=== PATIENT | female | born 1960 | race Caucasian/White ===

== ENCOUNTER 2019-06-13 15:23 | Emergency (ER) | payer MEDICARE, MEDICAID, SELFPAY ==
[2019-06-13 15:30] VITALS: BP 123/62; PULSE 81; RESP 20; TEMP 36.9; O2SAT 96
--- NOTE | 2019-06-13 15:33 | ED_ITS ---
HPI - General Adult General: Chief complaint: General Medical Stated complaint: GENERAL ILLNESS / ANXIETY / COUGH Time Seen by Provider: 06/13/19 15:26 History of Present Illness: HPI narrative: Patient arrived via ambulance for complaints of cough not feeling well flulike symptoms and anxiety. Patient's O2 and end-tidal CO2 was near perfect on right hand patient appears very anxious. Patient said she had a cough. Her main problem is been headache at times and not able to take her medication as prescribed due to lack of funds or possible ride to providers MD complaint: Cough Onset (ago): day(s) Associated symptoms: Reports cough, dyspnea and fevers/chills; Deny chest pain, headache(s), nausea, rash or vomiting Review of Systems Const: Reports: chills; Denies: fever or body aches Eyes: Denies: change in vision or blurry vision ENMT: Denies: throat pain or nasal congestion Card: Denies: chest pain or shortness of breath on exertion Resp: Reports: shortness of breath, productive cough and wheezing GI: Denies: abdominal pain, nausea or vomiting Musc: Denies: extremity pain Skin/Breast: Denies: rash Neuro: Denies: headache Psych: Reports: anxiety; Denies: depression Gamaliel/Lymph: Denies: easy bruising PFSH ED PFSH: Social History Smoking and tobacco status: current every day smoker Physical Exam Const: COMMON NORMALS: no apparent distress, average body habitus and oriented x3 HENMT: COMMON NORMALS: normocephalic HEAD & SCALP: normal to inspection and normocephalic FACE & SINUS: normal facial exam Eye: COMMON NORMALS: conjunctivae normal GENERAL EYE: normal appearance of both eyes CONJUNCTIVA: Yes conjunctivae normal Neck/C-Spine: COMMON NORMALS: no JVD Chest: COMMONS NORMALS: inspection of chest normal Resp: COMMON NORMALS: normal respiratory effort AUSCULTATION: rhonchi lower bilaterally and diminished lung sounds Cardio: COMMON NORMALS: no JVD, regular rate and regular rhythm RATE: regular rate RHYTHM: regular rhythm GI: COMMON NORMALS: normal to inspection, nondistended, normoactive bowel sounds Extremity: COMMON NORMALS: normal to inspection and full ROM Neuro: COMMON NORMALS: oriented x3 Course Vital Signs: Vital signs: Vital Signs Temperature 98.5 F 06/13/19 15:30 Pulse Rate 86 06/13/19 16:11 Respiratory Rate 22 H 06/13/19 16:11 Blood Pressure 123/62 06/13/19 15:30 Pulse Oximetry 94 06/13/19 16:11 [facility] - General Adult Lab Data: Labs: Lab Results 06/13/19 06/13/19 06/13/19 Range/Units 15:45 16:09 16:09 WBC 10.6 H (4.0-10.0) 10^3/ uL RBC 4.12 (4.1-5.3) 10^6/u L Hgb 12.0 (11.5-15.3) g/dL Hct 36.2 L (37.0-47.0) % MCV 87.9 (81-99) fL MCH 29.1 (28.0-34.0) pg MCHC 33.1 (30.0-36.0) g/dL RDW 12.6 (12.1-15.1) % Plt Count 302 (130-400) 10^3/c mm MPV 10.1 (7.4-10.4) fL Neut % (Auto) 67.2 % Lymph % (Auto) 22.7 % Edgar % (Auto) 8.5 % Eos % (Auto) 1.0 % Baso % (Auto) 0.3 % Neut # (Auto) 7.2 (1.8-7.7) 10^3/u L Lymph # (Auto) 2.4 (0.8-4.8) 10^3/u L Edgar # (Auto) 0.9 (0.2-0.9) 10^3/u L Eos # (Auto) 0.1 (0.0-0.8) 10^3/u L Baso # (Auto) 0.0 (0.0-0.1) 10^3/u L Nucleated RBC % (a uto) 0 % Nucleated RBCs # 0.0 /100WBC Lactic Acid 1.0 (0.5-2.2) mmol/L Influenza Type A A g Negative (Negative) POC Influenza B Ag Negative (Negative) EKG Data^: EKG 1: EKG interpretation date: 06/13/19 EKG interpretation time: 16:50 Interpretation: artifact, p wave present Computer generated interpretation: Chest X-Ray 06/13/19 15:35 Impression: Hyperinflation. Discharge Plan Discharge Patient Disposition: Home, Self-Care Clinical Impression: Anxiety Condition: Stable Prescriptions: No Action venlafaxine 75 mg capsule,extended release 24hr 75 mg PO DAILY RF: 0 ropinirole 1 mg Tablet 1 mg PO BID RF: 0 sulfasalazine 500 mg tablet 500 mg PO BID RF: 0 trazodone 50 mg Tablet 50 mg PO DAILY RF: 0 clonazepam 0.5 mg tablet 0.5 mg PO BID RF: 0 cyproheptadine 4 mg tablet 4 mg PO DAILY RF: 0 trazodone 100 mg tablet 100 mg PO BEDTIME RF: 0 pantoprazole 40 mg tablet,delayed release (DR/EC) 40 mg PO BID RF: 0 mupirocin 2 % ointment 1 applic TOPICAL DAILY RF: 0 aripiprazole 15 mg tablet 15 mg PO DAILY RF: 0 Referrals: Lorelei Weinberg DO [Primary Care Provider] - Discharge Diet: Usual diet Discharge Activity: Increase activity as tolerated Patient Instructions: How to Stop Smoking (ED), Anxiety (ED) Activity Restrictions/Additional Instructions: Follow-up with medical provider as directed. Take your medications as prescribed. Return to the ER or your medical provider if condition worsens. Please read and understand discharge instructions. If any questions ask please. Follow-up with behavioral health care as soon as possible to go over your anxiety condition. Can contact the [facility] transportation society to help with the transportation needs keep appointment as scheduled. Coding Level of Care Code ED Research Physician for Jeaneth Fwdivya Exam Comprehensive
--- NOTE | 2019-06-13 15:35 | ECG_ITS ---
Measurements Intervals [place] Rate: 100 P: [place]: 0 QRS: -39 QRSD: 87 T: 64 QT: 335 QTc: 433 Sinus tachycardia with multiform PVCs 1 couplet LEFT AXIS DEVIATION [QRS AXIS < -30] NONSPECIFIC T-WAVE ABNORMALITY Compared to ECG 08/09/2018 09:22:01 Ventricular premature complex(es) now present Left-axis deviation now present T-wave abnormality now present Myocardial infarct finding no longer present Electronically Signed On 06-14-2019 9:03:00 CDT by Gonsalo Singletary M.D. [email or web address]
--- NOTE | 2019-06-13 15:35 | XR_ITS ---
WS: [id number] Portable AP upright chest, 06/13/2019 Clinical Data: cough Comparison: Portable chest, 06/10/2018. Findings: No nodules, masses or effusions are seen. The heart is normal. The pulmonary vascularity is not increased. No pneumonia or pneumothorax is seen. There is minimal scarring along the left cardia c border unchanged. The diaphragms are flattened. There is plate and screw fixation of the midportion of the right clavicle. There is absence of the distal portion of the right clavicle. XR/XR chest 1V portable [id number] Impression: Hyperinflation.
[2019-06-13] MEDS: LORazepam 2 mg/mL INJ 1 mL IVP (15:44)
[2019-06-13] MEDS: ipratropium-albuterol 3 mL Neb INHALATION (16:04)
[2019-06-13 16:06] VITALS: PULSE 87; RESP 22; O2SAT 94
[2019-06-13 16:11] VITALS: PULSE 86; RESP 22; O2SAT 94
[2019-06-13 16:22] LABS: Influenza A by IFA Negative (Negative); Influenza B by IFA Negative (Negative)
[2019-06-13 16:25] LABS: Basophils % 0.3 %; Eosinophils # 0.1 10^3/uL (0.0-0.8); Hematocrit 36.2 % (37.0-47.0); Lymphocytes # 2.4 10^3/uL (0.8-4.8); Lymphocytes % 22.7 %; Mean Corpuscular HGB Conc 33.1 g/dL (30.0-36.0); Mean Corpuscular Hemoglobin 29.1 pg (28.0-34.0); Mean Corpuscular Volume 87.9 fL (81-99); Mean Platelet Volume 10.1 fL (7.4-10.4); Monocytes # 0.9 10^3/uL (0.2-0.9); Monocytes % 8.5 %; Neutrophils # 7.2 10^3/uL (1.8-7.7); Neutrophils % 67.2 %; Nucleated Red Blood Cells % 0 %; Platelet Count 302 10^3/cmm (130-400); Red Blood Count 4.12 10^6/uL (4.1-5.3); Red Cell Distribution Width 12.6 % (12.1-15.1); White Blood Count 10.6 10^3/uL (4.0-10.0)
[2019-06-13 17:03] VITALS: BP 118/78; PULSE 86; RESP 16; O2SAT 95
== END 2019-06-13 17:04 | disposition home or self-care (01) ==
PROVIDERS: Emergency Provider Nurse Practitioner Family; Family Provider Family Medicine; PCP Family Medicine
DX: F41.9 Anxiety disorder, unspecified (principal); F17.200 Nicotine dependence, unspecified, uncomplicated
CPT/HCPCS: 12345; 36415; 71045; 83605; 85025; 87804; 93005; 94640; 96374; 96375; 99282; 99283; J2060

== ENCOUNTER 2019-09-15 16:20 | Emergency (ER) | payer MEDICARE, MEDICAID, SELFPAY ==
[2019-09-15 16:34] VITALS: BP 163/116; PULSE 95; RESP 12; TEMP 36.7; O2SAT 98; BMI 20.7
--- NOTE | 2019-09-15 17:06 | ED_ITS ---
Documented by User: Arvind Baca DO 09/19/19 10:02 HPI - SOB/Dyspnea General: Chief Complaint: Shortness of Breath/Dyspnea Stated Complaint: sob Time Seen by Provider: 09/15/19 16:34 History of Present Illness: HPI Narrative: 58-year-old female comes in the emergency room complaining of neck pain she has her neck held on a torticollis- like position turned to the left. She states she took her regular medicines and then staggered herself this morning taking multiple energy drinks she cannot tell me what exactly she took. She is hyperventilating. She is complaining of shortness of breath cramping in her hands and feet. She denies any or GI GI symptoms she denies any chest pain. She is extremely anxious and tearful. She denies any recent trauma. There is no family members available to assist with history at this time. MD elicited complaint: shortness of breath Onset (ago): hour(s) Context: anxiety Timing: constant Severity: severe Exacerbating factors: movement Relieving factors: nothing Associated symptoms: Reports extremity pain, lightheadedness, myalgias, nausea and sense of impending doom; Deny chest congestion, chest pain, fever(s), orthopnea, polydipsia, polyuria, syncope or vomiting Treatment prior to arrival: none Review of Systems Const: Denies: fever(s), chills, body aches, change in appetite, fatigue or malaise ENMT: Denies: throat pain, ear or mastoid pain, nasal discharge or nasal congestion Card: Reports: lightheadedness; Denies: chest pain, syncope or orthopnea Resp: Denies: chest congestion GI: Reports: nausea; Denies: vomiting : Denies: flank pain, difficulty voiding, dysuria, urinary frequency or urinary urgency Musc: Reports: extremity pain Skin/Breast: Denies: rash or pruritus Endo: Denies: polyuria or polydipsia PFSH ED PFSH: Medical History (Updated 09/15/19 @ 19:55 by Obinna Dyer DO) Anxiety Crohn's colitis Surgical History (Updated 09/15/19 @ 17:18 by Arvind Baca DO) H/O tubal ligation H/O: hysterectomy S/P cholecystectomy S/P small bowel resection S/P splenectomy Status post tonsillectomy and adenoidectomy Social History Smoking and tobacco status: current every day smoker Physical Exam Const: ORIENTATION/CONSCIOUSNESS: Yes awake, Yes oriented to person, Yes oriented to place and Yes oriented to time HENMT: COMMON NORMALS: normocephalic, atraumatic, hearing grossly normal bilaterally, external ears normal, EAC's normal, TM's normal bilaterally, Normal nasal mucous membranes and turbinates present, moist oral mucous membranes and oropharynx normal HEAD & SCALP: normocephalic and atraumatic NOSE: Normal nasal mucous membranes and turbinates present EXTERNAL EAR: Yes external ears normal EXTERNAL AUDITORY CANAL: EAC's normal TYMPANIC MEMBRANE: TM's normal bilaterally Eye: COMMON NORMALS: Equal, round and reactive pupils present, EOMs intact bilaterally, conjunctivae normal and no scleral icterus CONJUNCTIVA: Yes conjunctivae normal PUPIL: Yes Equal, round and reactive pupils present Neck/C-Spine: COMMON NORMALS: full ROM, no lymphadenopathy, supple and no JVD Lymph: LYMPHATIC: no lymphadenopathy noted and no lymphedema noted Resp: COMMON NORMALS: normal respiratory effort, No retractions, No use of accessory muscles and clear to auscultation bilaterally AUSCULTATION: clear to auscultation bilaterally Cardio: COMMON NORMALS: no JVD, regular rate, regular rhythm and No murmurs present (Cardio) RATE: regular rate RHYTHM: regular rhythm GI: COMMON NORMALS: Soft to palpation and No hepatosplenomegaly present AUSCULTATION: Yes normoactive bowel sounds PALPATION: Yes Soft to palpation, No Tenderness to palpation present (GI), No Guarding due to palpation present (GI) and Yes No hepatosplenomegaly present Extremity: COMMON NORMALS: normal to inspection, capillary refill normal, no clubbing, cyanosis or edema, no calf tenderness and no pedal edema Neuro: SENSORIUM/ORIENTATION: Yes oriented to person, Yes oriented to place and Yes oriented to time Skin: COMMON NORMALS: no rashes or lesions noted GENERAL SKIN EXAM: no rashes or lesions noted Course Vital Signs: Vital signs: Vital Signs Temperature 98.0 F 09/15/19 16:34 Pulse Rate 78 09/15/19 20:27 Respiratory Rate 18 09/15/19 20:27 Blood Pressure 141/82 09/15/19 20:27 Pulse Oximetry 96 09/15/19 20:27 MDM - SOB/Dyspnea MDM Narrative: Medical decision making narrative: Care transferred to Dr. Gomez Anguiano at change of shift see his notes for final disposition. Lab Data: Labs: Lab Results 09/15/19 09/15/19 09/15/19 Range/Units 17:17 17:44 18:19 WBC 7.5 (4.0-10.0) 10^3/ uL RBC 4.21 (4.1-5.3) 10^6/u L Hgb 12.5 (11.5-15.3) g/dL Hct 38.8 (37.0-47.0) % MCV 92.2 (81-99) fL MCH 29.7 (28.0-34.0) pg MCHC 32.2 (30.0-36.0) g/dL RDW 14.0 (12.1-15.1) % Plt Count 263 (130-400) 10^3/c mm MPV 10.9 H (7.4-10.4) fL Neut % (Auto) 52.1 % Lymph % (Auto) 37.4 % [place] % (Auto) 8.6 % Eos % (Auto) 1.5 % Baso % (Auto) 0.1 % Neut # (Auto) 3.9 (1.8-7.7) 10^3/u L Lymph # (Auto) 2.8 (0.8-4.8) 10^3/u L [place] # (Auto) 0.6 (0.2-0.9) 10^3/u L Eos # (Auto) 0.1 (0.0-0.8) 10^3/u L Baso # (Auto) 0.0 (0.0-0.1) 10^3/u L Nucleated RBC % (a uto) 0 % Nucleated RBCs # 0.0 /100WBC Specimen Type Arterial Sample Site Radial, left ABG pH 7.47 H (7.35-7.45) ABG pCO2 31.3 L (35-45) mmHg ABG pO2 75.3 L (80.0-100.0) mmH g ABG HCO3 22.5 (22-26) mmol/L ABG O2 Saturation 94.7 ABG Base Excess -0.4 (-2.0-2.0) mmol/ L Nicolás Test Pos A-a O2 Gradient 83.6 H (5-10) mmHg Hematocrit 41.3 (37-47) % Hgb O2 Saturation 94.7 L (95-100) % Carboxyhemoglobin 1.4 (0.4-20.1) %THgb Total Hemoglobin 13.5 (12-16) g/dL Sodium 143.0 140 (131-143) mmol/L Potassium 4.5 3.6 (3.5-5.0) mmol/L Glucose 98.0 93 (70-115) mg/dL Ionized Calcium 1.2 (1.1-1.4) mmol/L O2 Delivery Device Nc O2 Liters/Min 2.0 % FiO2 28.0 % Clinical Dietitian ID cak Chloride 104 (98-107) mmol/L Carbon Dioxide 23 (22-29) mmol/L Anion Gap 16.6 (5-19) BUN 11 (8-23) mg/dL Creatinine 0.5 (0.5-0.9) mg/dL GFR Calculation 125.9 (90-130) mL/min Calculated Osmolal ity 286 (285-295) mOsm/k g Lactic Acid (Sepsi s) (0.5-2.2) mmol/L Calcium 10.2 (8.5-10.5) mg/dL Total Bilirubin 0.4 (0.15-1.2) mg/dL AST 22 (0-32) U/L ALT 12 (0-33) U/L Alkaline Phosphata se 97 (35-105) IU/L C-Reactive Protein 8.6 H (0.0-4.9) mg/L Total Protein 7.1 (6.6-8.7) g/dL Albumin 4.8 (3.5-5.2) g/dL Globulin 2.3 (1.3-4.6) g/dL Ethyl Alcohol < 10 (0-10) mg/dL 09/15/19 Range/Units 19:22 WBC (4.0-10.0) 10^3/ uL RBC (4.1-5.3) 10^6/u L Hgb (11.5-15.3) g/dL Hct (37.0-47.0) % MCV (81-99) fL MCH (28.0-34.0) pg MCHC (30.0-36.0) g/dL RDW (12.1-15.1) % Plt Count (130-400) 10^3/c mm MPV (7.4-10.4) fL Neut % (Auto) % Lymph % (Auto) % [place] % (Auto) % Eos % (Auto) % Baso % (Auto) % Neut # (Auto) (1.8-7.7) 10^3/u L Lymph # (Auto) (0.8-4.8) 10^3/u L [place] # (Auto) (0.2-0.9) 10^3/u L Eos # (Auto) (0.0-0.8) 10^3/u L Baso # (Auto) (0.0-0.1) 10^3/u L Nucleated RBC % (a uto) % Nucleated RBCs # /100WBC Specimen Type Sample Site ABG pH (7.35-7.45) ABG pCO2 (35-45) mmHg ABG pO2 (80.0-100.0) mmH g ABG HCO3 (22-26) mmol/L ABG O2 Saturation ABG Base Excess (-2.0-2.0) mmol/ L Nicolás Test A-a O2 Gradient (5-10) mmHg Hematocrit (37-47) % Hgb O2 Saturation (95-100) % Carboxyhemoglobin (0.4-20.1) %THgb Total Hemoglobin (12-16) g/dL Sodium (131-143) mmol/L Potassium (3.5-5.0) mmol/L Glucose (70-115) mg/dL Ionized Calcium (1.1-1.4) mmol/L O2 Delivery Device O2 Liters/Min % FiO2 % Clinical Dietitian ID Chloride (98-107) mmol/L Carbon Dioxide (22-29) mmol/L Anion Gap (5-19) BUN (8-23) mg/dL Creatinine (0.5-0.9) mg/dL GFR Calculation (90-130) mL/min Calculated Osmolal ity (285-295) mOsm/k g Lactic Acid (Sepsi s) 0.8 (0.5-2.2) mmol/L Calcium (8.5-10.5) mg/dL Total Bilirubin (0.15-1.2) mg/dL AST (0-32) U/L ALT (0-33) U/L Alkaline Phosphata se (35-105) IU/L C-Reactive Protein (0.0-4.9) mg/L Total Protein (6.6-8.7) g/dL Albumin (3.5-5.2) g/dL Globulin (1.3-4.6) g/dL Ethyl Alcohol (0-10) mg/dL Discharge Plan Discharge Patient Disposition: Home, Self-Care Clinical Impression: Acute torticollis, Acute hyperventilation syndrome Condition: Stable Prescriptions: New tizanidine 4 mg tablet 4 mg PO Q8H PRN (Reason: muscle spasticity) Qty: 10 RF: 0 No Action venlafaxine 75 mg capsule,extended release 24hr 75 mg PO DAILY RF: 0 ropinirole 1 mg Tablet 1 mg PO BID RF: 0 sulfasalazine 500 mg tablet 500 mg PO BID RF: 0 trazodone 50 mg Tablet 50 mg PO DAILY RF: 0 clonazepam 0.5 mg tablet 0.5 mg PO BID RF: 0 cyproheptadine 4 mg tablet 4 mg PO DAILY RF: 0 trazodone 100 mg tablet 100 mg PO BEDTIME RF: 0 pantoprazole 40 mg tablet,delayed release (DR/EC) 40 mg PO BID RF: 0 mupirocin 2 % ointment 1 applic TOPICAL DAILY RF: 0 aripiprazole 15 mg tablet 15 mg PO DAILY RF: 0 Discharge Orders: Discharge Order (Routine); Ordered 09/15/19 Ordered By: Obinna Dyer Referrals: Lorelei Weinberg DO [Primary Care Provider] - 4-7 days Discharge Diet: Usual diet Discharge Activity: Increase activity as tolerated Patient Instructions: Hyperventilation (ED), Spasmodic Torticollis (ED) Activity Restrictions/Additional Instructions: Return to the emergency room for fever greater than 100, worsening muscle spasm or pain, worsening shortness of breath despite treatment. Discharge Date/Time: 09/15/19 20:29 Coding Level of Care Code ED Coal Cutter for Chg Fwd Exam Comprehensive Documented by User: Obinna Dyer DO 09/16/19 03:13 HPI - SOB/Dyspnea General: Chief Complaint: Shortness of Breath/Dyspnea Stated Complaint: sob Time Seen by Provider: 09/15/19 16:34 [facility] ED PFSH: Medical History (Updated 09/15/19 @ 19:55 by Obinna Dyer DO) Anxiety Crohn's colitis Surgical History (Updated 09/15/19 @ 17:18 by Arvind Baca DO) H/O tubal ligation H/O: hysterectomy S/P cholecystectomy S/P small bowel resection S/P splenectomy Status post tonsillectomy and adenoidectomy Social History Smoking and tobacco status: current every day smoker Course ED course: 58-year-old lady checked out to me by Dr. Newby she presents with shortness of breath, hyperventilating. This is resolved now. She complained of neck pain with torticollis-like positioning. Her C-spine CT is negative, only showing some mild degenerative changes. She will be allowed discharge. Vital Signs: Vital signs: Vital Signs Temperature 98.0 F 09/15/19 16:34 Pulse Rate 78 09/15/19 20:27 Respiratory Rate 18 09/15/19 20:27 Blood Pressure 141/82 09/15/19 20:27 Pulse Oximetry 96 09/15/19 20:27 MDM - SOB/Dyspnea Lab Data: Labs: Lab Results 09/15/19 09/15/19 09/15/19 Range/Units 17:17 17:44 18:19 WBC 7.5 (4.0-10.0) 10^3/ uL RBC 4.21 (4.1-5.3) 10^6/u L Hgb 12.5 (11.5-15.3) g/dL Hct 38.8 (37.0-47.0) % MCV 92.2 (81-99) fL MCH 29.7 (28.0-34.0) pg MCHC 32.2 (30.0-36.0) g/dL RDW 14.0 (12.1-15.1) % Plt Count 263 (130-400) 10^3/c mm MPV 10.9 H (7.4-10.4) fL Neut % (Auto) 52.1 % Lymph % (Auto) 37.4 % [place] % (Auto) 8.6 % Eos % (Auto) 1.5 % Baso % (Auto) 0.1 % Neut # (Auto) 3.9 (1.8-7.7) 10^3/u L Lymph # (Auto) 2.8 (0.8-4.8) 10^3/u L [place] # (Auto) 0.6 (0.2-0.9) 10^3/u L Eos # (Auto) 0.1 (0.0-0.8) 10^3/u L Baso # (Auto) 0.0 (0.0-0.1) 10^3/u L Nucleated RBC % (a uto) 0 % Nucleated RBCs # 0.0 /100WBC Specimen Type Arterial Sample Site Radial, left ABG pH 7.47 H (7.35-7.45) ABG pCO2 31.3 L (35-45) mmHg ABG pO2 75.3 L (80.0-100.0) mmH g ABG HCO3 22.5 (22-26) mmol/L ABG O2 Saturation 94.7 ABG Base Excess -0.4 (-2.0-2.0) mmol/ L Nicolás Test Pos A-a O2 Gradient 83.6 H (5-10) mmHg Hematocrit 41.3 (37-47) % Hgb O2 Saturation 94.7 L (95-100) % Carboxyhemoglobin 1.4 (0.4-20.1) %THgb Total Hemoglobin 13.5 (12-16) g/dL Sodium 143.0 140 (131-143) mmol/L Potassium 4.5 3.6 (3.5-5.0) mmol/L Glucose 98.0 93 (70-115) mg/dL Ionized Calcium 1.2 (1.1-1.4) mmol/L O2 Delivery Device Nc O2 Liters/Min 2.0 % FiO2 28.0 % Clinical Dietitian ID cak Chloride 104 (98-107) mmol/L Carbon Dioxide 23 (22-29) mmol/L Anion Gap 16.6 (5-19) BUN 11 (8-23) mg/dL Creatinine 0.5 (0.5-0.9) mg/dL GFR Calculation 125.9 (90-130) mL/min Calculated Osmolal ity 286 (285-295) mOsm/k g Lactic Acid (Sepsi s) (0.5-2.2) mmol/L Calcium 10.2 (8.5-10.5) mg/dL Total Bilirubin 0.4 (0.15-1.2) mg/dL AST 22 (0-32) U/L ALT 12 (0-33) U/L Alkaline Phosphata se 97 (35-105) IU/L C-Reactive Protein 8.6 H (0.0-4.9) mg/L Total Protein 7.1 (6.6-8.7) g/dL Albumin 4.8 (3.5-5.2) g/dL Globulin 2.3 (1.3-4.6) g/dL Ethyl Alcohol < 10 (0-10) mg/dL 09/15/19 Range/Units 19:22 WBC (4.0-10.0) 10^3/ uL RBC (4.1-5.3) 10^6/u L Hgb (11.5-15.3) g/dL Hct (37.0-47.0) % MCV (81-99) fL MCH (28.0-34.0) pg MCHC (30.0-36.0) g/dL RDW (12.1-15.1) % Plt Count (130-400) 10^3/c mm MPV (7.4-10.4) fL Neut % (Auto) % Lymph % (Auto) % [place] % (Auto) % Eos % (Auto) % Baso % (Auto) % Neut # (Auto) (1.8-7.7) 10^3/u L Lymph # (Auto) (0.8-4.8) 10^3/u L [place] # (Auto) (0.2-0.9) 10^3/u L Eos # (Auto) (0.0-0.8) 10^3/u L Baso # (Auto) (0.0-0.1) 10^3/u L Nucleated RBC % (a uto) % Nucleated RBCs # /100WBC Specimen Type Sample Site ABG pH (7.35-7.45) ABG pCO2 (35-45) mmHg ABG pO2 (80.0-100.0) mmH g ABG HCO3 (22-26) mmol/L ABG O2 Saturation ABG Base Excess (-2.0-2.0) mmol/ L Nicolás Test A-a O2 Gradient (5-10) mmHg Hematocrit (37-47) % Hgb O2 Saturation (95-100) % Carboxyhemoglobin (0.4-20.1) %THgb Total Hemoglobin (12-16) g/dL Sodium (131-143) mmol/L Potassium (3.5-5.0) mmol/L Glucose (70-115) mg/dL Ionized Calcium (1.1-1.4) mmol/L O2 Delivery Device O2 Liters/Min % FiO2 % Clinical Dietitian ID Chloride (98-107) mmol/L Carbon Dioxide (22-29) mmol/L Anion Gap (5-19) BUN (8-23) mg/dL Creatinine (0.5-0.9) mg/dL GFR Calculation (90-130) mL/min Calculated Osmolal ity (285-295) mOsm/k g Lactic Acid (Sepsi s) 0.8 (0.5-2.2) mmol/L Calcium (8.5-10.5) mg/dL Total Bilirubin (0.15-1.2) mg/dL AST (0-32) U/L ALT (0-33) U/L Alkaline Phosphata se (35-105) IU/L C-Reactive Protein (0.0-4.9) mg/L Total Protein (6.6-8.7) g/dL Albumin (3.5-5.2) g/dL Globulin (1.3-4.6) g/dL Ethyl Alcohol (0-10) mg/dL Discharge Plan Discharge Patient Disposition: Home, Self-Care Clinical Impression: Acute torticollis, Acute hyperventilation syndrome Condition: Stable Prescriptions: New tizanidine 4 mg tablet 4 mg PO Q8H PRN (Reason: muscle spasticity) Qty: 10 RF: 0 No Action venlafaxine 75 mg capsule,extended release 24hr 75 mg PO DAILY RF: 0 ropinirole 1 mg Tablet 1 mg PO BID RF: 0 sulfasalazine 500 mg tablet 500 mg PO BID RF: 0 trazodone 50 mg Tablet 50 mg PO DAILY RF: 0 clonazepam 0.5 mg tablet 0.5 mg PO BID RF: 0 cyproheptadine 4 mg tablet 4 mg PO DAILY RF: 0 trazodone 100 mg tablet 100 mg PO BEDTIME RF: 0 pantoprazole 40 mg tablet,delayed release (DR/EC) 40 mg PO BID RF: 0 mupirocin 2 % ointment 1 applic TOPICAL DAILY RF: 0 aripiprazole 15 mg tablet 15 mg PO DAILY RF: 0 Discharge Orders: Discharge Order (Routine); Ordered 09/15/19 Ordered By: Obinna Dyer Referrals: Lorelei Weinberg DO [Primary Care Provider] - 4-7 days Discharge Diet: Usual diet Discharge Activity: Increase activity as tolerated Patient Instructions: Hyperventilation (ED), Spasmodic Torticollis (ED) Activity Restrictions/Additional Instructions: Return to the emergency room for fever greater than 100, worsening muscle spasm or pain, worsening shortness of breath despite treatment. Discharge Date/Time: 09/15/19 20:29 Coding Level of Care Code ED Coal Cutter for Suelleng Fwd Exam Comprehensive
--- NOTE | 2019-09-15 17:07 | CTR_ITS ---
PROCEDURE INFORMATION: Exam: CT Cervical Spine Without Contrast Exam date and time: 09/15/2019 5:55 PM Age: 58 years old Clinical indication: Patient HX: Woke up w neck pain and LAMBERT TECHNIQUE: Imaging protocol: Computed tomography images of the cervical spine without contrast. Radiation optimization: All CT scans at this facility use at least one of these dose optimization techniques: automated exposure control; mA and/or kV adjustment per patient size (includes targeted exams where dose is matched to clinical indication); or iterative reconstruction. COMPARISON: No relevant prior studies available. RADIATION DOSE METRICS: Total DLP: 303.82 mGy-cm FINDINGS: Vertebrae: There is decreased height of the C6-C7 disc space with small anterior osteophytes. No fracture is identified. Discs/Spinal canal/Neural foramina: No significant disc protrusion. No severe spinal canal stenosis. No significant neural foraminal narrowing. Soft tissues: Unremarkable. Lungs: There is scarring in the apical regions. CT/CT cervical spin wo con* [id number] IMPRESSION: Mild degenerative changes. No fracture is identified. Radiation Dose CTDIVOL = (mGy): DLP = 303.82 (mGy-cm)
--- NOTE | 2019-09-15 17:07 | XRR_ITS ---
PROCEDURE INFORMATION: Exam: XR Chest, 1 View Exam date and time: 09/15/2019 5:22 PM Age: 58 years old Clinical indication: Chest pain; Additional info: Dyspnea/cough TECHNIQUE: Imaging protocol: XR of the chest Views: 1 view. COMPARISON: No relevant prior studies available. FINDINGS: Lungs: There are COPD changes in both lungs. There are few small calcified granuloma in keeping with old granulomatous disease. No focal infiltrate is identified. Pleural space: Unremarkable. No pleural effusion. No pneumothorax. Heart/Mediastinum: Heart is within normal limits of size. Bones/joints: There is old healed fracture of the right clavicle post internal fixation with metallic hardware. XR/XR chest 1V portable [id number] IMPRESSION: No acute infiltrate.
[2019-09-15 17:08] VITALS: PULSE 96; RESP 18; O2SAT 97
[2019-09-15 17:29] LABS: ABG PCO2 31.3 mmHg (35-45); ABG PH Result 7.47 (7.35-7.45); Alveolar-Arterial Oxygen Gradi 83.6 mmHg (5-10); Arterial Blood Gas Hematocrit 41.3 % (37-47); Base Excess ABG -0.4 mmol/L (-2.0-2.0); Blood Gas Allen Test Pos; Blood Gas Sample Site Radial, left; Blood Gas Sample Type Arterial; Carboxyhemoglobin 1.4 %THgb (0.4-20.1); HCO3 ABG 22.5 mmol/L (22-26); HGB O2 Sat 94.7 % (95-100); Ionized Calcium Level - ABG 1.2 mmol/L (1.1-1.4); Oxygen Device NC; Oxygen Saturation ABG 94.7; PO2 ABG 75.3 mmHg (80.0-100.0); Potassium Level - ABG 4.5 mmol/L (3.5-5.0); Total Hemoglobin 13.5 g/dL (12-16)
[2019-09-15 17:49] LABS: Basophils % 0.1 %; Eosinophils # 0.1 10^3/uL (0.0-0.8); Eosinophils % 1.5 %; Hematocrit 38.8 % (37.0-47.0); Hemoglobin 12.5 g/dL (11.5-15.3); Lymphocytes # 2.8 10^3/uL (0.8-4.8); Lymphocytes % 37.4 %; Mean Corpuscular HGB Conc 32.2 g/dL (30.0-36.0); Mean Corpuscular Hemoglobin 29.7 pg (28.0-34.0); Mean Corpuscular Volume 92.2 fL (81-99); Mean Platelet Volume 10.9 fL (7.4-10.4); Monocytes # 0.6 10^3/uL (0.2-0.9); Monocytes % 8.6 %; Neutrophils # 3.9 10^3/uL (1.8-7.7); Neutrophils % 52.1 %; Nucleated Red Blood Cells % 0 %; Platelet Count 263 10^3/cmm (130-400); Red Blood Count 4.21 10^6/uL (4.1-5.3); White Blood Count 7.5 10^3/uL (4.0-10.0)
[2019-09-15] MEDS: diphenhydrAMINE 50 mg/mL SDV 1mL IVP (17:54)
[2019-09-15 18:08] VITALS: BP 176/89; PULSE 94; RESP 18; O2SAT 99
[2019-09-15 19:27] LABS: Alanine Aminotransferase 12 U/L (0-33); Albumin Level 4.8 g/dL (3.5-5.2); Alkaline Phosphatase 97 IU/L (35-105); Anion Gap 16.6 (5-19); Aspartate Amino Transferase 22 U/L (0-32); Blood Urea Nitrogen 11 mg/dL (8-23); Calcium 10.2 mg/dL (8.5-10.5); Carbon Dioxide 23 mmol/L (22-29); Chloride 104 mmol/L (98-107); Globulin 2.3 g/dL (1.3-4.6); Glomerular Filtration Rate 125.9 mL/min (90-130); Glucose 93 mg/dL (65-115); Osmolality Calculated 286 mOsm/kg (285-295); Potassium 3.6 mmol/L (3.5-5.1); Sodium 140 mmol/L (136-145); Total Bilirubin 0.4 mg/dL (0.15-1.2); Total Protein 7.1 g/dL (6.6-8.7)
[2019-09-15 19:33] LABS: Alcohol Level < 10 mg/dL (0-10)
[2019-09-15 19:38] LABS: Lactic Acid level (Lactate) 0.8 mmol/L (0.5-2.2)
[2019-09-15 19:48] LABS: C Reactive Protein 8.6 mg/L (0.0-4.9)
[2019-09-15 20:27] VITALS: BP 141/82; PULSE 78; RESP 18; O2SAT 96
== END 2019-09-15 20:29 | disposition home or self-care (01) ==
PROVIDERS: Family Medicine; Emergency Provider Emergency Medicine; PCP Family Medicine
DX: M43.6 Torticollis (principal); F45.8 Other somatoform disorders; F17.210 Nicotine dependence, cigarettes, uncomplicated; Z79.899 Other long term (current) drug therapy
CPT/HCPCS: 12345; 36600; 71045; 72125; 80051; 80053; 80307; 82810; 83605; 83986; 85025; 86140; 96374; 96375; 99283; 99284; J1200; J2930

== ENCOUNTER 2020-07-26 15:04 | Inpatient (IN) | payer MEDICARE, MEDICAID, SELFPAY ==
[2020-07-26] VITALS (48 sets, daily range): BP systolic 124–168; BP diastolic 71–125; PULSE 60–124; RESP 14–28; TEMP 36.8–37.3; O2SAT 90–100; BMI 22.3
--- NOTE | 2020-07-26 15:13 | CT_ITS ---
WS: [id number] CT HEAD TECHNIQUE: Noncontrast CT of the head obtained from the skullbase to the vertex. CLINICAL INFORMATION: Symptoms of Acute Stroke COMPARISON: CT 11 018 DLP: [address] scans at [facility] use at least one of these dose optimization techniques: automat ed exposure control; mA and/or kV adjustment per patient size (includes targeted exams where dose is matched to clinical indication); or iterative reconstruction. FINDINGS: No evidence of intracranial hemorrhage or mass effect. Ventricular system and basal cisterns are huynh nt. Mild small vessel changes with mild parenchymal volume loss. No extra-axial fluid collections. No evidence of mass or mass effect. Normal parish-white differentiation. Paranasal sinuses and mastoid air cells are well aerated. .Normal visualized soft tissues. CT/CT head wo con* [id number] IMPRESSION: 1. No evidence of intracranial hemorrhage or mass effect. 2. Mild small vessel changes. Mild parenchymal volume loss. 3. No acute intracranial findings. Notified Arvind Baca DO at 07/26/2020 3:44 PM.
--- NOTE | 2020-07-26 15:13 | ECG_ITS ---
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 Measurements Intervals [place] Rate: 72 P: 69 GA: 154 QRS: 57 QRSD: 97 T: 63 QT: 401 QTc: 440 Interpretive Statements SINUS RHYTHM SEPTAL MYOCARDIAL INFARCTION , PROBABLY OLD [40+ ms Q WAVE IN V1/V2] Compared to ECG 06/13/2019 16:50:01 Myocardial infarct finding now present Sinus tachycardia no longer present Ventricular premature complex(es) no longer present Left-axis deviation no longer present T-wave abnormality no longer present Electronically Signed On 07-27-2020 5:17:24 CDT by Toya Kidd M.D. [id number]
--- NOTE | 2020-07-26 15:14 | ED_ITS ---
HPI - Neuro Symptoms/Deficit General: Chief Complaint: Neuro Symptoms/Deficit Stated Complaint: STROKE LIKE SYMPTOMS Time Seen by Provider: 07/26/20 15:08 History of Present Illness: HPI Narrative: 59-year-old female who is being transported by [facility]'s deputy when she began to have difficulty speaking deputy recognized something was acutely wrong and called 911 for medical assistance. The discharge step he was talking to her while in route and she gives the last normal time at approximately 2:20 PM. On arrival here CT was done. Dr. Keen seen the patient via telemedicine and then came to the department. Difficult to stroke score because patient not able to answer some questions particularly visual difficulties. She does make effort to follow commands. Rough estimate of NIH score on initial exam was 17 . Time: 15:04 Last Observed Normal: 14:20 Timing confirmed by: other ([place] that was transporting the patient) Location: speech, dysarthria, right arm, right leg, ataxia and altered Severity: severe Quality: weak Relieving factors: none Exacerbating factors: none On Anticoagulants: Yes (Has not taken for the last 3 days she did not have access to the medication) Review of Systems General: Reports: ROS unobtainable due to medical condition PFS ED PFSH: Medical History Anxiety Crohn's colitis Surgical History H/O tubal ligation H/O: hysterectomy S/P cholecystectomy S/P small bowel resection S/P splenectomy Status post tonsillectomy and adenoidectomy Social History Smoking and tobacco status: current every day smoker NIH stroke score NIHSS: Level Of Consciousness - 1a: 0 Level Of Consciousness Questions - 1b: Both Correct Level Of Consciousness Commands - 1c: Both Correct Best Gaze - 2: Normal Visual Rodriguez - 3: No Visual Loss Facial Palsy - 4: Normal Motor Arm Right - 5: Effort Against [place] Motor Arm Left - 5: No Effort Against [place] Motor Leg Right - 6: Drift Motor Leg Left - 6: Effort Against [place] Limb Ataxia - 7: Present In Two Limbs Sensory - 8: Severe To Total Loss Best Language - 9: Mild/Moderate Aphasia Dysarthia - 10: Severe Dysarthia Extinction And Inattention - 11: 2 Score: Total Score: 17 Physical Exam HENMT: COMMON NORMALS: normocephalic, atraumatic and hearing grossly normal bilaterally HEAD & SCALP: normocephalic and atraumatic Neck/C-Spine: COMMON NORMALS: full ROM, no lymphadenopathy, supple and no JVD Resp: COMMON NORMALS: normal respiratory effort, No retractions, No use of accessory muscles and clear to auscultation bilaterally AUSCULTATION: clear to auscultation bilaterally Cardio: COMMON NORMALS: no JVD, regular rate, regular rhythm and No murmurs present (Cardio) RATE: regular rate RHYTHM: regular rhythm GI: COMMON NORMALS: Soft to palpation and No hepatosplenomegaly present AUSCULTATION: Yes normoactive bowel sounds PALPATION: Yes Soft to palpation, No Tenderness to palpation present (GI), No Guarding due to palpation present (GI) and Yes No hepatosplenomegaly present Course Vital Signs: Vital signs: Vital Signs Temperature 98.2 F 07/28/20 14:44 Pulse Rate 66 07/28/20 14:44 Respiratory Rate 17 07/28/20 14:44 Blood Pressure 101/58 07/28/20 14:44 Pulse Oximetry 99 07/28/20 14:44 MDM - Neuro Symptoms/Deficit MDM Narrative: Medical decision making narrative: Stroke alert called Dr. Keen consulted stroke score and timeframe are within parameters Dr. Keen recommended TPA TPA was initiated patient admitted to ICU under post TPA stroke protocols Dr. Keen consulted did have improvement while in the emergency room. Lab Data: Labs: Lab Results 07/26/20 07/26/20 07/26/20 Range/Units 15:20 15:20 15:20 WBC 5.2 (4.0-10.0) 10^3/ uL RBC 4.40 (4.1-5.3) 10^6/u L Hgb 12.7 (11.5-15.3) g/dL Hct 40.2 (37.0-47.0) % MCV 91.4 (81-99) fL MCH 28.9 (28.0-34.0) pg MCHC 31.6 (30.0-36.0) g/dL RDW 13.9 (12.1-15.1) % Plt Count 267 (130-400) 10^3/c mm MPV 11.0 H (7.4-10.4) fL Neut % (Auto) 51.1 % Lymph % (Auto) 37.2 % [place] % (Auto) 9.2 % Eos % (Auto) 1.9 % Baso % (Auto) 0.4 % Neut # (Auto) 2.66 (1.8-7.7) 10^3/u L Lymph # (Auto) 1.9 (0.8-4.8) 10^3/u L [place] # (Auto) 0.5 (0.2-0.9) 10^3/u L Eos # (Auto) 0.1 (0.0-0.8) 10^3/u L Baso # (Auto) 0.0 (0.0-0.1) 10^3/u L Nucleated RBC % (a uto) 0 % Nucleated RBCs # 0.0 /100WBC PT Cancelled INR Cancelled APTT Cancelled Sodium 140 (136-145) mmol/L Potassium 4.2 (3.5-5.1) mmol/L Chloride 103 (98-107) mmol/L Carbon Dioxide 25 (22-29) mmol/L Anion Gap 16.2 (5-19) BUN 8 (8-23) mg/dL Creatinine 0.4 L (0.5-0.9) mg/dL GFR Calculation 162.3 H (90-130) mL/min Glucose 100 (65-115) mg/dL Calculated Osmolal ity 288 (285-295) mOsm/k g Calcium 9.0 (8.5-10.5) mg/dL Total Bilirubin 0.3 (0.15-1.2) mg/dL AST 25 (0-32) U/L ALT 18 (0-33) U/L Alkaline Phosphata se 106 H (35-105) IU/L Total Protein 7.1 (6.6-8.7) g/dL Albumin 4.5 (3.5-5.2) g/dL Globulin 2.6 (1.3-4.6) g/dL Urine Color (Yellow) Urine Appearance (CLEAR) Urine pH (5-7) Ur Specific Gravit y (1.005-1.030) Urine Protein (Negative) Urine Glucose (UA) (Normal) Urine Ketones (Negative) Urine Blood (Negative) Urine Nitrate (Negative) Urine Bilirubin (Negative) Urine Urobilinogen (Negative) mg/dL Ur Leukocyte Annalise ase (Negative) Urine Opiates Scre en (Negative) ng/mL Ur Barbiturates Sc reen (Negative) ng/mL Ur Phencyclidine S crn (Negative) ng/mL Ur Amphetamines Sc reen (Negative) ng/mL U Benzodiazepines Scrn (Negative) ng/mL Urine Cocaine Scre en (Negative) ng/mL U Marijuana (THC) Screen (Negative) ng/mL 07/26/20 07/26/20 07/26/20 Range/Units 15:54 15:54 17:06 WBC (4.0-10.0) 10^3/ uL RBC (4.1-5.3) 10^6/u L Hgb (11.5-15.3) g/dL Hct (37.0-47.0) % MCV (81-99) fL MCH (28.0-34.0) pg MCHC (30.0-36.0) g/dL RDW (12.1-15.1) % Plt Count (130-400) 10^3/c mm MPV (7.4-10.4) fL Neut % (Auto) % Lymph % (Auto) % [place] % (Auto) % Eos % (Auto) % Baso % (Auto) % Neut # (Auto) (1.8-7.7) 10^3/u L Lymph # (Auto) (0.8-4.8) 10^3/u L [place] # (Auto) (0.2-0.9) 10^3/u L Eos # (Auto) (0.0-0.8) 10^3/u L Baso # (Auto) (0.0-0.1) 10^3/u L Nucleated RBC % (a uto) % Nucleated RBCs # /100WBC PT 14.90 INR 1.13 APTT 30.3 Sodium (136-145) mmol/L Potassium (3.5-5.1) mmol/L Chloride (98-107) mmol/L Carbon Dioxide (22-29) mmol/L Anion Gap (5-19) BUN (8-23) mg/dL Creatinine (0.5-0.9) mg/dL GFR Calculation (90-130) mL/min Glucose (65-115) mg/dL Calculated Osmolal ity (285-295) mOsm/k g Calcium (8.5-10.5) mg/dL Total Bilirubin (0.15-1.2) mg/dL AST (0-32) U/L ALT (0-33) U/L Alkaline Phosphata se (35-105) IU/L Total Protein (6.6-8.7) g/dL Albumin (3.5-5.2) g/dL Globulin (1.3-4.6) g/dL Urine Color Yellow (Yellow) Urine Appearance Clear (CLEAR) Urine pH 7 (5-7) Ur Specific Gravit y 1.005 (1.005-1.030) Urine Protein Neg (Negative) Urine Glucose (UA) Norm (Normal) Urine Ketones Negative (Negative) Urine Blood Neg (Negative) Urine Nitrate Negative (Negative) Urine Bilirubin Neg (Negative) Urine Urobilinogen Norm (Negative) mg/dL Ur Leukocyte Annalise ase Negative (Negative) Urine Opiates Scre en Negative (Negative) ng/mL Ur Barbiturates Sc reen Negative (Negative) ng/mL Ur Phencyclidine S crn Negative (Negative) ng/mL Ur Amphetamines Sc reen Positive H (Negative) ng/mL U Benzodiazepines Scrn Negative (Negative) ng/mL Urine Cocaine Scre en Negative (Negative) ng/mL U Marijuana (THC) Screen Positive H (Negative) ng/mL Critical Care Time Critical Care Time: Critical Care Time: Yes Total Critical Care Time: 30 Attestation: This case had a high probability of a clinically significant, sudden, or life threatening deterioration of this patient's condition which required my full and direct attention, intervention and personal management. 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
--- NOTE | 2020-07-26 15:36 | CTR_ITS ---
PROCEDURE INFORMATION: Exam: CT Angiography Head With Contrast, Arteriography Exam date and time: 07/26/2020 4:25 PM Age: 59 years old Clinical indication: Speech disturbance; Slurred speech; Prior surgery; Surgery type: Clavicle; Additional info: Acute CVA TECHNIQUE: Imaging protocol: Computed tomography angiography of the head with contrast. Exam focused on the arteries. 3D rendering (Not supervised by radiologist): MIP and/or 3D reconstructed images were created by the technologist. Radiation optimization: All CT scans at this facility use at least one of these dose optimization techniques: automated exposure control; mA and/or kV adjustment per patient size (includes targeted exams where dose is matched to clinical indication); or iterative reconstruction. Contrast material: OMNI 350; Contrast volume: 95 ml; Contrast route: INTRAVENOUS (IV); COMPARISON: CT head wo con* [id number] 07/26/2020 3:16 PM RADIATION DOSE METRICS: Total DLP (mGy-cm): 1943.66 FINDINGS: ANTERIOR CIRCULATION: Right internal carotid artery: There is moderate atherosclerotic disease in the cavernous portion of the right internal carotid artery without significant stenosis. Right middle cerebral artery: Unremarkable. No occlusion or significant stenosis. No aneurysm. Right anterior cerebral artery: Unremarkable. No occlusion or significant stenosis. No aneurysm. Left internal carotid artery: There is moderate atherosclerotic disease in the cavernous portion of the left internal carotid artery without significant stenosis. Left middle cerebral artery: Unremarkable. No occlusion or significant stenosis. No aneurysm. Left anterior cerebral artery: Unremarkable. No occlusion or significant stenosis. No aneurysm. POSTERIOR CIRCULATION: Right vertebral artery: Unremarkable. No occlusion or significant stenosis. No aneurysm. Left vertebral artery: Unremarkable. No occlusion or significant stenosis. No aneurysm. Basilar artery: Unremarkable. No occlusion or significant stenosis. No aneurysm. Right posterior cerebral artery: Unremarkable. No occlusion or significant stenosis. No aneurysm. Left posterior cerebral artery: Unremarkable. No occlusion or significant stenosis. No aneurysm. Veins: Dural venous sinuses are patent. Brain: No definite mass, mass effect, or midline shift. Cerebral ventricles: No ventriculomegaly. Bones/joints: Unremarkable. No acute fracture. Soft tissues: Unremarkable. IMPRESSION: 1. No arterial occlusion or aneurysm. 2. Less than 50% stenosis in the cavernous portion of the internal carotid artery bilaterally. PROCEDURE INFORMATION: Exam: CT Angiography Neck With Contrast Exam date and time: 07/26/2020 4:25 PM Age: 59 years old Clinical indication: Speech disturbance; Slurred speech; Prior surgery; Surgery type: Clavicle; Additional info: Acute CVA TECHNIQUE: Imaging protocol: Computed tomography angiography of the neck with contrast. 3D rendering (Not supervised by radiologist): MIP and/or 3D reconstructed images were created by the technologist. Radiation optimization: All CT scans at this facility use at least one of these dose optimization techniques: automated exposure control; mA and/or kV adjustment per patient size (includes targeted exams where dose is matched to clinical indication); or iterative reconstruction. Contrast material: OMNI 350; Contrast volume: 95 ml; Contrast route: INTRAVENOUS (IV); COMPARISON: CT head wo con* [id number] 07/26/2020 3:16 PM RADIATION DOSE METRICS: Total DLP (mGy-cm): 3.66 FINDINGS: Right common carotid artery: No stenosis. No dissection or occlusion. Right internal carotid artery: There is mild atherosclerotic disease at the origin of the right internal carotid artery with less than 50% stenosis. Right external carotid artery: No occlusion or stenosis of the origin. Right vertebral artery: No stenosis. No dissection or occlusion. Left common carotid artery: No stenosis. No dissection or occlusion. Left internal carotid artery: There is mild atherosclerotic disease at the origin of the left internal carotid artery with less than 50% stenosis. Left external carotid artery: No occlusion or stenosis of the origin. Left vertebral artery: No stenosis. No dissection or occlusion. Bones/joints: There is plate and screw fixation of the right clavicle.There is mild degenerative disc disease in the cervical spine. Soft tissues: Soft tissues in the neck and thoracic inlet are unremarkable. Lungs: There is mild bilateral apical subpleural scarring. CT/CT angio headneck* [id number] IMPRESSION: No arterial stenosis, occlusion or dissection. REFERENCES: NASCET CRITERIA. The degree of internal carotid artery stenosis is based on NASCET criteria. Normal is no stenosis. Mild is less than 50% stenosis. Moderate is 50-69% stenosis. Severe is 70% to 99% stenosis. Total occlusion is no detectable patent lumen. Radiation Dose CTDIVOL = (mGy): DLP = 1943.66~1943.66 (mGy-cm)
[2020-07-26 15:44] LABS: Basophils % 0.4 %; Eosinophils # 0.1 10^3/uL (0.0-0.8); Eosinophils % 1.9 %; Hematocrit 40.2 % (37.0-47.0); Hemoglobin 12.7 g/dL (11.5-15.3); Lymphocytes # 1.9 10^3/uL (0.8-4.8); Lymphocytes % 37.2 %; Mean Corpuscular HGB Conc 31.6 g/dL (30.0-36.0); Mean Corpuscular Hemoglobin 28.9 pg (28.0-34.0); Mean Corpuscular Volume 91.4 fL (81-99); Monocytes # 0.5 10^3/uL (0.2-0.9); Monocytes % 9.2 %; Neutrophils # 2.66 10^3/uL (1.8-7.7); Neutrophils % 51.1 %; Nucleated Red Blood Cells % 0 %; Platelet Count 267 10^3/cmm (130-400); Red Cell Distribution Width 13.9 % (12.1-15.1); White Blood Count 5.2 10^3/uL (4.0-10.0)
[2020-07-26 15:53] LABS: Alanine Aminotransferase 18 U/L (0-33); Albumin Level 4.5 g/dL (3.5-5.2); Alkaline Phosphatase 106 IU/L (35-105); Blood Urea Nitrogen 8 mg/dL (8-23); Carbon Dioxide 25 mmol/L (22-29); Chloride 103 mmol/L (98-107); Globulin 2.6 g/dL (1.3-4.6); Glomerular Filtration Rate 162.3 mL/min (90-130); Glucose 100 mg/dL (65-115); Osmolality Calculated 288 mOsm/kg (285-295); Sodium 140 mmol/L (136-145); Total Bilirubin 0.3 mg/dL (0.15-1.2); Total Protein 7.1 g/dL (6.6-8.7)
[2020-07-26 15:57] LABS: Anion Gap 16.2 (5-19); Aspartate Amino Transferase 25 U/L (0-32); Potassium 4.2 mmol/L (3.5-5.1)
[2020-07-26 16:25] LABS: Add Urine Microscopic? NO; Charge for UA Resulting for Rev
[2020-07-26 16:28] LABS: Bilirubin Urine Neg (Negative); Blood Urine Neg (Negative); Glucose Urine UA Norm (Normal); Ketones Urine Negative (Negative); Leukocyte Esterase Urine Negative (Negative); Nitrate Urine Negative (Negative); Protein Urine Neg (Negative); Specific Gravity, Urine 1.005 (1.005-1.030); Urine Appearance Clear (CLEAR); Urine Color Yellow (Yellow); Urobilinogen Urine Norm (Negative); pH Urine 7 (5-7)
[2020-07-26 16:37] LABS: Amphetamines Screen Urine Positive (Negative); Barbiturates Screen Urine Negative (Negative); Benzodiazepines Screen Urine Negative (Negative); Cocaine Screen Urine Negative (Negative); Opiate Screen Urine Negative (Negative); PCP Screen Urine Negative (Negative); THC Screen Urine Positive (Negative)
[2020-07-26] MEDS: iohexol 350 mg/mL 100 mL Btl IV (17:03)
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
[2020-07-26 17:24] LABS: INR 1.13 (0.8-1.2); Partial Thromboplastin Time 30.3 SECONDS (23.9-36.7)
--- NOTE | 2020-07-26 18:48 | PM.HP ---
Providers/Chief Complaint Admitting Physician: Betty Roger MD Primary Care Provider: Lorelei Weinberg DO Chief Complaint: STROKE LIKE SYMPTOMS History of Present Illness Gwen Briones is a 59 year old female who was being transferred between [facility] by the [facility], when she suddenly was noted to become very drowsy, unable to move her left side, difficult to awaken. She was brought to ER, stroke code activated, seen by neurology. Her CT scan of the head did not show any acute changes. patient had flaccid left hemiplegia and profound dysarthria. tPa was given at 1516. NISS on admission 11. Review of Systems General: Reports: 10 or more systems reviewed and unremarkable except in HPI and below Const: Denies: fever(s), chills or body aches Eyes: Denies: change in vision, blurry vision or photophobia ENMT: Reports: hoarseness; Denies: throat pain, enlarged tonsils, odynophagia or nasal congestion Card: Denies: chest pain, palpitations, irregular heart rhythm, edema, swelling of feet/ankles, lightheadedness, pre-syncope, dyspnea on exertion or orthopnea Resp: Denies: dyspnea, productive cough, non-productive cough, wheezing, stridor, pain on inspiration, change in phlegm color, hemoptysis or chest congestion GI: Denies: abdominal pain, nausea, vomiting, hematemesis, coffee ground emesis, dysphagia, heartburn, diarrhea, constipation, GI cramping, change in stool character, hematochezia or melena : Denies: flank pain, difficulty voiding, dysuria, urinary frequency, urinary urgency, urinary hesitancy or hematuria Musc: Denies: neck pain, back pain, extremity pain, joint swelling, joint warmth or deformity Neuro: Denies: headache(s), numbness in extremities, weakness in extremities, sensory changes, difficulty walking, frequent falls, dizziness, vertigo, behavioral changes, Slurred speech present or seizure-like activity Psych: Denies: anxiety, depression, suicidal ideation or homicidal ideation Endo: Denies: polyuria, polydipsia, tired all the time, cold intolerance or hot flashes Gamaliel/Lymph: Denies: easy bruising or easy bleeding Medications/Allergies Home Medications Medication Instructions Recorded Confirmed Last Taken Type aripiprazole 15 mg PO DAILY 06/13/19 07/26/20 07/23/20 History clonazepam 0.5 - 1 mg PO BEDTIME 06/13/19 07/26/20 Unknown History cyproheptadine 4 mg PO DAILY 06/13/19 07/26/20 Unknown History mupirocin 1 applic TOPICAL DAILY 06/13/19 07/26/20 Unknown History pantoprazole 40 mg PO BID 06/13/19 07/26/20 Unknown History ropinirole 1 mg PO BID 06/13/19 07/26/20 Unknown History sulfasalazine 500 mg PO BID 06/13/19 07/26/20 Unknown History trazodone 50 mg PO DAILY 06/13/19 07/26/20 Unknown History venlafaxine 75 mg PO DAILY 06/13/19 07/26/20 Unknown History albuterol sulfate 2 puff INHALATION QID PRN 07/26/20 07/26/20 Unknown History albuterol sulfate 2.5 mg INHALATION Q6H PRN 07/26/20 07/26/20 Unknown History atorvastatin 20 mg PO DAILY 07/26/20 07/26/20 07/23/20 History clonazepam 1 mg PO BID 07/26/20 07/26/20 07/23/20 History clopidogrel 75 mg PO DAILY 07/26/20 07/26/20 07/23/20 History gmxhnylkmnp-fnnjmstin-fhyzzavg 1 ea INHALATION DAILY 07/26/20 07/26/20 Unknown History [Trelegy Ellipta] Allergies Allergy/AdvReac Type Severity Reaction Status Date / Time aspirin Allergy Unknown Verified 07/26/20 15:34 codeine Allergy ALGY-Rash Verified 07/26/20 15:34 tramadol Allergy Unknown Verified 07/26/20 15:34 PFSH Acute PFSH: Medical History Anxiety Crohn's colitis Surgical History H/O tubal ligation H/O: hysterectomy S/P cholecystectomy S/P small bowel resection S/P splenectomy Status post tonsillectomy and adenoidectomy Social History Smoking and tobacco status: current every day smoker Vitals/I&O/Wt Last Vital Signs Temp 98.3 F 07/26/20 15:17 Pulse 75 07/26/20 18:15 Resp 18 07/26/20 18:15 BP 140/90 07/26/20 18:15 Pulse Ox 95 07/26/20 18:15 07/26/20 07/26/20 07/26/20 06:59 14:59 22:59 Intake Total Balance Weight last 48 hrs Weight 60.781 kg Physical Exam Narrative: EXAM NARRATIVE: General: No acute distress, AO x3 HEENT: PERRLA, pupils bilaterally equal and reactive, pallors not present Chest: Normal vesicular breath sounds, no added sounds, equal good air entry bilaterally CVS: S1-S2 regular, no murmurs, no tachycardia, no gallops, no rubs Abdomen: Soft, nontender, no organomegaly, bowel sounds present Neuro: left ffacial weakness, left hemiparesis Extremities: no edema, clubbing, LAD Data : 07/26/20 15:20 07/26/20 15:20 Attestation for Other Data: I personally reviewed and interpreted the following: Other data: Laboratory Results WBC 5.2 10^3/uL (4.0-10.0) 07/26/20 15:20 RBC 4.40 10^6/uL (4.1-5.3) 07/26/20 15:20 Hgb 12.7 g/dL (11.5-15.3) 07/26/20 15:20 Hct 40.2 % (37.0-47.0) 07/26/20 15:20 MCV 91.4 fL (81-99) 07/26/20 15:20 MCH 28.9 pg (28.0-34.0) 07/26/20 15:20 MCHC 31.6 g/dL (30.0-36.0) 07/26/20 15:20 RDW 13.9 % (12.1-15.1) 07/26/20 15:20 Plt Count 267 10^3/cmm (130-400) 07/26/20 15:20 MPV 11.0 fL (7.4-10.4) H 07/26/20 15:20 Neut % (Auto) 51.1 % 07/26/20 15:20 Lymph % (Auto) 37.2 % 07/26/20 15:20 [place]in[place] % (Auto) 9.2 % 07/26/20 15:20 Eos % (Auto) 1.9 % 07/26/20 15:20 Baso % (Auto) 0.4 % 07/26/20 15:20 Neut # (Auto) 2.66 10^3/uL (1.8-7.7) 07/26/20 15:20 Lymph # (Auto) 1.9 10^3/uL (0.8-4.8) 07/26/20 15:20 [place]in[place] # (Auto) 0.5 10^3/uL (0.2-0.9) 07/26/20 15:20 Eos # (Auto) 0.1 10^3/uL (0.0-0.8) 07/26/20 15:20 Baso # (Auto) 0.0 10^3/uL (0.0-0.1) 07/26/20 15:20 Nucleated RBC % (auto) 0 % 07/26/20 15:20 Nucleated RBCs # 0.0 /100WBC 07/26/20 15:20 PT 14.90 SECONDS (12.1-14.9) 07/26/20 17:06 INR 1.13 (0.8-1.2) 07/26/20 17:06 APTT 30.3 SECONDS (23.9-36.7) 07/26/20 17:06 Sodium 140 mmol/L (136-145) 07/26/20 15:20 Potassium 4.2 mmol/L (3.5-5.1) 07/26/20 15:20 Chloride 103 mmol/L (98-107) 07/26/20 15:20 Carbon Dioxide 25 mmol/L (22-29) 07/26/20 15:20 Anion Gap 16.2 (5-19) 07/26/20 15:20 BUN 8 mg/dL (8-23) 07/26/20 15:20 Creatinine 0.4 mg/dL (0.5-0.9) L 07/26/20 15:20 GFR Calculation 162.3 mL/min (90-130) H 07/26/20 15:20 Glucose 100 mg/dL (65-115) 07/26/20 15:20 Calculated Osmolality 288 mOsm/kg (285-295) 07/26/20 15:20 Calcium 9.0 mg/dL (8.5-10.5) 07/26/20 15:20 Total Bilirubin 0.3 mg/dL (0.15-1.2) 07/26/20 15:20 AST 25 U/L (0-32) 07/26/20 15:20 ALT 18 U/L (0-33) 07/26/20 15:20 Alkaline Phosphatase 106 IU/L (35-105) H 07/26/20 15:20 Total Protein 7.1 g/dL (6.6-8.7) 07/26/20 15:20 Albumin 4.5 g/dL (3.5-5.2) 07/26/20 15:20 Globulin 2.6 g/dL (1.3-4.6) 07/26/20 15:20 Urine Color Yellow (Yellow) 07/26/20 15:54 Urine Appearance Clear (CLEAR) 07/26/20 15:54 Urine pH 7 (5-7) 07/26/20 15:54 Ur Specific [place] 1.005 (1.005-1.030) 07/26/20 15:54 Urine Protein Neg (Negative) 07/26/20 15:54 Urine Glucose (UA) Norm (Normal) 07/26/20 15:54 Urine Ketones Negative (Negative) 07/26/20 15:54 Urine Blood Neg (Negative) 07/26/20 15:54 Urine Nitrate Negative (Negative) 07/26/20 15:54 Urine Bilirubin Neg (Negative) 07/26/20 15:54 Urine Urobilinogen Norm mg/dL (Negative) 07/26/20 15:54 Ur Leukocyte Esterase Negative (Negative) 07/26/20 15:54 Urine Opiates Screen Negative ng/mL (Negative) 07/26/20 15:54 Ur Barbiturates Screen Negative ng/mL (Negative) 07/26/20 15:54 Ur Phencyclidine Scrn Negative ng/mL (Negative) 07/26/20 15:54 Ur Amphetamines Screen Positive ng/mL (Negative) H 07/26/20 15:54 U Benzodiazepines Scrn Negative ng/mL (Negative) 07/26/20 15:54 Urine Cocaine Screen Negative ng/mL (Negative) 07/26/20 15:54 U Marijuana (THC) Screen Positive ng/mL (Negative) H 07/26/20 15:[address] 07/26/20 15:13 IMPRESSION: 1. No evidence of intracranial hemorrhage or mass effect. 2. Mild small vessel changes. Mild parenchymal volume loss. 3. No acute intracranial findings. Notified Arvind Baca DO at 07/26/2020 3:44 PM. Head/Neck CTA 07/26/20 15:36 IMPRESSION: No arterial stenosis, occlusion or dissection. REFERENCES: NASCET CRITERIA. The degree of internal carotid artery stenosis is based on NASCET criteria. Normal is no stenosis. Mild is less than 50% stenosis. Moderate is 50-69% stenosis. Severe is 70% to 99% stenosis. Total occlusion is no detectable patent lumen. Radiation Dose CTDIVOL = (mGy): DLP = 1943.66~1943.66 (mGy-cm) ADDENDUM: 07/26/20 1733 THIS REPORT CONTAINS FINDINGS THAT MAY BE CRITICAL TO PATIENT CARE. The findings were verbally communicated via telephone conference with ARVIND BACA at 5:31 PM CDT on 07/26/2020. The findings were acknowledged and understood. Radiation Dose CTDIVOL = (mGy): DLP = 1943.66~1943.66 (mGy-cm) A&P Assessment and plan (1) Brainstem stroke: Acute CVA s/p tPA on 07/[address] angiogram because of the patient's high NIH stroke scale score was negative for more than 50% stenosis in the anterior circulation. Her main problem is less than 50% stenosis of the carotids in the siphon. No significant vertebral or basilar occlusion. 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
[2020-07-26] MEDS: atorvastatin 40 mg Tablet 20 MG PO (21:53)
[2020-07-26] MEDS: CLONazepam 0.5 mg Tablet PO (21:53)
[2020-07-26] MEDS: trazodone 50 mg Tablet PO (21:54)
--- NOTE | 2020-07-26 23:54 | PC.NURSE ---
ASSUMING CARE Patient is resting in bed and tearful. Patient is on room air. Alert and oriented and no visual facial deficits noted. Patient is alert and oriented, answers all questions appropriately and follows commands. 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 3 bruises to legs, see assessment. Complaints of pain in lower legs, repositioned. Patient states when she lived here she had a nurse that came to her home to help her, but since she moved to [place] that hasnt been set up yet. Case management is consulted. tPA vitals and neuro checks being done per protocol.
[2020-07-27] VITALS (46 sets, daily range): BP systolic 102–139; BP diastolic 54–89; PULSE 54–89; RESP 12–32; TEMP 36.4–36.7; O2SAT 89–100
--- NOTE | 2020-07-27 00:18 | PC.NURSE ---
NURSING DYSPHAGIA Patient tolerated ice chips and sips of water with no coughing, clearing of throat or change in voice multiple times. Patient instructed to tuck chin when swallowing and educated on importance of this. Nurse then gave night time medications after patient did well on assessment. Awaiting hospitalist approval on diet order for patient.
[2020-07-27] MEDS: acetaminophen 325 mg Tablet 650 MG PO (02:33)
--- NOTE | 2020-07-27 06:00 | USCV_ITS ---
Anali Gwen Age: 59 Gender: F : 1960 Exam Date: 07/27/2020 09:49 Ordering Phys: Arvind Baca DO Technologist: Exam Location: [facility] [place] Indication: CVA BP: 120 / 72 HR: 57 Rhythm: Sinus Technical Quality: Fair MEASUREMENTS (Male / Female) Normal Values 2D ECHO LV Diastolic Diameter PLAX 3.4 cm 4.2 - 5.9 / 3.9 - 5.3 cm LV Systolic Diameter PLAX 2.5 cm IVS Diastolic Thickness 1.1 cm 0.6 - 1.0 / 0.6 - 0.9 cm IVS Systolic Thickness 1.8 cm LVPW Diastolic Thickness 1.0 cm 0.6 - 1.0 / 0.6 - 0.9 cm LVPW Systolic Thickness 1.5 cm LVOT Diameter 2.0 cm LV Ejection Fraction 2D Teich 54.3 % LV Ejection Fraction MOD 2C 70.3 % LV Ejection Fraction 2C AL 70.6 % LA Diameter 3.2 cm LA Width 3.5 cm LA Height 3.9 cm RA Width 3.4 cm RA Height 3.8 cm M-MODE LV Diastolic Diameter MM 4.5 cm 4.2 - 5.9 / 3.9 - 5.3 cm LV Systolic Diameter MM 2.6 cm LV Ejection Fraction MM Teich 73.5 % IVS Diastolic Thickness MM 1.1 cm 0.6 - 1.0 / 0.6 - 0.9 cm IVS Systolic Thickness MM 1.7 cm LVPW Diastolic Thickness MM 1.3 cm 0.6 - 1.0 / 0.6 - 0.9 cm LVPW Systolic Thickness MM 1.4 cm RV Diastolic Diameter MM 1.9 cm Aortic Annulus Diameter 3.2 cm LA Ao Ratio MM 1.2 MV E Point Septal Separation 0.8 cm DOPPLER AV Peak Velocity 132.0 cm/s LVOT Peak Velocity 97.0 cm/s AV Area Cont Eq vti 2.4 cm squared AV Area Cont Eq pk 2.3 cm squared MV Area PHT 5.0 cm squared Mitral E to A Ratio 1.1 MV E' Velocity 41.0 cm/s Mitral E to MV E' Ratio 7.8 Mitral E to LV E' Lateral Ratio 7.3 Mitral E to LV E' Septal Ratio 8.5 TR Peak Velocity 180.0 cm/s TR Peak Gradient 13.0 mmHg TV Peak E Velocity 71.0 cm/s Right Atrial Pressure 3.0 mmHg Pulmonary Artery Systolic Pressu 16.0 mmHg FINDINGS Left Ventricle Normal left ventricular cavity size. Normal left ventricular systolic function. No regional wall motion abnormalities. Left ventricular ejection fraction is estimated at 65 %. Grade I/IV diastolic dysfunction (abnormal relaxation filling pattern), normal to mildly elevated filling pressures. Right Ventricle The right ventricle is normal in size and function. Right Atrium The right atrium is normal in size. Left Atrium The left atrium is normal in size. Mitral Valve Structurally normal mitral valve without significant stenosis or prolapse. There is no mitral regurgitation. Aortic Valve Moderate aortic valve calcification. No aortic valve stenosis. No aortic valve regurgitation. Tricuspid Valve Structurally normal tricuspid valve without significant stenosis or regurgitation. Pulmonary artery systolic pressure is normal. Pulmonic Valve Structurally normal pulmonic valve without significant stenosis. There is no pulmonic regurgitation. Pericardium Normal pericardium without effusion. Aorta Normal ascending aorta dimension. CONCLUSIONS 1-Normal left ventricular cavity size. Normal left ventricular systolic function. No regional wall motion abnormalities. Left ventricular ejection fraction is estimated at 65 %. Grade I/IV diastolic dysfunction (abnormal relaxation filling pattern), normal to mildly elevated filling pressures. 2-Moderate aortic valve calcification. No aortic valve stenosis. No aortic valve regurgitation. 3-There is no pericardial effusion. 4-No significant valve abnormalities. 5-Pulmonary artery systolic pressure is within normal limits. 6-There are no prior echocardiogram studies to compare. Yash Dudley MD (Electronically Signed) Final Date: 27 July 2020 14:44 S
[2020-07-27 06:07] LABS: Cholesterol 143 mg/dL (0-200); HDL Cholesterol 65 mg/dL (60-100); LDL Cholesterol Calculated 62 mg/dL (50-129); LDL HDL Ratio 0.95 RATIO (0.00-3.22); Triglycerides 78 mg/dL (0-150)
[2020-07-27 06:30] LABS: Estmated Average Glucose 94; Hemoglobin A1C 4.9 % (4.0-6.0)
[2020-07-27] MEDS: ARIPiprazole 30 mg Tablet 15 MG PO (09:06)
[2020-07-27] MEDS: CLONazepam 1 mg Tablet PO ×2 (09:06→17:21)
[2020-07-27] MEDS: pantoprazole DR 40 mg Tablet PO ×2 (09:07→17:22)
[2020-07-27] MEDS: ropinirole 1 mg Tablet PO ×2 (09:07→17:22)
[2020-07-27] MEDS: venlafaxine ER (24HR) 75 mg Capsule PO (09:08)
--- NOTE | 2020-07-27 09:13 | PC.NURSE ---
patient is crying and states that she wants to talk to meme, her boyfriend, and that she wants to leave. Nurse explained the dangers of leaving AMA while still being observed for TPA administration. Nurse attempted to call meme for the patient at [phone]. No answer. Nurse assured patient that he will continue to try and get a hold of meme and try and have him bring in her cell phone so she can call him whenever she wants. Patient was agreeable to staying after this and had calmed down.
--- NOTE | 2020-07-27 10:30 | PC.CHAP ---
Pastoral Care Encounter/Spiritual Assessment Type of Contact [] Declined electrical technician visit [] Patient/Family/Request visit [] Outpatient visit [] Follow-up visit [] Physician referral [] Code/Alert [] Routine visit [] Staff referral [] Actively dying [XX] Patient sleeping [] Family support [] [] Out of room [] Palliative care [] [] Receiving care in room [] Pre-surgical visit [] Trauma [] Long length of stay [XX] ICU visit [] Other: Relational/Emotional Strength [] Patient feels connected with others/family/visitors/staff [] Distress [] Loneliness/isolation [] Abandonment Spirituality of Patient [] Person of Diamond [] Attends Amish of their Diamond [] Believes in Prayer [] Reads Bible or Buddhism materials [] There are Spiritual issues to be addressed Drier Tender Interventions [] Prayer [] Active listening [] Non-anxious presence [] Spiritual/emotional support [] Crisis/trauma care [] Spiritual counseling [] Bereavement support [] Provided bereavement packet [] Provided Bible/devotional materials [] Provided toy/stuffed animal, coloring book to patient or family member [] Provided Communion [] Anointing/Milan [] Salvation [] Completed spiritual assessment [] Other: Impact on Illness or Injury [] Angry [] Fearful [] Anxious [] Often cries [] Exhaustion [] Unable to work [] Unable to attend zoroastrian [] Unable to walk/stand [] Unable to read [] Unable to drive [] Unable to eat/drink [] Unable to sleep [] Unable to be with family [] Patient intubated [] Other: Summary Time spent with patient
--- NOTE | 2020-07-27 12:58 | PC.NURSE ---
Late note: at 1200 patient was anxious, crying, trying to leave her room stating that she can't stay here anymore and she needs to talk to her family. After many attempts at redirecting patient, she finally settled down and was agreeable to stay after explaining risks of leaving against medical advice. Nurse was able to get family on the phone and the patient calmed down after speaking with her boyfriend meme.
--- NOTE | 2020-07-27 13:00 | PC.NURSE ---
WHile on the phone with charles, nurse was informed that the patient was seen about a month ago for a stroke at [facility] in [place] and [facility]. Muralijazmine said they gave her a medecine to dissolve the clot. NUrse called [place] and was able to confirm that on 06/23/2020 that the patient had received Alteplase at [place] and was then transferred to [facility]. Nurse alerted Dr alfaro to recent stroke and Alteplase administration history.
--- NOTE | 2020-07-27 15:00 | CTR_ITS ---
PROCEDURE INFORMATION: Exam: CT Head Without Contrast Exam date and time: 07/27/2020 2:57 PM Age: 59 years old Clinical indication: Other: Follow up tpa; Additional info: [address] head TECHNIQUE: Imaging protocol: Computed tomography of the head without contrast. Radiation optimization: All CT scans at this facility use at least one of these dose optimization techniques: automated exposure control; mA and/or kV adjustment per patient size (includes targeted exams where dose is matched to clinical indication); or iterative reconstruction. COMPARISON: CT head wo con* [id number] 07/26/2020 3:16 PM RADIATION DOSE METRICS: Total DLP (mGy-cm): 789.81 FINDINGS: Brain: There is mild cerebral atrophy. There is mild diffuse heterogeneity of the white matter attenuation, consistent with chronic white matter ischemic changes. No intracranial hemorrhage. [place] matter and white matter interfaces are preserved. No midline shift of brain. No cerebral sulcal effacement. Cerebral ventricles: No ventriculomegaly. Bones/joints: Unremarkable. No acute fracture. Paranasal sinuses: Visualized sinuses are unremarkable. No fluid levels. Mastoid air cells: Visualized mastoid air cells are well aerated. Soft tissues: Unremarkable. CT/CT head wo con* [id number] IMPRESSION: 1. Negative for intracranial hemorrhage. 2. No significant changes from comparison. Radiation Dose CTDIVOL = (mGy): DLP = 789.81 (mGy-cm)
--- NOTE | 2020-07-27 15:38 | PM.PN ---
Subjective Subjective: Interval history: Per updated history available, patient was also diagnosed with CVA at [facility] approximately 1 month ago at which time she had also received TPA over there. Today reports no new complaints, states feeling little better. Ambulated in the hallway today, passed dysphagia screening, started on diet Medications: Reviewed: Yes Vitals/I&O/Wt Last Vital Signs Temp 98.1 F 07/27/20 11:00 Pulse 69 07/27/20 15:00 Resp 19 H 07/27/20 15:00 BP 103/71 07/27/20 15:00 Pulse Ox 97 07/27/20 15:00 07/27/20 07/27/20 07/27/20 06:59 14:59 22:59 Intake Total 240 / 240 Output Total 900 / 900 150 / 150 Balance -900 / -894 90 / 90 Weight last 48 hrs Weight 65.499 kg Weight 60.781 kg Physical Exam Narrative: EXAM NARRATIVE: General: No acute distress, AO x3 HEENT: PERRLA, pupils bilaterally equal and reactive, pallors not present Chest: Normal vesicular breath sounds, no added sounds, equal good air entry bilaterally CVS: S1-S2 regular, no murmurs, no tachycardia, no gallops, no rubs Abdomen: Soft, nontender, no organomegaly, bowel sounds present Neuro: left ffacial weakness, left hemiparesis Extremities: no edema, clubbing, LAD Data : 07/26/20 15:20 07/26/20 15:20 A&P Assessment and plan (1) Brainstem stroke: Acute CVA s/p tPA on 07/[address] angiogram negative for more than 50% stenosis in the anterior circulation. Pending post tPa [address] to r/o any bleeding If CT head without bleed, will resume antiplatelets in the morning. Continue statin PT/OT eval Echo Normal left ventricular cavity size. Normal left ventricular systolic function. No regional wall motion abnormalities. Left ventricular ejection fraction is estimated at 65 %. Grade I/IV diastolic dysfunction. 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
--- NOTE | 2020-07-27 19:00 | PC.NURSE ---
Shift summary: Pt NIH stroke assessment has improved. Previously a 7, now a 2 at the end of shift. Still experiencing sight left sided facial droop and slight left arm drift. Pt is now able to ambulate with standby assistance. Currently pending transfer to [facility].
[2020-07-27] MEDS: atorvastatin 40 mg Tablet 20 MG PO (20:42)
[2020-07-27] MEDS: trazodone 50 mg Tablet PO (20:42)
--- NOTE | 2020-07-27 20:57 | PC.NURSE ---
ASSUMING CARE Patient is resting in bed on room air. Alert and oriented x 4. Bilateral grading supervisor are now equal, patient does very welling when getting up to BSC. Nothing running intravenously. Patient to be transferred to Med/Surg [facility].
--- NOTE | 2020-07-27 21:06 | PC.NURSE ---
TRANSFER Report called to [facility] on Med/Surg. Patient taken via wheelchair to [facility]-, call light in reach.
[2020-07-28] VITALS (7 sets, daily range): BP systolic 94–124; BP diastolic 58–76; PULSE 60–81; RESP 16–18; TEMP 36.3–36.8; O2SAT 92–99
[2020-07-28] MEDS: ARIPiprazole 30 mg Tablet 15 MG PO (09:37)
[2020-07-28] MEDS: CLONazepam 1 mg Tablet PO (09:38)
[2020-07-28] MEDS: ropinirole 1 mg Tablet PO (09:38)
[2020-07-28] MEDS: venlafaxine ER (24HR) 75 mg Capsule PO (09:39)
[2020-07-28] MEDS: pantoprazole DR 40 mg Tablet PO (09:39)
--- NOTE | 2020-07-28 12:38 | PC.SLP ---
Visit attempted, but patient was asleep. Nurse reports no concerns with diet, and she is tolerating it well at this time.
--- NOTE | 2020-07-28 17:59 | PM.DCS ---
Discharge Providers Date of Admission: 07/26/20 17:33 Date of Discharge: July 28, 2020 Attending Provider at Admission: Betty Roger MD Attending Provider at Discharge: Betty Roger MD Primary Care Provider: Lorelei Weinbegr DO Diagnoses at Discharge Discharge Diagnosis (1) Brainstem stroke: Status: Acute (2) Crohn's colitis: Status: Acute (3) Anxiety: Status: Acute Reason for Visit Reason for Visit: STROKE LIKE SYMPTOMS Hospital Course Hospital Course Gwen Briones is a 59 year old female who was being transferred between [facility] by the [facility] dept, when she suddenly was noted to become very drowsy, unable to move her left side, difficult to awaken. She was brought to ER, stroke code activated, seen by neurology. Her CT scan of the head did not show any acute changes. patient had flaccid left hemiplegia and profound dysarthria. tPa was given at 1516. NISS on admission 11. She tolerated the administration well. At the time of discharge patient has some mild left residual hemiparesis and left facial weakness. She is much improved. Able to walk ambulate, no difficulty with speech or swallow. 24-hour post TPA CT head was normal. Plavix was resumed at discharge. Atorvastatin was increased to 40 mg p.o. daily. Her blood pressure remained well controlled during course of admission. Physical Exam Narrative: EXAM NARRATIVE: GEN: Awake, alert and oriented, no acute distress CVS: S1S2 N RS: CTA B/L Abd: Soft, nt/nd , bs+ FULFILLMENT REPRESENTATIVE: Residual left hemiparesis along with left facial Kelsay, improved over serial exams. Discharge Data Data Completed and Pending: Completed Studies During Hospitalization Category Date Time Status CT angio headneck * 18695/10200 Stat Cat Scan 07/26/20 15:[address] head wo con* 7 0450 Routine Cat Scan 07/27/20 15:[address] head wo con* 7 0450 Stat Cat Scan 07/26/20 15:13 Completed CV echo complete* [id number] Routine Ultrasound 07/27/20 06:00 Completed Addt'l Data from Hospital Stay: Laboratory Results WBC 5.2 10^3/uL (4.0- 10.0) 07/26/20 15:20 RBC 4.40 10^6/uL (4.1 -5.3) 07/26/20 15:20 Hgb 12.7 g/dL (11.5-1 5.3) 07/26/20 15:20 Hct 40.2 % (37.0-47.0 ) 07/26/20 15:20 MCV 91.4 fL (81-99) 07/26/20 15:20 MCH 28.9 pg (28.0-34. 0) 07/26/20 15:20 MCHC 31.6 g/dL (30.0-3 6.0) 07/26/20 15:20 RDW 13.9 % (12.1-15.1 ) 07/26/20 15:20 Plt Count 267 10^3/cmm (130 -400) 07/26/20 15:20 MPV 11.0 fL (7.4-10.4 ) H 07/26/20 15:20 Neut % (Auto) 51.1 % 07/26/20 15:20 Lymph % (Auto) 37.2 % 07/26/20 15:20 [place] % (Auto) 9.2 % 07/26/20 15:20 Eos % (Auto) 1.9 % 07/26/20 15:20 Baso % (Auto) 0.4 % 07/26/20 15:20 Neut # (Auto) 2.66 10^3/uL (1.8 -7.7) 07/26/20 15:20 Lymph # (Auto) 1.9 10^3/uL (0.8- 4.8) 07/26/20 15:20 [place] # (Auto) 0.5 10^3/uL (0.2- 0.9) 07/26/20 15:20 Eos # (Auto) 0.1 10^3/uL (0.0- 0.8) 07/26/20 15:20 Baso # (Auto) 0.0 10^3/uL (0.0- 0.1) 07/26/20 15:20 Nucleated RBC % (a uto) 0 % 07/26/20 15:20 Nucleated RBCs # 0.0 /100WBC 07/26/20 15:20 PT 14.90 SECONDS (12 .1-14.9) 07/26/20 17:06 INR 1.13 (0.8-1.2) 07/26/20 17:06 APTT 30.3 SECONDS (23. 9-36.7) 07/26/20 17:06 Sodium 140 mmol/L (136-1 45) 07/26/20 15:20 Potassium 4.2 mmol/L (3.5-5 .1) 07/26/20 15:20 Chloride 103 mmol/L (98-10 7) 07/26/20 15:20 Carbon Dioxide 25 mmol/L (22-29) 07/26/20 15:20 Anion Gap 16.2 (5-19) 07/26/20 15:20 BUN 8 mg/dL (8-23) 07/26/20 15:20 Creatinine 0.4 mg/dL (0.5-0. 9) L 07/26/20 15:20 GFR Calculation 162.3 mL/min (90- 130) H 07/26/20 15:20 Glucose 100 mg/dL (65-115 ) 07/26/20 15:20 Estimat Average Gl ucose 94 07/27/20 04:37 Hemoglobin A1c 4.9 % (4.0-6.0) 07/27/20 04:37 Calculated Osmolal ity 288 mOsm/kg (285- 295) 07/26/20 15:20 Calcium 9.0 mg/dL (8.5-10 .5) 07/26/20 15:20 Total Bilirubin 0.3 mg/dL (0.15-1 .2) 07/26/20 15:20 AST 25 U/L (0-32) 07/26/20 15:20 ALT 18 U/L (0-33) 07/26/20 15:20 Alkaline Phosphata se 106 IU/L (35-105) H 07/26/20 15:20 Total Protein 7.1 g/dL (6.6-8.7 ) 07/26/20 15:20 Albumin 4.5 g/dL (3.5-5.2 ) 07/26/20 15:20 Globulin 2.6 g/dL (1.3-4.6 ) 07/26/20 15:20 Triglycerides 78 mg/dL (0-150) 07/27/20 04:37 Cholesterol 143 mg/dL (0-200) 07/27/20 04:37 LDL Cholesterol, C alc 62 mg/dL (50-129) 07/27/20 04:37 HDL Cholesterol 65 mg/dL (60-100) 07/27/20 04:37 LDL/HDL Ratio 0.95 RATIO (0.00- 3.22) 07/27/20 04:37 Cholesterol/HDL Ra [place] 2.20 mg/dL (0.0-4 .40) 07/27/20 04:37 Urine Color Yellow (Yellow) 07/26/20 15:54 Urine Appearance Clear (CLEAR) 07/26/20 15:54 Urine pH 7 (5-7) 07/26/20 15:54 Ur Specific Gravit y 1.005 (1.005-1.0 30) 07/26/20 15:54 Urine Protein Neg (Negative) 07/26/20 15:54 Urine Glucose (UA) Norm (Normal) 07/26/20 15:54 Urine Ketones Negative (Negati ve) 07/26/20 15:54 Urine Blood Neg (Negative) 07/26/20 15:54 Urine Nitrate Negative (Negati ve) 07/26/20 15:54 Urine Bilirubin Neg (Negative) 07/26/20 15:54 Urine Urobilinogen Norm mg/dL (Negat amee) 07/26/20 15:54 Ur Leukocyte Annalise ase Negative (Negati ve) 07/26/20 15:54 Urine Opiates Scre en Negative ng/mL (N egative) 07/26/20 15:54 Ur Barbiturates Sc reen Negative ng/mL (N egative) 07/26/20 15:54 Ur Phencyclidine S crn Negative ng/mL (N egative) 07/26/20 15:54 Ur Amphetamines Sc reen Positive ng/mL (N egative) H 07/26/20 15:54 U Benzodiazepines Scrn Negative ng/mL (N egative) 07/26/20 15:54 Urine Cocaine Scre en Negative ng/mL (N egative) 07/26/20 15:54 U Marijuana (THC) Screen Positive ng/mL (N egative) H 07/26/20 15:54 Impressions Head/Neck CTA 07/26/20 15:36 IMPRESSION: No arterial stenosis, occlusion or dissection. REFERENCES: NASCET CRITERIA. The degree of internal carotid artery stenosis is based on NASCET criteria. Normal is no stenosis. Mild is less than 50% stenosis. Moderate is 50-69% stenosis. Severe is 70% to 99% stenosis. Total occlusion is no detectable patent lumen. Radiation Dose CTDIVOL = (mGy): DLP = 1943.66~1943.66 (mGy-cm) ADDENDUM: 07/26/20 1733 THIS REPORT CONTAINS FINDINGS THAT MAY BE CRITICAL TO PATIENT CARE. The findings were verbally communicated via telephone conference with TUAN BLANC at 5:31 PM CDT on 07/26/2020. The findings were acknowledged and understood. Radiation Dose CTDIVOL = (mGy): DLP = 1943.66~1943.66 (mGy-cm) Head CT 07/27/20 15:00 IMPRESSION: 1. Negative for intracranial hemorrhage. 2. No significant changes from comparison. Radiation Dose CTDIVOL = (mGy): DLP = 789.81 (mGy-cm) Vitals: Last Vital Signs Temp 98.2 F 07/28/20 14:44 Pulse 66 07/28/20 14:44 Resp 17 07/28/20 14:44 BP 101/58 07/28/20 14:44 Pulse Ox 99 07/28/20 14:44 Discharge Plan Discharge Patient Disposition: Home Prescriptions: Continued venlafaxine 75 mg capsule,extended release 24hr 75 mg PO DAILY RF: 0 ropinirole 1 mg Tablet 1 mg PO BID RF: 0 sulfasalazine 500 mg tablet 500 mg PO BID RF: 0 trazodone 50 mg Tablet 50 mg PO DAILY RF: 0 clonazepam 0.5 mg tablet 0.5 - 1 mg PO BEDTIME RF: 0 cyproheptadine 4 mg tablet 4 mg PO DAILY RF: 0 pantoprazole 40 mg tablet,delayed release (DR/EC) 40 mg PO BID RF: 0 mupirocin 2 % ointment 1 applic TOPICAL DAILY RF: 0 aripiprazole 15 mg tablet 15 mg PO DAILY RF: 0 clonazepam 1 mg tablet 1 mg PO BID RF: 0 clopidogrel 75 mg tablet 75 mg PO DAILY RF: 0 Trelegy Ellipta 100-62.5-25 mcg blister with device 1 ea INHALATION DAILY RF: 0 albuterol sulfate 2.5 mg /3 mL (0.083 %) Solution For Nebulization 2.5 mg INHALATION Q6H PRN (Reason: Shortness Of Breath) RF: 0 albuterol sulfate 90 mcg/actuation Hfa Aerosol Inhaler 2 puff INHALATION QID PRN (Reason: Shortness Of Breath) RF: 0 Changed atorvastatin 20 mg tablet 40 mg PO DAILY Qty: 0 RF: 0 Discharge Orders: Discharge Order (Routine); Ordered 07/28/20 Ordered By: Betty Roger Referrals: Lorelei Weinberg DO [Primary Care Provider] - (Please call Wednesday to schedule a follow up appointment. ) Discharge Diet: Cardiac and Low Salt Discharge Activity: Resume usual activity Patient Instructions: Self Care Measures After a Stroke (ED), Brain Stem Infarction (DC), Opioid Safety, Stroke Stoplight Discharge Attestations Time Spent in Discharge Care*: greater than 30 min Quality Metrics Clinical Quality Measures During this hospital stay, did patient experience: None Coding Level of Care Code Acute Chg FW DC note Diagnoses Brainstem stroke I63.9 Crohn's colitis K50.10 Anxiety F41.9
--- NOTE | 2020-07-29 16:25 | PC.RESP ---
Smoking Cessation information sent to patient.
== END 2020-07-28 14:30 | disposition home or self-care (01) | DRG 62 ==
LOC: ER 16:38 → ICU 18:03 → MEDSURG 07-27 21:11
PROVIDERS: Admitting Provider Student in an Organized Health Care Education/Training Program; Emergency Provider Family Medicine; PCP Internal Medicine Infectious Disease; Visit Provider Student in an Organized Health Care Education/Training Program
DX: I63.9 Cerebral infarction, unspecified (principal); G81.94 Hemiplegia, unspecified affecting left nondominant side; K50.90 Crohn's disease, unspecified, without complications; R53.1 Weakness; R47.1 Dysarthria and anarthria; F41.9 Anxiety disorder, unspecified; F17.200 Nicotine dependence, unspecified, uncomplicated; R29.711 NIHSS score 11; Z86.73 Personal history of transient ischemic attack (TIA), and cerebral infarction without residual deficits; Z79.02 Long term (current) use of antithrombotics/antiplatelets; Z90.81 Acquired absence of spleen; Z90.49 Acquired absence of other specified parts of digestive tract
CPT/HCPCS: 36415; 70450; 70496; 70498; 80053; 80061; 80306; 81003; 83036; 85025; 85610; 85730; 92610; 93005; 93306; 96374; 97110; 97116; 97161; 97166; 97535; 99285; J2997; Q9967

== ENCOUNTER 2021-07-22 15:18 | Inpatient (IN) | payer MEDICARE, MEDICAID, SELFPAY ==
[2021-07-22 15:20] VITALS: BP 146/89; PULSE 73; RESP 20; TEMP 37.1; O2SAT 99; BMI 21.6
--- NOTE | 2021-07-22 15:30 | ED_ITS ---
Documented by User: Arvind Baca DO 07/23/21 07:11 HPI - Extremity Problem General: Chief complaint: Extremity Problem,Nontraumatic Stated complaint: R KNEE PAIN, SWELLING Time Seen by Provider: 07/22/21 15:20 Source: patient Mode of arrival: EMS Limitations: no limitations History of Present Illness: 58-year-old female presents emergency room complaining of right knee pain for the last 2 days. She states she has a history of gout. No recollection of trauma to the knee. She is not previous had any procedures to that knee she denies any fever sweats or chills no swelling in the leg no calf pain or tenderness no shortness of breath or chest pain. MD Complaint: joint pain Onset (ago): day(s) (2) Pain Consistency: intermittent Location: right and knee Quality: sharp Radiation: none Relieving factors: immobilization Exacerbating factors: range of motion, weight bearing and palpation Associated symptoms: Deny arthralgias, chest pain, fever(s), myalgias, rash or short of breath Review of Systems Const: Denies: fever(s) ENMT: Denies: throat pain, ear or mastoid pain, nasal discharge or nasal congestion Card: Denies: chest pain Resp: Denies: dyspnea, productive cough or non-productive cough GI: Denies: abdominal pain, nausea, vomiting, hematemesis, coffee ground emesis, diarrhea, constipation, bloating, hematochezia or melena : Denies: flank pain, difficulty voiding, dysuria, urinary frequency or urinary urgency Skin/Breast: Denies: rash PFSH ED PFSH: Medical History Anxiety Crohn's colitis Surgical History H/O tubal ligation H/O: hysterectomy S/P cholecystectomy S/P small bowel resection S/P splenectomy Status post tonsillectomy and adenoidectomy Social History Smoking and tobacco status: current every day smoker Physical Exam Const: GENERAL APPEARANCE: cooperative ORIENTATION/CONSCIOUSNESS: Yes awake, Yes oriented to person, Yes oriented to place and Yes oriented to time HENMT: COMMON NORMALS: normocephalic, atraumatic and hearing grossly normal bilaterally HEAD & SCALP: normocephalic and atraumatic Neck/C-Spine: COMMON NORMALS: no JVD Resp: COMMON NORMALS: normal respiratory effort, No retractions, No use of accessory muscles and clear to auscultation bilaterally AUSCULTATION: clear to auscultation bilaterally Cardio: COMMON NORMALS: no JVD, regular rate, regular rhythm and No murmurs present (Cardio) RATE: regular rate RHYTHM: regular rhythm Extremity: OTHER: Moderate joint effusion in the right knee is not warm to the touch there is no erythematous. Induration. Patient holding in the semiflexed position did not attempt to move. Patient neurovascularly is intact. Neuro: SENSORIUM/ORIENTATION: Yes oriented to person, Yes oriented to place and Yes oriented to time Skin: COMMON NORMALS: no rashes or lesions noted GENERAL SKIN EXAM: no rashes or lesions noted Course Vital Signs: Vital signs: Vital Signs Temperature 97.9 F 07/23/21 05:20 Pulse Rate 74 07/23/21 05:20 Respiratory Rate 17 07/23/21 05:20 Blood Pressure 95/57 07/23/21 05:20 Pulse Oximetry 98 07/23/21 05:20 MDM - Extremity (Nontraumatic) Medical Decision Making Patient initially presented complaining only of right knee pain. After she was evaluated and discharge arrangements were made in the process of being discharged she now begin to claim she was suicidal. Really interviewed the patient she was sobbing stated she just wanted to and she was getting kill herself by overdosing on medications. Medical clearance labs ordered. Care signed out to Dr. Mueller at change of shift. See final notes for diagnosis and disposition. Patient presents here with suicidal ideations patient is under 96-hour hold I spoke to psychiatrist and will admit at this time. She is medically cleared. Lab Data : 07/22/21 17:43 07/22/21 17:43 Radiology Impressions Knee X-Ray 07/22/21 15:30 IMPRESSION: Normal RIGHT knee. Laboratory Results WBC 10.8 10^3/uL (4.0-10.0) H 07/22/21 17:43 RBC 4.28 10^6/uL (4.1-5.3) 07/22/21 17:43 Hgb 12.7 g/dL (11.5-15.3) 07/22/21 17:43 Hct 38.6 % (37.0-47.0) 07/22/21 17:43 MCV 90.2 fl (81-99) 07/22/21 17:43 MCH 29.7 pg (28.0-34.0) 07/22/21 17:43 MCHC 32.9 g/dL (30.0-36.0) 07/22/21 17:43 RDW 13.3 % (12.1-15.1) 07/22/21 17:43 Plt Count 195 10^3/cmm (130-400) 07/22/21 17:43 MPV 11.0 fL (7.4-10.4) H 07/22/21 17:43 Neut % (Auto) 76.7 % 07/22/21 17:43 Lymph % (Auto) 16.7 % 07/22/21 17:43 Wake % (Auto) 5.6 % 07/22/21 17:43 Eos % (Auto) 0.5 % 07/22/21 17:43 Baso % (Auto) 0.2 % 07/22/21 17:43 Neut # (Auto) 8.30 10^3/uL (1.8-7.7) H 07/22/21 17:43 Lymph # (Auto) 1.8 10^3/uL (0.8-4.8) 07/22/21 17:43 [place] # (Auto) 0.6 10^3/uL (0.2-0.9) 07/22/21 17:43 Eos # (Auto) 0.1 10^3/uL (0.0-0.8) 07/22/21 17:43 Baso # (Auto) 0.0 10^3/uL (0.0-0.1) 07/22/21 17:43 Nucleated RBC % (auto) 0 % 07/22/21 17:43 Nucleated RBCs # 0.0 /100WBC 07/22/21 17:43 Sodium 139 mmol/L (136-145) 07/22/21 17:43 Potassium 3.5 mmol/L (3.5-5.1) 07/22/21 17:43 Chloride 104 mmol/L (98-107) 07/22/21 17:43 Carbon Dioxide 22 mmol/L (22-29) 07/22/21 17:43 Anion Gap 16.5 (5-19) 07/22/21 17:43 BUN 9 mg/dL (8-23) 07/22/21 17:43 Creatinine 0.4 mg/dL (0.5-0.9) L 07/22/21 17:43 GFR Calculation 161.7 mL/min (90-130) H 07/22/21 17:43 Glucose 109 mg/dL (65-115) 07/22/21 17:43 Calculated Osmolality 287 mOsm/kg (285-295) 07/22/21 17:43 Calcium 9.3 mg/dL (8.5-10.5) 07/22/21 17:43 Total Bilirubin 0.4 mg/dL (0.15-1.2) 07/22/21 17:43 AST 12 U/L (0-32) 07/22/21 17:43 ALT 8 U/L (0-33) 07/22/21 17:43 Alkaline Phosphatase 88 IU/L (35-105) 07/22/21 17:43 Total Protein 7.3 g/dL (6.6-8.7) 07/22/21 17:43 Albumin 4.1 g/dL (3.5-5.2) 07/22/21 17:43 Globulin 3.2 g/dL (1.3-4.6) 07/22/21 17:43 Urine Color Yellow (Yellow) 07/22/21 19:00 Urine Appearance Clear (CLEAR) 07/22/21 19:00 Urine pH 6 (5-7) 07/22/21 19:00 Ur Specific [place] 1.010 (1.005-1.030) 07/22/21 19:00 Urine Protein Neg (Negative) 07/22/21 19:00 Urine Glucose (UA) Norm (Normal) 07/22/21 19:00 Urine Ketones Negative (Negative) 07/22/21 19:00 Urine Blood 2+ (Negative) H 07/22/21 19:00 Urine Nitrate Negative (Negative) 07/22/21 19:00 Urine Bilirubin Neg (Negative) 07/22/21 19:00 Urine Urobilinogen Norm mg/dL (Negative) 07/22/21 19:00 Ur Leukocyte Esterase Negative (Negative) 07/22/21 19:00 Salicylates < 0.3 mg/dL (3-10) L 07/22/21 17:43 Urine Opiates Screen Positive ng/mL (Negative) H 07/22/21 19:00 Acetaminophen < 5.0 ug/mL (10-30) L 07/22/21 17:43 Ur Barbiturates Screen Negative ng/mL (Negative) 07/22/21 19:00 Ur Phencyclidine Scrn Negative ng/mL (Negative) 07/22/21 19:00 Ur Amphetamines Screen Positive ng/mL (Negative) H 07/22/21 19:00 U Benzodiazepines Scrn Negative ng/mL (Negative) 07/22/21 19:00 Urine Cocaine Screen Negative ng/mL (Negative) 07/22/21 19:00 U Marijuana (THC) Screen Positive ng/mL (Negative) H 07/22/21 19:00 Ethyl Alcohol < 10 mg/dL (0-10) 07/22/21 17:43 Discharge Plan Discharge Patient Disposition: Admitted As Inpatient Admit Provider: Daniel Clancy Clinical Impression: Suicidal ideation, Knee pain, right, Methamphetamine use Condition: Stable Discharge Diet: Usual diet Discharge Activity: Increase activity as tolerated Coding Level of Care Code ED Quality Assurance Supervisor Body for Chg Fwd Exam Detailed Documented by User: Antwan Mueller MD 07/22/21 20:43 HPI - Extremity Problem General: Chief complaint: Extremity Problem,Nontraumatic Stated complaint: R KNEE PAIN, SWELLING Time Seen by Provider: 07/22/21 15:20 PFSH ED PFSH: Medical History Anxiety Crohn's colitis Surgical History H/O tubal ligation H/O: hysterectomy S/P cholecystectomy S/P small bowel resection S/P splenectomy Status post tonsillectomy and adenoidectomy Social History Smoking and tobacco status: current every day smoker Course Vital Signs: Vital signs: Vital Signs Temperature 97.9 F 07/23/21 05:20 Pulse Rate 74 07/23/21 05:20 Respiratory Rate 17 07/23/21 05:20 Blood Pressure 95/57 07/23/21 05:20 Pulse Oximetry 98 07/23/21 05:20 MDM - Extremity (Nontraumatic) Medical Decision Making Patient presents here with suicidal ideations patient is under 96-hour hold I spoke to psychiatrist and will admit at this time. She is medically cleared. Lab Data : 07/22/21 17:43 07/22/21 17:43 Radiology Impressions Knee X-Ray 07/22/21 15:30 IMPRESSION: Normal RIGHT knee. Laboratory Results WBC 10.8 10^3/uL (4.0-10.0) H 07/22/21 17:43 RBC 4.28 10^6/uL (4.1-5.3) 07/22/21 17:43 Hgb 12.7 g/dL (11.5-15.3) 07/22/21 17:43 Hct 38.6 % (37.0-47.0) 07/22/21 17:43 MCV 90.2 fl (81-99) 07/22/21 17:43 MCH 29.7 pg (28.0-34.0) 07/22/21 17:43 MCHC 32.9 g/dL (30.0-36.0) 07/22/21 17:43 RDW 13.3 % (12.1-15.1) 07/22/21 17:43 Plt Count 195 10^3/cmm (130-400) 07/22/21 17:43 MPV 11.0 fL (7.4-10.4) H 07/22/21 17:43 Neut % (Auto) 76.7 % 07/22/21 17:43 Lymph % (Auto) 16.7 % 07/22/21 17:43 [place] % (Auto) 5.6 % 07/22/21 17:43 Eos % (Auto) 0.5 % 07/22/21 17:43 Baso % (Auto) 0.2 % 07/22/21 17:43 Neut # (Auto) 8.30 10^3/uL (1.8-7.7) H 07/22/21 17:43 Lymph # (Auto) 1.8 10^3/uL (0.8-4.8) 07/22/21 17:43 [place] # (Auto) 0.6 10^3/uL (0.2-0.9) 07/22/21 17:43 Eos # (Auto) 0.1 10^3/uL (0.0-0.8) 07/22/21 17:43 Baso # (Auto) 0.0 10^3/uL (0.0-0.1) 07/22/21 17:43 Nucleated RBC % (auto) 0 % 07/22/21 17:43 Nucleated RBCs # 0.0 /100WBC 07/22/21 17:43 Sodium 139 mmol/L (136-145) 07/22/21 17:43 Potassium 3.5 mmol/L (3.5-5.1) 07/22/21 17:43 Chloride 104 mmol/L (98-107) 07/22/21 17:43 Carbon Dioxide 22 mmol/L (22-29) 07/22/21 17:43 Anion Gap 16.5 (5-19) 07/22/21 17:43 BUN 9 mg/dL (8-23) 07/22/21 17:43 Creatinine 0.4 mg/dL (0.5-0.9) L 07/22/21 17:43 GFR Calculation 161.7 mL/min (90-130) H 07/22/21 17:43 Glucose 109 mg/dL (65-115) 07/22/21 17:43 Calculated Osmolality 287 mOsm/kg (285-295) 07/22/21 17:43 Calcium 9.3 mg/dL (8.5-10.5) 07/22/21 17:43 Total Bilirubin 0.4 mg/dL (0.15-1.2) 07/22/21 17:43 AST 12 U/L (0-32) 07/22/21 17:43 ALT 8 U/L (0-33) 07/22/21 17:43 Alkaline Phosphatase 88 IU/L (35-105) 07/22/21 17:43 Total Protein 7.3 g/dL (6.6-8.7) 07/22/21 17:43 Albumin 4.1 g/dL (3.5-5.2) 07/22/21 17:43 Globulin 3.2 g/dL (1.3-4.6) 07/22/21 17:43 Urine Color Yellow (Yellow) 07/22/21 19:00 Urine Appearance Clear (CLEAR) 07/22/21 19:00 Urine pH 6 (5-7) 07/22/21 19:00 Ur Specific [place] 1.010 (1.005-1.030) 07/22/21 19:00 Urine Protein Neg (Negative) 07/22/21 19:00 Urine Glucose (UA) Norm (Normal) 07/22/21 19:00 Urine Ketones Negative (Negative) 07/22/21 19:00 Urine Blood 2+ (Negative) H 07/22/21 19:00 Urine Nitrate Negative (Negative) 07/22/21 19:00 Urine Bilirubin Neg (Negative) 07/22/21 19:00 Urine Urobilinogen Norm mg/dL (Negative) 07/22/21 19:00 Ur Leukocyte Esterase Negative (Negative) 07/22/21 19:00 Salicylates < 0.3 mg/dL (3-10) L 07/22/21 17:43 Urine Opiates Screen Positive ng/mL (Negative) H 07/22/21 19:00 Acetaminophen < 5.0 ug/mL (10-30) L 07/22/21 17:43 Ur Barbiturates Screen Negative ng/mL (Negative) 07/22/21 19:00 Ur Phencyclidine Scrn Negative ng/mL (Negative) 07/22/21 19:00 Ur Amphetamines Screen Positive ng/mL (Negative) H 07/22/21 19:00 U Benzodiazepines Scrn Negative ng/mL (Negative) 07/22/21 19:00 Urine Cocaine Screen Negative ng/mL (Negative) 07/22/21 19:00 U Marijuana (THC) Screen Positive ng/mL (Negative) H 07/22/21 19:00 Ethyl Alcohol < 10 mg/dL (0-10) 07/22/21 17:43 Discharge Plan Discharge Patient Disposition: Admitted As Inpatient Admit Provider: Daniel Clancy Clinical Impression: Suicidal ideation, Knee pain, right, Methamphetamine use Condition: Stable Discharge Diet: Usual diet Discharge Activity: Increase activity as tolerated Coding Level of Care Code ED Quality Assurance Supervisor Body for Jeaneth Fwdivya Exam Detailed
--- NOTE | 2021-07-22 15:30 | XR_ITS ---
WS: [id number] RIGHT KNEE: 3 VIEW(S) TECHNIQUE: AP, oblique(s) and lateral. HISTORY: pain COMPARISON: 09/24/2009 No fracture or dislocation. No joint space narrowing or osteophytes. No joint effusion. No soft tissue abnormality. XR/XR knee RT 3V* [id number] IMPRESSION: Normal RIGHT knee.
[2021-07-22] MEDS: HYDROcodone-acetaminophen 5-325 mg Tablet 1 TAB PO (16:15)
[2021-07-22] MEDS: ketorolac 30 mg/mL INJ IM (16:22)
[2021-07-22 16:39] VITALS: BP 156/90; PULSE 78; RESP 16; TEMP 36.9; O2SAT 99
[2021-07-22 17:48] LABS: Basophils % 0.2 %; Eosinophils # 0.1 10^3/uL (0.0-0.8); Eosinophils % 0.5 %; Hematocrit 38.6 % (37.0-47.0); Hemoglobin 12.7 g/dL (11.5-15.3); Lymphocytes # 1.8 10^3/uL (0.8-4.8); Lymphocytes % 16.7 %; Mean Corpuscular HGB Conc 32.9 g/dL (30.0-36.0); Mean Corpuscular Hemoglobin 29.7 pg (28.0-34.0); Mean Corpuscular Volume 90.2 fl (81-99); Monocytes # 0.6 10^3/uL (0.2-0.9); Monocytes % 5.6 %; Neutrophils % 76.7 %; Nucleated Red Blood Cells % 0 %; Platelet Count 195 10^3/cmm (130-400); Red Blood Count 4.28 10^6/uL (4.1-5.3); Red Cell Distribution Width 13.3 % (12.1-15.1); White Blood Count 10.8 10^3/uL (4.0-10.0)
[2021-07-22 18:02] LABS: Alanine Aminotransferase 8 U/L (0-33); Albumin Level 4.1 g/dL (3.5-5.2); Alkaline Phosphatase 88 IU/L (35-105); Anion Gap 16.5 (5-19); Aspartate Amino Transferase 12 U/L (0-32); Blood Urea Nitrogen 9 mg/dL (8-23); Calcium 9.3 mg/dL (8.5-10.5); Carbon Dioxide 22 mmol/L (22-29); Chloride 104 mmol/L (98-107); Globulin 3.2 g/dL (1.3-4.6); Glomerular Filtration Rate 161.7 mL/min (90-130); Glucose 109 mg/dL (65-115); Osmolality Calculated 287 mOsm/kg (285-295); Potassium 3.5 mmol/L (3.5-5.1); Sodium 139 mmol/L (136-145); Total Bilirubin 0.4 mg/dL (0.15-1.2); Total Protein 7.3 g/dL (6.6-8.7)
[2021-07-22 18:03] LABS: Acetaminophen < 5.0 ug/mL (10-30); Alcohol Level < 10 mg/dL (0-10); Salicylate < 0.3 mg/dL (3-10)
[2021-07-22 19:13] LABS: Add Urine Microscopic? NO; Charge for UA Resulting for Rev
[2021-07-22 19:18] LABS: Urine Appearance Clear (CLEAR); Urine Color Yellow (Yellow); pH Urine 6 (5-7)
[2021-07-22 19:19] LABS: Bilirubin Urine Neg (Negative); Blood Urine 2+ (Negative); Glucose Urine UA Norm (Normal); Ketones Urine Negative (Negative); Leukocyte Esterase Urine Negative (Negative); Nitrate Urine Negative (Negative); Protein Urine Neg (Negative); Urobilinogen Urine Norm (Negative)
[2021-07-22 20:57] VITALS: BP 137/76; PULSE 71; RESP 17; O2SAT 99
[2021-07-22 21:17] VITALS: BP 142/84; PULSE 86; RESP 22; TEMP 36.6; O2SAT 97; BMI 20.2
[2021-07-22 21:19] VITALS: BP 137/76; PULSE 71; RESP 17; TEMP 36.6; O2SAT 99
[2021-07-22 21:45] LABS: Amphetamines Screen Urine Positive (Negative); Barbiturates Screen Urine Negative (Negative); Benzodiazepines Screen Urine Negative (Negative); Cocaine Screen Urine Negative (Negative); Opiate Screen Urine Positive (Negative); PCP Screen Urine Negative (Negative); THC Screen Urine Positive (Negative)
[2021-07-23] MEDS: clopidogrel 75 mg Tablet PO ×2 (00:17→20:47)
[2021-07-23] MEDS: venlafaxine 75 mg Tablet PO ×2 (00:17→20:47)
[2021-07-23] MEDS: pantoprazole DR 40 mg Tablet PO ×2 (00:17→20:47)
[2021-07-23] MEDS: trazodone 100 mg Tablet PO ×2 (00:17→20:47)
[2021-07-23 03:00] VITALS: RESP 16; O2SAT 98
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
[2021-07-23 05:20] VITALS: BP 95/57; PULSE 74; RESP 17; TEMP 36.6; O2SAT 98
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
[2021-07-23] MEDS: acetaminophen 325 mg Tablet 650 MG PO ×2 (08:52→18:51)
[2021-07-23] MEDS: hyDROXYzine 25 mg Capsule 50 MG PO (08:52)
--- NOTE | 2021-07-23 09:37 | PC.NURSE ---
AM Assessment In bed resting. Upon assessment began to cry and was tearful throughout assessment. Endorses suicidal thoughts, states, I just want to be . When asked what was going on would not elaborate. Contracted for safety. Asked if she had a plan, states, NO and kept crying, Denies HI and AVH at this time. Patient request something for anxiety and pain. Reports pain 5/10 in right knee. Med nurse notified to administer anxiety medication and something for pain. RECYCLING SPECIALIST reports patient got up for breakfast and ate in no distress.
--- NOTE | 2021-07-23 10:33 | PC.NURSE ---
PRN MED PT GIVEN 50MG VISTARIL, FOR STATED ANXIETY, WILL CONTINUE TO MONITOR.
--- NOTE | 2021-07-23 10:35 | PC.NURSE ---
Addendum entered by Amadou Ho RN 07/23/21 11:20: PT BETTER BUT STILL SAD/DEPRESSED, WILL CONTINUE TO MONITOR. Original Note: PRN MEDS PT GIVEN 50MG VISTARIL FOR STATED ANXIETY, WILL CONTINUE TO MONITOR.
[2021-07-23] MEDS: OLANZapine 5 mg ODT PO (11:48)
--- NOTE | 2021-07-23 12:00 | PC.NURSE ---
Behavior In day area eating lunch at 1145, began to gasp for breath, holding throat. Patient was moving air, but gasping. When asked if she has done this before or is having a panic attack, shakes her head yes. This RN assisted to room with wheelchair. Pot Operator present. Slow deep breathing techniques completed with patient and she is responsive to completing breathing techniques. Once patient calmed she was able to take Zydis 5 mg as ordered. Patient was still tearful but able to talk through fears of being alone. States she wants to talk to son. This RN retrieved number from phone and will assist her with the phone as soon as it is available.
[2021-07-23 14:00] VITALS: BP 86/47; PULSE 86; RESP 17; TEMP 36.7; O2SAT 98
--- NOTE | 2021-07-23 14:38 | PC.SOCIAL ---
Patient attended group.
[2021-07-23 19:55] VITALS: BP 113/68; PULSE 70; RESP 17; TEMP 36.8; O2SAT 100
[2021-07-23] MEDS: atorvastatin 40 mg Tablet 20 MG PO (20:47)
[2021-07-23 22:01] LABS: Glucose Point of Care 167 mg/dL (70-110)
[2021-07-24] MEDS: ibuprofen 600 mg Tablet PO ×2 (03:56→14:11)
[2021-07-24 06:00] VITALS: BP 90/42; PULSE 62; RESP 16; TEMP 36.6; O2SAT 97
[2021-07-24] MEDS: acetaminophen 325 mg Tablet 650 MG PO ×2 (08:46→21:04)
[2021-07-24] MEDS: hyDROXYzine 25 mg Capsule 50 MG PO ×2 (08:46→23:47)
--- NOTE | 2021-07-24 09:05 | PC.NURSE ---
pt up in wheelchair to nurses station wanting brush for hair, pt then wanted to return to room to rest in bed, pt states that she doesnt need to live anymore becuase there was nobody left to live for pt reports pain in rt knee and requests prn APAP. pt tearful and wants something for anxiety, prn APAP and vistril given. pt is resting in bed
[2021-07-24 14:00] VITALS: BP 170/65; BP 90/42; PULSE 62; PULSE 79; RESP 16; RESP 17; TEMP 36.6; TEMP 36.8; O2SAT 96; O2SAT 97
[2021-07-24] MEDS: OLANZapine 5 mg ODT PO (14:12)
--- NOTE | 2021-07-24 18:35 | P.NPUPN_ITS ---
Subjective NPU Subjective: Patient presents today fairly focused on her medication. Reporting some bowel treatment things got the wrong prior to me coming on service. She reports that she has Klonopin as a regular medication. She reports that the reason why she is here is that she got overwhelmed and she does need to be on the right medications. She reports that she is eating okay but not sleeping well due to her anxiety. Mental Status Exam MSE Comments: This is an underweight white female in hospital scrubs with a dequate grooming and eye contact. Poor dentition with facial atrophy looking older than her stated age. No abnormal movements except for mild psychomotor retardation. Cooperative with exam in mild distress. Speech was normal rate and volume. Mood described as anxious, affect congruent. Thought process organized. Thought contact: patient denies suicidal or homicidal ideation, there were no delusions reported or noted, patient denied auditory or visual hallucinations. Attention and concentration appeared intact and memory appeared reliable but none were formally tested. Patient is alert and oriented times three. Insight and judgment appear limited and impulse control appears limited. Vitals/I&O/Wt Last Vital Signs Temp 98.0 F 07/24/21 21:11 Pulse 64 07/24/21 21:11 Resp 17 07/24/21 21:11 BP 112/65 07/24/21 21:11 Pulse Ox 99 07/24/21 21:11 Data NPU : 07/22/21 17:43 07/22/21 17:43 A&P Assessment and plan (1) Major depressive disorder: Status: Acute (2) Anxiety: Status: Acute (3) Knee pain, right: Status: Acute (4) Methamphetamine use: Status: Acute (5) Suicidal ideation: Status: Acute Plan This is a 60-year-old female with chronic anxiety and depression exacerbated now by severe knee pain which limits her movement.? Probably needs placement in a facility who can care for her. Plan: 1.? Continue current medication.? Increased Effexor to 150 mg daily. 2.? Continue every 15 minute checks for safety. 3.? Encourage individual, group and milieu therapies. 4.? Encourage sober living treatment after discharge at the highest level of care to which she is willing to commit. 5.? We will work to pharmacy to figure out if there are any medications that she is actively on but not receiving. Involuntary Hold Information 96 Hour Hold: 96 Hour Involuntary Admission: Yes 96 Hour Hold Ending Date: 07/28/21 96 Hour Hold Ending Time: 17:15 Attestations NPU Medical Necessity Statement*: Inpatient hospitalization is medically necessary and the clinically appropriate intervention at this time.? We will initiate medications and make changes as indicated.? Likely length of stay 3-5 days Coding Level of Care Code Acute Mold Closer Helper for [facility] Fwd Diagnoses Major depressive disorder F32.9 Anxiety F41.9 Knee pain, right M25.561 Methamphetamine use F15.10 Suicidal ideation R45.851
[2021-07-24] MEDS: clopidogrel 75 mg Tablet PO (21:03)
[2021-07-24] MEDS: atorvastatin 40 mg Tablet 20 MG PO (21:03)
[2021-07-24] MEDS: venlafaxine 75 mg Tablet PO (21:04)
[2021-07-24] MEDS: pantoprazole DR 40 mg Tablet PO (21:04)
[2021-07-24] MEDS: trazodone 100 mg Tablet PO (21:04)
[2021-07-24 21:11] VITALS: BP 112/65; PULSE 64; RESP 17; TEMP 36.7; O2SAT 99
--- NOTE | 2021-07-24 21:49 | PC.NURSE ---
Patient stated she needed something for pain and anxiety. Patient was given Tylenol and Visteril. Patient became upset and started crying stating she just wanted her Klonopin. WATER RESOURCE CONSULTANT let patient know that she did not have a order for Klonopin and we would have to speak with the provider. She was very tearful and stated she only wanted Tylenol and all of her scheduled medication. Visteril was wasted.
[2021-07-25 06:00] VITALS: BP 116/68; PULSE 74; RESP 17; TEMP 36.7; O2SAT 97
--- NOTE | 2021-07-25 10:23 | PC.NURSE ---
recieved call from 's office in [facility]. Primary care does not wish to continue clonazepam, it was prescribed for a short term use.
--- NOTE | 2021-07-25 12:42 | W.PM.NPUPNS ---
Subjective NPU Subjective: Patient presents today reporting that she is feeling a little bit better. She is taking her medications and endorsing that she is not feeling as irritable and agitated. We discussed that we have not restarted the Klonopin because we do not believe it is in her best interest and we did get a call back from her outpatient provider saying that it was not her intention for her to be in all the time medication. We discussed the fact that at her age having Klonopin regularly is problematic. Plus with her addiction issues and does not seem to be a good solution. Mental Status Exam MSE Comments: This is an underweight white female in hospital scrubs with adequate grooming and eye contact.? Poor dentition with facial atrophy looking older than her stated age.? No abnormal movements except for improving mild psychomotor retardation. Cooperative with exam in no acute distress. Speech was normal rate and volume. Mood described as better, affect congruent. Thought process organized. Thought contact: patient denies suicidal or homicidal ideation, there were no delusions reported or noted, patient denied auditory or visual hallucinations. Attention and concentration appeared intact and memory appeared reliable but none were formally tested. Patient is alert and oriented times three. Insight and judgment appear improving and impulse control appears limited. Vitals/I&O/Wt Last Vital Signs Temp 98.0 F 07/25/21 06:00 Pulse 74 07/25/21 06:00 Resp 17 07/25/21 06:00 BP 116/68 07/25/21 06:00 Pulse Ox 97 07/25/21 06:00 Data NPU : 07/22/21 17:43 07/22/21 17:43 A&P Assessment and plan (1) Major depressive disorder: Status: Acute (2) Anxiety: Status: Acute (3) Knee pain, right: Status: Acute (4) Methamphetamine use: Status: Acute (5) Suicidal ideation: Status: Acute Plan This is a 60-year-old female with chronic anxiety and depression exacerbated now by severe knee pain which limits her movement.? Probably needs placement in a facility who can care for her. Plan: 1.? Continue current medication.? Increased Effexor to 150 mg daily. 2.? Continue every 15 minute checks for safety. 3.? Encourage individual, group and milieu therapies. 4.? Encourage sober living treatment after discharge at the highest level of care to which she is willing to commit. Involuntary Hold Information 96 Hour Hold: 96 Hour Involuntary Admission: Yes 96 Hour Hold Ending Date: 07/28/21 96 Hour Hold Ending Time: 17:15 Attestations NPU Medical Necessity Statement*: Inpatient hospitalization is medically necessary and the clinically appropriate intervention at this time.? We will initiate medications and make changes as indicated.?? Likely length of stay 2-4 days Coding Level of Care Code Acute Ski Base Trimmer for [facility] Fwd Diagnoses Major depressive disorder F32.9 Anxiety F41.9 Knee pain, right M25.561 Methamphetamine use F15.10 Suicidal ideation R45.851
[2021-07-25 14:00] VITALS: BP 129/81; PULSE 83; RESP 17; TEMP 36.7; O2SAT 100
[2021-07-25] MEDS: acetaminophen 325 mg Tablet 650 MG PO ×2 (14:00→20:10)
[2021-07-25] MEDS: OLANZapine 5 mg ODT PO (14:00)
[2021-07-25] MEDS: nicotine 4 mg lozenge MUCOUS MEM ×2 (14:00→20:48)
[2021-07-25] MEDS: venlafaxine 75 mg Tablet PO (20:10)
[2021-07-25] MEDS: atorvastatin 40 mg Tablet 20 MG PO (20:10)
[2021-07-25] MEDS: clopidogrel 75 mg Tablet PO (20:10)
[2021-07-25] MEDS: trazodone 100 mg Tablet PO (20:11)
[2021-07-25] MEDS: pantoprazole DR 40 mg Tablet PO (20:11)
[2021-07-25] MEDS: hyDROXYzine 25 mg Capsule 50 MG PO (20:11)
[2021-07-25 20:42] VITALS: BP 116/73; PULSE 68; RESP 16; O2SAT 97
[2021-07-26] MEDS: ibuprofen 600 mg Tablet PO ×4 (03:05→20:22)
[2021-07-26] MEDS: OLANZapine 5 mg ODT PO ×3 (03:05→16:19)
[2021-07-26 05:41] VITALS: BP 142/86; PULSE 75; RESP 17; O2SAT 98
[2021-07-26 07:31] VITALS: PULSE 79; RESP 16; O2SAT 98
[2021-07-26] MEDS: acetaminophen 325 mg Tablet 650 MG PO ×2 (10:15→16:19)
[2021-07-26 14:00] VITALS: BP 122/80; PULSE 61; RESP 15; TEMP 36.6; O2SAT 97
[2021-07-26] MEDS: nicotine 4 mg lozenge MUCOUS MEM ×2 (16:20→20:22)
--- NOTE | 2021-07-26 16:55 | P.NPUPN_ITS ---
Subjective NPU Subjective: Patient presents today reporting significant depression and wondering why we do not just let her . We discussed her addiction which she was fairly resistant to discussing even though it was brought up on several occasions, showing her ambivalence. We discussed the risk benefits and alte rnatives of initiating Wellbutrin XL and she understood and agreed to proceed as is documented in his note. Mental Status Exam MSE Comments: This is an underweight white female in hospital scrubs with adeq uate grooming and eye contact.? Poor dentition with facial atrophy looking older than her stated age.? No abnormal movements except for psychomotor agitation. Cooperative with exam in moderate distress. Speech was normal rate and volume. Mood described as depressed, affect tearful. Thought process organized. Thought contact: patient endorsed suicidal but denied homicidal ideation, there were no delusions reported or noted, patient denied auditory or visual hallucinations. Attention and concentration appeared intact and memory appeared reliable but none were formally tested. Patient is alert and oriented times three. Insight and judgment appear limited and impulse control appears limited. Vitals/I&O/Wt Last Vital Signs Temp 97.9 F 07/26/21 14:00 Pulse 61 07/26/21 14:00 Resp 15 07/26/21 14:00 BP 122/80 07/26/21 14:00 Pulse Ox 97 07/26/21 14:00 Weight last 48 hrs Weight 55.338 kg Data NPU : 07/22/21 17:43 07/22/21 17:43 A&P Assessment and plan (1) Major depressive disorder: Status: Acute (2) Anxiety: Status: Acute (3) Knee pain, right: Status: Acute (4) Methamphetamine use: Status: Acute (5) Suicidal ideation: Status: Acute Plan This is a 60-year-old female with chronic anxiety and depression exacerbated now by severe knee pain which limits her movement.? Probably needs placement in a facility who can care for her. Plan: 1.? Continue current medication.? Increased Effexor to 150 mg daily. Add Wellbutrin XL 150 mg p.o. every morning and consider doxepin 10 mg p.o. nightly. 2.? Continue every 15 minute checks for safety. 3.? Encourage individual, group and milieu therapies. 4.? Encourage sober living treatment after discharge at the highest level of care to which she is willing to commit. Involuntary Hold Information 96 Hour Hold: 96 Hour Involuntary Admission: Yes 96 Hour Hold Ending Date: 07/28/21 96 Hour Hold Ending Time: 17:15 Attestations NPU Medical Necessity Statement*: Inpatient hospitalization is medically necessary and the clinically appropriate intervention at this time.? We will initiate medications and make changes as indicated.?? Likely length of stay 2-4 days Coding Level of Care Code Acute Office Automation Technician for [facility] Fwd Diagnoses Major depressive disorder F32.9 Anxiety F41.9 Knee pain, right M25.561 Methamphetamine use F15.10 Suicidal ideation R45.851
[2021-07-26] MEDS: venlafaxine 75 mg Tablet PO (20:22)
[2021-07-26] MEDS: atorvastatin 40 mg Tablet 20 MG PO (20:22)
[2021-07-26] MEDS: trazodone 100 mg Tablet PO (20:22)
[2021-07-26] MEDS: hyDROXYzine 25 mg Capsule 50 MG PO (20:22)
[2021-07-26] MEDS: clopidogrel 75 mg Tablet PO (20:22)
[2021-07-26] MEDS: pantoprazole DR 40 mg Tablet PO (20:22)
[2021-07-26 20:55] VITALS: BP 114/73; PULSE 65; RESP 16; TEMP 36.9; O2SAT 97
[2021-07-27] MEDS: acetaminophen 325 mg Tablet 650 MG PO ×2 (03:24→09:10)
[2021-07-27 05:30] VITALS: BMI 20.2
[2021-07-27 06:00] VITALS: BP 129/72; PULSE 76; RESP 20; TEMP 36.6; O2SAT 97
[2021-07-27] MEDS: ibuprofen 600 mg Tablet PO ×2 (06:21→11:52)
--- NOTE | 2021-07-27 07:51 | W.PM.NPUPNS ---
Subjective NPU Subjective: Patient presented today having significant frustration reporting that we were doing anything to help and that she was ready to go home. She was unable to identify that she was actually feeling better and safe to go home only reporting that we were not helping her and we should let her go. When pressed about what the main issue was she was reporting that she was not on her right medications and we are giving her things that we want to get her not which she knows works. When pressed as to what the right medications are she could not get to an answer or say which ones I once again reiterated to her that her doctor was no longer planning on giving her Klonopin. Mental Status Exam MSE Comments: This is an underweight white female in hospital scrubs with adequate grooming and eye contact.? Poor dentition with facial atrophy looking older than her stated age.? No abnormal movements except for psychomotor agitation. Mostly uncooperative with exam in moderate distress. Speech was normal rate and volume. Mood not described, affect irritable. Thought process organized. Thought contact: patient did not respond to questions about suicidal or homicidal ideation, but expressed anger towards others, there were no delusions reported or noted, patient did not appear to be responding to internal stimuli. Attention and concentration appeared intact and memory appeared reliable but none were formally tested. Patient is alert and oriented times three. Insight and judgment appear limited and impulse control appears limited. Vitals/I&O/Wt Last Vital Signs Temp 98 F 07/27/21 06:00 Pulse 76 07/27/21 06:00 Resp 20 H 07/27/21 06:00 BP 129/72 07/27/21 06:00 Pulse Ox 97 07/27/21 06:00 Weight last 48 hrs Weight 55.338 kg Data NPU : 07/22/21 17:43 07/22/21 17:43 A&P Assessment and plan (1) Major depressive disorder: Status: Acute (2) Anxiety: Status: Acute (3) Knee pain, right: Status: Acute (4) Methamphetamine use: Status: Acute (5) Suicidal ideation: Status: Acute Plan This is a 60-year-old female with chronic anxiety and depression exacerbated now by severe knee pain which limits her movement.? Probably needs placement in a facility who can care for her. Plan: 1.? Continue current medication.? Increased Effexor to 150 mg daily.? Added Wellbutrin XL 150 mg p.o. every morning and consider doxepin 10 mg p.o. nightly. 2.? Continue every 15 minute checks for safety. 3.? Encourage individual, group and milieu therapies. 4.? Encourage sober living treatment after discharge at the highest level of care to which she is willing to commit. 5. We will have to decide whether to apply for 21-day hold given concerns about safety. Involuntary Hold Information 96 Hour Hold: 96 Hour Involuntary Admission: Yes 96 Hour Hold Ending Date: 07/28/21 96 Hour Hold Ending Time: 17:15 Attestations NPU Medical Necessity Statement*: Inpatient hospitalization is medically necessary and the clinically appropriate intervention at this time.? We will initiate medications and make changes as indicated.?? Likely length of stay 2-4 days Coding Level of Care Code Acute Bilingual Teacher for [facility] Fwd Diagnoses Major depressive disorder F32.9 Anxiety F41.9 Knee pain, right M25.561 Methamphetamine use F15.10 Suicidal ideation R45.851
[2021-07-27 09:06] VITALS: PULSE 74; RESP 16; O2SAT 99
[2021-07-27] MEDS: buPROPion XL (24 HR) 150 mg Tablet PO (09:10)
[2021-07-27] MEDS: nicotine 4 mg lozenge MUCOUS MEM ×2 (09:42→18:23)
[2021-07-27 13:29] VITALS: BP 104/57; PULSE 83; RESP 19; TEMP 36.9; O2SAT 99
[2021-07-27] MEDS: OLANZapine 5 mg ODT PO (18:23)
[2021-07-27 20:01] VITALS: BP 116/73; PULSE 68; RESP 16; TEMP 36.6; O2SAT 97
[2021-07-27] MEDS: atorvastatin 40 mg Tablet 20 MG PO (20:49)
[2021-07-27] MEDS: pantoprazole DR 40 mg Tablet PO (20:49)
[2021-07-27] MEDS: venlafaxine 75 mg Tablet PO (20:49)
[2021-07-27] MEDS: trazodone 100 mg Tablet PO (20:49)
[2021-07-27] MEDS: clopidogrel 75 mg Tablet PO (20:49)
[2021-07-27] MEDS: trazodone 50 mg Tablet PO (22:21)
[2021-07-28] MEDS: acetaminophen 325 mg Tablet 650 MG PO ×2 (04:02→23:09)
[2021-07-28 06:00] VITALS: BP 143/78; PULSE 100; RESP 21; TEMP 36.7; O2SAT 98
[2021-07-28] MEDS: ibuprofen 600 mg Tablet PO ×2 (08:57→20:02)
[2021-07-28] MEDS: buPROPion XL (24 HR) 150 mg Tablet PO (08:57)
[2021-07-28] MEDS: nicotine 4 mg lozenge MUCOUS MEM ×2 (12:43→18:46)
[2021-07-28] MEDS: hyDROXYzine 25 mg Capsule 50 MG PO (12:43)
[2021-07-28 14:00] VITALS: BP 144/88; PULSE 80; RESP 17; TEMP 36.8; O2SAT 98
[2021-07-28 14:02] VITALS: PULSE 76; RESP 16; O2SAT 99
--- NOTE | 2021-07-28 14:30 | P.NPUPN_ITS ---
Subjective NPU Subjective: Patient was apologetic about her behavior the other day when she was frustrated. Reports that she has been working with the social work team to find a assisted living facility. She reports they were waiting to hear from 1 and that there is one that is in [place] that her son reports is close to her that she told the social service agency director about. He endorsed being hopeful to find something in the next 48 hours and she did sign into the hospital as her 96-hour hold was complete. Mental Status Exam MSE Comments: This is an underweight white female in hospital scrubs with adequate grooming and eye contact.? Poor dentition with facial atrophy looking older than her stated age.? No abnormal movements except.? Cooperative with exam in no acute distress. Speech was normal rate and volume. Mood a little better, affect congruent. Thought process organized. Thought contact: patient denied suicidal or homicidal ideation, there were no delusions reported or noted, patient denied auditory or visual hallucinations. Attention and concentration appeared intact and memory appeared reliable but none were formally tested. Patient is alert and oriented times three. Insight and judgment appear fair and impulse control appears improving. Vitals/I&O/Wt Last Vital Signs Temp 98.2 F 07/28/21 14:00 Pulse 76 07/28/21 14:02 Resp 16 07/28/21 14:02 BP 144/88 07/28/21 14:00 Pulse Ox 99 07/28/21 14:02 Weight last 48 hrs Weight 55.338 kg Data NPU : 07/22/21 17:43 07/22/21 17:43 A&P Assessment and plan (1) Major depressive disorder: Status: Acute (2) Anxiety: Status: Acute (3) Knee pain, right: Status: Acute (4) Methamphetamine use: Status: Acute (5) Suicidal ideation: Status: Acute Plan This is a 60-year-old female with chronic anxiety and depression exacerbated now by severe knee pain which limits her movement.? Probably needs placement in a facility who can care for her. Plan: 1.? Continue current medication.? Increased Effexor to 150 mg daily.? Added Wellbutrin XL 150 mg p.o. every morning and consider doxepin 10 mg p.o. nightly. 2.? Continue every 15 minute checks for safety. 3.? Encourage individual, group and milieu therapies. 4.? Encourage sober living treatment after discharge at the highest level of care to which she is willing to commit. 5.? We will have to decide whether to apply for 21-day hold given concerns about safety. Involuntary Hold Information 96 Hour Hold: 96 Hour Involuntary Admission: Yes 96 Hour Hold Ending Date: 07/28/21 96 Hour Hold Ending Time: 17:15 Attestations NPU Medical Necessity Statement*: Inpatient hospitalization is medically necessary and the clinically appropriate intervention at this time.? We will initiate medications and make changes as indicated.?? Likely length of stay 1-3 days Coding Level of Care Code Acute Nursing Care Attendant for Suelleng Fwd Diagnoses Major depressive disorder F32.9 Anxiety F41.9 Knee pain, right M25.561 Methamphetamine use F15.10 Suicidal ideation R45.851
--- NOTE | 2021-07-28 17:35 | PC.NURSE ---
Discussed with patient case management plan on working for placement. Patient signed self in to hospital.
[2021-07-28] MEDS: OLANZapine 5 mg ODT PO (18:46)
[2021-07-28 19:41] VITALS: BP 135/82; PULSE 71; RESP 20; TEMP 36.6; O2SAT 97
[2021-07-28] MEDS: atorvastatin 40 mg Tablet 20 MG PO (20:02)
[2021-07-28] MEDS: pantoprazole DR 40 mg Tablet PO (20:02)
[2021-07-28] MEDS: venlafaxine 75 mg Tablet PO (20:03)
[2021-07-28] MEDS: clopidogrel 75 mg Tablet PO (20:03)
[2021-07-28] MEDS: trazodone 100 mg Tablet 200 MG PO (20:03)
[2021-07-28] MEDS: docusate sodium 100 mg Capsule PO (20:03)
--- NOTE | 2021-07-28 22:13 | PC.NURSE ---
HALLUCINATIONS DURING SHIFT ASSESSMENT PATIENT TOLD CONCRETE WORKER THAT SHE HAS BEEN HAVING AH. PT DENIES REPORTING THIS TO ANY STAFF MEMBER UNTIL NOW BECAUSE SHE WAS AFRAID IT WOULD CAUSE HER MORE HARM THAN GOOD. STATES IN PREVIOUS YEARS SHE HAS HAD VOICES TELLING HER TO KILL HER CAT WHICH SHE HATED HEARING. REPORTS THE VOICES COME AND GO. YESTERDAY THEY WERE SEVERE AND THE VOICES WERE TELLING HER TO KILL HERSELF. PT STATES YESTERDAY SHE WAS VERY ANXIOUS AND THE VOICES WERE SO LOUD SHE COULD NOT THINK. SHE DENIED SI/HI. PT IS VERY CONCERNED WHAT WILL HAPPEN TO HER. PROVIDER NOTIFIED.
[2021-07-28] MEDS: trazodone 50 mg Tablet PO (23:09)
[2021-07-29 06:00] VITALS: BP 110/69; PULSE 77; RESP 18; TEMP 36.8; O2SAT 97
[2021-07-29] MEDS: buPROPion XL (24 HR) 150 mg Tablet PO (08:48)
[2021-07-29] MEDS: nicotine 4 mg lozenge MUCOUS MEM (08:48)
--- NOTE | 2021-07-29 08:57 | PC.NURSE ---
shift assessment, pt c/o constipation for 6+ days, although nursing shift assessment prior documented last bowel movement 07/28/21....prn colace previously given by night auditor nurse. pt encouraged to drink fluids, abdoment soft, active bowel sounds x4 quadrants
[2021-07-29] MEDS: hyDROXYzine 25 mg Capsule 50 MG PO (12:19)
--- NOTE | 2021-07-29 12:20 | PC.NURSE ---
PRN VISTARIL 50 MG GIVEN PO PER PT C/O STATED ANXIETY. WILL CONT TO MONITOR
[2021-07-29 14:00] VITALS: BP 101/61; PULSE 73; RESP 18; TEMP 36.7; O2SAT 96
--- NOTE | 2021-07-29 18:09 | W.PM.NPUPNS ---
Subjective NPU Subjective: Patient presents today fairly frustrated that things do not fall in place for her to leave today. Reports that she has a granddaughter and she was able to give the address and the phone number that she reports is wanting her to come stay with her. We agreed that if there was not a clear location she could agree upon for placement tomorrow that we will discharge her to her grand daughter's house. Otherwise reported that she was fine and feels ready to embark on the next chapter of her recovery. Medications: Medication Review Details: This is an underweight white female in hospital scrubs with adequate grooming and eye contact.? Poor dentition with facial atrophy looking older than her stated age.? No abnormal movements except.? Cooperative with exam in no acute distress. Speech was normal rate and volume. Mood described as happy, affect less subdued. Thought process organized. Thought contact: patient denied suicidal or homicidal ideation,? there were no delusions reported or noted, patient denied auditory or visual hallucinations. Attention and concentration appeared intact and memory appeared reliable but none were formally tested. Patient is alert and oriented times three. Insight and judgment appear fair and impulse control appears improving. Vitals/I&O/Wt Last Vital Signs Temp 98.1 F 07/29/21 14:00 Pulse 73 07/29/21 14:00 Resp 18 07/29/21 14:00 BP 101/61 07/29/21 14:00 Pulse Ox 96 07/29/21 14:00 Data NPU : 07/22/21 17:43 07/22/21 17:43 A&P Assessment and plan (1) Major depressive disorder: Status: Acute (2) Anxiety: Status: Acute (3) Knee pain, right: Status: Acute (4) Methamphetamine use: Status: Acute (5) Suicidal ideation: Status: Acute Plan This is a 60-year-old female with chronic anxiety and depression exacerbated now by severe knee pain which limits her movement.? Probably needs placement in a facility who can care for her. Plan: 1.? Continue current medication.? Increased Effexor to 150 mg daily.? Added Wellbutrin XL 150 mg p.o. every morning and consider doxepin 10 mg p.o. nightly. 2.? Continue every 15 minute checks for safety. 3.? Encourage individual, group and milieu therapies. 4.? Encourage sober living treatment after discharge at the highest level of care to which she is willing to commit. 5.? We will have to decide whether to apply for 21-day hold given concerns about safety. Involuntary Hold Information 96 Hour Hold: 96 Hour Involuntary Admission: Yes 96 Hour Hold Ending Date: 07/28/21 96 Hour Hold Ending Time: 17:15 Attestations NPU Medical Necessity Statement*: Inpatient hospitalization is medically necessary and the clinically appropriate intervention at this time.? We will initiate medications and make changes as indicated.?? Likely length of stay 1-2 days. Tentative plan for discharge tomorrow. Coding Level of Care Code Acute Food Products Tester for Jeaneth Fwd Diagnoses Major depressive disorder F32.9 Anxiety F41.9 Knee pain, right M25.561 Methamphetamine use F15.10 Suicidal ideation R45.851
[2021-07-29 20:14] VITALS: BP 120/80; PULSE 73; RESP 18; TEMP 37; O2SAT 97
[2021-07-29] MEDS: pantoprazole DR 40 mg Tablet PO (20:19)
[2021-07-29] MEDS: atorvastatin 40 mg Tablet 20 MG PO (20:19)
[2021-07-29] MEDS: clopidogrel 75 mg Tablet PO (20:19)
[2021-07-29] MEDS: trazodone 100 mg Tablet 200 MG PO (20:19)
[2021-07-29] MEDS: venlafaxine 75 mg Tablet PO (20:20)
[2021-07-30] MEDS: ibuprofen 600 mg Tablet PO (04:10)
[2021-07-30 06:00] VITALS: BP 161/78; PULSE 82; RESP 18; TEMP 36.9; O2SAT 99
[2021-07-30] MEDS: buPROPion XL (24 HR) 150 mg Tablet PO (08:38)
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
[2021-07-30 14:00] VITALS: BP 123/77; PULSE 81; RESP 18; TEMP 36.5; O2SAT 95
[2021-07-30 15:09] VITALS: BP 161/78; PULSE 82; RESP 18; TEMP 36.9; O2SAT 99
--- NOTE | 2021-07-30 15:39 | PC.NURSE ---
PT DISCHARGING TO [facility]. RIDE ARRANGED BY HOSPITAL TO TRANSPORT TO [facility]. MEDICATIONS SENT TO [facility] FOR PT TO SOLUTION STRATEGIST. WHANAU SUPPORT WORKER AWARE OF NEED TO STOP AT PHARMACY. PT'S PERSONAL CRUTCHES OBTAINED FROM ER FOR PT AMBULATION. ALL PERSONAL BELONGINGS RETURNED TO PT. DENIES ALL SI/HI.
--- NOTE | 2021-07-30 15:47 | DCPLANNER ---
IMM WAS PRINTED AND COPY GIVEN TO PT AND EXPLAINED.
== END 2021-07-30 15:43 | disposition home or self-care (01) | DRG 881 ==
LOC: ER 20:43 → NP 21:25
PROVIDERS: Family Medicine; Admitting Provider Psychiatry & Neurology Psychiatry; Emergency Provider Emergency Medicine; PCP Internal Medicine Infectious Disease; Visit Provider Psychiatry & Neurology Psychiatry
DX: F32.9 Major depressive disorder, single episode, unspecified (principal); R45.851 Suicidal ideations; F41.9 Anxiety disorder, unspecified; F15.10 Other stimulant abuse, uncomplicated; F17.200 Nicotine dependence, unspecified, uncomplicated
CPT/HCPCS: 36416; 73562; 80053; 80306; 80307; 81003; 82962; 85025; 96372; 97150; 99285; J1885; J2930

== ENCOUNTER 2021-10-13 06:13 | Day surgery (SDC) | payer MEDICARE, MEDICAID, SELFPAY ==
[2021-10-13 06:55] VITALS: BP 138/84; PULSE 72; RESP 18; TEMP 36.8; O2SAT 99
[2021-10-13] MEDS: sodium chloride 0.9% 1,000 ML 30 ML IV (07:10)
--- NOTE | 2021-10-13 07:24 | P.HP_ITS ---
Same Day Surgery H&P Indication for Procedure/HPI DATE OF PROCEDURE: October 13, 2021 CHIEF COMPLAINT/INDICATIONFOR SURGICAL PROCEDURE: Dysphagia PREOP DIAGNOSIS: Dysphagia PLANNED PROCEDURE: Operation Date: 10/13/21 07:45 Proposed Procedures p EGD Dilation W/ Bougie [id number],R13.10(Not Applicable) - Oscar Antonio MD Medications/Allergies* Home Medications Medication Instructions Recorded Confirmed Type pantoprazole 40 mg tablet,delayed 40 mg PO BEDTIME 06/13/19 10/13/21 History release clopidogrel 75 mg tablet 75 mg PO BEDTIME 07/26/20 10/10/21 History fluticasone fur. 100 mcg-umeclid 1 ea INHALATION DAILY 07/26/20 10/13/21 History 62.5 mcg-vilant 25 mcg inhalat.powder (Trelegy Ellipta) nitroglycerin 0.4 mg sublingual 0.4 mg SUBLINGUAL Q5M PRN 07/22/21 10/13/21 History tablet (Nitrostat) clonazepam 1 mg tablet (Klonopin) 1 mg PO DAILY PRN 09/30/21 10/13/21 History sulfasalazine 500 mg tablet 0.5 g PO BID tab 09/30/21 10/13/21 History (Azulfidine) tizanidine 2 mg capsule (Zanaflex) 2 mg PO Q8H PRN 09/30/21 10/13/21 History trazodone 100 mg tablet 100 mg PO .At bedtime tab 09/30/21 10/13/21 History Allergies/Adverse Reactions Allergy/AdvReac Type Severity Reaction Status Date / Time aspirin Allergy Unknown Verified 10/09/21 09:26 codeine Allergy ALGY-Rash Verified 10/09/21 09:26 tramadol Allergy Unknown Verified 10/09/21 09:26 Current Medications: Generic Name Dose Route Start Last Admin Trade Name Freq PRN Reason Stop Dose Admin Sodium Chloride 1,000 mls @ 30 mls/hr 10/13/21 06:45 10/13/21 07:10 Sodium Chloride 0.9% IV 30 mls/hr .Q24H JOAQUIN Administration Pertinent History/Comorbid Conditions* Medical History (Updated 10/09/21 @ 09:50 by Oscar Antonio MD) Anxiety Brainstem stroke Crohn's colitis Surgical History (Updated 09/15/19 @ 17:18 by AMY Toussaint H/O tubal ligation H/O: hysterectomy S/P cholecystectomy S/P small bowel resection S/P splenectomy Status post tonsillectomy and adenoidectomy Social History Smoking and tobacco status: current every day smoker Pertinent Exam Findings alert, oriented x 3, clear to auscultation bilaterally, regular rate & rhythm, operative site marked and procedure specific exam findings Recommendations Surgery/Procedure today Coding Level of Care Code Acute Maintenance Journeyman for Jeaneth Headley
--- NOTE | 2021-10-13 07:28 | P.ANESASSM_ITS ---
Pre-Anesthetic Assessment Height/Weight: Height 1.65 m Weight 54.885 kg Temp Pulse Resp BP Pulse Ox 97.2 F L 64 19 H 122/65 93 10/13/21 07:23 10/13/21 07:23 10/13/21 07:23 10/13/21 07:23 10/13/21 07:23 Preop Diagnosis: Dysphagia Operation Date: 10/13/21 07:45 Proposed Procedures p EGD Dilation W/ Bougie [id number],R13.10(Not Applicable) - Oscar Antonio MD Familial anesthetic complications: Patient denies family or personal history of anesthestic complications Was Beta Sara taken within 24 hours: N/A Was Clonidine taken within 24 hours: N/A Last intake: Intake Last Liquid Date 10/12/21 Last Liquid Time 00:00 Last Solid Date 10/12/21 Last Solid Time 00:00 Social Tobacco and No alcohol Exam alert, oriented x 3 and regular rate & rhythm b/l wheezing Airway Submandibular: within normal limits Cervical ROM: Other (limited flexion/extension ) Mallampati: Class III Dentition: false Pulmonary Asthma and Chronic Obstructive Pulmonary Disease CV/HEM METS < 4 Denies cardiac stents or hx of TX 07/2020 EKG ?Interpretive Statements SINUS RHYTHM SEPTAL MYOCARDIAL INFARCTION , PROBABLY OLD [40+ ms Q WAVE IN V1/V2] Compared to ECG 06/13/2019 16:50:01 Myocardial infarct finding now present Sinus tachycardia no longer present Ventricular premature complex(es) no longer present Left-axis deviation no longer present T-wave abnormality no longer present Electronically Signed On 07-27-2020 5:17:24 CDT by Toya Kidd M.D. [id number] TTE 07/2020 ?CONCLUSIONS ?1-Normal left ventricular cavity size. Normal left ventricular ?systolic function. No regional wall motion abnormalities. Left ?ventricular ejection fraction is estimated at 65 %. Grade I/IV ?diastolic dysfunction (abnormal relaxation filling pattern), ?normal to mildly elevated filling pressures. ?2-Moderate aortic valve calcification. No aortic valve stenosis. ?No aortic valve regurgitation. ?3-There is no pericardial effusion. ?4-No significant valve abnormalities. ?5-Pulmonary artery systolic pressure is within normal limits. ?6-There are no prior echocardiogram studies to compare. None reported Hepatic None reported GI Dysphagia Metabolic None reported Musc/skel Osteoarthritis/DJD Neuropsych Cerebrovascular Accident (Persistent right sided deficit ) and Depression Anesthetic Plan ASA status: 3 (60 year old smoker w/ hx of CVA w/ residual deficit, dysphagia, depression, and current tobacco use ) Anesthesia: General Other: I discussed with the patient risks, goals, and benefits of MAC and general an esthesia. We discussed spectrum of MAC anesthesia including conversion to general as well as possibility of recall of intraoperative stimuli including discomfort/pain. Patient agrees to proceed with MAC. Risk of > 500 ml blood loss (7ml/kg in children): No Medications/Allergies Home Medications Medication Instructions Recorded Confirmed Last Taken Type pantoprazole 40 mg tablet,delayed 40 mg PO BEDTIME 06/13/19 10/13/21 10/12/21 History release clopidogrel 75 mg tablet 75 mg PO BEDTIME 07/26/20 10/10/21 10/09/21 History fluticasone fur. 100 mcg-umeclid 1 ea INHALATION DAILY 07/26/20 10/13/21 Unknown History 62.5 mcg-vilant 25 mcg inhalat.powder (Trelegy Ellipta) nitroglycerin 0.4 mg sublingual 0.4 mg SUBLINGUAL Q5M PRN 07/22/21 10/13/21 Unknown History tablet (Nitrostat) atorvastatin 20 mg tablet 20 mg PO BEDTIME 30 Days #30 tab 07/30/21 10/13/21 10/09/21 Rx bupropion HCl 150 mg 24 hr tablet, 150 mg PO DAILY 30 Days #30 tab 07/30/21 10/13/21 10/12/21 Rx extended release venlafaxine 75 mg tablet 75 mg PO BEDTIME 30 Days #30 tab 07/30/21 10/13/21 10/12/21 Rx clonazepam 1 mg tablet (Klonopin) 1 mg PO DAILY PRN 09/30/21 10/13/21 10/12/21 History sulfasalazine 500 mg tablet 0.5 g PO BID tab 09/30/21 10/13/21 10/12/21 History (Azulfidine) tizanidine 2 mg capsule (Zanaflex) 2 mg PO Q8H PRN 06/10/13/21 10/12/21 History trazodone 100 mg tablet 100 mg PO .At bedtime tab 09/30/21 10/13/21 10/12/21 History Allergies Allergy/AdvReac Type Severity Reaction Status Date / Time aspirin Allergy Unknown Verified 10/09/21 09:26 codeine Allergy ALGY-Rash Verified 10/09/21 09:26 tramadol Allergy Unknown Verified 10/09/21 09:26 Current Medications Generic Name Dose Route Start Last Admin Trade Name Freq PRN Reason Stop Dose Admin Sodium Chloride 1,000 mls @ 30 mls/hr 10/13/21 06:45 10/13/21 07:10 Sodium Chloride 0.9% IV 30 mls/hr .Q24H JOAQUIN Administration PFSH Anesthesia Medical History Anxiety Brainstem stroke Crohn's colitis Surgical History H/O tubal ligation H/O: hysterectomy S/P cholecystectomy S/P small bowel resection S/P splenectomy Status post tonsillectomy and adenoidectomy Social History Smoking and tobacco status: current every day smoker Data Anesthesia Cardiac Studies: Echocardiogram Ultrasound 07/27/20
[2021-10-13 08:29] VITALS: BP 123/74; PULSE 64; RESP 18; TEMP 36.2; O2SAT 98
--- NOTE | 2021-10-13 08:32 | ANE.PACU2 ---
Documented by User: Carina To CRNA 10/13/21 08:32 Inpatient post-anesthesia follow up: Airway intact: Yes Vital signs: Temperature 97.2 F Pulse Rate 64 Respiratory Rate 19 Blood Pressure 122/65 Pulse Oximetry 93 Oxygen Delivery Me thod Room Air Oxygen Flow Rate Fraction of Inspir ed Oxygen Hydration adequate: Yes Nausea and vomiting: No Pain level: 1 Mental status: Baseline
[2021-10-13 08:50] VITALS: BP 142/83; PULSE 67; RESP 16; O2SAT 99
--- NOTE | 2021-10-13 14:06 | ANE.PACU2 ---
Inpatient post-anesthesia follow up: Airway intact: Yes Vital signs: Temperature 97.1 F Pulse Rate 67 Respiratory Rate 16 Blood Pressure 142/83 Pulse Oximetry 99 Oxygen Delivery Me thod Room Air Oxygen Flow Rate Fraction of Inspir ed Oxygen Hydration adequate: Yes Nausea and vomiting: No Pain level: 1 Mental status: Baseline
== END 2021-10-13 09:10 | disposition home or self-care (01) ==
PROVIDERS: PCP Family Medicine; Visit Provider Internal Medicine
DX: R13.10 Dysphagia, unspecified (principal); F41.9 Anxiety disorder, unspecified; J44.9 Chronic obstructive pulmonary disease, unspecified; I69.998 Other sequelae following unspecified cerebrovascular disease; F32.9 Major depressive disorder, single episode, unspecified; F17.200 Nicotine dependence, unspecified, uncomplicated
CPT/HCPCS: 43235; J2704; J7030

== ENCOUNTER 2021-10-25 08:01 | Emergency (ER) | payer MEDICARE, MEDICAID, SELFPAY ==
--- NOTE | 2021-10-25 08:09 | XRR_ITS ---
PROCEDURE INFORMATION: Exam: XR Chest Exam date and time: 10/25/2021 8:30 AM Age: 60 years old Clinical indication: Pain; Chest pressure; Additional info: Cp TECHNIQUE: Imaging protocol: Radiologic exam of the chest. Views: 1 view. COMPARISON: CR XR chest 1V portable [id number] 09/15/2019 5:12 PM FINDINGS: Lungs: The lungs are somewhat hyperinflated with increased interstitial markings, likely representing COPD. No evidence of focal consolidation to suggest pneumonia. Pleural spaces: Unremarkable. No pleural effusion. No pneumothorax. Heart/Mediastinum: Stable cardiomediastinal silhouette. Bones/joints: Right clavicle ORIF hardware noted. XR/XR chest 1V portable [id number] IMPRESSION: No evidence of focal consolidation. COPD changes.
--- NOTE | 2021-10-25 08:09 | ECG_ITS ---
[facility] Test Date: 2021-10-25 Pat Name: Gwen Briones Department: Room: Gender: Female Radiology Technician: : 1960 Requested By: Chris Gunter Order Number: [id number] Katharine MD: Jewel Bruno M.D. Measurements Intervals [place] Rate: 92 P: 73 HI: 144 QRS: 49 QRSD: 98 T: 49 QT: 341 QTc: 423 Interpretive Statements SINUS RHYTHM WITH OCCASIONAL SUPRAVENTRICULAR PREMATURE COMPLEXES SEPTAL MYOCARDIAL INFARCTION , PROBABLY OLD [40+ ms Q WAVE IN V1/V2] Compared to ECG 07/26/2020 15:19:45 No significant changes Electronically Signed On 10-25-2021 20:15:21 CDT by Jewel Bruno M.D. [id number]
[2021-10-25 08:10] VITALS: BP 164/93; PULSE 91; RESP 20; O2SAT 97; BMI 20.1
--- NOTE | 2021-10-25 08:12 | W.ED.CHESTPA ---
HPI - Chest Pain General: Chief Complaint: Chest Pain Stated Complaint: chest pain Time Seen by Provider: 10/25/21 08:02 History of Present Illness: 60-year-old female presents with left-sided chest pain/pressure. She reports its been a constant pressure that is very sharp and feels like difficult to breathe. Reports this started around an hour ago. She took 3 nitros with no relief. Patient reports a history of difficulty breathing when she goes outside in the heat. Patient smokes. The pain does not radiate. Patient denies any increased cough, fever, chills. The pain gets a lot worse with breathing. No other systemic complaints. Associated symptoms: Reports dyspnea; Deny abdominal pain, diaphoresis, fever(s), nausea, palpitations or vomiting Review of Systems Const: Denies: fever(s), chills or diaphoresis Eyes: Denies: change in vision or blurry vision ENMT: Denies: throat pain or ear or mastoid pain Card: Reports: chest pain; Denies: palpitations, irregular heart rhythm, edema or lightheadedness Resp: Reports: dyspnea and pain on inspiration; Denies: productive cough or wheezing GI: Denies: abdominal pain, nausea or vomiting : Denies: flank pain or difficulty voiding Musc: Denies: neck pain or back pain Skin/Breast: Denies: rash Neuro: Reports: weakness in extremities; Denies: headache(s) Psych: Reports: anxiety PFSH ED PFSH: Medical History Anxiety Brainstem stroke Crohn's colitis Surgical History H/O tubal ligation H/O: hysterectomy S/P cholecystectomy S/P small bowel resection S/P splenectomy Status post tonsillectomy and adenoidectomy Social History Smoking and tobacco status: current every day smoker Physical Exam Const: COMMON NORMALS: negative for patient oriented x3 GENERAL APPEARANCE: cooperative and anxious HENMT: COMMON NORMALS: not normocephalic HEAD & SCALP: not normal to inspection and not normocephalic Neck/C-Spine: COMMON NORMALS: no JVD GENERAL: Yes normal visual inspection and No tender Chest: CHEST: Yes tenderness Cardio: COMMON NORMALS: no JVD, regular rate and regular rhythm RATE: regular rate RHYTHM: regular rhythm GI: COMMON NORMALS: Normal to inspection, nondistended, normoactive bowel sounds present, Soft to palpation and non-tender PALPATION: Yes Soft to palpation : COMMON NORMALS: Yes no CVA tenderness BLADDER/KIDNEY EXAM: Yes no CVA tenderness Back/Pelvis: COMMON NORMALS: no CVA tenderness Extremity: COMMON NORMALS: normal to inspection, full ROM and capillary refill normal Neuro: COMMON NORMALS: negative for patient oriented x3 Psych: COMMON NORMALS: Normal thought process present APPEARANCE: Yes grossly normal MOOD & AFFECT: Yes anxious THOUGHT PROCESS: Normal thought process present Course Vital Signs: Vital signs: Vital Signs Pulse Rate 72 10/25/21 10:24 Respiratory Rate 16 10/25/21 10:24 Blood Pressure 124/76 10/25/21 10:24 Pulse Oximetry 98 10/25/21 10:24 MDM - Chest Pain Medical Decision Making Patient with negative EKG and, negative troponin x2. Patient's symptoms completely resolved with Pepcid. Patient likely having some minor pleuritic chest pain along with some underlying reflux/GERD. Recommend she use some ibuprofen as needed for pleurisy along with Pepcid twice daily for her GERD. Patient stable and discharged home Lab Data : 10/25/21 08:23 10/25/21 08:23 Radiology Impressions Chest X-Ray 10/25/21 08:09 IMPRESSION: No evidence of focal consolidation. COPD changes. Laboratory Results WBC 5.5 10^3/uL (4.0-10.0) 10/25/21 08:23 RBC 4.25 10^6/uL (4.1-5.3) 10/25/21 08:23 Hgb 12.6 g/dL (11.5-15.3) 10/25/21 08:23 Hct 39.6 % (37.0-47.0) 10/25/21 08:23 MCV 93.2 fl (81-99) 10/25/21 08:23 MCH 29.6 pg (28.0-34.0) 10/25/21 08:23 MCHC 31.8 g/dL (30.0-36.0) 10/25/21 08:23 RDW 13.6 % (12.1-15.1) 10/25/21 08: Plt Count 221 10^3/cmm (130-400) 10/25/21 08: MPV 10.3 fL (7.4-10.4) 10/25/21 08:23 Neut % (Auto) 50.1 % 10/25/21 08:23 Lymph % (Auto) 36.7 % 10/25/21 08: [place] % (Auto) 10.5 % 10/25/21 08: Eos % (Auto) 2.0 % 10/25/21 08:23 Baso % (Auto) 0.5 % 10/25/21 08: Neut # (Auto) 2.77 10^3/uL (1.8-7.7) 10/25/21 08: Lymph # (Auto) 2.0 10^3/uL (0.8-4.8) 10/25/21 08: [place] # (Auto) 0.6 10^3/uL (0.2-0.9) 10/25/21 08:23 Eos # (Auto) 0.1 10^3/uL (0.0-0.8) 10/25/21 08: Baso # (Auto) 0.0 10^3/uL (0.0-0.1) 10/25/21 08: Nucleated RBC % (auto) 0 % 10/25/21 08: Nucleated RBCs # 0.0 /100WBC 10/25/21 08: D-Dimer 0.54 ug/mIFEU (0-0.59) 10/25/21 08:23 Sodium 142 mmol/L (136-145) 10/25/21 08:23 Potassium 4.4 mmol/L (3.5-5.1) 10/25/21 08: Chloride 106 mmol/L (98-107) 10/25/21 08: Carbon Dioxide 27 mmol/L (22-29) 10/25/21 08:23 Anion Gap 13.4 (5-19) 10/25/21 08:23 BUN 11 mg/dL (8-23) 10/25/21 08: Creatinine 0.5 mg/dL (0.5-0.9) 10/25/21 08:23 GFR Calculation 125.0 mL/min (90-130) 10/25/21 08:23 Glucose 90 mg/dL (65-115) 10/25/21 08:23 Calculated Osmolality 293 mOsm/kg (285-295) 10/25/21 08:23 Calcium 9.3 mg/dL (8.5-10.5) 10/25/21 08:23 Total Bilirubin 0.2 mg/dL (0.15-1.2) 10/25/21 08:23 AST 10 U/L (0-32) 10/25/21 08:23 ALT 6 U/L (0-33) 10/25/21 08:23 Alkaline Phosphatase 80 IU/L (35-105) 10/25/21 08:23 Troponin T Baseline 6 ng/L (0-10) 10/25/21 08:23 Troponin T 120 Minute 6.43 ng/L (0-10) 10/25/21 10:22 Delta Troponin T 0.43 ABS# (0-10) 10/25/21 10:22 Total Protein 6.2 g/dL (6.6-8.7) L 10/25/21 08:23 Albumin 4.3 g/dL (3.5-5.2) 10/25/21 08:23 Globulin 1.9 g/dL (1.3-4.6) 10/25/21 08:23 Urine Color Yellow (Yellow) 10/25/21 08:56 Urine Appearance Sl hazy (CLEAR) 10/25/21 08:56 Urine pH 5 (5-7) 10/25/21 08:56 Ur Specific [place] 1.010 (1.005-1.030) 10/25/21 08:56 Urine Protein Neg (Negative) 10/25/21 08:56 Urine Glucose (UA) Norm (Normal) 10/25/21 08:56 Urine Ketones Negative (Negative) 10/25/21 08:56 Urine Blood Trace (Negative) H 10/25/21 08:56 Urine Nitrate Negative (Negative) 10/25/21 08:56 Urine Bilirubin Neg (Negative) 10/25/21 08:56 Urine Urobilinogen Norm mg/dL (Negative) 10/25/21 08:56 Ur Leukocyte Esterase 2+ (Negative) H 10/25/21 08:56 Urine RBC Rare /hpf (0-2) 10/25/21 08:56 Urine WBC 15-25 /hpf (0-5) H 10/25/21 08:56 Ur Squamous Epith Cells 15-25 /hpf (0-5) H 10/25/21 08:56 Amorphous Sediment Not Reportable 10/25/21 08:56 Urine Bacteria 1+ /hpf (NONE) H 10/25/21 08:56 EKG Data EKG 1: I personally reviewed and interpreted this EKG as follows: EKG interpretation date: 10/25/21 EKG interpretation time: 08:09 Interpretation: nsr, pvc, hr 92, similar to ekg 07/26/20 EKG 2: I personally reviewed and interpreted this EKG as follows: EKG interpretation date: 10/25/21 EKG interpretation time: 10:27 Interpretation: Nsr, hr 61, Pr 161 qtc 410 unchanged from previous Discharge Plan Discharge Condition: Stable Prescriptions: No Action clonazepam [Klonopin] 1 mg tablet 1 mg PO DAILY PRN (Reason: Pain) 0RF sulfasalazine [Azulfidine] 500 mg tablet 0.5 g PO BID 0RF Rx Instructions: give with food (meal/snack) tizanidine [Zanaflex] 2 mg capsule 2 mg PO Q8H PRN (Reason: Pain) 0RF trazodone 100 mg tablet 100 mg PO .At bedtime 0RF pantoprazole 40 mg tablet,delayed release (DR/EC) 40 mg PO BEDTIME 0RF clopidogrel 75 mg tablet 75 mg PO BEDTIME 0RF Trelegy Ellipta 100-62.5-25 mcg blister with device 1 ea INHALATION DAILY 0RF nitroglycerin [Nitrostat] 0.4 mg Tablet, Sublingual 0.4 mg SUBLINGUAL Q5M PRN (Reason: Chest Pain) 0RF Rx Instructions: do not exceed 3 doses per episode bupropion HCl 150 mg Tablet Extended Release 24 Hr 150 mg PO DAILY 30 Days Qty: 30 1RF venlafaxine 75 mg tablet 75 mg PO BEDTIME 30 Days Qty: 30 1RF atorvastatin 20 mg tablet 20 mg PO BEDTIME 30 Days Qty: 30 1RF Referrals: Lorelei Weinberg DO [Primary Care Provider] - Coding Level of Care Code ED [employer] Worker for Chg Fwd Exam Comprehensive
[2021-10-25] MEDS: ketorolac 30 mg/mL INJ 15 MG IVP (08:21)
[2021-10-25 08:30] LABS: Basophils % 0.5 %; Eosinophils # 0.1 10^3/uL (0.0-0.8); Hematocrit 39.6 % (37.0-47.0); Hemoglobin 12.6 g/dL (11.5-15.3); Lymphocytes % 36.7 %; Mean Corpuscular HGB Conc 31.8 g/dL (30.0-36.0); Mean Corpuscular Hemoglobin 29.6 pg (28.0-34.0); Mean Corpuscular Volume 93.2 fl (81-99); Mean Platelet Volume 10.3 fL (7.4-10.4); Monocytes # 0.6 10^3/uL (0.2-0.9); Monocytes % 10.5 %; Neutrophils # 2.77 10^3/uL (1.8-7.7); Neutrophils % 50.1 %; Nucleated Red Blood Cells % 0 %; Platelet Count 221 10^3/cmm (130-400); Red Blood Count 4.25 10^6/uL (4.1-5.3); Red Cell Distribution Width 13.6 % (12.1-15.1); White Blood Count 5.5 10^3/uL (4.0-10.0)
[2021-10-25 08:38] VITALS: PULSE 76; RESP 16; O2SAT 94
[2021-10-25] MEDS: ipratropium-albuterol 3 mL Neb INHALATION (08:38)
[2021-10-25 08:41] VITALS: PULSE 79
[2021-10-25 08:41] LABS: D Dimer 0.54 ug/mIFEU (0-0.59)
[2021-10-25 08:55] LABS: Alanine Aminotransferase 6 U/L (0-33); Albumin Level 4.3 g/dL (3.5-5.2); Alkaline Phosphatase 80 IU/L (35-105); Anion Gap 13.4 (5-19); Aspartate Amino Transferase 10 U/L (0-32); Blood Urea Nitrogen 11 mg/dL (8-23); Calcium 9.3 mg/dL (8.5-10.5); Carbon Dioxide 27 mmol/L (22-29); Chloride 106 mmol/L (98-107); Globulin 1.9 g/dL (1.3-4.6); Glucose 90 mg/dL (65-115); Osmolality Calculated 293 mOsm/kg (285-295); Potassium 4.4 mmol/L (3.5-5.1); Sodium 142 mmol/L (136-145); Total Bilirubin 0.2 mg/dL (0.15-1.2); Total Protein 6.2 g/dL (6.6-8.7)
[2021-10-25 08:56] LABS: Troponin(5th) Baseline 6 ng/L (0-10)
[2021-10-25 09:04] VITALS: RESP 19; O2SAT 97
[2021-10-25] MEDS: fentaNYL 50 mcg/mL INJ 2mL IVP (09:04)
[2021-10-25] MEDS: famotidine 20 mg/2 mL INJ 40 MG IVP (09:14)
[2021-10-25 09:27] LABS: Add Urine Microscopic? YES; Bilirubin Urine Neg (Negative); Blood Urine Trace (Negative); Glucose Urine UA Norm (Normal); Ketones Urine Negative (Negative); Leukocyte Esterase Urine 2+ (Negative); Nitrate Urine Negative (Negative); Protein Urine Neg (Negative); Urine Appearance SL Hazy (CLEAR); Urine Color Yellow (Yellow); Urobilinogen Urine Norm (Negative); pH Urine 5 (5-7)
[2021-10-25 09:28] LABS: RBC Urine RARE /hpf (0-2); Squamous Epithelial Cell Urine 15-25 /hpf (0-5); WBC Urine 15-25 /hpf (0-5)
[2021-10-25 09:29] LABS: Add Urine Culture? No; Bacteria Urine 1+ /hpf
--- NOTE | 2021-10-25 10:09 | ECG_ITS ---
[facility] Test Date: 2021-10-25 Pat Name: Gwen Briones Department: Room: Gender: Female Chief Meteorologist: ROSELYN: 1960 Requested By: Chris Gunter Order Number: [id number] Katharine MD: Jewel Bruno M.D. Measurements Intervals [place] Rate: 61 P: 59 IN: 161 QRS: 31 QRSD: 91 T: 49 QT: 407 QTc: 411 Interpretive Statements SINUS RHYTHM LOW QRS VOLTAGE IN EXTREMITY LEADS [QRS DEFLECTION < 0.5 mV IN LIMB LEADS] ANTEROSEPTAL MYOCARDIAL INFARCTION , OF INDETERMINATE AGE [40+ ms Q WAVE IN V1-V4] Compared to ECG 10/25/2021 08:08:53 Low QRS voltage now present Myocardial infarct finding still present Electronically Signed On 10-25-2021 20:21:24 CDT by Jewel Bruno M.D. [id number]
[2021-10-25 10:24] VITALS: BP 124/76; PULSE 72; RESP 16; O2SAT 98
[2021-10-25 10:57] LABS: Troponin 5 2HR 6.43 ng/L (0-10)
[2021-10-25 11:05] LABS: Troponin 5 2HR Delta 0.43 ABS# (0-10)
== END 2021-10-25 11:16 | disposition home or self-care (01) ==
PROVIDERS: Emergency Provider Student in an Organized Health Care Education/Training Program; PCP Family Medicine
DX: R07.9 Chest pain, unspecified (principal); Z79.02 Long term (current) use of antithrombotics/antiplatelets; Z86.73 Personal history of transient ischemic attack (TIA), and cerebral infarction without residual deficits; F17.210 Nicotine dependence, cigarettes, uncomplicated
CPT/HCPCS: 36415; 71045; 80053; 81001; 84484; 85025; 85378; 93005; 94640; 96374; 96375; 99285; J1885; J3010; J3490

== ENCOUNTER 2022-10-08 18:53 | Emergency (ER) | payer MEDICARE, MEDICAID, SELFPAY ==
--- NOTE | 2022-10-08 19:06 | CTR_ITS ---
PROCEDURE INFORMATION: Exam: CT Head Without Contrast Exam date and time: 10/08/2022 8:53 PM Age: 61 years old Clinical indication: Injury or trauma; Fall; Other: Seizure; Additional info: Fall, seizure TECHNIQUE: Imaging protocol: Computed tomography of the head without contrast. Radiation optimization: All CT scans at this facility use at least one of these dose optimization techniques: automated exposure control; mA and/or kV adjustment per patient size (includes targeted exams where dose is matched to clinical indication); or iterative reconstruction. REPORTING DATA: Count of CT and Cardiac NM exams in prior 12 months: This patient has received 0 known CTs and 0 known cardiac nuclear medicine studies in the 12 months prior to the current study. COMPARISON: CT head wo con* [id number] 07/27/2020 3:27 PM RADIATION DOSE METRICS: Total DLP (mGy-cm): 1169.75 FINDINGS: Brain: Stable mild periventricular white matter hypodensities are again seen. There is no evidence of acute parenchymal hemorrhage, extra-axial collection, or acute infarction. There is no mass effect, midline shift, or downward herniation. Cerebral ventricles: No ventriculomegaly. Paranasal sinuses: Visualized sinuses are unremarkable. No fluid levels. Mastoid air cells: Visualized mastoid air cells are well aerated. Bones/joints: Unremarkable. No acute fracture. Soft tissues: Unremarkable. CT/CT head wo con* [id number] IMPRESSION: 1. No evidence of acute intracranial process. 2. Mild stable white matter disease. Differential considerations include chronic microvascular ischemic change, demyelinating disease, or gliosis from infectious/inflammatory source.
--- NOTE | 2022-10-08 19:06 | CTR_ITS ---
PROCEDURE INFORMATION: Exam: CT Cervical Spine Without Contrast Exam date and time: 10/08/2022 8:53 PM Age: 61 years old Clinical indication: Injury or trauma; Fall; Blunt trauma; Additional info: Fall, seizure TECHNIQUE: Imaging protocol: Computed tomography of the cervical spine without contrast. Radiation optimization: All CT scans at this facility use at least one of these dose optimization techniques: automated exposure control; mA and/or kV adjustment per patient size (includes targeted exams where dose is matched to clinical indication); or iterative reconstruction. REPORTING DATA: Count of CT and Cardiac NM exams in prior 12 months: This patient has received 0 known CTs and 0 known cardiac nuclear medicine studies in the 12 months prior to the current study. COMPARISON: CT cervical spin wo con* [id number] 09/15/2019 6:54 PM RADIATION DOSE METRICS: Total DLP (mGy-cm): 177.3 FINDINGS: Bones/joints: No acute fracture. Normal alignment. No significant disc bulge or herniation. No severe spinal canal stenosis. Lungs: Biapical scarring. Soft tissues: Unremarkable. CT/CT cervical spin wo con* [id number] IMPRESSION: No acute findings.
--- NOTE | 2022-10-08 19:06 | CTR_ITS ---
PROCEDURE INFORMATION: Exam: CT Chest With Contrast; Diagnostic Exam date and time: 10/08/2022 8:58 PM Age: 61 years old Clinical indication: Injury or trauma; Fall; Abdominal wall; Blunt trauma (contusions or hematomas); Additional info: Fall, seizure, left sided chest and abdominal pain TECHNIQUE: Imaging protocol: Diagnostic computed tomography of the chest with contrast. Radiation optimization: All CT scans at this facility use at least one of these dose optimization techniques: automated exposure control; mA and/or kV adjustment per patient size (includes targeted exams where dose is matched to clinical indication); or iterative reconstruction. Contrast material: OMNI 350; Contrast volume: 100 ml; Contrast route: INTRAVENOUS (IV); REPORTING DATA: Count of CT and Cardiac NM exams in prior 12 months: This patient has received 0 known CTs and 0 known cardiac nuclear medicine studies in the 12 months prior to the current study. COMPARISON: 1. CR (CHEST, ) 10/08/2022 7:[address] Chest Abdomen Pelvis w 03/04/2018 2:28 PM RADIATION DOSE METRICS: Total DLP (mGy-cm): 693.56 FINDINGS: Lungs: Bilateral apical pleuroparenchymal scarring remains stable from the comparison CT scan. There is a right lower lobe perifissural nodule measuring 5 mm in diameter that likely represents a lymph node (series 4, image 51). In the left lower lobe, there is a noncalcified 6 mm perifissural nodule, stable from comparison and likely a lymph node (series 4, image 43). There is pulmonary hyperinflation consistent with COPD. There are subcentimeter calcified granulomata in the left lung. Pleural spaces: No pleural effusion or pneumothorax. Heart: The heart is normal in size.There are no pericardial fluid collections. Esophagus: No esophageal thickening. Mediastinal space: There are no enlarged mediastinal lymph nodes or masses. Lymph nodes: There are nonenlarged mediastinal and right hilar lymph nodes as large as 7 mm in short dimension. Vasculature: There is no thoracic aortic aneurysm or dissection. There is a ductus diverticulum, anatomic variant. Liver: No enhancing masses are seen. Bones/joints: There has been ORIF of an old healed right clavicular fracture. No acute fracture.Multilevel degenerative disc disease without significant spinal canal stenosis. Soft tissues: Unremarkable. PROCEDURE INFORMATION: Exam: CT Abdomen And Pelvis With Contrast Exam date and time: 10/08/2022 8:58 PM Age: 61 years old Clinical indication: Injury or trauma; Fall; Abdominal wall; Blunt trauma (contusions or hematomas); Additional info: Fall, seizure, left sided chest and abdominal pain TECHNIQUE: Imaging protocol: Computed tomography of the abdomen and pelvis with contrast. Radiation optimization: All CT scans at this facility use at least one of these dose optimization techniques: automated exposure control; mA and/or kV adjustment per patient size (includes targeted exams where dose is matched to clinical indication); or iterative reconstruction. Contrast material: OMNI 350; Contrast volume: 100 ml; Contrast route: INTRAVENOUS (IV); REPORTING DATA: Count of CT and Cardiac NM exams in prior 12 months: This patient has received 0 known CTs and 0 known cardiac nuclear medicine studies in the 12 months prior to the current study. COMPARISON: CT abdomen pelvis w con* [id number] 06/10/2018 11:16 AM RADIATION DOSE METRICS: Total DLP (mGy-cm): 693.56 FINDINGS: Lungs: No consolidation in the visualized lung bases. Liver: The liver is normal in size. There are no enhancing liver masses. There is no liver laceration or hematoma. In the left lobe of the liver, adjacent to the falciform ligament, there is a small area of focal fatty infiltration. Gallbladder and bile ducts: There has been a cholecystectomy. There is no evidence of biliary ductal dilation. Pancreas: There is no splenicThe pancreas is normal. Spleen: The spleen is normal in size and density. Adrenal glands: The adrenal glands are normal. Kidneys and ureters: There is no hydronephrosis. No renal or obstructive ureteral calculi are identified. There is no renal laceration or hematoma. No perirenal fluid collection is identified. There are multiple bilateral subcentimeter renal hypodensities, too small to characterize. In the left renal hilum, there is a tortuous, somewhat prominent vein that has increased in size from the comparison examination. It drains into the paravertebral venous plexus and may away at a in the renal arteriovenous malformation or arteriovenous fistula. The main left renal vein is widely patent, draining into the IVC. Stomach and bowel: No evidence of small bowel or colonic obstruction. Appendix: There has been an appendectomy. Intraperitoneal space: No free air. No significant fluid collection. Vasculature: There is mild atherosclerotic calcification of the abdominal aorta and its branches without aneurysm. Lymph nodes: No enlarged retroperitoneal or mesenteric lymph nodes. Urinary bladder: The bladder shows a normal contour and is free of calcific opacities. Reproductive: There has been a hysterectomy. Bones/joints: No acute fracture.Multilevel degenerative disc disease without significant spinal canal stenosis. Soft tissues: CT/CT chest abdpel w/*[id number] IMPRESSION: 1. No evidence of acute injury to thoracic organs. 2. Pulmonary hyperinflation consistent with COPD. 3. Old granulomatous disease and pleuroparenchymal scarring at the lung apices, stable from the comparison study. IMPRESSION: No evidence of acute injury to abdominopelvic organs. A tortuous additional left draining vein raising the question of a left renal arteriovenous fistula, arteriovenous malformation or other vascular renal lesion. It has increased in size from the comparison study. Non emergent abdominal MRI, renal mass protocol may be helpful for further characterization if clinically indicated. COMMENTS: Consistent with the [employer]'s Incidental Findings Committee white paper (J Am Ashley Radiol 2018): Any incidental renal lesion less than 1 cm or classified as too small to characterize, or any incidental cystic renal lesion characterized as simple-appearing, is likely benign. No follow-up imaging is recommended for these lesions per consensus recommendations based on imaging criteria.
--- NOTE | 2022-10-08 19:07 | ECG_ITS ---
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 Measurements Intervals Evans Rate: 111 P: 79 NV: 138 QRS: 28 QRSD: 96 T: 26 QT: 330 QTc: 450 Interpretive Statements SINUS TACHYCARDIA SEPTAL MYOCARDIAL INFARCTION , OF INDETERMINATE AGE [40+ ms Q WAVE IN V1/V2] Compared to ECG 10/25/2021 10:26:26 Sinus rhythm no longer present Myocardial infarct finding still present Electronically Signed On 10-09-2022 7:58:51 CDT by Obed Alba M.D. [id number]
--- NOTE | 2022-10-08 19:08 | XRR_ITS ---
PROCEDURE INFORMATION: Exam: XR Chest Exam date and time: 10/08/2022 7:42 PM Age: 61 years old Clinical indication: Pain; Chest pressure; Additional info: Rib pain TECHNIQUE: Imaging protocol: Radiologic exam of the chest. Views: 1 view. COMPARISON: CR XR chest 1V portable [id number] 10/25/2021 8:30 AM FINDINGS: Lungs: Unremarkable. No consolidation. Pleural spaces: Unremarkable. No pleural effusion. No pneumothorax. Heart/Mediastinum: Stable cardiomediastinal silhouette. Bones/joints: Right clavicle ORIF hardware noted. Organs: Cholecystectomy clips project over the right upper quadrant. Other findings: Calcific densities project over the left chest. XR/XR chest 1V portable [id number] IMPRESSION: No evidence of active cardiopulmonary disease.
[2022-10-08 19:16] VITALS: BP 134/86; PULSE 101; RESP 15; O2SAT 94; BMI 18.3
[2022-10-08 19:41] LABS: Basophils % 0.4 %; Eosinophils # 0.1 10^3/uL (0.0-0.8); Hematocrit 36.6 % (37.0-47.0); Hemoglobin 12.1 g/dL (11.5-15.3); Lymphocytes # 2.8 10^3/uL (0.8-4.8); Lymphocytes % 33.7 %; Mean Corpuscular HGB Conc 33.1 g/dL (30.0-36.0); Mean Corpuscular Hemoglobin 30.6 pg (28.0-34.0); Mean Corpuscular Volume 92.4 fl (81-99); Mean Platelet Volume 10.6 fL (7.4-10.4); Monocytes # 0.8 10^3/uL (0.2-0.9); Monocytes % 9.3 %; Neutrophils # 4.59 10^3/uL (1.8-7.7); Neutrophils % 55.4 %; Nucleated Red Blood Cells % 0 %; Platelet Count 249 10^3/cmm (130-400); Red Blood Count 3.96 10^6/uL (4.1-5.3); Red Cell Distribution Width 13.1 % (12.1-15.1); White Blood Count 8.3 10^3/uL (4.0-10.0)
[2022-10-08 19:53] LABS: INR 1.02 (0.8-1.2)
[2022-10-08 19:59] LABS: Alanine Aminotransferase 13 U/L (0-33); Albumin Level 4.2 g/dL (3.5-5.2); Alkaline Phosphatase 74 U/L (35-105); Aspartate Amino Transferase 23 U/L (0-32); Blood Urea Nitrogen 13 mg/dL (8-23); Calcium 9.4 mg/dL (8.5-10.5); Carbon Dioxide 25 mmol/L (22-29); Chloride 102 mmol/L (98-107); Globulin 2.7 g/dL (1.3-4.6); Glomerular Filtration Rate 84.5 mL/min (90-130); Glucose 92 mg/dL (65-115); Lipase 48 U/L (13-60); Osmolality Calculated 292 mOsm/kg (285-295); Sodium 141 mmol/L (136-145); Total Bilirubin 0.4 mg/dL (0.15-1.2); Total Protein 6.9 g/dL (6.6-8.7)
[2022-10-08 20:03] LABS: Alcohol Level < 10 mg/dL (0-10)
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
[2022-10-08] MEDS: LORazepam 2 mg/mL INJ 1 mL 0.5 MG IVP (20:43)
--- NOTE | 2022-10-08 20:51 | PC.NURSE ---
pt left for ct with central office technician [id number]
[2022-10-08] MEDS: iohexol 350 mg/mL 500 mL Btl (per mL) IV (20:55)
[2022-10-08 21:26] LABS: Reflex Lactate Order REFLEX LACTIC ORDERD
[2022-10-08 21:53] VITALS: BP 119/77; PULSE 78; RESP 24; TEMP 37.2; O2SAT 95
[2022-10-08 21:55] LABS: Add Urine Microscopic? YES; Bilirubin Urine Neg (Negative); Blood Urine 2+ (Negative); Glucose Urine UA Norm (Normal); Ketones Urine Negative (Negative); Leukocyte Esterase Urine Negative (Negative); Nitrate Urine Negative (Negative); Protein Urine 1+ (Negative); Urine Appearance Clear (CLEAR); Urine Color Yellow (Yellow); Urobilinogen Urine Neg (Negative); pH Urine 6.5 (5-7)
[2022-10-08 21:56] LABS: Add Urine Culture? No; Bacteria Urine TRACE /hpf; RBC Urine 0-4 /hpf (0-2)
[2022-10-08 21:57] LABS: Amphetamines Screen Urine Positive (Negative); Barbiturates Screen Urine Negative (Negative); Benzodiazepines Screen Urine Negative (Negative); Cocaine Screen Urine Negative (Negative); Opiate Screen Urine Negative (Negative); PCP Screen Urine Negative (Negative); THC Screen Urine Positive (Negative)
--- NOTE | 2022-10-08 22:21 | PC.NURSE ---
back in ER from CT at 2120
[2022-10-09] VITALS: BP 136/91; PULSE 89; RESP 18; O2SAT 96
--- NOTE | 2022-10-09 00:07 | PC.NURSE ---
report given [id number]
[2022-10-09 00:37] LABS: Lactic Acid level (Lactate) 1.4 mmol/L (0.5-2.2)
== END 2022-10-09 01:20 | disposition home or self-care (01) ==
PROVIDERS: Emergency Medicine; Emergency Provider Emergency Medicine; PCP Family Medicine
DX: G40.89 Other seizures (principal); F15.10 Other stimulant abuse, uncomplicated; Z79.02 Long term (current) use of antithrombotics/antiplatelets; F17.210 Nicotine dependence, cigarettes, uncomplicated; Z86.73 Personal history of transient ischemic attack (TIA), and cerebral infarction without residual deficits; W18.39XA Other fall on same level, initial encounter
CPT/HCPCS: 36415; 51701; 70450; 71045; 71260; 72125; 74177; 80053; 80306; 80307; 81001; 83605; 83690; 85025; 85610; 93005; 96374; 99285; J2060; Q9967

== ENCOUNTER 2022-10-09 02:01 | Inpatient (IN) | payer MEDICARE, MEDICAID, SELFPAY ==
--- NOTE | 2022-10-09 02:07 | ED.C_ITS ---
Documented by User: Eric Hester MD 10/21/22 10:46 HPI - Psych General: Chief Complaint: Psychiatric Symptoms Stated Complaint: si Time Seen by Provider: 10/09/22 02:07 Limitations: altered mental status History of Present Illness: 61-year-old lady just discharged from the emergency department apparently went outside and laid on the grass. When contacted by security she reported suicidal ideation. She apparently has not been taking her medications. Is very very difficult to understand which limits history. I am unsure if this is baseline or related to drug use. Review of Systems General: Reports: ROS unobtainable due to mental status [facility] PFSH: Medical History Anxiety Brainstem stroke Crohn's colitis Surgical History H/O tubal ligation H/O: hysterectomy S/P cholecystectomy S/P small bowel resection S/P splenectomy Status post tonsillectomy and adenoidectomy Family History Denies family history of CAD (coronary artery disease) Social History Smoking and tobacco status: current every day smoker Physical Exam Const: COMMON NORMALS: alert GENERAL APPEARANCE: well developed and disheveled HENMT: COMMON NORMALS: normocephalic and atraumatic HEAD & SCALP: normocephalic and atraumatic Eye: COMMON NORMALS: conjunctivae normal CONJUNCTIVA: Yes conjunctivae normal SCLERA: sclerae normal Neck/C-Spine: COMMON NORMALS: supple GENERAL: Yes trachea midline Resp: COMMON NORMALS: clear to auscultation bilaterally EFFORT & INSPECTION: Yes able to speak in complete sentences AUSCULTATION: clear to auscultation bilaterally Cardio: COMMON NORMALS: regular rate and regular rhythm RATE: regular rate RHYTHM: regular rhythm GI: COMMON NORMALS: Soft to palpation PALPATION: Yes Soft to palpation and No Tenderness to palpation present (GI) Extremity: GENERAL: Yes normal exam except as noted and No edema Neuro: COMMON NORMALS: moves all extremities SENSORIUM/ORIENTATION: Yes alert, Yes Orientation impaired and Yes somnolent Psych: MEMORY/COGNITION: Yes cognition grossly impaired Course Vital Signs: Vital signs: Vital Signs Temperature 98.2 F 10/16/22 17:44 Pulse Rate 93 10/16/22 17:44 Respiratory Rate 15 10/16/22 17:44 Blood Pressure 94/66 10/16/22 17:44 Pulse Oximetry 99 10/16/22 17:44 Oxygen Delivery Me thod Room Air 10/16/22 14:00 MDM - Psych Medical Decision Making 61-year-old lady presenting with mental status change. She is quite Brianda Halytskyy and difficult to understand. Apparently she made suicidal statements though mental state limits further detailed assessment at this time. Recent laboratory tests reviewed. Recent imaging reviewed. Handed off to Dr. Baca pending reassessment when mental state improved for disposition. Care assumed at change of shift patient now awake because she is expressing suicidal ideation asking how to kill herself. She states that all of her family members she has no social support structure. He has been homeless. She is on Klonopin she denies using methamphetamines or urine toxicology screen was positive for amphetamines and THC. Discussed with Dr. Byrd will admit to M[facility] for suicidal ideation Lab Data 10/15/22 04:20 10/15/22 04:20 Radiology Impressions Head/Neck CTA 10/14/22 13:01 IMPRESSION: No arterial stenosis, occlusion or aneurysm. IMPRESSION: 1. No hemodynamically significant arterial stenosis or occlusion. 2. Incidental findings above. REFERENCES: NASCET CRITERIA. The degree of stenosis in the cervical segment of the internal carotid artery is based on NASCET criteria. Normal is no stenosis. Mild is less than 50% stenosis. Moderate is 50-69% stenosis. Severe is 70% to 99% stenosis. Total occlusion is no detectable patent lumen. Laboratory Results POC Glucose 119 mg/dL (70-110) H 10/09/22 02:41 Discharge Plan Discharge Patient Disposition: Admitted As Inpatient Admit Provider: Savage Beverly Clinical Impression: Suicidal ideation Condition: Stable Discharge Diet: Regular Discharge Activity: Resume usual activity Sign Out Sign Out Data: Patient Sign Out occurred on 10/09/22 at 06:20. Patient's care was discussed, and care was transferred from to Arvind Baca DO. Coding Level of Care Code ED Instructor Of Sociology for Chg Fwd Documented by User: Arvind Baca DO 10/09/22 09:06 HPI - Psych General: Chief Complaint: Psychiatric Symptoms Stated Complaint: si Time Seen by Provider: 10/09/22 02:07 PFSH ED PFSH: Medical History Anxiety Brainstem stroke Crohn's colitis Surgical History H/O tubal ligation H/O: hysterectomy S/P cholecystectomy S/P small bowel resection S/P splenectomy Status post tonsillectomy and adenoidectomy Family History Denies family history of CAD (coronary artery disease) Social History Smoking and tobacco status: current every day smoker Course Vital Signs: Vital signs: Vital Signs Temperature 98.2 F 10/16/22 17:44 Pulse Rate 93 10/16/22 17:44 Respiratory Rate 15 10/16/22 17:44 Blood Pressure 94/66 10/16/22 17:44 Pulse Oximetry 99 10/16/22 17:44 Oxygen Delivery Me thod Room Air 10/16/22 14:00 MDM - Psych Medical Decision Making Care assumed at change of shift patient now awake because she is expressing suicidal ideation asking how to kill herself. She states that all of her family members she has no social support structure. He has been homeless. She is on Klonopin she denies using methamphetamines or urine toxicology screen was p ositive for amphetamines and THC. Discussed with Dr. Byrd will admit to [facility] for suicidal ideation Medical Records I reviewed the patient's medical records. Lab Data I reviewed the patient's lab results. 10/15/22 04:20 10/15/22 04:20 Radiology Impressions Head/Neck CTA 10/14/22 13:01 IMPRESSION: No arterial stenosis, occlusion or aneurysm. IMPRESSION: 1. No hemodynamically significant arterial stenosis or occlusion. 2. Incidental findings above. REFERENCES: NASCET CRITERIA. The degree of stenosis in the cervical segment of the internal carotid artery is based on NASCET criteria. Normal is no stenosis. Mild is less than 50% stenosis. Moderate is 50-69% stenosis. Severe is 70% to 99% stenosis. Total occlusion is no detectable patent lumen. Laboratory Results POC Glucose 119 mg/dL (70-110) H 10/09/22 02:41 Discharge Plan Discharge Patient Disposition: Admitted As Inpatient Admit Provider: Savage Beverly Clinical Impression: Suicidal ideation Condition: Stable Discharge Diet: Regular Discharge Activity: Resume usual activity Sign Out Sign Out Data: Patient Sign Out occurred on 10/09/22 at 06:20. Patient's care was discussed, and care was transferred from to Arvind Baca DO. Coding Level of Care Code ED Instructor Of Sociology for Jeaneth Headley
[2022-10-09 02:22] VITALS: BP 127/86; PULSE 77; RESP 22; TEMP 36.7; O2SAT 97
[2022-10-09] MEDS: OLANZapine 5 mg ODT PO (02:33)
[2022-10-09 02:44] LABS: Glucose Point of Care 119 mg/dL (70-110)
[2022-10-09 09:25] VITALS: BP 139/83; PULSE 78; RESP 22; O2SAT 98
--- NOTE | 2022-10-09 10:24 | PC.PHAR ---
PT STATES SHE HASNT TAKEN HER MEDICATIONS IN 2 WEEKS-PT BROUGHT IN MED BOTTLES AND STATES THATS ALL SHE IS TAKING BUT STATES SHE HASNT TAKEN IN 2 WEEKS-PT DIDNT BRING IN VENLAFAXINE 75MG DAILY FILLED 08/06/22 90D/S-
[2022-10-09 12:55] VITALS: PULSE 81; RESP 20; O2SAT 99
[2022-10-09 14:00] VITALS: BP 136/94; PULSE 110; RESP 17; TEMP 36.4; O2SAT 96
[2022-10-09] MEDS: haloperidol inj 5 mg/mL INJ 1 mL 2.5 MG IM (14:10)
[2022-10-09] MEDS: CLONazepam 1 mg Tablet PO (20:15)
[2022-10-09] MEDS: trazodone 100 mg Tablet 200 MG PO (20:15)
[2022-10-09] MEDS: venlafaxine 75 mg Tablet PO (20:15)
[2022-10-09] MEDS: pantoprazole DR 40 mg Tablet PO (20:15)
[2022-10-09] MEDS: ropinirole 1 mg Tablet PO (20:15)
[2022-10-09] MEDS: clopidogrel 75 mg Tablet PO (20:15)
[2022-10-09 22:00] VITALS: RESP 16
--- NOTE | 2022-10-09 22:00 | PC.NURSE ---
Respiratory came down to give Pt scheduled breathing treatment. Pt at the time was resting, Pt was breathing normally, with respirations of 16 and last O2 96. If Pt needs a breathing treatment upon waking up , she has PRN breathing treatments available.
[2022-10-10] VITALS (7 sets, daily range): BP systolic 111–112; BP diastolic 65–74; PULSE 77–91; RESP 16; TEMP 36.8–37; O2SAT 94–99
[2022-10-10] MEDS: diphenhydrAMINE 50 mg/mL SDV 1mL IM (08:49)
[2022-10-10] MEDS: buPROPion XL (24 HR) 150 mg Tablet PO (08:50)
[2022-10-10] MEDS: LORazepam 2 mg/mL INJ 1 mL IM (08:50)
[2022-10-10] MEDS: haloperidol inj 5 mg/mL INJ 1 mL IM (08:50)
--- NOTE | 2022-10-10 08:51 | PC.NURSE ---
Pt became agitated and Dr. Beverly ordered a B52, 2mg IM Ativan, 50mg IM Benadryl, 5mg IM Haldol. Administered in the dorsogluteal right and left side. Security present, pt tolerated well. Pt yelling and screaming up and down the halls, banging on exit doors and banging walker against the exit doors. Pt verbally threatening to break out the glass at the nurses station with walker. Pt is now laying down, no distress noted.
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
[2022-10-10] MEDS: ipratropium-albuterol 3 mL Neb INHALATION ×2 (09:11→15:35)
[2022-10-10] MEDS: budesonide 0.5 mg/2 mL Neb INHALATION (09:11)
--- NOTE | 2022-10-10 09:26 | PC.PT ---
Received order for walker for patient; discussed this with patient nurse, who states patient has been provided with walker at this time, and using it for safe ambulation in hallways, and does not feel patient needs any further PT intervention at this time, in addition to patient recently given medication, and unable to participate with any activities at this time, and that they will contact us should further needs occur. Recommended nurse cancel PT order at this time
[2022-10-10] MEDS: sulfaSALAzine 500 mg Tablet PO ×2 (09:32→16:59)
[2022-10-10] MEDS: venlafaxine ER (24HR) 150 mg Capsule PO (13:02)
[2022-10-10] MEDS: CLONazepam 1 mg Tablet 0.5 MG PO (16:58)
[2022-10-10] MEDS: trazodone 100 mg Tablet 200 MG PO (21:13)
[2022-10-10] MEDS: clopidogrel 75 mg Tablet PO (21:13)
[2022-10-10] MEDS: venlafaxine 75 mg Tablet PO (21:13)
[2022-10-10] MEDS: ropinirole 1 mg Tablet PO (21:13)
[2022-10-10] MEDS: pantoprazole DR 40 mg Tablet PO (21:13)
--- NOTE | 2022-10-11 04:21 | PC.NURSE ---
Patient was mostly isolative this shift with minimal interaction with staff and patients. Patient denies SI/HI/AVH, anxiety, depression and pain. Patient is meal and medication compliant. Patient education given on all po medications with questions answered.
[2022-10-11 06:00] VITALS: BP 106/70; PULSE 78; RESP 16; TEMP 36.5; O2SAT 94
[2022-10-11] MEDS: budesonide 0.5 mg/2 mL Neb INHALATION (07:47)
[2022-10-11] MEDS: ipratropium-albuterol 3 mL Neb INHALATION ×3 (07:47→15:27)
[2022-10-11 07:50] VITALS: PULSE 86; RESP 16; O2SAT 96
[2022-10-11] MEDS: ondansetron 4 MG Tablet PO (08:45)
--- NOTE | 2022-10-11 08:45 | PC.NURSE ---
patient reporting nausea. Patient reports that she vomited her breakfast. Patient states that she has been feeling this way for weeks. Denies diarrhea. Administered 4mg Zofran PO to patient.
[2022-10-11] MEDS: CLONazepam 1 mg Tablet 0.5 MG PO ×2 (09:17→17:07)
[2022-10-11] MEDS: venlafaxine ER (24HR) 150 mg Capsule PO (09:17)
[2022-10-11] MEDS: buPROPion XL (24 HR) 150 mg Tablet PO (09:17)
[2022-10-11] MEDS: sulfaSALAzine 500 mg Tablet PO ×2 (09:18→17:06)
--- NOTE | 2022-10-11 09:40 | PC.NURSE ---
When administering the patient her morning meds in her room, patient tearful. Patient stated that she had nothing to live for, that she wanted to . She said that she is always wishing that she had , not her daughter. This nurse talked with patient, tried to bring comfort to patient. Patient now sitting in dayroom, calm
--- NOTE | 2022-10-11 11:01 | NPU.GN ---
[facility] Group Topic: Motivation General Mood of Group- patient attended group by sitting in a d listening. She did not write any down but was present
[2022-10-11 11:20] VITALS: PULSE 88; RESP 16; O2SAT 98
--- NOTE | 2022-10-11 12:22 | P.NPUPN_ITS ---
Subjective NPU Subjective: The patient is a 61-year-old white female with a history of methamphetamine use along with significant anxiety and severe depression admitted with suicidal ideation. The patient continued to appear emotionally labile and tearful on the unit. She continued to state that there must be a plan of some legal way that she could . She reported that she had nothing to live for. She reported that she had lost everything as she reported sadness over losing her daughter apparently last week in the intensive care unit. Patient had reported that her son was also although he had apparently been present according to records on the day she presented to the emergency department. She continued to appear confused and had reported loss of appetite. She continued to endorse hopelessness and stated that she had been thinking about killing herself for several months. Mental Status Exam MSE Comments: 61-year-old white female who appeared older than her stated age in significant distress with poor hygiene. She had it again asked to be killed in a legal fashion . There was significant psychomotor retardation noted. Her speech was slurred poorly articulated with diminished rate and normal volume. She was alert and oriented to person place and time. Her mood is described as depressed.. Her affect was tearful and dysphoric. Her thought process was perseverative regarding wanting to be killed . She did not appear to be responding to internal stimuli and denied any auditory or visual hallucinations. There was no clear evidence of delusional thinking but some evidence of p aranoia noted. Her thought content showed evidence of suicidal ideation with no evidence of homicidal ideation. Her recent and remote memory were impaired as she was unwilling or unable to recall any information regarding her care. Her attention span was impaired. Her insight and judgment are feeble. Her impulse control appeared extremely poor. There was no evidence of any abnormal involuntary motor movements tics or tremors. Vitals/I&O/Wt Last Vital Signs Temp 97.7 F 10/11/22 06:00 Pulse 88 10/11/22 11:20 Resp 16 10/11/22 11:20 BP 106/70 10/11/22 06:00 Pulse Ox 98 10/11/22 11:20 O2 Del Method Room Air 10/11/22 11:20 A&P Assessment and plan (1) Depression, unspecified: (2) Psychotic disorder due to psychoactive substance: (3) Anxiety: (4) Methamphetamine use: (5) Suicidal ideation: Plan This is a 60-year-old female with chronic anxiety and depression exacerbated now by severe knee pain which limits her movement.? Probably needs placement in a facility who can care for her. Plan: 1.? Continue effexor 225mg in am, klonopin .5mg bid, add seroquel 100mg at night. 2.? Continue every 15 minute checks for safety. 3.? Encourage individual, group and milieu therapies. 4.? Encourage sober living treatment after discharge at the highest level of care to which she is willing to commit. 5.? attempt to gather collateral information. Involuntary Hold Information 96 Hour Hold: 96 Hour Involuntary Admission: Yes 96 Hour Hold Ending Date: 07/28/21 96 Hour Hold Ending Time: 17:15 Attestations NPU Medical Necessity Statement*: Patient hospitalization is medically necessary and deemed to be the clinically appropriate intervention at this time. Medications will be initiated and monitored as clinically deemed appropriate. Patient will be hospitalized for at least 2 midnights. Her likely length of stay is 3-5 days. Coding Level of Care Code Acute Code for [facility] Fwd Diagnoses Depression, unspecified F32.A Psychotic disorder due to psychoactive substance F19.959 Anxiety F41.9 Methamphetamine use F15.10 Suicidal ideation R45.851
[2022-10-11 13:33] VITALS: BP 108/64; PULSE 78; RESP 17; TEMP 36.9; O2SAT 94
[2022-10-11 15:29] VITALS: PULSE 80; RESP 16; O2SAT 98
[2022-10-11 19:42] VITALS: BP 97/65; PULSE 89; RESP 16; TEMP 36.8; O2SAT 97
[2022-10-11] MEDS: clopidogrel 75 mg Tablet PO (20:06)
[2022-10-11] MEDS: ropinirole 1 mg Tablet PO (20:06)
[2022-10-11] MEDS: quetiapine 100 mg Tablet PO (20:06)
[2022-10-11] MEDS: pantoprazole DR 40 mg Tablet PO (20:06)
[2022-10-11] MEDS: trazodone 100 mg Tablet 200 MG PO (20:07)
[2022-10-12] VITALS (9 sets, daily range): BP systolic 93–120; BP diastolic 61–67; PULSE 67–80; RESP 16–18; TEMP 36.6–37.1; O2SAT 94–98
[2022-10-12] MEDS: ipratropium-albuterol 3 mL Neb INHALATION ×4 (07:21→20:45)
[2022-10-12] MEDS: budesonide 0.5 mg/2 mL Neb INHALATION ×2 (07:21→20:45)
[2022-10-12] MEDS: venlafaxine ER (24HR) 75 mg Capsule PO (08:12)
[2022-10-12] MEDS: venlafaxine ER (24HR) 150 mg Capsule PO (08:12)
[2022-10-12] MEDS: buPROPion XL (24 HR) 150 mg Tablet PO (08:13)
[2022-10-12] MEDS: CLONazepam 1 mg Tablet 0.5 MG PO ×2 (08:13→17:41)
[2022-10-12] MEDS: sulfaSALAzine 500 mg Tablet PO ×2 (08:15→17:42)
--- NOTE | 2022-10-12 11:57 | PC.NURSE ---
Patient notified of Involuntary Rights at 1120. All questions were answered by this nurse. Patient had some confusion, but after talking with patient, patient voiced understanding.
[2022-10-12] MEDS: nicotine 2 mg Gum BUCCAL (13:28)
--- NOTE | 2022-10-12 13:53 | PC.NURSE ---
Patient stated that after talking with Gonsalo that she smiled for the first time. He told her she was important.
--- NOTE | 2022-10-12 14:52 | PM.CONSULT ---
Providers/Reason For Consult Consulting Physician/Specialty*: Hospitalist Reason for Consult*: Left arm pain Attending Physician: Savage Beverly MD Primary Care Provider: Lorelei Weinberg DO History of Present Illness History of Present Illness Gwen Briones is a 61 year old female who is in the stress unit for psychiatric condition, hospital service was consulted because patient has been complaining of numbness in her left arm. Patient is stating that she has been experiencing shooting pain which radiates from left shoulder goes towards her arm and then the pain in the fingers she has been experiencing pain in her arm and numbness in her hand. Multiple CT scan of cervical spine and angiogram has been obtained in the past, consistent with osteoarthritis, patient is stating that she had a stroke in the past without any residual weakness. Patient is stating that nothing has worked for her numbness, shooting pain she has tried gabapentin, multiple antidepressants. Review of Systems Const: Denies: fever(s) Eyes: Denies: change in vision ENMT: Denies: throat pain Card: Denies: chest pain Resp: Denies: dyspnea GI: Denies: abdominal pain : Denies: flank pain Musc: Reports: neck pain and back pain Medications/Allergies Home Medications Medication Instructions Recorded Confirmed Last Taken Type pantoprazole 40 mg tablet,delayed 40 mg PO BEDTIME 06/13/19 10/09/22 2 Weeks Ago History release ~09/25/22 clopidogrel 75 mg tablet 75 mg PO BEDTIME 07/26/20 10/09/22 2 Weeks Ago History ~09/25/22 fluticasone fur. 100 mcg-umeclid 1 inh inhalation DAILY 07/26/20 10/09/22 Unknown History 62.5 mcg-vilant 25 mcg inhalat.powder (Trelegy Ellipta) nitroglycerin 0.4 mg sublingual 0.4 mg sublingual Q5M PRN Chest 07/22/21 10/09/22 Unknown History tablet (Nitrostat) Pain bupropion HCl 150 mg 24 hr tablet, 150 mg PO DAILY 30 days #30 tabs 07/30/21 10/09/22 2 Weeks Ago Rx extended release ~09/25/22 venlafaxine 75 mg tablet 75 mg PO BEDTIME 30 days #30 tabs 07/30/21 10/09/22 2 Weeks Ago Rx ~09/25/22 clonazepam 1 mg tablet (Klonopin) 1 mg PO DAILY PRN Anxiety 09/30/21 10/09/22 10/12/21 History trazodone 100 mg tablet 200 mg PO BEDTIME 09/30/21 10/09/22 2 Weeks Ago History ~09/25/22 ropinirole 1 mg tablet 1 mg PO BEDTIME 10/09/22 10/09/22 2 Weeks Ago History ~09/25/22 sulfasalazine 500 mg tablet 500 mg PO BID 10/09/22 10/09/22 2 Weeks Ago History ~09/25/22 venlafaxine 150 mg 150 mg PO DAILY 10/09/22 10/09/22 2 Weeks Ago History capsule,extended release 24 hr ~09/25/22 venlafaxine 150 mg 150 mg PO DAILY 10/10/22 10/10/22 Unknown History capsule,extended release 24 hr Allergies Allergy/AdvReac Type Severity Reaction Status Date / Time aspirin Allergy Unknown Verified 10/09/22 10:24 codeine Allergy ALGY-Rash Verified 10/09/22 10:24 tramadol Allergy Unknown Verified 10/09/22 10:24 Current Medications Generic Name Dose Route Start Last Admin Trade Name Freq PRN Reason Stop Dose Admin Albuterol/Ipratropium 3 ml 10/09/22 20:00 10/12/22 11:40 Ipratropium-Albuterol 3 Ml Neb INHALATION 3 ml QID.RESPIRATORY JOQAUIN Administration Budesonide 0.5 mg 10/09/22 20:00 10/12/22 07:21 Budesonide 0.5 Mg/2 Ml Neb INHALATION 0.5 mg BID.RESPIRATORY JOAQUIN Administration Bupropion HCl 150 mg 10/10/22 09:00 10/12/22 08:13 Bupropion Xl (24 Hr) 150 Mg Tablet PO 150 mg DAILY JOAQUIN Administration Clonazepam 0.5 mg 10/10/22 18:00 10/12/22 08:13 Clonazepam 1 Mg Tablet PO 0.5 mg BID JOAQUIN Administration Clopidogrel Bisulfate 75 mg 10/09/22 21:00 10/11/22 20:06 Clopidogrel 75 Mg Tablet PO 75 mg BEDTIME JOAQUIN Administration Diphenhydramine HCl 50 mg 10/09/22 13:09 10/10/22 08:49 Diphenhydramine 50 Mg/Ml Sdv 1ml IM 50 mg Q4H PRN Administration Severe Aggression Haloperidol Lactate 5 mg 10/09/22 13:09 10/10/22 08:50 Haloperidol Inj 5 Mg/Ml Inj 1 Ml IM 5 mg Q4H PRN Administration Severe Aggression Lorazepam 2 mg 10/09/22 13:09 10/10/22 08:50 Lorazepam 2 Mg/Ml Inj 1 Ml IM 2 mg Q4H PRN Administration Severe Aggression Nicotine Polacrilex 2 mg 10/09/22 13:09 10/12/22 13:28 Nicotine 2 Mg Gum BUCCAL 2 mg Q2H PRN Administration NICOTINE WITHDRAWAL Ondansetron HCl 4 mg 10/09/22 13:09 10/11/22 08:45 Ondansetron 4 Mg Tablet PO 4 mg Q6H PRN Administration NAUSEA AND VOMITING Pantoprazole Sodium 40 mg 10/09/22 21:00 10/11/22 20:[address] 40 Mg Tablet PO 40 mg BEDTIME JOAQUIN Administration Quetiapine Fumarate 100 mg 10/11/22 21:00 10/11/22 20:06 Quetiapine 100 Mg Tablet PO 100 mg BEDTIME JOAQUIN Administration Ropinirole HCl 1 mg 10/09/22 21:00 10/11/22 20:06 Ropinirole 1 Mg Tablet PO 1 mg BEDTIME JOAQUIN Administration Sulfasalazine 500 mg 10/10/22 09:00 10/12/22 08:15 Sulfasalazine 500 Mg Tablet PO 500 mg BID JOAQUIN Administration Trazodone HCl 200 mg 10/09/22 21:00 10/11/22 20:07 Trazodone 100 Mg Tablet PO 200 mg BEDTIME JOAQUIN Administration Venlafaxine HCl 150 mg 10/10/22 11:09 10/12/22 08:12 Venlafaxine Er (24hr) 150 Mg Capsule PO 150 mg DAILY JOAQUIN Administration Venlafaxine HCl 75 mg 10/12/22 09:00 10/12/22 08:12 Venlafaxine Er (24hr) 75 Mg Capsule PO 75 mg DAILY JOAQUIN Administration PFSH Acute PFSH: Medical History Anxiety Brainstem stroke Crohn's colitis Surgical History H/O tubal ligation H/O: hysterectomy S/P cholecystectomy S/P small bowel resection S/P splenectomy Status post tonsillectomy and adenoidectomy Family History Denies family history of CAD (coronary artery disease) Social History Smoking and tobacco status: current every day smoker Vitals/I&O/Wt Last Vital Signs Temp 98.7 F 10/12/22 14:00 Pulse 77 10/12/22 14:00 Resp 18 10/12/22 14:00 BP 120/67 10/12/22 14:00 Pulse Ox 97 10/12/22 14:00 O2 Del Method Room Air 10/12/22 14:00 Physical Exam Narrative: Frail female Nonfocal neuro exam No active focal deficit noted S1, S2 Abdomen soft Nonfocal neuro exam GCS 15 Pleasant and cooperative during my evaluation Abdomen soft Looks dehydrated A&P Assessment and plan (1) Psychotic disorder due to psychoactive substance: (2) Depression, unspecified: (3) Psychogenic nonepileptic seizure: (4) Substance abuse: (5) Fall: Plan Numbness of upper extremities CT cervical spine showed degenerative changes 09/22, cervical radiculopathy? Will request CTA head and neck, previous CT head and CTA head and neck has not shown significant pathological changes she has had multiple CT scans of her head and cervical spine Check TSH , B12 level versus polysubstance abuse Patient has tried Effexor, gabapentin, Requip trazodone, Klonopin Abilify She carries history of fibromyalgia as well, restless leg syndrome history of stroke in the past I will try low-dose gabapentin for now I do believe her symptoms are likely related to neuropathy/radiculopathy Consult Attestations Medical Necessity Statement: as per npu Coding Level of Care Code 89552 Diagnoses Psychotic disorder due to psychoactive substance F19.959 Depression, unspecified F32.A Psychogenic nonepileptic seizure F44.5 Substance abuse F19.10 Fall W19.XXXA
--- NOTE | 2022-10-12 15:11 | W.PM.NPUPNS ---
Subjective NPU Subjective: The patient is a 61-year-old white female with a history of methamphetamine use along with significant anxiety and severe depression admitted with suicidal ideation. She had continued to report having nothing left to live for and stated that she wished to be legally killed. She had continue to perseverate regarding her shoulder pain and reported that she had lost all of her family. The patient had been compliant with medications. She had continued to isolate herself on the milieu while coming out of her bedroom only to eat. She was able to attend 1 group but appeared distant and minimally engaged. She had continued to endorse feelings of hopelessness. She had minimized the significance of her substance use although she had reported having used methamphetamine with complaints of having low energy. Mental Status Exam MSE Comments: 61-year-old white female who appeared older than her stated age in significant distress with poor hygiene. There was significant psychomotor retardation noted. Her speech was articulate with diminished rate and normal volume. She was alert and oriented to person place and time. Her mood is described as depressed. Her affect was tearful and dysphoric. Her thought process was focused on wanting to . She did not appear to be responding to internal stimuli and denied any auditory or visual hallucinations. There was no clear evidence of delusional thinking but some evidence of paranoia noted. Her thought content showed evidence of suicidal ideation with no evidence of homicidal ideation. Her recent and remote memory was poor. Her insight and judgment are feeble. Her impulse control appeared extremely poor. There was no evidence of any abnormal involuntary motor movements tics or tremors.Her attention span appeared impaired. Vitals/I&O/Wt Last Vital Signs Temp 98.7 F 10/12/22 14:00 Pulse 77 10/12/22 14:00 Resp 18 10/12/22 14:00 BP 120/67 10/12/22 14:00 Pulse Ox 97 10/12/22 14:00 O2 Del Method Room Air 10/12/22 14:00 A&P Assessment and plan (1) Psychotic disorder due to psychoactive substance: (2) Depression, unspecified: (3) Psychogenic nonepileptic seizure: (4) Substance abuse: (5) Fall: Plan This is a 60-year-old female with chronic anxiety and depression exacerbated now by severe knee pain which limits her movement.? Probably needs placement in a facility who can care for her. Plan: 1.? Continue effexor 225mg in am, klonopin .5mg bid, continue seroquel 100mg at night. Patient placed on involuntary commit with active suicidality. D/C Wellbutrin 2.? Continue every 15 minute checks for safety. 3.? Encourage individual, group and milieu therapies. 4.? Encourage sober living treatment after discharge at the highest level of care to which she is willing to commit. 5.? attempt to gather collateral information. Involuntary Hold Information 96 Hour Hold: 96 Hour Involuntary Admission: Yes 96 Hour Hold Ending Date: 07/28/21 96 Hour Hold Ending Time: 17:15 Attestations NPU Medical Necessity Statement*: Patient hospitalization is medically necessary and deemed to be the clinically appropriate intervention at this time. Medications will be initiated and monitored as clinically deemed appropriate. Her likely length of stay is 5-7 days. Coding Level of Care Code Acute Code for [facility] Fwd Diagnoses Psychotic disorder due to psychoactive substance F19.959 Depression, unspecified F32.A Psychogenic nonepileptic seizure F44.5 Substance abuse F19.10 Fall W19.XXXA
--- NOTE | 2022-10-12 15:13 | PC.NURSE ---
This nurse went to order Ibuprofen for patient because of her arm pain, but the med was flagged because of her allergy to aspirin, which is an anaphylactic allergy. Per Jose the pharmacist, patient should not be given the aspirin because both aspirin and ibuprofen are non steroidal and patient would be at risk for having an anaphylactic reaction
[2022-10-12] MEDS: acetaminophen 325 mg Tablet 650 MG PO ×2 (15:17→19:29)
[2022-10-12] MEDS: quetiapine 100 mg Tablet 150 MG PO (19:28)
[2022-10-12] MEDS: trazodone 100 mg Tablet 200 MG PO (19:29)
[2022-10-12] MEDS: clopidogrel 75 mg Tablet PO (19:29)
[2022-10-12] MEDS: pantoprazole DR 40 mg Tablet PO (19:29)
[2022-10-12] MEDS: ropinirole 1 mg Tablet PO (19:29)
[2022-10-13 06:00] VITALS: BP 100/60; PULSE 73; RESP 18; TEMP 36.6; O2SAT 97
[2022-10-13] MEDS: docusate sodium 100 mg Capsule PO (06:31)
[2022-10-13] MEDS: nicotine 2 mg Gum BUCCAL (06:37)
[2022-10-13] MEDS: CLONazepam 1 mg Tablet 0.5 MG PO ×2 (08:11→17:58)
[2022-10-13] MEDS: venlafaxine ER (24HR) 150 mg Capsule PO (08:12)
[2022-10-13] MEDS: venlafaxine ER (24HR) 75 mg Capsule PO (08:12)
[2022-10-13] MEDS: sulfaSALAzine 500 mg Tablet PO ×2 (08:12→17:58)
[2022-10-13] MEDS: budesonide 0.5 mg/2 mL Neb INHALATION (09:12)
[2022-10-13] MEDS: ipratropium-albuterol 3 mL Neb INHALATION (09:13)
[2022-10-13 09:14] VITALS: PULSE 73; RESP 18; O2SAT 99
[2022-10-13] MEDS: acetaminophen 325 mg Tablet 650 MG PO (09:31)
[2022-10-13] MEDS: hyDROXYzine 25 mg Capsule 50 MG PO (10:01)
[2022-10-13 10:16] LABS: Magnesium 1.5 mg/dL (1.7-2.3); Thyroid Stimulating Hormone 2.07 uIU/mL (0.27-4.20)
[2022-10-13 10:27] LABS: Vitamin B12 221 pg/mL (232-1245)
[2022-10-13 13:12] LABS: D Dimer 0.57 ug/mIFEU (0-0.59)
[2022-10-13 13:18] VITALS: RESP 16
[2022-10-13] MEDS: cyanocobalamin 1,000 mcg/mL SDV 1000 MCG IM (13:56)
[2022-10-13] MEDS: gabapentin 100 mg Capsule PO (13:56)
[2022-10-13 14:00] VITALS: BP 113/62; PULSE 65; RESP 18; TEMP 36.6; O2SAT 99
--- NOTE | 2022-10-13 16:05 | W.PM.NPUPNS ---
Subjective NPU Subjective: The patient is a 61-year-old white female with a history of methamphetamine use along with significant anxiety and severe depression admitted with suicidal ideation. She had endorsed severe pain. She reports that she was unable to get the MRI because her veins were repeatedly blowing out. She reported continued suicidal thoughts and remained tearful on the milieu. She had been able to attend groups. She continued to be sad and expressed significant feelings of hopelessness and worthlessness. She had reported again that she wished to be killed. Mental Status Exam MSE Comments: 61-year-old white female who appeared older than her stated age in significant distress with poor hygiene. She appeared to be in significant pain. There was significant psychomotor retardation noted. Her speech was articulate with diminished rate and normal volume. She was alert and oriented to person place and time. Her mood is described as depressed. Her affect was tearful and dysphoric. Her thought process was focused on wanting to . She did not appear to be responding to internal stimuli and denied any auditory or visual hallucinations. There was no clear evidence of delusional thinking but some evidence of paranoia noted. Her thought content showed evidence of suicidal ideation with no evidence of homicidal ideation. Her recent and remote memory was poor. Her insight is poor and judgment is impaired. Her impulse control appeared extremely poor. There was no evidence of any abnormal involuntary motor movements tics or tremors. Her attention span appeared impaired. Vitals/I&O/Wt Last Vital Signs Temp 98 F 10/13/22 14:00 Pulse 65 10/13/22 14:00 Resp 18 10/13/22 14:00 BP 113/62 10/13/22 14:00 Pulse Ox 99 10/13/22 14:00 O2 Del Method Room Air 10/13/22 14:00 A&P Assessment and plan (1) Psychotic disorder due to psychoactive substance: (2) Depression, unspecified: (3) Psychogenic nonepileptic seizure: (4) Substance abuse: (5) Fall: Plan This is a 60-year-old female with chronic anxiety and depression exacerbated now by severe knee pain which limits her movement.? Probably needs placement in a facility who can care for her. Plan: 1.? Continue effexor 225mg in am, klonopin .5mg bid, increase Seroquel to 200 mg at night. Patient placed on involuntary commit with active suicidality. D/C Wellbutrin 2.? Continue every 15 minute checks for safety. 3.? Encourage individual, group and milieu therapies. 4.? Encourage sober living treatment after discharge at the highest level of care to which she is willing to commit. 5.? attempt to gather collateral information. Involuntary Hold Information 96 Hour Hold: 96 Hour Involuntary Admission: Yes 96 Hour Hold Ending Date: 07/28/21 96 Hour Hold Ending Time: 17:15 Attestations NPU Medical Necessity Statement*: Patient hospitalization is medically necessary and deemed to be the clinically appropriate intervention at this time. Medications will be initiated and monitored as clinically deemed appropriate. Her likely length of stay is 5-7 days. Coding Level of Care Code Acute Code for [facility] Fwd Diagnoses Psychotic disorder due to psychoactive substance F19.959 Depression, unspecified F32.A Psychogenic nonepileptic seizure F44.5 Substance abuse F19.10 Fall W19.XXXA
[2022-10-13 17:25] VITALS: PULSE 54
[2022-10-13] MEDS: magnesium oxide 400 mg tablet PO (17:58)
--- NOTE | 2022-10-13 18:39 | ECG_ITS ---
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 Measurements Intervals Clancy Rate: 54 P: 64 MI: 164 QRS: 58 QRSD: 106 T: 51 QT: 413 QTc: 395 Interpretive Statements SINUS BRADYCARDIA Compared to ECG 10/08/2022 19:16:50 Sinus tachycardia no longer present Myocardial infarct finding no longer present Electronically Signed On 10-14-2022 17:01:38 CDT by Jewel Bruno M.D. [id number]
[2022-10-13 19:19] VITALS: BP 127/78; PULSE 73; RESP 18; TEMP 36.7; O2SAT 98
--- NOTE | 2022-10-13 21:19 | PC.NURSE ---
Pt noted to come to nurses desk crying and yelling that she needs to go to the ER. Pt stated her left arm hurts and that the medicine she was given is not working. Pt was reminded that Dr Hernandez came to see her yesterday (10/12) and examined her and prescribed medication for her symptoms.This nurses attempted to administer scheduled HS meds to this pt, along with requested PRN meds for anxiety. Pt educated that some medication take a while before desired results are felt. Pt refused all HS and PRN meds offered at this time.
[2022-10-14] VITALS (14 sets, daily range): BP systolic 82–122; BP diastolic 52–69; PULSE 57–84; RESP 7–27; TEMP 36.6–36.7; O2SAT 90–97
[2022-10-14] MEDS: quetiapine 100 mg Tablet 200 MG PO ×2 (01:30→20:43)
[2022-10-14] MEDS: pantoprazole DR 40 mg Tablet PO ×2 (01:30→20:42)
[2022-10-14] MEDS: ropinirole 1 mg Tablet PO ×2 (01:31→20:43)
[2022-10-14] MEDS: trazodone 100 mg Tablet 200 MG PO (01:31)
[2022-10-14] MEDS: clopidogrel 75 mg Tablet PO ×2 (01:31→20:43)
[2022-10-14] MEDS: gabapentin 100 mg Capsule PO ×2 (01:32→08:28)
--- NOTE | 2022-10-14 01:32 | PC.NURSE ---
Pt came took nurses desk and agreed to take the scheduled meds that she refused earlier. Pt also apologized for her actions earlier in the shift. Pt reassured that she was hurting, and that her actions were very much understood. Pt took said meds and went back to bed.
[2022-10-14] MEDS: budesonide 0.5 mg/2 mL Neb INHALATION ×2 (08:18→19:37)
[2022-10-14] MEDS: ipratropium-albuterol 3 mL Neb INHALATION ×2 (08:19→19:37)
[2022-10-14] MEDS: venlafaxine ER (24HR) 75 mg Capsule PO (08:28)
[2022-10-14] MEDS: magnesium oxide 400 mg tablet PO ×2 (08:28→17:16)
[2022-10-14] MEDS: sulfaSALAzine 500 mg Tablet PO ×2 (08:28→17:16)
[2022-10-14] MEDS: venlafaxine ER (24HR) 150 mg Capsule PO (08:28)
[2022-10-14] MEDS: CLONazepam 1 mg Tablet 0.5 MG PO ×2 (08:28→17:16)
[2022-10-14] MEDS: cyanocobalamin 1,000 mcg/mL SDV 1000 MCG IM (09:45)
[2022-10-14] MEDS: nicotine 2 mg Gum BUCCAL (12:58)
--- NOTE | 2022-10-14 13:01 | CTR_ITS ---
PROCEDURE INFORMATION: Exam: CTA Head Without And With Contrast, Arteriography Exam date and time: 10/14/2022 2:07 PM Age: 61 years old Clinical indication: Other: Pain down lt arm; Additional info: Pain in L arm TECHNIQUE: Imaging protocol: Computed tomographic angiography of the head without and with contrast. Exam focused on the arteries. 3D rendering (Not supervised by radiologist): MIP and/or 3D reconstructed images were created by the technologist. Radiation optimization: All CT scans at this facility use at least one of these dose optimization techniques: automated exposure control; mA and/or kV adjustment per patient size (includes targeted exams where dose is matched to clinical indication); or iterative reconstruction. Contrast material: OMNI 350; Contrast volume: 100 ml; Contrast route: INTRAVENOUS (IV); REPORTING DATA: Count of CT and Cardiac NM exams in prior 12 months: This patient has received 3 known CTs and 0 known cardiac nuclear medicine studies in the 12 months prior to the current study. COMPARISON: CT angio headneck* [id number] 07/26/2020 5:03 PM RADIATION DOSE METRICS: Total DLP (mGy-cm): 902.92 FINDINGS: ANTERIOR CIRCULATION: Right internal carotid artery: There is moderate calcific plaque in the cavernous portion of the right internal carotid artery without significant stenosis. Right middle cerebral artery: No occlusion or significant stenosis. No aneurysm. Right anterior cerebral artery: No occlusion or significant stenosis. No aneurysm. Left internal carotid artery: There is moderate calcific plaque in the cavernous portion of the left internal carotid artery without significant stenosis. Left middle cerebral artery: No occlusion or significant stenosis. No aneurysm. Left anterior cerebral artery: No occlusion or significant stenosis. No aneurysm. POSTERIOR CIRCULATION: Right vertebral artery: No occlusion or significant stenosis. No aneurysm. Left vertebral artery: No occlusion or significant stenosis. No aneurysm. Basilar artery: No occlusion or significant stenosis. No aneurysm. Right posterior cerebral artery: No occlusion or significant stenosis. No aneurysm. Left posterior cerebral artery: origin of the left posterior cerebral artery. No occlusion or aneurysm. Veins: Dural venous sinuses are patent. HEAD: Brain: There is hypoattenuation in the periventricular and subcortical white matter consistent with chronic microvascular disease. There is no significant mass effect or midline shift. No sign of infarction. There is no acute intracranial hemorrhage. Cerebral ventricles: There is no significant ventricular dilation. The basal cisterns are unremarkable. Bones/joints: The skull is unremarkable. Paranasal sinuses: The paranasal sinuses are clear. Mastoid air cells: The mastoid air cells are clear. Soft tissues: The visible extracranial soft tissues are unremarkable. PROCEDURE INFORMATION: Exam: CTA Neck Without And With Contrast Exam date and time: 10/14/2022 2:07 PM Age: 61 years old Clinical indication: Other: Pain down lt arm; Additional info: Pain in L arm TECHNIQUE: Imaging protocol: Computed tomographic angiography of the neck without and with contrast. 3D rendering (Not supervised by radiologist): MIP and/or 3D reconstructed images were created by the technologist. Radiation optimization: All CT scans at this facility use at least one of these dose optimization techniques: automated exposure control; mA and/or kV adjustment per patient size (includes targeted exams where dose is matched to clinical indication); or iterative reconstruction. Contrast material: OMNI 350; Contrast volume: 100 ml; Contrast route: INTRAVENOUS (IV); REPORTING DATA: Count of CT and Cardiac NM exams in prior 12 months: This patient has received 3 known CTs and 0 known cardiac nuclear medicine studies in the 12 months prior to the current study. COMPARISON: CT angio headneck* [id number] 07/26/2020 5:03 PM RADIATION DOSE METRICS: Total DLP (mGy-cm): 902.92 FINDINGS: Right common carotid artery: No stenosis. No dissection or occlusion. Right internal carotid artery: There is mild atherosclerotic disease at the origin of the right internal carotid artery with less than 50% stenosis. Right external carotid artery: No occlusion or stenosis of the origin. Left common carotid artery: No stenosis. No dissection or occlusion. Left internal carotid artery: There is mild atherosclerotic disease at the origin of the left internal carotid artery without stenosis. Left external carotid artery: No occlusion or stenosis of the origin. Right vertebral artery: No stenosis. No dissection or occlusion. Left vertebral artery: No stenosis. No dissection or occlusion. Veins: There are prominent collateral veins in the right upper chest wall Soft tissues: Soft tissues in the neck and thoracic inlet are unremarkable. Bones/joints: Healed right clavicle fracture with intact reconstruction plate and screws. There is mild degenerative disease in the cervical spine. No acute fracture. Lungs: There is mild bilateral apical subpleural scarring. There are calcified granulomas in the upper lungs bilaterally. Other findings: Subclavian arteries are patent. No subclavian stenosis. CT/CT angio headneck* [id number] IMPRESSION: No arterial stenosis, occlusion or aneurysm. IMPRESSION: 1. No hemodynamically significant arterial stenosis or occlusion. 2. Incidental findings above. REFERENCES: NASCET CRITERIA. The degree of stenosis in the cervical segment of the internal carotid artery is based on NASCET criteria. Normal is no stenosis. Mild is less than 50% stenosis. Moderate is 50-69% stenosis. Severe is 70% to 99% stenosis. Total occlusion is no detectable patent lumen.
--- NOTE | 2022-10-14 13:19 | PC.NURSE ---
pt is going off floor to get a CTA of the head and neck.
--- NOTE | 2022-10-14 13:32 | W.PM.NPUPNS ---
Subjective NPU Subjective: The patient is a 61-year-old white female with a history of methamphetamine use along with significant anxiety and severe depression admitted with suicidal ideation. The patient had endorsed continued thoughts of suicide. She had endorsed some feelings of hopelessness. She had been reporting significant sleep continuity disruption and significant pain issues. She reported difficulties with sleep. She reported continued sadness over her losses of family and friends. She had reported some lack of appetite. Mental Status Exam MSE Comments: 61-year-old white female who appeared older than her stated age in significant distress with poor hygiene. She appeared to be in significant pain. There was significant psychomotor retardation noted. Her speech was articulate with diminished rate and normal volume. She was alert and oriented to person place and time. Her mood is described as depressed. Her affect was tearful and dysphoric. Her thought process was linear and logical.. She did not appear to be responding to internal stimuli and denied any auditory or visual hallucinations. There was no clear evidence of delusional thinking but some evidence of paranoia noted. Her thought content showed evidence of suicidal ideation with no evidence of homicidal ideation. Her recent and remote memory was poor. Her insight is poor and judgment is impaired. Her impulse control appeared extremely poor. There was no evidence of any abnormal involuntary motor movements tics or tremors. Her attention span appeared impaired. Vitals/I&O/Wt Last Vital Signs Temp 98.0 F 10/14/22 13:22 Pulse 66 10/14/22 13:22 Resp 20 H 10/14/22 13:22 BP 94/62 10/14/22 13:22 Pulse Ox 94 10/14/22 13:22 O2 Del Method Room Air 10/14/22 13:22 A&P Assessment and plan (1) Depression, unspecified: (2) Psychotic disorder due to psychoactive substance: (3) Psychogenic nonepileptic seizure: (4) Substance abuse: (5) Fall: Plan This is a 60-year-old female with chronic anxiety and depression exacerbated now by severe knee pain which limits her movement.? Probably needs placement in a facility who can care for her. Plan: 1.? Continue effexor 225mg in am, klonopin .5mg bid, CONTINUE Seroquel to 200 mg at night. Patient placed on involuntary commit with active suicidality. D/C Wellbutrin. Will attempt to complete Contrast study MRI ordered. 2.? Continue every 15 minute checks for safety. 3.? Encourage individual, group and milieu therapies. 4.? Encourage sober living treatment after discharge at the highest level of care to which she is willing to commit. 5.? attempt to gather collateral information. Involuntary Hold Information 96 Hour Hold: 96 Hour Involuntary Admission: Yes 96 Hour Hold Ending Date: 07/28/21 96 Hour Hold Ending Time: 17:15 Attestations NPU Medical Necessity Statement*: Patient hospitalization is medically necessary and deemed to be the clinically appropriate intervention at this time. Medications will be initiated and monitored as clinically deemed appropriate. Her likely length of stay is 5-7 days. Coding Level of Care Code Acute Code for [facility] Fwd Diagnoses Depression, unspecified F32.A Psychotic disorder due to psychoactive substance F19.959 Psychogenic nonepileptic seizure F44.5 Substance abuse F19.10 Fall W19.XXXA
[2022-10-14] MEDS: iohexol 350 mg/mL 500 mL Btl (per mL) IV (14:05)
--- NOTE | 2022-10-14 14:25 | PC.NURSE ---
return to unit from CT
--- NOTE | 2022-10-14 14:32 | PC.NURSE ---
rapid response called, staff observed patient sitting in the chair in day room, body tremulous, loss of awareness, could not respond to verbal questions asked by staff. Ativan 2 mg administered by Charlie Ramires RN to IV previously placed in right AC space, verbal order given by Dr. Perez. Vital signs obtained, Blood pressure 154/80, heart rate 71, 99% oxygen, blood sugar 104. patient could verbalize her name was Gwen, when asked where she was she would state I'm here with her motioning towards this nurse. verbal order given by Dr. Beverly to get labs as follows; magnesium, CBC, CMP. emergency medical technician basic on scene to obtain. After a few minutes patient observed to have another seizure, arms and legs tremulous again, eyes rolling back in her head, seizure lasted less than one minute, patient would respond to questions asked by staff after seizure ceased. Dr. Perez gave verbal order to supervisor dimension warehouse to move patient to ICU, patient transferred to w/c with staff assist x3. Transferred to ICU, NPU nurse DARRYN Westbrook attempted to call report to accepting nurse at this time, nurse unavailable, waiting for return call.
[2022-10-14] MEDS: LORazepam 2 mg/mL INJ 1 mL IM (14:38)
--- NOTE | 2022-10-14 14:38 | PC.NURSE ---
Basim CATES administered 2mg Ativan IVP to right AC IV.
--- NOTE | 2022-10-14 14:42 | PC.NURSE ---
Pt transferred to ICU at 1440.
--- NOTE | 2022-10-14 14:46 | P.PN_ITS ---
Subjective Subjective: Patient had rapid response procedure after she returned from CT head and neck Rapid response was attended by Dr. Carranza she was given Ativan for seizure related activity She is being transferred to ICU Patient was examined twice Vitals/I&O/Wt Last Vital Signs Temp 98.0 F 10/14/22 13:22 Pulse 66 10/14/22 13:22 Resp 20 H 10/14/22 13:22 BP 94/62 10/14/22 13:22 Pulse Ox 94 10/14/22 13:22 O2 Del Method Room Air 10/14/22 13:22 Physical Exam Narrative: Patient is communicative, talking with the nursing staff, no postictal confusion Has mild bleeding around her nose She is able to sit in a wheelchair S1, S2 Abdomen soft Looks dehydrated Data 10/14/22 14:40 10/14/22 14:40 A&P Assessment and plan (1) Psychotic disorder due to psychoactive substance: (2) Depression, unspecified: (3) Psychogenic nonepileptic seizure: (4) Substance abuse: (5) Fall: (6) Major depressive disorder: Plan Rapid response for seizure related activity Patient seems to have psychogenic nonepileptiform seizures He was given Ativan, drowsy but arousable She had CTA head and neck done today which I would follow-up She will be monitored in ICU for today Repeat blood work her magnesium was low I would like to hold Keppra for now I highly doubt she had cortical rapid firing to cause this kind of seizure related activity, I would like to monitor in ICU for tonight without Keppra Requested lactic acid and prolactin level Seems to have chronic history of anxiety related seizures Most likely will be transferred back to stress units tomorrow She is awake and alert communicative no signs of postictal confusion Attestations Medical Necessity Statement*: ICU monitoring Coding Level of Care Code Critical Care >/= 30 minutes Critical care time (in minutes): 35 The high probability of a clinically significant, sudden or life threatening d eterioration, as referenced in this documentation, required my full and direct attention, intervention and personal management. The critical care time shown is in addition to time spent performing any reported separately billable procedures and includes the following: [x] Data and vital sign review and interpretation [x ] Patient assessment, examination and intervention [x] Medication orders and management [x] Patient/Family updates as able [x] Care Coordination and Documentation. Diagnoses Psychotic disorder due to psychoactive substance F19.959 Depression, unspecified F32.A Psychogenic nonepileptic seizure F44.5 Substance abuse F19.10 Fall W19.XXXA Major depressive disorder F32.9
[2022-10-14 14:52] LABS: Basophils % 0.2 %; Eosinophils # 0.1 10^3/uL (0.0-0.8); Eosinophils % 0.9 %; Hemoglobin 10.3 g/dL (11.5-15.3); Lymphocytes # 2.3 10^3/uL (0.8-4.8); Lymphocytes % 41.6 %; Mean Corpuscular HGB Conc 31.2 g/dL (30.0-36.0); Mean Corpuscular Hemoglobin 30.5 pg (28.0-34.0); Mean Corpuscular Volume 97.6 fl (81-99); Mean Platelet Volume 10.7 fL (7.4-10.4); Monocytes # 0.6 10^3/uL (0.2-0.9); Monocytes % 10.1 %; Neutrophils # 2.54 10^3/uL (1.8-7.7); Neutrophils % 46.8 %; Nucleated Red Blood Cells % 0 %; Platelet Count 215 10^3/cmm (130-400); Red Blood Count 3.38 10^6/uL (4.1-5.3); White Blood Count 5.4 10^3/uL (4.0-10.0)
--- NOTE | 2022-10-14 14:55 | PC.NURSE ---
Rapid response: this nurse responded to rapid response in NPU see house sup sheet. upon arrival found dr. Perez and NPU staff at patient side. labs drawn per order, order given to bring patient to ICU for further observation
--- NOTE | 2022-10-14 14:57 | P.PNCC_ITS ---
Critical Care Event Note The high probability of a clinically significant, sudden or life threatening deterioration of the patient's [neurologic] system(s) required my full and direct attention, intervention and personal management. The critical care time is as shown. This time is in addition to time spent performing any reported procedures but includes the following: [x] Data and vital sign review and interpretation [x] Patient assessment, examination and intervention [x] Documentation [x] Medication orders and management Critical Care Time Code activated: No Critical Care Time (min): 36 Additional information about critical care time: I responded to a rapid response with this patient with concerns of seizure. When I first arrived she appeared to be in a postictal state, responding slowly. During my evaluation her sugar was over 100. She started to become more alert and then started having generalized shaking. She had not had any previous neurologic deficit according to nursing, but did have a past history of CVA for which she had received tPA in July 2020. She was not responsive during this time. 2 mg of Ativan was given IV. Laboratory ordered including CBC, CMP, mag nesium, ABG. As the patient will require further evaluation, she was moved to ICU. I have ordered 1 g of Keppra IV as well. She had recently had a medicine consult, and a CTA head and neck had just been completed. I called and talked with her treating hospitalist, who will take over her care in the ICU. There was some concern on arrival to the emergency department this hospital stay that patient had atypical seizure activity, possibly consistent with psychogenic nonepileptic seizure. CT head was done at that time and demonstrated no acute changes. Psychogenic seizure activity is still possible, but I could not find evidence of that on past medical history during my brief review. Coding Level of Care Code Critical Care Time Spent (min) 36
[2022-10-14 15:07] LABS: ABG PCO2 39.6 mmHg (35-45); ABG PH Result 7.46 (7.35-7.45); Arterial Blood Gas Hematocrit 34.2 % (37-47); Base Excess ABG 3.9 mmol/L (-2.0-2.0); Blood Gas Allen Test Pos; Blood Gas Operator Identificat WALCI; Blood Gas Sample Site Brachial, left; Blood Gas Sample Type Arterial; Oxygen Device ROOM AIR; PO2 ABG 76.5 mmHg (80.0-100.0)
[2022-10-14 15:12] LABS: Alanine Aminotransferase 8 U/L (0-33); Albumin Level 3.6 g/dL (3.5-5.2); Alkaline Phosphatase 65 U/L (35-105); Anion Gap 14.4 (5-19); Aspartate Amino Transferase 14 U/L (0-32); Blood Urea Nitrogen 15 mg/dL (8-23); Calcium 9.1 mg/dL (8.5-10.5); Carbon Dioxide 25 mmol/L (22-29); Chloride 100 mmol/L (98-107); Globulin 2.5 g/dL (1.3-4.6); Glucose 54 mg/dL (65-115); Magnesium 1.7 mg/dL (1.7-2.3); Osmolality Calculated 278 mOsm/kg (285-295); Potassium 4.4 mmol/L (3.5-5.1); Sodium 135 mmol/L (136-145); Total Bilirubin 0.3 mg/dL (0.15-1.2); Total Protein 6.1 g/dL (6.6-8.7)
[2022-10-14 15:15] LABS: Glucose Point of Care 104 mg/dL (70-110)
[2022-10-14 15:21] LABS: Lactate (Lactic Acid level) 2.1 mmol/L (0.5-2.2)
[2022-10-14 15:58] LABS: Prolactin 15.45 ng/mL (4.8-23.3)
[2022-10-15] VITALS (19 sets, daily range): BP systolic 82–136; BP diastolic 52–84; PULSE 56–79; RESP 11–30; TEMP 36.8–37; O2SAT 92–98
[2022-10-15 00:52] LABS: Add Urine Microscopic? NO; Charge for UA Resulting for Rev
[2022-10-15 00:55] LABS: Bilirubin Urine Neg (Negative); Blood Urine Neg (Negative); Glucose Urine UA Norm (Normal); Ketones Urine Negative (Negative); Leukocyte Esterase Urine Negative (Negative); Nitrate Urine Negative (Negative); Protein Urine Neg (Negative); Urine Appearance Clear (CLEAR); Urine Color Yellow (Yellow); Urobilinogen Urine Neg (Negative); pH Urine 6.5 (5-7)
[2022-10-15 02:08] LABS: Glucose Point of Care 100 mg/dL (70-110)
[2022-10-15 05:28] LABS: Basophils % 0.2 %; Eosinophils # 0.1 10^3/uL (0.0-0.8); Eosinophils % 1.3 %; Hematocrit 34.7 % (37.0-47.0); Lymphocytes # 2.2 10^3/uL (0.8-4.8); Lymphocytes % 41.6 %; Mean Corpuscular HGB Conc 31.7 g/dL (30.0-36.0); Mean Corpuscular Hemoglobin 30.3 pg (28.0-34.0); Mean Corpuscular Volume 95.6 fl (81-99); Mean Platelet Volume 11.1 fL (7.4-10.4); Monocytes # 0.6 10^3/uL (0.2-0.9); Monocytes % 10.8 %; Neutrophils # 2.42 10^3/uL (1.8-7.7); Neutrophils % 45.7 %; Nucleated Red Blood Cells % 0 %; Platelet Count 221 10^3/cmm (130-400); Red Blood Count 3.63 10^6/uL (4.1-5.3); Red Cell Distribution Width 12.8 % (12.1-15.1); White Blood Count 5.3 10^3/uL (4.0-10.0)
[2022-10-15 05:42] LABS: Alanine Aminotransferase 9 U/L (0-33); Albumin Level 3.9 g/dL (3.5-5.2); Alkaline Phosphatase 63 U/L (35-105); Anion Gap 11.7 (5-19); Aspartate Amino Transferase 12 U/L (0-32); Blood Urea Nitrogen 12 mg/dL (8-23); Calcium 9.3 mg/dL (8.5-10.5); Carbon Dioxide 29 mmol/L (22-29); Chloride 104 mmol/L (98-107); Globulin 2.5 g/dL (1.3-4.6); Glucose 78 mg/dL (65-115); Osmolality Calculated 289 mOsm/kg (285-295); Potassium 4.7 mmol/L (3.5-5.1); Sodium 140 mmol/L (136-145); Total Bilirubin 0.2 mg/dL (0.15-1.2); Total Protein 6.4 g/dL (6.6-8.7)
[2022-10-15] MEDS: magnesium oxide 400 mg tablet PO ×2 (08:53→17:22)
[2022-10-15] MEDS: cyanocobalamin 1,000 mcg/mL SDV 1000 MCG IM (08:53)
[2022-10-15] MEDS: CLONazepam 1 mg Tablet 0.5 MG PO ×2 (08:53→17:22)
[2022-10-15] MEDS: venlafaxine ER (24HR) 150 mg Capsule PO (08:53)
[2022-10-15] MEDS: ipratropium-albuterol 3 mL Neb INHALATION (09:07)
[2022-10-15] MEDS: budesonide 0.5 mg/2 mL Neb INHALATION (09:07)
[2022-10-15] MEDS: sulfaSALAzine 500 mg Tablet PO (09:43)
--- NOTE | 2022-10-15 10:25 | P.PN_ITS ---
Subjective Subjective: Patient is doing fine Eating No active complaints CT head and neck unremarkable Hemoglobin stable Prolactin and lactic acid normal Patient can be transferred back to the stress unit I would not like to continue Keppra at this point Vitals/I&O/Wt Last Vital Signs Temp 98.6 F 10/15/22 06:00 Pulse 66 10/15/22 09:11 Resp 18 10/15/22 09:00 BP 136/84 10/15/22 09:46 Pulse Ox 93 10/15/22 09:00 O2 Del Method Room Air 10/15/22 09:00 10/14/22 10/15/22 10/15/22 22:59 06:59 14:59 Intake Total 470 / 470 Output Total 300 / 300 600 / 900 Balance 170 / 170 -600 / -430 Physical Exam Narrative: NIH 0 Left shoulder limited range of motion Awake and alert GCS 15 Dehydrated Abdomen soft S1, S2 Sinus rhythm on telemetry Currently doing well on room air Hemodynamically stable Data 10/15/22 04:20 10/15/22 04:20 A&P Assessment and plan (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), with abnorma l movement: (2) Psychotic disorder due to psychoactive substance: (3) Depression, unspecified: (4) Substance abuse: (5) Fall: (6) Dysphagia: (7) Major depressive disorder: Plan Seizure-like activity CT head and neck unremarkable, prolactin, lactic acid normal It would be rare to find normal lactic acid with 2 episode of seizure during a rapid response She has had multiple CT scans in the past which were unremarkable I would not like to continue Keppra at this point in case of any recurrence threshold will stay low however she might be suffering from neuro conversion disorder considering significant anxiety and history of depression NIH 0 She may be transferred back to neuropsychiatric unit today Avoid trazodone which can lower the threshold for seizures QTc intervals normal Her left arm pain is neuropathic pain for which low-dose gabapentin can be used Regular diet Full code Attestations Medical Necessity Statement*: Transfer to neuropsych today Diagnoses Functional neurological symptom disorder (conversion disorder), with abnormal movement F44.4 Psychotic disorder due to psychoactive substance F19.959 Depression, unspecified F32.A Substance abuse F19.10 Fall W19.XXXA Dysphagia R13.10 Major depressive disorder F32.9
--- NOTE | 2022-10-15 11:51 | P.NPUPN_ITS ---
Subjective NPU Subjective: Patient presented today reporting that she is feeling better as she returns from ICU. She spent much of the time tearful talking about the pain in her arm. She reported that she did have seizures. We discussed the findings of the hospitalist that the were not of a epileptic nature and likely episodes that had some connection to her mental health/psychological functioning. She reports th at she walked here from [place] and attempt to get to a /dying family member which was a failure. She reports now just wanting to be discharged to a nursing home. We discussed nursing home availability out of our control and our unwillingness to discharge her to a park. We discussed working the treatment team tomorrow to explore what other options exist. She reports that she has money and could consider a motel. Mental Status Exam MSE Comments: This is an underweight white female in hospital scrubs with adequate grooming and eye contact.? Poor dentition with facial atrophy looking older than her stated age.? Utilizing a rolling walker with no abnormal movements except some ataxia gait and psychomotor agitation.? Mostly cooperative with exam in moderate distress. Speech was normal rate and increased volume. Mood described as fine I can go home, affect incongruent and tearful. Thought process organized. Thought contact: patient denied suicidal or homicidal ideation, there were no delusions reported or noted, patient denied auditory or visual hallucinations. Attention and concentration appeared intact and memory appeared mostly reliable but none were formally tested. Patient is alert and oriented times three. Insight and judgment appear limited and impulse control appears limited. 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 Probably needs placement in a facility who can care for her. Plan: 1.? Continue effexor 225mg in am, klonopin .5mg bid, CONTINUE Seroquel to 200 mg at night. Patient placed on involuntary commit with active suicidality. D/C Wellbutrin. Will attempt to complete Contrast study MRI ordered. 2.? Continue every 15 minute checks for safety. 3.? Encourage individual, group and milieu therapies. 4.? Encourage sober living treatment after discharge at the highest level of care to which she is willing to commit. 5.? attempt to gather collateral information. Involuntary Hold Information 96 Hour Hold: 96 Hour Involuntary Admission: Yes 96 Hour Hold Ending Date: 07/28/21 96 Hour Hold Ending Time: 17:15 Attestations NPU Medical Necessity Statement*: Patient hospitalization is medically necessary and deemed to be the clinically appropriate intervention at this time. Medications will be initiated and monitored as clinically deemed appropriate. Her likely length of stay is 3-5 days. Coding Level of Care Code Acute Code for g Fwd Diagnoses Depression, unspecified F32.A Psychotic disorder due to psychoactive substance F19.959 Psychogenic nonepileptic seizure F44.5 Substance abuse F19.10 Fall W19.XXXA
--- NOTE | 2022-10-15 11:52 | PC.NURSE ---
Patient transfered from ICU to NPU at 1230. Patient's vitals documented. Patient is tearful, eager to leave. Per report, the doctor doesn't think patient was having a seizure, but a reaction to CT dye. Patient reoriented to unit. All questions answered
--- NOTE | 2022-10-15 12:02 | PC.NURSE ---
1125 pt arrived to unit via wheelchair accompanied by security and icu staff member. pt vital signs taken and she requested to go to room.
--- NOTE | 2022-10-15 17:58 | PC.NURSE ---
pt refused sulfasalazine, refusing meal tray this evening states she doesnt want anything anymore. pt would not elaborate any further.
[2022-10-15] MEDS: ropinirole 1 mg Tablet PO (20:44)
[2022-10-15] MEDS: pantoprazole DR 40 mg Tablet PO (20:44)
[2022-10-15] MEDS: clopidogrel 75 mg Tablet PO (20:44)
[2022-10-15] MEDS: quetiapine 100 mg Tablet 200 MG PO (20:44)
--- NOTE | 2022-10-15 23:39 | PC.NURSE ---
Pt stated to dayshift nurse earlier today that she doesn't want anything anymore and refused her meal tray. Pt was later able to be convinced to eat an uncrustable and drink a milk. Pt also stated that when she wakes up I will eat another uncrustable .
[2022-10-16] MEDS: hyDROXYzine 25 mg Capsule 50 MG PO (05:49)
[2022-10-16 06:00] VITALS: BP 100/64; PULSE 109; RESP 20; TEMP 36.8; O2SAT 100
[2022-10-16] MEDS: CLONazepam 1 mg Tablet 0.5 MG PO ×2 (08:45→17:07)
[2022-10-16] MEDS: sulfaSALAzine 500 mg Tablet PO ×2 (08:45→17:08)
[2022-10-16] MEDS: magnesium oxide 400 mg tablet PO ×2 (08:45→17:07)
[2022-10-16] MEDS: venlafaxine ER (24HR) 150 mg Capsule PO (08:45)
[2022-10-16] MEDS: cyanocobalamin 1,000 mcg/mL SDV 1000 MCG IM (11:07)
[2022-10-16] MEDS: ondansetron 4 MG Tablet PO (11:09)
[2022-10-16 14:00] VITALS: BP 94/66; PULSE 93; RESP 15; TEMP 36.8; O2SAT 99
--- NOTE | 2022-10-16 15:57 | PC.NURSE ---
Patient denies SI/HI AVH. Patient verbalized anxiety rated 5/10 and denies depression. Patient is meal and medication compliant and interacts appropriately with peers on the unit. Patient had episode of nausea this shift. Received Zofran 4 mg po for this. All medication education given with understanding verbalized by patient.
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
[2022-10-16 17:44] VITALS: BP 94/66; PULSE 93; RESP 15; TEMP 36.8; O2SAT 99
== END 2022-10-16 17:43 | disposition home or self-care (01) | DRG 897 ==
LOC: ER 11:01 → NP 12:12 → ICU 10-14 14:47 → NP 10-15 11:22
PROVIDERS: Emergency Medicine; Internal Medicine; Admitting Provider Psychiatry & Neurology Psychiatry; Emergency Provider Family Medicine; PCP Family Medicine; Visit Provider Psychiatry & Neurology Psychiatry
DX: F19.259 Other psychoactive substance dependence with psychoactive substance-induced psychotic disorder, unspecified (principal); R45.851 Suicidal ideations; K50.90 Crohn's disease, unspecified, without complications; F32.9 Major depressive disorder, single episode, unspecified; F41.9 Anxiety disorder, unspecified; Z62.811 Personal history of psychological abuse in childhood; Z62.810 Personal history of physical and sexual abuse in childhood; Z86.73 Personal history of transient ischemic attack (TIA), and cerebral infarction without residual deficits; F44.4 Conversion disorder with motor symptom or deficit; Z79.02 Long term (current) use of antithrombotics/antiplatelets; J44.9 Chronic obstructive pulmonary disease, unspecified; K21.9 Gastro-esophageal reflux disease without esophagitis; B19.20 Unspecified viral hepatitis C without hepatic coma; G25.81 Restless legs syndrome; G56.92 Unspecified mononeuropathy of left upper limb; M79.7 Fibromyalgia; M25.561 Pain in right knee; Z59.00 Homelessness unspecified
CPT/HCPCS: 36415; 36416; 36600; 51701; 70450; 70496; 70498; 71045; 71260; 72125; 74177; 80053; 80306; 80307; 81001; 81003; 82607; 82803; 82962; 83605; 83690; 83735; 84146; 84443; 85025; 85378; 85610; 93005; 94640; 96372; 96374; 97150; 97165; 99238; 99285; J1200; J1630; J1953; J2060; J3420; J7626; Q0162; Q9967

== ENCOUNTER 2023-02-06 11:10 | Emergency (ER) | payer OTHER, SELFPAY ==
[2023-02-06 11:12] VITALS: BP 156/91; PULSE 78; RESP 18; TEMP 36.8; O2SAT 94; BMI 16.6
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
--- NOTE | 2023-02-06 12:38 | PC.NURSE ---
PT REFUSES TO LEAVE BP CUFF AND PULSE OX ON. PT WAS DIRECTED MULTIPLE TIMES ON WHY THEY NEEDED TO BE LEFT ON AND THE IMPORTANCE OF IT. PT STILL REFUSING VITALS
== END 2023-02-06 13:02 | disposition home or self-care (01) ==
PROVIDERS: Emergency Provider Internal Medicine; PCP Family Medicine
DX: G89.11 Acute pain due to trauma (principal); R51.9 Headache, unspecified; M25.531 Pain in right wrist; Y00.XXXA Assault by blunt object, initial encounter; Y07.411 Sister, perpetrator of maltreatment and neglect; Z79.02 Long term (current) use of antithrombotics/antiplatelets; Z72.0 Tobacco use; Z86.73 Personal history of transient ischemic attack (TIA), and cerebral infarction without residual deficits
CPT/HCPCS: 70450; 73110; 99284

== ENCOUNTER 2023-02-14 15:48 | Emergency (ER) | payer MEDICARE, MEDICAID, SELFPAY ==
--- NOTE | 2023-02-14 15:51 | XRR_ITS ---
PROCEDURE INFORMATION: Exam: XR Abdomen Exam date and time: 02/14/2023 4:10 PM Age: 62 years old Clinical indication: Constipation TECHNIQUE: Imaging protocol: Radiologic exam of the abdomen. Views: Frontal supine view of the abdomen. 1 View. COMPARISON: CT chest abdpel w/*[id number] 10/08/2022 8:58 PM FINDINGS: Gastrointestinal tract: Normal. No bowel dilation. Organs: Clips in the right upper quadrant from previous cholecystectomy. Bones/joints: Degenerative changes lower lumbar spine. XR/XR KUB [id number] IMPRESSION: No acute findings.
--- NOTE | 2023-02-14 15:55 | ED_ITS ---
HPI - General Adult General: Chief complaint: Abdominal Pain Stated complaint: Pain in left side no bowel movement in over a week Time Seen by Provider: 02/14/23 15:51 Source: patient Mode of arrival: ambulatory Limitations: no limitations History of Present Illness: 62-year-old female states she has a history of Crohn's disease she states she has been constipated has not had a bowel movement in over a week. She states she has been having left-sided abdominal pain that is cramping and sharp in sirena ure rates it a 5 out of 10 currently she had no vomiting denies any fevers denies any worsening proving factors. Associated symptoms: Deny chest pain, dyspnea, headache(s), nausea, rash or vomiting Review of Systems Const: Denies: fever(s), chills, body aches or change in appetite Eyes: Denies: blurry vision or eye discomfort ENMT: Denies: throat pain or dental pain Card: Denies: chest pain Resp: Denies: dyspnea GI: Reports: abdominal pain and constipation; Denies: nausea, vomiting or diarrhea : Denies: dysuria Musc: Denies: neck pain or back pain Skin/Breast: Denies: rash Neuro: Denies: headache(s) PFSH ED PFSH: Medical History Anxiety Brainstem stroke Crohn's colitis Surgical History H/O tubal ligation H/O: hysterectomy S/P cholecystectomy S/P small bowel resection S/P splenectomy Status post tonsillectomy and adenoidectomy Family History Denies family history of CAD (coronary artery disease) Social History Smoking and tobacco/nicotine status: current every day tobacco/nicotine user Physical Exam Const: COMMON NORMALS: no acute distress, patient oriented x3 and healthy appearing HENMT: COMMON NORMALS: normocephalic and atraumatic HEAD & SCALP: normocephalic and atraumatic Neck/C-Spine: COMMON NORMALS: full ROM and supple Chest: COMMONS NORMALS: normal inspection of the chest Resp: COMMON NORMALS: normal respiratory effort Cardio: COMMON NORMALS: regular rate, regular rhythm and No murmurs present (Cardio) RATE: regular rate RHYTHM: regular rhythm GI: COMMON NORMALS: Normal to inspection, nondistended, normoactive bowel sounds present, Soft to palpation, non-tender and no masses PALPATION: Yes Soft to palpation Extremity: COMMON NORMALS: normal to inspection and full ROM Neuro: COMMON NORMALS: patient oriented x3, moves all extremities and no focal motor deficits Psych: COMMON NORMALS: mental status grossly normal, Normal thought process present and cooperative THOUGHT PROCESS: Normal thought process present Skin: COMMON NORMALS: no rashes or lesions noted and no wounds GENERAL SKIN EXAM: no rashes or lesions noted Course Vital Signs: Vital signs: Vital Signs Temperature 97.9 F 02/14/23 16:59 Pulse Rate 68 02/14/23 16:59 Respiratory Rate 17 02/14/23 15:56 Blood Pressure 133/81 02/14/23 16:59 Pulse Oximetry 95 02/14/23 16:59 Oxygen Delivery Me thod Room Air 02/14/23 16:59 MDM - General Adult Medical Decision Making Patient presents here with marco pain likely from constipation her pains improved here blood work is normal she has no signs of acute abdomen we will start her on MiraLAX she is to follow-up with PCP and return if worsening. Medical Records I reviewed the patient's medical records. Lab Data I reviewed the patient's lab results. 02/14/23 16:12 02/14/23 16:12 Radiology Impressions KUB X-Ray 02/14/23 15:51 IMPRESSION: No acute findings. Laboratory Results WBC 4.59 10^3/uL (3.29-11.43) 02/14/23 16:12 RBC 4.05 10^6/uL (3.85-5.65) 02/14/23 16:12 Hgb 12.00 g/dL (11.27-16.99) 02/14/23 16:12 Hct 37.8 % (36-47) 02/14/23 16:12 MCV 93.3 fl (85-98) 02/14/23 16:12 MCH 29.6 pg (27-33) 02/14/23 16:12 MCHC 31.7 g/dL (30-55) 02/14/23 16:12 RDW 12.5 % (12.1-15.1) 02/14/23 16:12 Plt Count 213 10^3/cmm (157-399) 02/14/23 16:12 MPV 11.2 fL (7.4-10.4) H 02/14/23 16:12 Neut % (Auto) 41.2 % 02/14/23 16:12 Lymph % (Auto) 47.3 % 02/14/23 16:12 [place] % (Auto) 8.9 % 02/14/23 16:12 Eos % (Auto) 2.0 % 02/14/23 16:12 Baso % (Auto) 0.4 % 02/14/23 16:12 Neut # (Auto) 1.89 10^3/uL (1.8-7.7) 02/14/23 16:12 Lymph # (Auto) 2.2 10^3/uL (0.8-4.8) 02/14/23 16:12 [place] # (Auto) 0.4 10^3/uL (0.2-0.9) 02/14/23 16:12 Eos # (Auto) 0.1 10^3/uL (0.0-0.8) 02/14/23 16:12 Baso # (Auto) 0.0 10^3/uL (0.0-0.1) 02/14/23 16:12 Nucleated RBC % (auto) 0 % 02/14/23 16:12 Nucleated RBCs # 0.0 /100WBC 02/14/23 16:12 Sodium 138 mmol/L (136-145) 02/14/23 16:12 Potassium 3.7 mmol/L (3.5-5.1) 02/14/23 16:12 Chloride 100 mmol/L (98-107) 02/14/23 16:12 Carbon Dioxide 27 mmol/L (22-29) 02/14/23 16:12 Anion Gap 14.7 (5-19) 02/14/23 16:12 BUN 15 mg/dL (8-23) 02/14/23 16:12 Creatinine 0.7 mg/dL (0.5-0.9) 02/14/23 16:12 GFR Calculation 84.2 mL/min (90-130) L 02/14/23 16:12 Glucose 109 mg/dL (65-115) 02/14/23 16:12 Calculated Osmolality 287 mOsm/kg (285-295) 02/14/23 16:12 Calcium 9.3 mg/dL (8.5-10.5) 02/14/23 16:12 Total Bilirubin 0.2 mg/dL (0.15-1.2) 02/14/23 16:12 AST 15 U/L (0-32) 02/14/23 16:12 ALT 9 U/L (0-33) 02/14/23 16:12 Alkaline Phosphatase 72 U/L (35-105) 02/14/23 16:12 Total Protein 7.0 g/dL (6.6-8.7) 02/14/23 16:12 Albumin 4.2 g/dL (3.5-5.2) 02/14/23 16:12 Globulin 2.8 g/dL (1.3-4.6) 02/14/23 16:12 Lipase 46 U/L (13-60) 02/14/23 16:12 All radiology interpretation(s) finalized by discharge Discharge Plan Discharge Patient Disposition: Home Clinical Impression: Constipation, Abdominal pain Condition: Stable Prescriptions: New Miralax 17 gram powder in packet 17 g PO DAILY PRN (Reason: constipation) Qty: 14 0RF No Action clonazepam [Klonopin] 1 mg tablet 1 mg PO DAILY PRN (Reason: Anxiety) trazodone 100 mg tablet 200 mg PO BEDTIME pantoprazole 40 mg tablet,delayed release (DR/EC) 40 mg PO BEDTIME clopidogrel 75 mg tablet 75 mg PO BEDTIME Trelegy Ellipta 100-62.5-25 mcg blister with device 1 inh INHALATION DAILY nitroglycerin [Nitrostat] 0.4 mg Tablet, Sublingual 0.4 mg SUBLINGUAL Q5M PRN (Reason: Chest Pain) Rx Instructions: do not exceed 3 doses per episode ropinirole 1 mg tablet 1 mg PO BEDTIME sulfasalazine 500 mg tablet 500 mg PO BID venlafaxine 150 mg capsule,extended release 24hr 150 mg PO DAILY Rx Instructions: ALONG WITH 75 MG CAPSULE venlafaxine 75 mg tablet 75 mg PO QAM Rx Instructions: ALONG WITH 150 MG Discharge Orders: Discharge ED (Routine); Ordered 02/14/23 Ordered By: Antwan Mueller Referrals: Lorelei Weinberg DO [Primary Care Provider] - 1-3 days Discharge Diet: Advance as tolerated Discharge Activity: Resume usual activity Patient Instructions: Constipation (ED), Abdominal Pain (ED) Coding Level of Care Code 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
[2023-02-14 15:56] VITALS: BP 142/69; PULSE 85; RESP 17; O2SAT 97; BMI 16.8
[2023-02-14] MEDS: polyethylene glycol 3350 Pkt 17 gm PO (16:30)
[2023-02-14 16:31] LABS: Basophils % 0.4 %; Eosinophils # 0.1 10^3/uL (0.0-0.8); Hematocrit 37.8 % (36-47); Lymphocytes # 2.2 10^3/uL (0.8-4.8); Lymphocytes % 47.3 %; Mean Corpuscular HGB Conc 31.7 g/dL (30-55); Mean Corpuscular Hemoglobin 29.6 pg (27-33); Mean Corpuscular Volume 93.3 fl (85-98); Mean Platelet Volume 11.2 fL (7.4-10.4); Monocytes # 0.4 10^3/uL (0.2-0.9); Monocytes % 8.9 %; Neutrophils # 1.89 10^3/uL (1.8-7.7); Neutrophils % 41.2 %; Nucleated Red Blood Cells % 0 %; Platelet Count 213 10^3/cmm (157-399); Red Blood Count 4.05 10^6/uL (3.85-5.65); Red Cell Distribution Width 12.5 % (12.1-15.1); White Blood Count 4.59 10^3/uL (3.29-11.43)
[2023-02-14 16:52] LABS: Alanine Aminotransferase 9 U/L (0-33); Albumin Level 4.2 g/dL (3.5-5.2); Alkaline Phosphatase 72 U/L (35-105); Anion Gap 14.7 (5-19); Aspartate Amino Transferase 15 U/L (0-32); Blood Urea Nitrogen 15 mg/dL (8-23); Calcium 9.3 mg/dL (8.5-10.5); Carbon Dioxide 27 mmol/L (22-29); Chloride 100 mmol/L (98-107); Globulin 2.8 g/dL (1.3-4.6); Glomerular Filtration Rate 84.2 mL/min (90-130); Glucose 109 mg/dL (65-115); Lipase 46 U/L (13-60); Osmolality Calculated 287 mOsm/kg (285-295); Potassium 3.7 mmol/L (3.5-5.1); Sodium 138 mmol/L (136-145); Total Bilirubin 0.2 mg/dL (0.15-1.2)
[2023-02-14] MEDS: lactulose oral liq 20 gm/30 mL UDC 30 GM PO (16:55)
[2023-02-14 16:59] VITALS: BP 133/81; PULSE 68; TEMP 36.6; O2SAT 95
== END 2023-02-14 17:29 | disposition home or self-care (01) ==
PROVIDERS: Emergency Provider Emergency Medicine; PCP Family Medicine
DX: K59.00 Constipation, unspecified (principal); Z79.02 Long term (current) use of antithrombotics/antiplatelets; Z72.0 Tobacco use; Z86.73 Personal history of transient ischemic attack (TIA), and cerebral infarction without residual deficits
CPT/HCPCS: 36415; 74018; 80053; 83690; 85025; 99284

== ENCOUNTER 2023-03-18 17:47 | Observation (INO) | payer OTHER, MEDICAID, SELFPAY ==
[2023-03-18 17:49] VITALS: BP 170/100; PULSE 60; RESP 19; TEMP 36.9; O2SAT 95; BMI 16.6
--- NOTE | 2023-03-18 17:56 | ED_ITS ---
HPI - Headache 2 General: Chief Complaint: Headache Stated Complaint: Headache Time Seen by Provider: 03/18/23 17:56 History of Present Illness: 62-year-old female presents to the emerg ency department in police custody with complaints of seizure type activity and headache. The client sales and service officer that has her in custody states that she takes seizure medications and she has been incarcerated for the previous 3 days as per her warrant. He states that her medications were in a pill container that were not labeled so they were unable to provide those to her. Patient is actively seizing and is unable to communicate at present. She does have tonic-clonic jerking type movements. The officer denies known recent trauma or injury. Review of Systems 2 General: Reports: ROS unobtainable due to medical condition and ROS unobtainable due to mental status PFSH ED 2 PFSH: Medical History Brainstem stroke Anxiety Crohn's colitis Surgical History Status post tonsillectomy and adenoidectomy H/O: hysterectomy H/O tubal ligation S/P splenectomy S/P cholecystectomy S/P small bowel resection Family History Denies family history of CAD (coronary artery disease) Social History Smoking and tobacco/nicotine status: current every day tobacco/nicotine user Physical Exam 2 Narrative: EXAM NARRATIVE: Constitutional: the patient appears well nourished and with normal development. Vital signs reviewed as documented. Actively having tonic-clonic seizure type activity HENMT: Normocephalic, atraumatic. Extermal ears with normal appearance without drainage. Nose without drainage, normal appearance. Mucus membranes moist. Fast phase lateral eye twitching to the right during seizure activity Neck is supple, No jugular venous distension, trachea is midline, no appreciable carotid bruits. No lymphadenopathy. No meningeal signs. Flexion, extension and lateral rotation is without pain. Eyes: Pupils are equal, round, reactive to light and accommodation. No scleral icterus. Extra-ocular movement are intact. Thorax is symmetrical and with equal rise and fall with respirations. Resp: Lungs are clear to auscultation. No wheezes, rales, crackles or ronchi at present. Cardio: Regular rate and rhythm. Positive S1, S2. No appreciable murmurs, rubs or gallops. GI: Abdominal exam reveals normal bowel sounds to all quadrants. No organomegaly. No obvious palpable masses noted. No hepatomegally appreciated. Soft, nontender to palpation. Extremity: Extremities are non-edematous and both femoral and pedal pulses are 2+ and equal bilaterally. Moves all extremities well, sensation in all extremities. Neuro: Active seizure activity the patient is not alert or oriented. Extremely limited neurological assessment given the patient's seizure activity and postictal. Motor strength in the upper and lower extremities are equal and bilateral 5/5. Psych: Cooperative, calm, normal thought process, appropriate judgment. Skin: No lesions, rashes. No gross abnormalities noted. Back: Symmetrical, no obvious deformity, No CVA tenderness Course 2 Vital Signs: Vital signs: Vital Signs Temperature 98.4 F 03/19/23 13:23 Pulse Rate 54 L 03/19/23 16:46 Respiratory Rate 23 H 03/19/23 13:23 Blood Pressure 137/78 03/19/23 13:23 Pulse Oximetry 95 03/19/23 13:23 Oxygen Delivery Me thod Nasal Cannula 03/19/23 08:41 Oxygen Flow Rate 2 03/19/23 08:41 MDM - Headache Medical Decision Making Physical exam completed and documented, I will provide the patient IV fluid rehydration as well as Versed and antiepileptic medication. Will most likely admit the patient given her sinus bradycardia. Medical Records I reviewed the patient's medical records. Lab Data I reviewed the patient's lab results. 03/19/23 01:12 03/19/23 01:[address] 03/18/23 18:06 IMPRESSION: 1. Hypodensities in periventricular and subcortical white matter has increased in the left frontoparietal region. This could represent progressive microangiopathy. An acute ischemic white matter infarct can not be excluded. This can be further evaluated with MRI. ADDENDUM: 03/18/232049 THIS REPORT CONTAINS FINDINGS THAT MAY BE CRITICAL TO PATIENT CARE. The findings were verbally communicated via telephone conference with CLARITA NUR at 8:47 PM SHEET METAL HELPER on 03/18/2023. The findings were acknowledged and understood. Head/Neck CTA 03/18/23 20:50 IMPRESSION: 1. No large artery occlusion or stenosis. 2. Stable white matter hypodensities, asymmetrically prominent in the left frontoparietal region. An acute white matter infarct is not excluded. IMPRESSION: 1. No large artery occlusion or stenosis. 2. Stable upper lobe pulmonary opacities, consistent with fibrosis. REFERENCES: NASCET CRITERIA. The degree of stenosis in the cervical segment of the internal carotid artery is based on NASCET criteria. Normal is no stenosis. Mild is less than 50% stenosis. Moderate is 50-69% stenosis. Severe is 70% to 99% stenosis. Total occlusion is no detectable patent lumen. Laboratory Results WBC 6.84 10^3/uL (3.29-11.43) 03/18/23 20:01 RBC 3.78 10^6/uL (3.85-5.65) L 03/18/23 20:01 Hgb 11.20 g/dL (11.27-16.99) L 03/18/23 20:01 Hct 35.8 % (36-47) L 03/18/23 20:01 MCV 94.7 fl (85-98) 03/18/23 20: MCH 29.6 pg (27-33) 03/18/23 20:01 MCHC 31.3 g/dL (30-55) 03/18/23 20:01 RDW 14.2 % (12.1-15.1) 03/18/23 20:01 Plt Count 175 10^3/cmm (157-399) 03/18/23 20: MPV 10.8 fL (7.4-10.4) H 03/18/23 20:01 Neut % (Auto) 51.6 % 03/18/23 20:01 Lymph % (Auto) 36.8 % 03/18/23 20:01 [place] % (Auto) 9.1 % 03/18/23 20:01 Eos % (Auto) 1.8 % 03/18/23 20:01 Baso % (Auto) 0.4 % 03/18/23 20: Neut # (Auto) 3.53 10^3/uL (1.8-7.7) 03/18/23 20:01 Lymph # (Auto) 2.5 10^3/uL (0.8-4.8) 03/18/23 20:01 [place] # (Auto) 0.6 10^3/uL (0.2-0.9) 03/18/23 20:01 Eos # (Auto) 0.1 10^3/uL (0.0-0.8) 03/18/23 20:01 Baso # (Auto) 0.0 10^3/uL (0.0-0.1) 03/18/23 20:01 Nucleated RBC % (auto) 0 % 03/18/23 20: Nucleated RBCs # 0.0 /100WBC 03/18/23 20:01 D-Dimer 0.42 ug/mLFEU (0-0.59) 03/18/23 20:01 Sodium 141 mmol/L (136-145) 03/18/23 20:01 Potassium 3.7 mmol/L (3.5-5.1) 03/18/23 20:01 Chloride 105 mmol/L (98-107) 03/18/23 20:01 Carbon Dioxide 28 mmol/L (22-29) 03/18/23 20:01 Anion Gap 11.7 (5-19) 03/18/23 20: BUN 9 mg/dL (8-23) 03/18/23 20:01 Creatinine 0.5 mg/dL (0.5-0.9) 03/18/23 20:01 GFR Calculation 124.2 mL/min (90-130) 03/18/23 20: Glucose 78 mg/dL (65-115) 03/18/23 20:01 Estimat Average Glucose 85 03/18/23 20:01 Hemoglobin A1c 4.6 % (4.0-6.0) 03/18/23 20: Calculated Osmolality 290 mOsm/kg (285-295) 03/18/23 20: Lactic Acid 1.4 mmol/L (0.5-2.2) 03/18/23 20: Calcium 8.6 mg/dL (8.5-10.5) 03/18/23 20:01 Total Bilirubin 0.3 mg/dL (0.15-1.2) 03/18/23 20:01 AST 23 U/L (0-32) 03/18/23 20:01 ALT 15 U/L (0-33) 03/18/23 20:01 Alkaline Phosphatase 66 U/L (35-105) 03/18/23 20:01 Troponin T Baseline 9 ng/L (0-10) 03/18/23 20:01 Total Protein 6.0 g/dL (6.6-8.7) L 03/18/23 20: Albumin 3.8 g/dL (3.5-5.2) 03/18/23 20: Globulin 2.2 g/dL (1.3-4.6) 03/18/23 20:01 Procalcitonin 0.02 ng/mL (0-0.5) 03/18/23 20: Prolactin 52.05 ng/mL (4.8-23.3) H 03/18/23 20:01 Prolactin 52.32 ng/mL (4.8-23.3) H 03/18/23 20:01 Prolactin 53.77 ng/mL (4.8-23.3) H 03/18/23 20:01 Urine Color Yellow (Yellow) 03/18/23 20:07 Urine Appearance Clear (CLEAR) 03/18/23 20:07 Urine pH 5 (5-7) 03/18/23 20:07 Ur Specific E[place]chs 1.010 (1.005-1.030) 03/18/23 20:07 Urine Protein Neg (Negative) 03/18/23 20:07 Urine Glucose (UA) Norm (Normal) 03/18/23 20:07 Urine Ketones Negative (Negative) 03/18/23 20:07 Urine Blood Neg (Negative) 03/18/23 20:07 Urine Nitrate Negative (Negative) 03/18/23 20:07 Urine Bilirubin Neg (Negative) 03/18/23 20:07 Urine Urobilinogen Norm mg/dL (Negative) 03/18/23 20:07 Ur Leukocyte Esterase Negative (Negative) 03/18/23 20:07 Urine RBC 0-4 /hpf (0-2) H 03/18/23 20:07 Urine WBC None /hpf (0-5) 03/18/23 20:07 Ur Squamous Epith Cells None /hpf (0-5) 03/18/23 20:07 Ur Transition Epith Cell 0-4 /hpf 03/18/23 20:07 Amorphous Sediment Not Reportable 03/18/23 20:07 Urine Bacteria None /hpf (NONE) 03/18/23 20:07 Urine Mucus None /hpf 03/18/23 20:07 Urine Opiates Screen Negative ng/mL (Negative) 03/18/23 20:07 Ur Barbiturates Screen Negative ng/mL (Negative) 03/18/23 20:07 Ur Phencyclidine Scrn Negative ng/mL (Negative) 03/18/23 20:07 Ur Amphetamines Screen Positive ng/mL (Negative) H 03/18/23 20:07 U Benzodiazepines Scrn Negative ng/mL (Negative) 03/18/23 20:07 Urine Cocaine Screen Negative ng/mL (Negative) 03/18/23 20:07 U Marijuana (THC) Screen Positive ng/mL (Negative) H 03/18/23 20:07 All radiology interpretation(s) finalized by discharge Discharge Plan Discharge Patient Disposition: Admitted As Inpatient Admit Provider: Yash Lyle Clinical Impression: Headache Qualifiers: Headache type: tension-type Headache chronicity pattern: acute headache I ntractability: not intractable Qualified Code(s): G44.209 - Tension-type headache, unspecified, not intractable Condition: Stable Discharge Diet: Regular Discharge Activity: Resume usual activity and Increase activity as tolerated Coding Level of Care Code ED Eye Technician for Jeaneth Headley
--- NOTE | 2023-03-18 18:06 | CTR_ITS ---
PROCEDURE INFORMATION: Exam: CT Head Without Contrast Exam date and time: 03/18/2023 7:32 PM Age: 62 years old Clinical indication: Condition or disease; Convulsions or seizures; Patient HX: EMS arrival from longterm for seizure activity. History of seizure disorder. ; Additional info: Ams/seizures TECHNIQUE: Imaging protocol: Computed tomography of the head without contrast. Radiation optimization: All CT scans at this facility use at least one of these dose optimization techniques: automated exposure control; mA and/or kV adjustment per patient size (includes targeted exams where dose is matched to clinical indication); or iterative reconstruction. REPORTING DATA: Count of CT and Cardiac NM exams in prior 12 months: This patient has received 5 known CTs and 0 known cardiac nuclear medicine studies in the 12 months prior to the current study. COMPARISON: CT head wo con* [id number] 02/06/2023 11:44 AM RADIATION DOSE METRICS: Total DLP (mGy-cm): 997.8 FINDINGS: Brain: Mild diffuse cortical volume loss. Hypodensities in supratentorial periventricular and subcortical white matter have increased in the left frontoparietal region and are otherwise stable. No intracranial hemorrhage. Cerebral ventricles: No ventriculomegaly. Paranasal sinuses: Visualized sinuses are unremarkable. No fluid levels. Mastoid air cells: Visualized mastoid air cells are well aerated. Bones/joints: Unremarkable. No acute fracture. Soft tissues: Unremarkable. CT/CT head wo con* [id number] IMPRESSION: 1. Hypodensities in periventricular and subcortical white matter has increased in the left frontoparietal region. This could represent progressive microangiopathy. An acute ischemic white matter infarct can not be excluded. This can be further evaluated with MRI.
[2023-03-18] MEDS: diphenhydrAMINE 50 mg/mL SDV 1mL IM (18:14)
[2023-03-18] MEDS: ketorolac 30 mg/mL INJ IVP (18:16)
[2023-03-18] MEDS: midazolam 1 mg/mL INJ 2 mL IVP (18:19)
[2023-03-18] MEDS: prochlorperazine 10 mg/2 mL Inj IVP (18:27)
[2023-03-18 18:30] VITALS: BP 137/83; PULSE 62; RESP 14; O2SAT 95
[2023-03-18] MEDS: sodium chloride 0.9% 1,000 ML 999 ML IV (18:30)
[2023-03-18 18:34] VITALS: BP 137/83; PULSE 56; RESP 12; O2SAT 94
[2023-03-18] MEDS: levETIRAcetam 500 MG/100 ML PREMIX 400 MG IV (18:40)
--- NOTE | 2023-03-18 20:13 | ECG_ITS ---
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 Measurements Intervals [place] Rate: 51 P: 76 GA: 170 QRS: 71 QRSD: 90 T: 61 QT: 450 QTc: 416 Interpretive Statements SINUS BRADYCARDIA WITH SINUS ARRHYTHMIA ANTEROSEPTAL MYOCARDIAL INFARCTION , OF INDETERMINATE AGE [40+ ms Q WAVE IN V1-V4] Compared to ECG 10/13/2022 18:39:04 Myocardial infarct finding now present Electronically Signed On 03-18-2023 21:17:31 BOARDING MACHINE OPERATOR by Toya Kidd M.D. [id number]
[2023-03-18 20:17] LABS: Basophils % 0.4 %; Eosinophils # 0.1 10^3/uL (0.0-0.8); Eosinophils % 1.8 %; Hematocrit 35.8 % (36-47); Lymphocytes # 2.5 10^3/uL (0.8-4.8); Lymphocytes % 36.8 %; Mean Corpuscular HGB Conc 31.3 g/dL (30-55); Mean Corpuscular Hemoglobin 29.6 pg (27-33); Mean Corpuscular Volume 94.7 fl (85-98); Mean Platelet Volume 10.8 fL (7.4-10.4); Monocytes # 0.6 10^3/uL (0.2-0.9); Monocytes % 9.1 %; Neutrophils # 3.53 10^3/uL (1.8-7.7); Neutrophils % 51.6 %; Nucleated Red Blood Cells % 0 %; Platelet Count 175 10^3/cmm (157-399); Red Blood Count 3.78 10^6/uL (3.85-5.65); Red Cell Distribution Width 14.2 % (12.1-15.1); White Blood Count 6.84 10^3/uL (3.29-11.43)
[2023-03-18 20:20] LABS: Bilirubin Urine Neg (Negative); Blood Urine Neg (Negative); Glucose Urine UA Norm (Normal); Ketones Urine Negative (Negative); Leukocyte Esterase Urine Negative (Negative); Nitrate Urine Negative (Negative); Protein Urine Neg (Negative); Urine Appearance Clear (CLEAR); Urine Color Yellow (Yellow); Urobilinogen Urine Norm (Negative); pH Urine 5 (5-7)
[2023-03-18 20:21] LABS: Add Urine Culture? No; RBC Urine 0-4 /hpf (0-2); Transitional Epi Cells Urine 0-4 /hpf
[2023-03-18 20:25] LABS: Amphetamines Screen Urine Positive (Negative); Barbiturates Screen Urine Negative (Negative); Benzodiazepines Screen Urine Negative (Negative); Cocaine Screen Urine Negative (Negative); Opiate Screen Urine Negative (Negative); PCP Screen Urine Negative (Negative); THC Screen Urine Positive (Negative)
[2023-03-18 20:36] LABS: Lactic Sepsis W/Reflex 1.4 mmol/L (0.5-2.2)
[2023-03-18 20:42] LABS: Troponin(5th) Baseline 9 ng/L (0-10)
[2023-03-18 20:46] LABS: Procalcitonin 0.02 ng/mL (0-0.5); Prolactin 52.32 ng/mL (4.8-23.3)
[2023-03-18 20:47] LABS: Prolactin 52.05 ng/mL (4.8-23.3)
--- NOTE | 2023-03-18 20:50 | CTR_ITS ---
PROCEDURE INFORMATION: Exam: CTA Head With Contrast, Arteriography Exam date and time: 03/18/2023 9:22 PM Age: 62 years old Clinical indication: Other: AMS TECHNIQUE: Imaging protocol: Computed tomographic angiography of the head with contrast. Exam focused on the arteries. 3D rendering (Not supervised by radiologist): MIP and/or 3D reconstructed images were created by the technologist. Radiation optimization: All CT scans at this facility use at least one of these dose optimization techniques: automated exposure control; mA and/or kV adjustment per patient size (includes targeted exams where dose is matched to clinical indication); or iterative reconstruction. Contrast material: OMNI 350; Contrast volume: 80 ml; Contrast route: INTRAVENOUS (IV); REPORTING DATA: Count of CT and Cardiac NM exams in prior 12 months: This patient has received 5 known CTs and 0 known cardiac nuclear medicine studies in the 12 months prior to the current study. COMPARISON: CT angio headneck* [id number] 10/14/2022 2:07 PM RADIATION DOSE METRICS: Total DLP (mGy-cm): 387.92 FINDINGS: ANTERIOR CIRCULATION: Right internal carotid artery: Calcified plaque in the right carotid siphon without stenosis. Right middle cerebral artery: No occlusion or significant stenosis. No aneurysm. Right anterior cerebral artery: No occlusion or significant stenosis. No aneurysm. Left internal carotid artery: Calcified plaque in the left carotid siphon with mild stenosis. Left middle cerebral artery: No occlusion or significant stenosis. No aneurysm. Left anterior cerebral artery: No occlusion or significant stenosis. No aneurysm. POSTERIOR CIRCULATION: Right vertebral artery: No occlusion or significant stenosis. No aneurysm. Left vertebral artery: No occlusion or significant stenosis. No aneurysm. Basilar artery: No occlusion or significant stenosis. No aneurysm. Right posterior cerebral artery: No occlusion or significant stenosis. No aneurysm. 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 No stenosis. Brain: Mild hypodensities in supratentorial periventricular and subcortical white matter, consistent with microangiopathy. Increased white matter hypodensities in the left frontoparietal region. No intracranial hemorrhage. Cerebral ventricles: No ventriculomegaly. Bones/joints: Unremarkable. No acute fracture. Soft tissues: Unremarkable. PROCEDURE INFORMATION: Exam: CTA Neck With Contrast Exam date and time: 03/18/2023 9:22 PM Age: 62 years old Clinical indication: Other: AMS TECHNIQUE: Imaging protocol: Computed tomographic angiography of the neck with contrast. Exam focused on the cervical segments of the vasculature. 3D rendering (Not supervised by radiologist): MIP and/or 3D reconstructed images were created by the technologist. Radiation optimization: All CT scans at this facility use at least one of these dose optimization techniques: automated exposure control; mA and/or kV adjustment per patient size (includes targeted exams where dose is matched to clinical indication); or iterative reconstruction. Contrast material: OMNI 350; Contrast volume: 80 ml; Contrast route: INTRAVENOUS (IV); REPORTING DATA: Count of CT and Cardiac NM exams in prior 12 months: This patient has received 5 known CTs and 0 known cardiac nuclear medicine studies in the 12 months prior to the current study. COMPARISON: CT angio headneck* [id number] 10/14/2022 2:07 PM RADIATION DOSE METRICS: Total DLP (mGy-cm): 387.92 FINDINGS: Right common carotid artery: No stenosis. No dissection or occlusion. Right internal carotid artery: Mild calcified plaque in the proximal right internal carotid artery with 0% stenosis. Right external carotid artery: No occlusion or stenosis of the origin. Left common carotid artery: No stenosis. No dissection or occlusion. Left internal carotid artery: Small calcified plaque in the proximal left internal carotid artery with 0% stenosis. Left external carotid artery: No occlusion or stenosis of the origin. Right vertebral artery: No stenosis. No dissection or occlusion. Left vertebral artery: No stenosis. No dissection or occlusion. Aorta: Borderline aneurysmal dilatation of the ascending thoracic aorta measuring 3.8 cm. No dissection. Soft tissues: Normal. No significant soft tissue swelling. Bones/joints: Mild degenerative changes of the cervical spine. Fusion hardware in the right clavicle. Lungs: Stable irregular opacities in the lung apices. CT/CT angio headneck* [id number] IMPRESSION: 1. No large artery occlusion or stenosis. 2. Stable white matter hypodensities, asymmetrically prominent in the left frontoparietal region. An acute white matter infarct is not excluded. IMPRESSION: 1. No large artery occlusion or stenosis. 2. Stable upper lobe pulmonary opacities, consistent with fibrosis. REFERENCES: NASCET CRITERIA. The degree of stenosis in the cervical segment of the internal carotid artery is based on NASCET criteria. Normal is no stenosis. Mild is less than 50% stenosis. Moderate is 50-69% stenosis. Severe is 70% to 99% stenosis. Total occlusion is no detectable patent lumen.
[2023-03-18 20:59] LABS: Alanine Aminotransferase 15 U/L (0-33); Albumin Level 3.8 g/dL (3.5-5.2); Alkaline Phosphatase 66 U/L (35-105); Anion Gap 11.7 (5-19); Aspartate Amino Transferase 23 U/L (0-32); Blood Urea Nitrogen 9 mg/dL (8-23); Calcium 8.6 mg/dL (8.5-10.5); Carbon Dioxide 28 mmol/L (22-29); Chloride 105 mmol/L (98-107); Globulin 2.2 g/dL (1.3-4.6); Glomerular Filtration Rate 124.2 mL/min (90-130); Glucose 78 mg/dL (65-115); Osmolality Calculated 290 mOsm/kg (285-295); Potassium 3.7 mmol/L (3.5-5.1); Sodium 141 mmol/L (136-145); Total Bilirubin 0.3 mg/dL (0.15-1.2)
--- NOTE | 2023-03-18 21:02 | P.HP_ITS ---
Providers/Chief Complaint 2 Primary Care Provider: Lorelei Weinberg DO Chief Complaint: Headache History of Present Illness Gwen Briones is a 62 year old female who has been incarcerated for last 3 days presented after seizure related activity, on review of records patient seems to have nonepileptic form psychogenic seizure related activity, she has had multiple rapid response in the past, there was some concern for neuro conversion disorder as well patient has significant psychiatric history of major depressive disorder, she also has history of polysubstance abuse, suicidal ideation presenting today with shortness of breath and seizure related activity. Patient is stating that she was incarcerated because she did not pay her fine, in the ER she started having a seizure, she was given Versed 1 mg, Keppra, at the time of evaluation patient is postictal heart rate has been around 60s, EKG showing sinus bradycardia, she is hemodynamically stable Able to answer few questions Able to protect airway, Urine drug screen positive for methamphetamine and marijuana As per the report patient was supposed to be released tomorrow morning she was on a 48-hour hold CT head changes concerning for microangiopathic versus acute stroke however patient does not have any focal deficits on examination Last known well time is unknown Review of Systems 2 General: Reports: ROS unobtainable due to medical condition Medications/Allergies Home Medications Medication Instructions Recorded Confirmed Last Taken Type pantoprazole 40 mg tablet,delayed 40 mg PO BEDTIME 06/13/19 02/06/23 02/05/23 History release clopidogrel 75 mg tablet 75 mg PO BEDTIME 07/26/20 02/06/23 02/05/23 History fluticasone fur. 100 mcg-umeclid 1 inh inhalation DAILY 07/26/20 02/06/23 02/05/23 History 62.5 mcg-vilant 25 mcg inhalat.powder (Trelegy Ellipta) nitroglycerin 0.4 mg sublingual 0.4 mg sublingual Q5M PRN Chest 07/22/21 02/06/23 Unknown History tablet (Nitrostat) Pain clonazepam 1 mg tablet (Klonopin) 1 mg PO DAILY PRN Anxiety 09/30/21 02/06/23 02/05/23 History trazodone 100 mg tablet 200 mg PO BEDTIME 09/30/21 02/06/23 02/05/23 History ropinirole 1 mg tablet 1 mg PO BEDTIME 10/09/22 02/06/23 02/05/23 History sulfasalazine 500 mg tablet 500 mg PO BID 10/09/22 02/06/23 02/05/23 History venlafaxine 150 mg 150 mg PO DAILY 10/09/22 02/06/23 02/05/23 History capsule,extended release 24 hr venlafaxine 75 mg tablet 75 mg PO QAM 02/06/23 02/06/23 02/05/23 History polyethylene glycol 3350 17 gram 17 g PO DAILY PRN constipation #14 02/14/23 Unknown Rx oral powder packet (Miralax) ea Allergies Allergy/AdvReac Type Severity Reaction Status Date / Time aspirin Allergy Unknown Verified 02/06/23 11:18 codeine Allergy ALGY-Rash Verified 02/06/23 11:18 tramadol Allergy Unknown Verified 02/06/23 11:18 PFSH Acute 2 PFSH: Medical History Brainstem stroke Anxiety Crohn's colitis Surgical History Status post tonsillectomy and adenoidectomy H/O: hysterectomy H/O tubal ligation S/P splenectomy S/P cholecystectomy S/P small bowel resection Family History Denies family history of CAD (coronary artery disease) Social History Smoking and tobacco/nicotine status: current every day tobacco/nicotine user Vitals/I&O/Wt Last Vital Signs Temp 98.5 F 03/18/23 17:49 Pulse 56 L 03/18/23 18:34 Resp 12 03/18/23 18:34 BP 137/83 03/18/23 18:34 Pulse Ox 94 03/18/23 18:34 O2 Del Method Room Air 03/18/23 18:34 Weight last 48 hrs Weight 45.359 kg Physical Exam 2 Narrative: Nonfocal neuroexam Fatigued and lethargic Postictal Able to answer simple questions Speech is not slurred She was feeling about her find that she could not pay she was talking about $150 She told me that she lives with her son Dehydrated Sinus bradycardia heart rate around 60 Able to protect airway, saturating well on room air Stable Abdomen soft Complaining of left flank pain Data 03/18/23 20:01 03/18/23 20:01 A&P Assessment and plan (1) Anxiety: (2) Depression, unspecified: (3) Functional neurological symptom disorder (conversion disorder), with abnormal movement: (4) Methamphetamine use: (5) Psychotic disorder due to psychoactive substance: (6) Dysphagia: (7) Headache: Qualifiers: Headache chronicity pattern: acute headache Headache type: tension-type Intractability: not intractable Qualified Code(s): G44.209 - Tension-type headache, unspecified, not intractable (8) Seizure: Plan Seizure Will start her on p.o. Keppra Will use Ativan for as needed use Will request D-dimer, prolactin, head CT showing microvascular changes versus infarct, will request head MRI, her microvascular changes could be related to polysubstance abuse methamphetamine related vasoconstriction Start thiamine, Head and neck CTA requested Last known well time unknown ER physician spoke with Dr. Keen Patient is confused and lethargic after getting Keppra and Versed Full code Start diet when she is more awake and alert Patient is stating that she lives with her son She was able to be released from residential after 48 hours hold DVT prophylaxis added Strong psychiatric history, patient was suicidal, she was evaluated by psychiatrist in the past, please reevaluate once she is more awake and alert Self interpretation of EKG sinus bradycardia no signs of third-degree heart block, Most information taken from the collaterals Attestations 2 Medical Necessity Statement*: Anticipating discharge within 48 hours Diagnoses Anxiety F41.9 Depression, unspecified F32.A Functional neurological symptom disorder (conversion disorder), with abnormal movement F44.4 Methamphetamine use F15.10 Psychotic disorder due to psychoactive substance F19.959 Dysphagia R13.10 Headache G44.209 Headache chronicity pattern: acute headache Headache type: tension-type Intractability: not intractable Seizure R56.9
[2023-03-18 21:26] LABS: D Dimer 0.42 ug/mLFEU (0-0.59)
[2023-03-18] MEDS: iohexol 350 mg/mL 500 mL Btl (per mL) IV (21:28)
[2023-03-18 21:35] VITALS: BP 125/70; PULSE 43; RESP 12; O2SAT 93
[2023-03-18 21:45] VITALS: BP 174/63; PULSE 48; RESP 12; TEMP 36.6; O2SAT 92; BMI 17.6
[2023-03-19] VITALS (8 sets, daily range): BP systolic 105–137; BP diastolic 59–78; PULSE 54–68; RESP 14–23; TEMP 36.7–37.1; O2SAT 95–99
[2023-03-19] MEDS: enoxaparin 40 mg/0.4 mL Syringe SUBCUT (00:05)
[2023-03-19 00:12] LABS: Prolactin 53.77 ng/mL (4.8-23.3)
[2023-03-19 01:19] LABS: Basophils % 0.3 %; Eosinophils # 0.1 10^3/uL (0.0-0.8); Eosinophils % 2.4 %; Hematocrit 31.4 % (36-47); Lymphocytes # 2.9 10^3/uL (0.8-4.8); Lymphocytes % 49.4 %; Mean Corpuscular HGB Conc 31.5 g/dL (30-55); Mean Corpuscular Hemoglobin 30.2 pg (27-33); Mean Corpuscular Volume 95.7 fl (85-98); Monocytes # 0.6 10^3/uL (0.2-0.9); Monocytes % 9.6 %; Neutrophils # 2.22 10^3/uL (1.8-7.7); Neutrophils % 38.1 %; Nucleated Red Blood Cells % 0 %; Platelet Count 162 10^3/cmm (157-399); Red Blood Count 3.28 10^6/uL (3.85-5.65); Red Cell Distribution Width 14.3 % (12.1-15.1); White Blood Count 5.83 10^3/uL (3.29-11.43)
[2023-03-19 01:34] LABS: Vitamin B12 348 pg/mL (232-1245)
[2023-03-19 01:35] LABS: Troponin 5 6HR 9.82 ng/L (0-10); Troponin 5 6HR Delta 0.82 ng/L (0-12)
[2023-03-19 02:01] LABS: Anion Gap 12.2 (5-19); Blood Urea Nitrogen 9 mg/dL (8-23); Calcium 8.4 mg/dL (8.5-10.5); Carbon Dioxide 25 mmol/L (22-29); Chloride 109 mmol/L (98-107); Glomerular Filtration Rate 124.2 mL/min (90-130); Glucose 90 mg/dL (65-115); Magnesium 1.7 mg/dL (1.7-2.3); Osmolality Calculated 292 mOsm/kg (285-295); Potassium 4.2 mmol/L (3.5-5.1); Sodium 142 mmol/L (136-145)
[2023-03-19] MEDS: acetaminophen 500 mg Tablet PO (07:10)
--- NOTE | 2023-03-19 07:44 | PC.SOCIAL ---
IMM Update pg 2 of IMM not updated @ this time as patient is currently in observation status.
--- NOTE | 2023-03-19 08:00 | MR_ITS ---
WS: [id number] MRI HEAD WITHOUT CONTRAST TECHNIQUE: Sagittal T1, T2 axial, T2 axial FLAIR, axial and coronal T1 images, axial susceptibility w eighted imaging, axial diffusion weighted images, and coronal T2 images were obtained. CLINICAL INFORMATION: cva seizure COMPARISON: CTA 03/18/2023 FINDINGS: No evidence of restricted diffusion to suggest acute ischemia. Ventricular system and basilar cistern s are patent. Moderate small vessel changes with mild parenchymal volume loss. LEFT periventricular w lisa matter lesions likely due to small vessel change increased compared to the prior studies in 2018 . Normal posterior fossa. Normal vascular flow voids at the skull base. No extra axial fluid collection s. No evidence of mass or mass effect. Mucosal thickening in the paranasal sinuses. Mastoid air cells are well aerated. Normal posterior nasopharynx. No hemosiderin on the susceptibly weighted images. Normal optic chiasm and pituitary infundibulum. Mi ld symmetric atrophy temporal lobes and hippocampal formations. IMPRESSION: 1. No evidence of restricted diffusion to suggest acute ischemia. 2. Moderate small vessel changes with mild parenchymal volume loss. Small vessel changes progressed compared to 2019. 3. No hemosiderin on susceptibility-weighted images 4. No other acute findings.
[2023-03-19] MEDS: atorvastatin 40 mg Tablet 80 MG PO (08:40)
[2023-03-19] MEDS: levETIRAcetam 500 mg Tablet PO ×2 (08:40→17:34)
[2023-03-19] MEDS: clopidogrel 75 mg Tablet PO (08:40)
[2023-03-19] MEDS: thiamine 100 mg Tablet PO (08:41)
--- NOTE | 2023-03-19 08:51 | PC.CHAP ---
Pastoral Care Encounter/Spiritual Assessment Type of Contact [] Declined scientific affairs manager visit [] Patient/Family/Request visit [] Outpatient visit [] Follow-up visit [] Physician referral [] Code/Alert [x] Routine visit [] Staff referral [] Actively dying [] Patient sleeping [] Family support [] [] Out of room [] Palliative care [] [] Receiving care in room [] Pre-surgical visit [] Trauma [] Long length of stay [] ICU visit [] Other: Relational/Emotional Strength [x] Patient feels connected with others/family/visitors/staff [] Distress [] Loneliness/isolation [] Abandonment Spirituality of Patient [x] Person of Diamond [] Attends Rastafarian of their Diamond [x] Believes in Prayer [] Reads Bible or Episcopalian materials [] There are Spiritual issues to be addressed Kier Boiler Interventions [x] Prayer [x] Active listening [] Non-anxious presence [x] Spiritual/emotional support [] Crisis/trauma care [] Spiritual counseling [] Bereavement support [] Provided bereavement packet [] Provided Bible/devotional materials [] Provided toy/stuffed animal, coloring book to patient or family member [] Provided Communion [] Anointing/Ledger [] Salvation [x] Completed spiritual assessment [] Other: Impact on Illness or Injury [] Angry [] Fearful [] Anxious [] Often cries [] Exhaustion [] Unable to work [] Unable to attend hindu [] Unable to walk/stand [] Unable to read [] Unable to drive [] Unable to eat/drink [] Unable to sleep [] Unable to be with family [] Patient intubated [] Other: Summary Time spent with patient 5 min
[2023-03-19] MEDS: LORazepam 2 mg/mL INJ 1 mL IVP (09:53)
[2023-03-19] MEDS: venlafaxine 75 mg Tablet PO (09:56)
[2023-03-19 10:51] LABS: Chol HDL Ratio 2.47 mg/dL (0.0-4.40); Cholesterol 136 mg/dL (0-200); Free T4 Free Thyroxine 1.02 ng/dL (0.82-1.77); HDL Cholesterol 55 mg/dL (60-100); LDL Cholesterol Calculated 71 mg/dL (50-129); T3 Free 2.8 PG/ML (2.0-4.4); Triglycerides 49 mg/dL (0-150); VLDL Cholestrol Calculation 10 mg/dL (0-30)
--- NOTE | 2023-03-19 12:05 | PM.DCS ---
Discharge Providers Date of Admission: 03/18/23 21:25 Date of Discharge: March 19, 2023 Attending Provider at Admission: Yash Lyle MD Attending Provider at Discharge: Mario Mendoza MD Primary Care Provider: Lorelei Weinberg DO Diagnoses at Discharge Discharge Diagnosis (1) Anxiety: Status: Acute (2) Depression, unspecified: Status: Acute (3) Functional neurological symptom disorder (conversion disorder), with abnormal movement: Status: Acute (4) Methamphetamine use: Status: Acute (5) Psychotic disorder due to psychoactive substance: Status: Acute (6) Dysphagia: Status: Acute (7) Headache: Status: Acute Qualifiers: Headache chronicity pattern: acute headache Headache type: tension-type Intractability: not intractable Qualified Code(s): G44.209 - Tension-type headache, unspecified, not intractable (8) Seizure: Status: Acute Reason for Visit Reason for Visit: Headache Brief History: History as per HPI: Gwen Broines is a 62 year old female who has been incarcerated for last 3 days presented after seizure related activity, on review of records patient seems to have nonepileptic form psychogenic seizure related activity, she has had multiple rapid response in the past, there was some concern for neuro conversion disorder as well patient has significant psychiatric history of major depressive disorder, she also has history of polysubstance abuse, suicidal ideation presenting today with shortness of breath and seizure related activity. Patient is stating that she was incarcerated because she did not pay her fine, in the ER she started having a seizure, she was given Versed 1 mg, Keppra, at the time of evaluation patient is postictal heart rate has been around 60s, EKG showing sinus bradycardia, she is hemodynamically stable Able to answer few questions Able to protect airway, Urine drug screen positive for methamphetamine and marijuana As per the report patient was supposed to be released tomorrow morning she was on a 48-hour hold CT head changes concerning for microangiopathic versus acute stroke however patient does not have any focal deficits on examination Hospital Course Hospital Course Patient was admitted to the hospital on reevaluation. She was started on IV Keppra. Given concerns for changes on CT head she underwent MRI of the brain which was negative for any acute normality. Patient did not have any further episodes of seizures during hospitalization and is back to her baseline mentation. She has been discharged hemodynamically stable condition with advised to follow-up with neurology within next 2 weeks. Keppra has been added to her medications. She is to follow-up with her primary care provider within next 1 week. Physical Exam Narrative: General: No acute distress, AO x3 HEENT: PERRLA, pupils bilaterally equal and reactive Chest: Normal vesicular breath sounds, no added sounds, equal good air entry bilaterally CVS: S1-S2 regular, no murmurs, no tachycardia, no gallops, no rubs Abdomen: Soft, nontender, no organomegaly, bowel sounds present Neuro: No focal deficits, no facial deformity, AO x3, power 5/5 in all limbs Discharge Data Studies Completed and Pending Completed Studies During Hospitalization Category Date Time Status CT head wo con* [id number] Stat Cat Scan 03/18/23 18:06 Completed CTA head neck [CT angio headneck* [id number]] Stat Cat Scan 03/18/23 20:50 Completed MR head wo con* [id number] Routine MRI 03/19/23 08:00 Completed Pending at discharge Category Date Time Status Hemoglobin A1C Routine Lab 03/19/23 01:12 Received Radiology Impressions Head CT 03/18/23 18:06 IMPRESSION: 1. Hypodensities in periventricular and subcortical white matter has increased in the left frontoparietal region. This could represent progressive microangiopathy. An acute ischemic white matter infarct can not be excluded. This can be further evaluated with MRI. ADDENDUM: 03/18/232049 THIS REPORT CONTAINS FINDINGS THAT MAY BE CRITICAL TO PATIENT CARE. The findings were verbally communicated via telephone conference with CLARITA NUR at 8:47 PM MOTOR VEHICLE OR CARAVAN SALESPERSON on 03/18/2023. The findings were acknowledged and understood. Head/Neck CTA 03/18/23 20:50 IMPRESSION: 1. No large artery occlusion or stenosis. 2. Stable white matter hypodensities, asymmetrically prominent in the left frontoparietal region. An acute white matter infarct is not excluded. IMPRESSION: 1. No large artery occlusion or stenosis. 2. Stable upper lobe pulmonary opacities, consistent with fibrosis. REFERENCES: NASCET CRITERIA. The degree of stenosis in the cervical segment of the internal carotid artery is based on NASCET criteria. Normal is no stenosis. Mild is less than 50% stenosis. Moderate is 50-69% stenosis. Severe is 70% to 99% stenosis. Total occlusion is no detectable patent lumen. MRI brain IMPRESSION: 1. No evidence of restricted diffusion to suggest acute ischemia. 2. Moderate small vessel changes with mild parenchymal volume loss. Small vessel changes progressed compared to 2019. 3. No hemosiderin on susceptibility-weighted images 4. No other acute findings. Laboratory Results WBC 5.83 10^3/uL (3.29-11.43) 03/19/23 01:12 RBC 3.28 10^6/uL (3.85-5.65) L 03/19/23 01:12 Hgb 9.90 g/dL (11.27-16.99) L 03/19/23 01:12 Hct 31.4 % (36-47) L 03/19/23 01:12 MCV 95.7 fl (85-98) 03/19/23 01:12 MCH 30.2 pg (27-33) 03/19/23 01:12 MCHC 31.5 g/dL (30-55) 03/19/23 01:12 RDW 14.3 % (12.1-15.1) 03/19/23 01:12 Plt Count 162 10^3/cmm (157-399) 03/19/23 01:12 MPV 11.0 fL (7.4-10.4) H 03/19/23 01:12 Neut % (Auto) 38.1 % 03/19/23 01:12 Lymph % (Auto) 49.4 % 03/19/23 01:12 Chambers % (Auto) 9.6 % 03/19/23 01:12 Eos % (Auto) 2.4 % 03/19/23 01:12 Baso % (Auto) 0.3 % 03/19/23 01:12 Neut # (Auto) 2.22 10^3/uL (1.8-7.7) 03/19/23 01:12 Lymph # (Auto) 2.9 10^3/uL (0.8-4.8) 03/19/23 01:12 Chambers # (Auto) 0.6 10^3/uL (0.2-0.9) 03/19/23 01:12 Eos # (Auto) 0.1 10^3/uL (0.0-0.8) 03/19/23 01:12 Baso # (Auto) 0.0 10^3/uL (0.0-0.1) 03/19/23 01:12 Nucleated RBC % (auto) 0 % 03/19/23 01:12 Nucleated RBCs # 0.0 /100WBC 03/19/23 01:12 D-Dimer 0.42 ug/mLFEU (0-0.59) 03/18/23 20:01 Sodium 142 mmol/L (136-145) 03/19/23 01:12 Potassium 4.2 mmol/L (3.5-5.1) 03/19/23 01:12 Chloride 109 mmol/L (98-107) H 03/19/23 01:12 Carbon Dioxide 25 mmol/L (22-29) 03/19/23 01:12 Anion Gap 12.2 (5-19) 03/19/23 01:12 BUN 9 mg/dL (8-23) 03/19/23 01:12 Creatinine 0.5 mg/dL (0.5-0.9) 03/19/23 01:12 GFR Calculation 124.2 mL/min (90-130) 03/19/23 01:12 Glucose 90 mg/dL (65-115) 03/19/23 01:12 Calculated Osmolality 292 mOsm/kg (285-295) 03/19/23 01:12 Lactic Acid 1.4 mmol/L (0.5-2.2) 03/18/23 20:01 Calcium 8.4 mg/dL (8.5-10.5) L 03/19/23 01:12 Magnesium 1.7 mg/dL (1.7-2.3) 03/19/23 01:12 Total Bilirubin 0.3 mg/dL (0.15-1.2) 03/18/23 20:01 AST 23 U/L (0-32) 03/18/23 20:01 ALT 15 U/L (0-33) 03/18/23 20:01 Alkaline Phosphatase 66 U/L (35-105) 03/18/23 20:01 Troponin T Baseline 9 ng/L (0-10) 03/18/23 20:01 Troponin T 120 Minute 9.80 ng/L (0-10) 03/18/23 22:05 Delta Troponin T 0.80 ABS# (0-10) 03/18/23 22:05 Troponin T Hi Sens 6Hr 9.82 ng/L (0-10) 03/19/23 01:12 Troponin T Hi Sens 6Hr Delta 0.82 ng/L (0-12) 03/19/23 01:12 Total Protein 6.0 g/dL (6.6-8.7) L 03/18/23 20:01 Albumin 3.8 g/dL (3.5-5.2) 03/18/23 20:01 Globulin 2.2 g/dL (1.3-4.6) 03/18/23 20:01 Triglycerides 49 mg/dL (0-150) 03/19/23 01:12 Cholesterol 136 mg/dL (0-200) 03/19/23 01:12 LDL Cholesterol, Calc 71 mg/dL (50-129) 03/19/23 01:12 Total VLDL Cholesterol 10 mg/dL (0-30) 03/19/23 01:12 HDL Cholesterol 55 mg/dL (60-100) L 03/19/23 01:12 Cholesterol/HDL Ratio 2.47 mg/dL (0.0-4.40) 03/19/23 01:12 Vitamin B12 348 pg/mL (232-1245) 03/18/23 22:05 Procalcitonin 0.02 ng/mL (0-0.5) 03/18/23 20:01 TSH 8.90 uIU/mL (0.27-4.20) H 03/18/23 22:05 Free T4 1.02 ng/dL (0.82-1.77) 03/19/23 01:12 Free T3 2.8 PG/ML (2.0-4.4) 03/19/23 01:12 Prolactin 52.05 ng/mL (4.8-23.3) H 03/18/23 20:01 Prolactin 52.32 ng/mL (4.8-23.3) H 03/18/23 20:01 Prolactin 53.77 ng/mL (4.8-23.3) H 03/18/23 20:01 Urine Color Yellow (Yellow) 03/18/23 20:07 Urine Appearance Clear (CLEAR) 03/18/23 20:07 Urine pH 5 (5-7) 03/18/23 20:07 Ur Specific [place] 1.010 (1.005-1.030) 03/18/23 20:07 Urine Protein Neg (Negative) 03/18/23 20:07 Urine Glucose (UA) Norm (Normal) 03/18/23 20:07 Urine Ketones Negative (Negative) 03/18/23 20:07 Urine Blood Neg (Negative) 03/18/23 20:07 Urine Nitrate Negative (Negative) 03/18/23 20:07 Urine Bilirubin Neg (Negative) 03/18/23 20:07 Urine Urobilinogen Norm mg/dL (Negative) 03/18/23 20:07 Ur Leukocyte Esterase Negative (Negative) 03/18/23 20:07 Urine RBC 0-4 /hpf (0-2) H 03/18/23 20:07 Urine WBC None /hpf (0-5) 03/18/23 20:07 Ur Squamous Epith Cells None /hpf (0-5) 03/18/23 20:07 Ur Transition Epith Cell 0-4 /hpf 03/18/23 20:07 Amorphous Sediment Not Reportable 03/18/23 20:07 Urine Bacteria None /hpf (NONE) 03/18/23 20:07 Urine Mucus None /hpf 03/18/23 20:07 Urine Opiates Screen Negative ng/mL (Negative) 03/18/23 20:07 Ur Barbiturates Screen Negative ng/mL (Negative) 03/18/23 20:07 Ur Phencyclidine Scrn Negative ng/mL (Negative) 03/18/23 20:07 Ur Amphetamines Screen Positive ng/mL (Negative) H 03/18/23 20:07 U Benzodiazepines Scrn Negative ng/mL (Negative) 03/18/23 20:07 Urine Cocaine Screen Negative ng/mL (Negative) 03/18/23 20:07 U Marijuana (THC) Screen Positive ng/mL (Negative) H 03/18/23 20:07 Vitals Last Vital Signs Temp 98.8 F 03/19/23 07:42 Pulse 68 03/19/23 08:41 Resp 16 03/19/23 08:41 BP 116/66 03/19/23 07:42 Pulse Ox 98 03/19/23 08:41 O2 Del Method Nasal Cannula 03/19/23 08:41 O2 Flow Rate 2 03/19/23 08:41 Discharge Plan Discharge Patient Disposition: Home Condition: Stable Prescriptions: New levetiracetam 500 mg Tablet 500 mg PO BID 30 Days Qty: 60 0RF Continued clonazepam [Klonopin] 1 mg tablet 1 mg PO DAILY PRN (Reason: Anxiety) trazodone 100 mg tablet 200 mg PO BEDTIME pantoprazole 40 mg tablet,delayed release (DR/EC) 40 mg PO DAILY clopidogrel 75 mg tablet 75 mg PO BEDTIME Trelegy Ellipta 100-62.5-25 mcg blister with device 1 inh INHALATION DAILY polyethylene glycol 3350 [Miralax] 17 gram powder in packet 17 g PO DAILY PRN (Reason: constipation) Qty: 14 0RF nitroglycerin [Nitrostat] 0.4 mg Tablet, Sublingual 0.4 mg SUBLINGUAL Q5M PRN (Reason: Chest Pain) Rx Instructions: do not exceed 3 doses per episode ropinirole 1 mg tablet 1 mg PO BEDTIME sulfasalazine 500 mg tablet 500 mg PO BID venlafaxine 75 mg tablet 75 mg PO QAM Rx Instructions: ALONG WITH 150 MG Discontinued venlafaxine 150 mg capsule,extended release 24hr 150 mg PO DAILY Rx Instructions: ALONG WITH 75 MG CAPSULE Discharge Orders: Discharge Order (Routine); Ordered 03/19/23 Ordered By: Mario Mendoza Referrals: Lorelei Weinberg DO [Primary Care Provider] - 4-7 days (Dr. Weinberg's Office has your information and will be calling you to schedule a follow up appointment. Thank you.) Shanta Keen MD [Physician] - 2 weeks Discharge Diet: Regular Discharge Activity: Resume usual activity and Increase activity as tolerated Patient Instructions: Opioid Safety, Pain Management Activity Restrictions/Additional Instructions: Continue medications as before. Please try to avoid amphetamines. Keppra has been added to your medication list. Follow-up with a primary care provider within next 1 week and with neurologist within next 2 weeks. Discharge Attestations Time Spent in Discharge Care*: greater than 30 min Specific Discharge Activities: educating patient, discussing with pcp/other providers, discussing with patient case manager/social workers/dc planners, documenting/other paperwork and evaluating patient/reviewing data Status at Discharge: Cognitive status at discharge: mildly impaired cognition, Behavioral status at discharge: cooperative, Functional status at discharge: uses cane/walker, Overall status at discharge: patient is back to baseline Quality Metrics Clinical Quality Measures [ No reported AMI, CVA or VTE this stay] Coding Level of Care Code 16445 Total time (in minutes) for Discharge: 60 Diagnoses Anxiety F41.9 Depression, unspecified F32.A Functional neurological symptom disorder (conversion disorder), with abnormal movement F44.4 Methamphetamine use F15.10 Psychotic disorder due to psychoactive substance F19.959 Dysphagia R13.10 Headache G44.209 Headache chronicity pattern: acute headache Headache type: tension-type Intractability: not intractable Seizure R56.9
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
[2023-03-19 13:16] LABS: Estmated Average Glucose 85; Hemoglobin A1C 4.6 % (4.0-6.0)
--- NOTE | 2023-03-19 16:37 | PC.NURSE ---
Patient is complaining that she is hungry and that no one has checked on her all afternoon. Explained to patient that I have checked on her several times and every time I checked on her she has been asleep.
--- NOTE | 2023-03-19 16:42 | PC.NURSE ---
Nurse just rounded on patient and to go over discharge instructions. Nurse was told to get out of the room because she wanted to sleep. I asked her if she would be willing to go over discharge paperwork and she said no, she wanted her ride to get here first.
== END 2023-03-19 19:00 | disposition home or self-care (01) ==
LOC: ER 20:15 → CSU 21:56
PROVIDERS: Admitting Provider Internal Medicine; Emergency Provider Internal Medicine; PCP Family Medicine; Visit Provider Student in an Organized Health Care Education/Training Program
DX: F44.4 Conversion disorder with motor symptom or deficit (principal); F41.9 Anxiety disorder, unspecified; F32.A Depression, unspecified; F15.10 Other stimulant abuse, uncomplicated; F19.959 Other psychoactive substance use, unspecified with psychoactive substance-induced psychotic disorder, unspecified; R13.10 Dysphagia, unspecified; G44.209 Tension-type headache, unspecified, not intractable; R56.9 Unspecified convulsions; F17.210 Nicotine dependence, cigarettes, uncomplicated
CPT/HCPCS: 36415; 70450; 70496; 70498; 70551; 80048; 80053; 80061; 80306; 81001; 81015; 82607; 83036; 83605; 83735; 84145; 84146; 84439; 84443; 84481; 84484; 85025; 85378; 93005; 96372; 96374; 96375; 96376; 99285; G0378; J0780; J1200; J1650; J1885; J1953; J2060; J2250; J7030; Q9967

== ENCOUNTER 2023-04-11 18:00 | Inpatient (IN) | payer MEDICARE, MEDICAID, SELFPAY ==
[2023-04-11 18:03] VITALS: BP 123/86; PULSE 81; RESP 18; TEMP 36.4; O2SAT 96; BMI 19.5
--- NOTE | 2023-04-11 18:08 | ECG_ITS ---
[facility] Test Date: 2023-04-11 Pat Name: Gwen Briones Department: Room: Gender: Female Pattern Maker: : 1960 Requested By: Obinna Walker Order Number: [id number] Katharine MD: Obed Alba M.D. Measurements Intervals [place] Rate: 76 P: 76 SD: 157 QRS: 75 QRSD: 104 T: 68 QT: 386 QTc: 435 Interpretive Statements SINUS RHYTHM SEPTAL MYOCARDIAL INFARCTION , OF INDETERMINATE AGE [40+ ms Q WAVE IN V1/V2] Compared to ECG 03/18/2023 20:13:20 Sinus bradycardia no longer present Sinus arrhythmia no longer present Myocardial infarct finding still present Electronically Signed On 04-12-2023 10:51:39 SUBMARINE ELEMENT COORDINATOR by Oebd Alba M.D. [id number]
--- NOTE | 2023-04-11 18:21 | XRR_ITS ---
PROCEDURE INFORMATION: Exam: XR Chest Exam date and time: 04/11/2023 6:27 PM Age: 62 years old Clinical indication: Patient HX: EMS arrival for seizure activity. ; Additional info: Chest injury TECHNIQUE: Imaging protocol: Radiologic exam of the chest. Views: 1 view. COMPARISON: CT chest abdpel w/*[id number] 10/08/2022 8:58 PM FINDINGS: Lungs: No focal consolidation or evidence of airspace disease. Pleural spaces: No evidence of pneumothorax or pleural effusion Heart/Mediastinum: Cardiomediastinal silhouette is within normal limits. Bones/joints: No evidence of acute osseous abnormality. Old clavicular fracture status post ORIF with plate and screw fixation. XR/XR chest 1V portable [id number] IMPRESSION: 1. No acute cardiopulmonary abnormality.
[2023-04-11 18:35] LABS: Basophils % 0.4 %; Eosinophils # 0.1 10^3/uL (0.0-0.8); Eosinophils % 0.6 %; Hematocrit 34.5 % (36-47); Lymphocytes # 2.5 10^3/uL (0.8-4.8); Lymphocytes % 24.3 %; Mean Corpuscular Hemoglobin 30.2 pg (27-33); Mean Corpuscular Volume 91.3 fl (85-98); Mean Platelet Volume 10.7 fL (7.4-10.4); Monocytes # 0.9 10^3/uL (0.2-0.9); Monocytes % 8.7 %; Neutrophils # 6.68 10^3/uL (1.8-7.7); Neutrophils % 65.6 %; Nucleated Red Blood Cells % 0 %; Platelet Count 184 10^3/cmm (157-399); Red Blood Count 3.78 10^6/uL (3.85-5.65); Red Cell Distribution Width 14.2 % (12.1-15.1); White Blood Count 10.18 10^3/uL (3.29-11.43)
--- NOTE | 2023-04-11 18:54 | CTR_ITS ---
PROCEDURE INFORMATION: Exam: CT Head Without Contrast Exam date and time: 04/11/2023 7:10 PM Age: 62 years old Clinical indication: Altered mental status/memory loss; Patient HX: EMS arrival for seizure activity; Additional info: AMS TECHNIQUE: Imaging protocol: Computed tomography of the head without contrast. Radiation optimization: All CT scans at this facility use at least one of these dose optimization techniques: automated exposure control; mA and/or kV adjustment per patient size (includes targeted exams where dose is matched to clinical indication); or iterative reconstruction. COMPARISON: MR head wo con* [id number] 03/19/2023 10:03 AM RADIATION DOSE METRICS: Total DLP (mGy-cm): 1362.38 FINDINGS: Brain: No evidence of intra-axial or extra-axial hemorrhage within limitations of motion degradation. No mass effect or midline shift. Sabillon-white differentiation is grossly maintained. Note that portions of the brain, including the inferior frontal, temporal, and occipital lobes as well as the posterior fossa are partially obscured by motion artifact. Basilar cisterns are patent. Cerebral ventricles: No hydrocephalus. Paranasal sinuses: The visualized paranasal sinuses are well aerated. Mastoid air cells: The visualized mastoids and middle ears are clear. Bones/joints: The visualized calvarium and bony orbits are grossly intact within limitations of motion degradation. Soft tissues: No gross soft tissue abnormality. CT/CT head wo con* [id number] IMPRESSION: 1. No acute intracranial abnormality within limitations of motion degradation. If there is ongoing clinical concern, consider follow-up exam when patient is able to cooperate.
[2023-04-11 19:04] LABS: Add Urine Microscopic? YES; Bilirubin Urine 1+ (Negative); Blood Urine 2+ (Negative); Glucose Urine UA Norm (Normal); Ketones Urine 1+ (Negative); Leukocyte Esterase Urine Trace (Negative); Nitrate Urine Negative (Negative); Protein Urine 1+ (Negative); Specific Gravity, Urine 1.025 (1.005-1.030); Urine Appearance Hazy (CLEAR); Urine Color Amber (Yellow); Urobilinogen Urine 4 mg/dL (Negative); pH Urine 5 (5-7)
[2023-04-11 19:04] LABS: Alanine Aminotransferase 8 U/L (0-33); Albumin Level 4.2 g/dL (3.5-5.2); Alkaline Phosphatase 78 U/L (35-105); Anion Gap 17.1 (5-19); Aspartate Amino Transferase 14 U/L (0-32); Blood Urea Nitrogen 14 mg/dL (8-23); Calcium 9.1 mg/dL (8.5-10.5); Carbon Dioxide 22 mmol/L (22-29); Chloride 105 mmol/L (98-107); Globulin 2.7 g/dL (1.3-4.6); Glomerular Filtration Rate 124.2 mL/min (90-130); Glucose 84 mg/dL (65-115); Osmolality Calculated 292 mOsm/kg (285-295); Potassium 3.1 mmol/L (3.5-5.1); Sodium 141 mmol/L (136-145); Total Bilirubin 0.4 mg/dL (0.15-1.2); Total Protein 6.9 g/dL (6.6-8.7)
[2023-04-11 19:05] LABS: Acetaminophen < 5.0 ug/mL (10-30); Alcohol Level < 10 mg/dL (0-10); Salicylate < 0.3 mg/dL (3-10)
[2023-04-11 19:12] LABS: Amphetamines Screen Urine Negative (Negative); Bacteria Urine TRACE /hpf; Barbiturates Screen Urine Negative (Negative); Benzodiazepines Screen Urine Negative (Negative); Coarse Granular Casts Urine 0-4 /lpf; Cocaine Screen Urine Negative (Negative); Mucus Urine 2+ /hpf; Opiate Screen Urine Negative (Negative); PCP Screen Urine Negative (Negative); Squamous Epithelial Cell Urine 0-4 /hpf (0-5); THC Screen Urine Positive (Negative); WBC Urine 25-40 /hpf (0-5)
[2023-04-11 19:13] LABS: Add Urine Culture? Yes
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
[2023-04-11] MEDS: ziprasidone 20 mg/mL SDV 10 MG IM (21:18)
[2023-04-11] MEDS: LORazepam 2 mg/mL INJ 10 mL MDV IM (21:39)
[2023-04-11] MEDS: potassium chloride ER 20 mEq Tablet 40 MEQ PO (21:40)
[2023-04-11] MEDS: water for injection-sterile 10 ML (21:40)
[2023-04-11] MEDS: nitrofurantoin SR (BID) 100 mg Capsule PO (21:40)
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
[2023-04-11 21:54] VITALS: BP 140/83; PULSE 79; RESP 18; O2SAT 98
[2023-04-11 22:00] VITALS: BP 131/74; PULSE 88; RESP 16; O2SAT 93
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
[2023-04-11 22:45] VITALS: BP 125/77; PULSE 64; RESP 16; TEMP 36.3; O2SAT 94
[2023-04-12] MEDS: acetaminophen 325 mg Tablet 650 MG PO (05:35)
[2023-04-12 06:00] VITALS: BP 127/77; PULSE 71; RESP 18; O2SAT 97
--- NOTE | 2023-04-12 07:55 | PC.NURSE ---
SHIFT ASSESSMENT ADAMANT ABOUT GETTING PAIN MED FOR BACK PAIN, EDUCATED SHE COULD NOT HAVE PRN TYLENOL UNTIL 0930. MESSAGE LEFT FOR DR. RUDOLPH VIA PHONE FOR MOTRIN ORDER, WAITING FOR REPLY. PATIENT DENIED SI/HI BUT WHEN ASKED ABOUT HALLUCINATIONS PATIENT SAID YEAH SOME BUT DIDN'T ELABORATE. STATED LAST BOWEL MOVEMENT WAS 4-5 DAYS AGO.
[2023-04-12] MEDS: ibuprofen 800 mg tablet PO (08:30)
[2023-04-12] MEDS: LORazepam 2 mg/mL INJ 1 mL IM (08:38)
[2023-04-12] MEDS: haloperidol inj 5 mg/mL INJ 1 mL IM (08:38)
--- NOTE | 2023-04-12 08:38 | PC.NURSE ---
Addendum entered by Chana Kennedy LPN 04/12/23 09:37: PRN MEDS EFFECTIVE NO FURTHER C/O ANXIETY/AGITATION. ASLEEP IN BED IN ROOM Original Note: PRN ATIVAN/HALDOL ATIVAN 2 MG GIVEN IM WITH HALDOL 5 MG IM IN RIGHT DELTOID PER PT C/O INCREASED ANXIETY/AGITATION. PT UP TO DESK, BEATING GLASS WITH OPEN FIST SEVERAL TIMES, TRYING TO HIT HER HEAD ON THE GLASS. YELLING & DEMANDING STAFF TO TAKE HER TO ER. DR. RUDOLPH ALERTED BY PHONE ABOUT PATIENT BEHAVIOR, NO NEW ORDERS CURRENTLY. TOOK INJECTION WITHOUT INCIDENT. SECURITY ON UNIT FOR STAND BY ASSIST IF NEEDED. AFTER INJECTION PATIENT ESCORTED TO HER ROOM BY STAFF. TEARFUL BUT ASSURED BY STAFF PHYSICIAN WOULD SEE HER SOON & STAFF WOULD ALERT HER OF ANY NEW ORDERS.
--- NOTE | 2023-04-12 09:17 | PC.OT ---
OT EVALUATION ORDERS RECEIVED; PATIENT SLEEPING SOUNDLY; UNABLE TO AWAKEN. WILL ATTEMPT AGAIN AT A LATER TIME
--- NOTE | 2023-04-12 13:36 | P.NPUPN_ITS ---
Vitals/I&O/Wt Last Vital Signs Temp 97.4 F L 04/11/23 22:45 Pulse 71 04/12/23 06:00 Resp 18 04/12/23 06:00 BP 127/77 04/12/23 06:00 Pulse Ox 97 04/12/23 06:00 O2 Del Method Room Air 04/12/23 06:00 04/11/23 04/12/23 04/12/23 22:59 06:59 14:59 Intake Total Balance Weight last 48 hrs Weight 49.895 kg Data NPU 04/11/23 18:19 04/11/23 18:19 Involuntary Hold Information 2 96 Hour Hold: 96 Hour Involuntary Admission: Yes 96 Hour Hold Ending Date: 07/28/21 96 Hour Hold Ending Time: 17:15 Coding Level of Care Code Acute Code for Chg Fang
[2023-04-12 14:00] VITALS: BP 110/66; PULSE 67; RESP 16; TEMP 36.6; O2SAT 96
--- NOTE | 2023-04-12 20:24 | PC.NURSE ---
pt refused vital signs. pt stated no
--- NOTE | 2023-04-13 04:31 | PC.NURSE ---
PT WOKE UP COMPLAINING OF SIDED BACK PAIN. MOTRIN 800MG OFFERED, PT REFUSED. STATED HER BACK IS BROKE AND NEEDED REAL PAIN MEDICINE.
[2023-04-13 06:00] VITALS: RESP 15
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
--- NOTE | 2023-04-13 07:21 | P.NPUPN_ITS ---
Subjective NPU 2 Subjective: Patient presented today continuing to be a resistant historian. She is spending most of her time complaining about pain or something else and started off the morning by throwing a glass of Harpreet-Aid into the nurses station on 2 the computer and the nurse because she did not fill her question was answered quickly enough. She continues to lay in her bed reporting that she just does not feel well. We discussed the risk benefits and alternatives of restarting medications including Wellbutrin XL and she understood and said she would consider proceeding as is documented in this note. We discussed writing for the medication allowing her to make her own decision. Mental Status Exam 2 MSE Comments: This is an underweight white female in hospital scrubs with poor grooming and eye contact.? Poor dentition with facial atrophy looking older than her stated age.? No abnormal movements except for psychomotor retardation and ataxia of gait.? Mostly uncooperative with exam in mild to moderate distress. Speech was limited and decreased rate and volume with a speech impediment/ difficulty with R's, partially related to the absent dentition and part of it has been lifelong. Mood described as I am in pain, affect congruent. Thought process organized. Thought contact: patient denied suicidal or homicidal ideation,? there were no delusions reported or noted, patient denied auditory or visual hallucinations. Attention and concentration appeared intact and memory appeared reliable but none were formally tested. Patient is alert and oriented times person and place. Insight and judgment appear poor and impulse control appears impaired. Vitals/I&O/Wt Last Vital Signs Temp 98 F 04/12/23 14:00 Pulse 67 04/12/23 14:00 Resp 15 04/13/23 06:00 BP 110/66 04/12/23 14:00 Pulse Ox 96 04/12/23 14:00 O2 Del Method Room Air 04/12/23 14:00 Weight last 48 hrs Weight 49.895 kg Data NPU 04/11/23 18:19 04/11/23 18:19 A&P Assessment and plan (1) Depression, unspecified: Qualifiers: Depression Type: unspecified Qualified Code(s): F32.A - Depression, unspecified (2) Psychotic disorder due to psychoactive substance: (3) Psychogenic nonepileptic seizure: (4) Substance abuse: (5) Fall: Plan This is a 62-year-old female with chronic addiction, anxiety and depression presenting after a very aggressive visit to the emergency department as a poor historian basically focusing on her reported severe back pain which limits her movement.? Last hospitalization we wondered whether she can function independently we will explore what has happened in the last approximately 6 months but she has significant and multiple functional generally neurologic disorders Plan: 1.? Restart Wellbutrin XL 150 mg p.o. every morning which she had been discharged on before and is not taking and consider starting Seroquel 100 mg p.o. nightly. 2.? Continue every 15 minute checks for safety. 3.? Encourage individual, group and milieu therapies. 4.? Encourage sober living treatment after discharge at the highest level of care to which she is willing to commit. 5.? attempt to gather collateral information. Involuntary Hold Information 2 96 Hour Hold: 96 Hour Involuntary Admission: Yes 96 Hour Hold Ending Date: 07/28/21 96 Hour Hold Ending Time: 17:15 Attestations NPU 2 Medical Necessity Statement*: Inpatient hospitalization is medically necessary and the clinically appropriate intervention at this time. We will monitor medications and make changes/additions as indicated. Her likely length of stay is 4-6 days. Coding Level of Care Code Acute Code for g Fwd Diagnoses Depression, unspecified depression type F32.A Depression Type: unspecified Psychotic disorder due to psychoactive substance F19.959 Psychogenic nonepileptic seizure F44.5 Substance abuse F19.10 Fall W19.XXXA
[2023-04-13] MEDS: ibuprofen 800 mg tablet PO (07:42)
[2023-04-13] MEDS: haloperidol inj 5 mg/mL INJ 1 mL IM (07:43)
[2023-04-13] MEDS: LORazepam 2 mg/mL INJ 1 mL IM (07:43)
[2023-04-13] MEDS: diphenhydrAMINE 50 mg/mL SDV 1mL IM (07:43)
--- NOTE | 2023-04-13 07:43 | PC.NURSE ---
Patient approached nurses' station and requested something to drink and said, it don't matter what. Just not that nasty tea. The patient then sat on the bench near the nurses' station and this RN provided her with fruit punch. She then began yelling that she wanted food and was told breakfast would be here within the hour and this RN could get her a snack if she would prefer, while she waited for breakfast to get here. Patient continued to yell out profanities and stated, if you don't let me out of this fucking place this is going all over the wall! And I ain't fucking kidding! Get me the papers and let me the fuck out! She was then told we weren't able to do that at this time. She proceeded to call the staff liars and threw her fruit punch through the window at the nurses' station, picked up the sugar container and threw it, and tore all of the informational sheets off the glass at the station. Security was called. Patient was administered ativan 2mg IM and haldol 5mg IM in the left deltoid, as well as diphenhydramine 50mg IM in the right deltoid with security present. Patient tolerated injections well and is now resting in her room. Staff did not have to go hands on and no injuries were sustained by staff or patient.
--- NOTE | 2023-04-13 13:13 | PC.NURSE ---
THIS NURSE WENT INTO PT ROOM TO CHECK ON PT DUE TO HEARING PT COUGHING. PT WAS LEANED OUT TRASH AND COUGHING MUCUS INTO THE BAG. PT STATED TO THIS NURSE I CANNOT EAT THIS FOOD I DO NOT HAVE ANY TEETH. THIS NURSE ASKED PT WHAT SHE THOUGHT SHE WOULD BE ABLE TO EAT. PT STATED BISCUIT AND GRAVY THIS NURSE INFORMED PT THAT IT WAS LUNCH TIME AND THAT THE [facility] NO LONGER HAD ANY BISCUITS AND GRAVY BUT THAT I WOULD BE MORE THAN WILLING TO CALL AND SEE WHAT THEY HAD IN SOFTER FOOD. THIS NURSE CALLED THE [facility] AND TOLD THE PT THAT THE OPTIONS THAT SHE HAD FOR SOFTER FOODS TODAY WERE SOUP AND THE PUREED ITEMS THEY HAD ALREADY RAN OUT OF TUNA AND CHICKEN SALAD. PT STATED I DON'T EAT SOUP. THIS NURSE ASKED IF PT WOULD LIKE THE PUREED MEAL. PT STATED NO I WILL JUST STAVE. PT WAS OFFERED THE SOFT SNACK BEHIND THE NURSES STATION AND AGAIN REFUSED STATING NO I WILL JUST STARVE TO . THIS NURSE SPOKE WITH PHYSICIAN AND PHYSICIAN WANT PT TO HAVE A DIET CHANGE TO MAKE IT MORE TOLERABLE FOR PT TO HAVE MEALS AND TO STILL ATTEMPT TO OFFER THE PUREED TRAY TO PT.
[2023-04-13 14:00] VITALS: BP 138/83; PULSE 86; RESP 15; O2SAT 94
[2023-04-13 20:09] VITALS: BP 166/76; PULSE 84; RESP 18; O2SAT 94
[2023-04-14] MEDS: ibuprofen 800 mg tablet PO ×3 (01:59→19:50)
[2023-04-14] MEDS: haloperidol 5 mg Tablet PO (04:09)
--- NOTE | 2023-04-14 04:19 | PC.NURSE ---
PT CAME TO DESK COMPLAINING OF SEVERE RIGHT LOWER BACK PAIN, ASKING FOR MEDICATION. PT WAS REMINDED THAT SEE WAS GIVEN MOTRIN AROUND 2AM AND WAS OFFERED ANXIETY MED. PT ACCEPTED, HALDOL 5MG PO GIVEN. PT WAS OFFERED A WARM SHOWER TO HELP WITH THE PAIN. PT ACCEPTED, AND WITH THE HELP OF THE HOTEL OR MOTEL ROOM SERVICE SUPERVISOR, PT TOOK A SHOWER.
[2023-04-14 06:00] VITALS: RESP 15
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
--- NOTE | 2023-04-14 08:50 | PC.NURSE ---
Patient refused wellbutrin this morning. She stated, I don't want to take that diet pill. This RN educated her on the use of this medication for depression, but she continued to say she believed it was a diet pill and that she had already lost way too much weight. Patient was visibly becoming distressed so this RN told her if she changed her mind to let staff know.
--- NOTE | 2023-04-14 10:57 | XRR_ITS ---
PROCEDURE INFORMATION: Exam: XR Chest Exam date and time: 04/14/2023 11:15 AM Age: 62 years old Clinical indication: Pain; Right-sided; Additional info: Right sided chest pain TECHNIQUE: Imaging protocol: Radiologic exam of the chest. Views: 1 view. COMPARISON: CR (CHEST, ) 04/11/2023 6:27 PM FINDINGS: Lungs: Mild emphysematous COPD. Pleural spaces: Unremarkable. No pleural effusion. No pneumothorax. Heart/Mediastinum: Unremarkable. No cardiomegaly. Bones/joints: ORIF of the right clavicle. Other findings: Small scattered calcified granulomata. XR/XR chest 1V portable [id number] IMPRESSION: No acute cardiopulmonary disease.
--- NOTE | 2023-04-14 11:46 | W.PM.NPUPNS ---
Subjective NPU Subjective: Patient presented today reporting that she is still in pain. We agreed we will await the hospitalist consult for any recommendations or any changes. She reports that she refused the Wellbutrin because at that she thought about it some doctor told it was like a diet pill and she is really worried about not gaining weight. We discussed the risks benefits and alternatives of a trial of Remeron 15 mg p.o. nightly and she understood and agreed to proceed as is documented in this note. Mental Status Exam MSE Comments: This is an underweight white female in hospital scrubs with poor grooming and eye contact.? Poor dentition with facial atrophy looking older than her stated age.? No abnormal movements except for psychomotor retardation and ataxia of gait.? Mostly uncooperative with exam in mild to moderate distress. Speech was limited and decreased rate and volume with a speech impediment/ difficulty with R's, partially related to the absent dentition and part of it has been lifelong. Mood described as a little better, affect congruent. Thought process organized. Thought contact: patient denied suicidal or homicidal ideation,? there were no delusions reported or noted, patient denied auditory or visual hallucinations. Attention and concentration appeared intact and memory appeared reliable but none were formally tested. Patient is alert and oriented times person and place. Insight and judgment appear poor and impulse control appears impaired. 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 Last hospitalization we wondered whether she can function independently we will explore what has happened in the last approximately 6 months but she has significant and multiple functional generally neurologic disorders Plan: 1.? Restart Wellbutrin XL 150 mg p.o. every morning which she had been discharged on before and is not taking and consider starting Seroquel 100 mg p.o. nightly. DC Wellbutrin XL which she refused and start Remeron 15 mg p.o. nightly. 2.? Continue every 15 minute checks for safety. 3.? Encourage individual, group and milieu therapies. 4.? Encourage sober living treatment after discharge at the highest level of care to which she is willing to commit. 5.? attempt to gather collateral information. 6. Appreciate hospitalist consult will await recommendations and follow as indicated. Involuntary Hold Information 96 Hour Hold: 96 Hour Involuntary Admission: Yes 96 Hour Hold Ending Date: 07/28/21 96 Hour Hold Ending Time: 17:15 Attestations NPU Medical Necessity Statement*: Inpatient hospitalization is medically necessary and the clinically appropriate intervention at this time. We will monitor medications and make changes/additions as indicated. Her likely length of stay is 3-5 days. Coding Level of Care Code Acute Code for [facility] Fwd Diagnoses Depression, unspecified depression type F32.A Depression Type: unspecified Psychotic disorder due to psychoactive substance F19.959 Psychogenic nonepileptic seizure F44.5 Substance abuse F19.10 Fall W19.XXXA
--- NOTE | 2023-04-14 12:03 | P.CONIM_ITS ---
Providers/Reason For Consult 2 Consulting Physician/Specialty*: Arcadio Perez MD, hospitalist Reason for Consult*: Lump on back, pain Requesting Physician: Dr. Allison Attending Physician: George Allison MD Primary Care Provider: Lorelei Weinberg DO History of Present Illness History of Present Illness Gwen Briones is a 62 year old female admitted to the psychiatric unit who has been complaining of a bump on her right back. She states she fell about a week ago. She tripped on a board and hit her back. She reports that has been painful since that time. She reports occasionally hurts enough that she feels like it gives her trouble breathing. She denies any other injuries. Medications/Allergies Home Medications Medication Instructions Recorded Confirmed Last Taken Type pantoprazole 40 mg tablet,delayed 40 mg PO DAILY 06/13/19 04/11/23 02/05/23 History release clopidogrel 75 mg tablet 75 mg PO BEDTIME 07/26/20 04/11/23 02/05/23 History fluticasone fur. 100 mcg-umeclid 1 inh inhalation DAILY 07/26/20 04/11/23 02/05/23 History 62.5 mcg-vilant 25 mcg inhalat.powder (Trelegy Ellipta) nitroglycerin 0.4 mg sublingual 0.4 mg sublingual Q5M PRN Chest 07/22/21 04/11/23 Unknown History tablet (Nitrostat) Pain trazodone 100 mg tablet 200 mg PO BEDTIME 09/30/21 04/11/23 02/05/23 History ropinirole 1 mg tablet 1 mg PO BEDTIME 10/09/22 04/11/23 02/05/23 History venlafaxine 75 mg tablet 75 mg PO DAILY 02/06/23 04/11/23 02/05/23 History polyethylene glycol 3350 17 gram 17 g PO DAILY PRN constipation #14 02/14/23 04/11/23 Unknown Rx oral powder packet (Miralax) ea venlafaxine 150 mg tablet,extended 150 mg PO DAILY 04/11/23 04/11/23 Unknown History release 24 hr Allergies Allergy/AdvReac Type Severity Reaction Status Date / Time aspirin Allergy Unknown Verified 04/11/23 18:08 codeine Allergy ALGY-Rash Verified 04/11/23 18:08 Fish Containing Products Allergy Unknown Verified 04/11/23 18:08 tramadol Allergy Unknown Verified 04/11/23 18:08 Current Medications Generic Name Dose Route Start Last Admin Trade Name Freq PRN Reason Stop Dose Admin Acetaminophen 650 mg 04/11/23 22:45 04/12/23 05:35 Acetaminophen 325 Mg Tablet PO 650 mg Q4H PRN Administration MILD PAIN Bupropion HCl 150 mg 04/14/23 09:00 04/14/23 08:49 Bupropion Xl (24 Hr) 150 Mg Tablet PO Not Given DAILY JOAQUIN Diphenhydramine HCl 50 mg 04/11/23 22:45 04/13/23 07:43 Diphenhydramine 50 Mg/Ml Sdv 1ml IM 50 mg ONCE PRN Administration Severe Extrapyramidal Symptoms Haloperidol 5 mg 04/11/23 22:45 04/14/23 04:09 Haloperidol 5 Mg Tablet PO 5 mg Q4H PRN Administration AGITATION Haloperidol Lactate 5 mg 04/11/23 22:45 04/13/23 07:43 Haloperidol Inj 5 Mg/Ml Inj 1 Ml IM 5 mg Q4H PRN Administration Severe Aggression Ibuprofen 800 mg 04/12/23 08:03 04/14/23 01:59 Ibuprofen 800 Mg Tablet PO 800 mg Q8H PRN Administration MODERATE PAIN Lorazepam 2 mg 04/12/23 06:18 04/13/23 07:43 Lorazepam 2 Mg/Ml Inj 1 Ml IM 2 mg Q4H PRN Administration Severe Aggression PFSH Acute 2 PFSH: Medical History Brainstem stroke Anxiety Crohn's colitis Surgical History Status post tonsillectomy and adenoidectomy H/O: hysterectomy H/O tubal ligation S/P splenectomy S/P cholecystectomy S/P small bowel resection Family History Denies family history of CAD (coronary artery disease) Social History Smoking and tobacco/nicotine status: current every day tobacco/nicotine user Vitals/I&O/Wt Last Vital Signs Temp 98 F 04/12/23 14:00 Pulse 84 04/13/23 20:09 Resp 15 04/14/23 06:00 BP 166/76 04/13/23 20:09 Pulse Ox 94 04/13/23 20:09 O2 Del Method Room Air 04/13/23 20:09 Physical Exam 2 Narrative: General exam demonstrates a white female, who I awakened for exam. She reports she has pain in her right back, but no other pain. Reports when the pain hits her significantly she feels short of breath. HEENT: Atraumatic normocephalic. Neck is supple Cardiovascular regular rate and rhythm Lungs diminished breath sounds bilateral but no wheezes or crackles Back demonstrates right posterior lateral area with some swelling, likely consistent with a hematoma. No overt bruising noted currently. exam deferred Extremities no sinus clubbing edema, cap refill brisk Skin no rash Neuro no obvious focal deficits Data 04/11/23 18:19 04/11/23 18:19 Other Labs: Urinalysis revealed 25-40 whites, 5-10 reds, negative nitrates, trace bacteria. Micro: Microbiology 04/11/23 18:55 Urine Culture - Final Urine,Clean Catch A&P Assessment and plan (1) Back pain: Patient has some right-sided pain, overlying her rib cage. This may be developing hematoma. She gives history of fall. She states she is short of breath on occasion. Repeat chest x-ray Continue current pain medication Await chest x-ray results (2) Abnormal urinalysis: Secondary to her back pain and abnormal urinalysis we will culture urine Cefdinir 300 twice daily for 5 days Plan Other medical problems as outlined in past medical history Thank you for this consultation Consult Attestations 2 Medical Necessity Statement: As per primary Diagnoses Back pain M54.9 Abnormal urinalysis R82.90 Time Spent (min) 47
[2023-04-14] MEDS: acetaminophen 325 mg Tablet 650 MG PO ×2 (12:27→16:46)
[2023-04-14 14:00] VITALS: BP 167/79; PULSE 78; RESP 14; TEMP 36.6; O2SAT 96
[2023-04-14] MEDS: cefdinir 300 MG CAPSULE PO (17:50)
[2023-04-14 19:48] VITALS: BP 159/87; PULSE 79; RESP 16; TEMP 36.3; O2SAT 97
[2023-04-14] MEDS: OLANZapine 5 mg ODT PO (19:50)
[2023-04-14] MEDS: mirtazapine 15 mg Tablet PO (19:50)
[2023-04-15] MEDS: haloperidol 5 mg Tablet PO ×2 (01:20→23:54)
[2023-04-15] MEDS: trazodone 50 mg Tablet PO ×2 (01:20→20:08)
[2023-04-15] MEDS: hyDROXYzine 25 mg Capsule 50 MG PO ×3 (01:20→20:08)
[2023-04-15] MEDS: ibuprofen 800 mg tablet PO ×3 (01:20→22:06)
[2023-04-15 01:36] VITALS: BP 108/76; PULSE 87; RESP 20; O2SAT 96
--- NOTE | 2023-04-15 06:27 | P.NPUPN_ITS ---
Subjective NPU 2 Subjective: Patient presented today reporting that she is feeling a little better. She reports that maybe she is having a little less discomfort from her back but it still present. We reviewed the hospitalist recommendation and she was agreeable to move forward with that plan. She reports that she is sleeping better with the Remeron and denied any side effects to the medication. We discussed her working with the social work team for appropriate discharge planning. Mental Status Exam 2 MSE Comments: This is an underweight white female in hospital scrubs with poor grooming and eye contact.? Poor dentition with facial atrophy looking older than her stated age.? No abnormal movements except for continued psychomotor retardation and ataxia of gait with some improvement in both areas.? More cooperative with exam in mild to moderate distress. Speech was more spontaneous but still decreased rate and volume with a speech impediment/ difficulty with R's, partially related to the absent dentition and part of it has been lifelong. Mood described as a little better, affect congruent. Thought process organized. Thought contact: patient denied suicidal or homicidal ideation,? there were no delusions reported or noted, patient denied auditory or visual hallucinations. Attention and concentration appeared intact and memory appeared reliable but none were formally tested. Patient is alert and oriented times person and place. Insight and judgment appear poor and impulse control appears impaired. 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 Last hospitalization we wondered whether she can function independently we will explore what has happened in the last approximately 6 months but she has significant and multiple functional generally neurologic disorders Plan: 1.? Restart Wellbutrin XL 150 mg p.o. every morning which she had been discharged on before and is not taking and consider starting Seroquel 100 mg p.o. nightly. Discontinued Wellbutrin XL which she refused and started Remeron 15 mg p.o. nightly. 2.? Continue every 15 minute checks for safety. 3.? Encourage individual, group and milieu therapies. 4.? Encourage sober living treatment after discharge at the highest level of care to which she is willing to commit. 5.? attempt to gather collateral information. 6. Appreciate hospitalist consult will await recommendations and follow as indicated. Involuntary Hold Information 2 96 Hour Hold: 96 Hour Involuntary Admission: Yes 96 Hour Hold Ending Date: 07/28/21 96 Hour Hold Ending Time: 17:15 Attestations NPU 2 Medical Necessity Statement*: Inpatient hospitalization is medically necessary and the clinically appropriate intervention at this time. We will monitor medications and make changes/additions as indicated. Her likely length of stay is 2-4 days. Coding Level of Care Code Acute Code for g Fwd Diagnoses Depression, unspecified depression type F32.A Depression Type: unspecified Psychotic disorder due to psychoactive substance F19.959 Psychogenic nonepileptic seizure F44.5 Substance abuse F19.10 Fall W19.XXXA
[2023-04-15] MEDS: cefdinir 300 MG CAPSULE PO ×2 (08:39→17:37)
--- NOTE | 2023-04-15 09:57 | PM.PN ---
Subjective Subjective: States it still hurts some. No other complaints for me. Medications: Reviewed: Yes Vitals/I&O/Wt Last Vital Signs Temp 97.4 F L 04/14/23 19:48 Pulse 87 04/15/23 01:36 Resp 20 H 04/15/23 01:36 BP 108/76 04/15/23 01:36 Pulse Ox 96 04/15/23 01:36 O2 Del Method Room Air 04/15/23 01:36 Physical Exam Narrative: General exam no distress Back demonstrates no significant hematoma today. She is a little tender to her skin in her right mid lateral back. Data 04/11/23 18:19 04/11/23 18:19 A&P Assessment and plan (1) Back pain: Patient has some right-sided pain, overlying her rib cage. Repeat chest x-ray did not demonstrate pathology I suspect musculoskeletal injury Continue current pain medication (2) Abnormal urinalysis: Secondary to her back pain and abnormal urinalysis we will culture urine Continue cefdinir 300 twice daily for 5 days Plan Other medical problems as outlined in past medical history Thank you for this consultation I will sign off at this time, call me with any questions Attestations Medical Necessity Statement*: As per primary Coding Level of Care Code Acute Code for [facility] F[facility] Diagnoses Back pain M54.9 Abnormal urinalysis R82.90
[2023-04-15 14:00] VITALS: BP 125/77; PULSE 98; RESP 16; TEMP 36.8; O2SAT 96
[2023-04-15] MEDS: acetaminophen 325 mg Tablet 650 MG PO ×2 (14:52→19:37)
[2023-04-15] MEDS: nicotine 2 mg Gum BUCCAL ×2 (15:23→19:42)
[2023-04-15] MEDS: mirtazapine 15 mg Tablet PO (20:08)
[2023-04-15 20:21] VITALS: BP 134/78; PULSE 83; RESP 16; TEMP 36.7; O2SAT 97
[2023-04-15] MEDS: OLANZapine 5 mg ODT PO (22:06)
[2023-04-16] MEDS: acetaminophen 325 mg Tablet 650 MG PO ×3 (02:02→21:27)
[2023-04-16] MEDS: cefdinir 300 MG CAPSULE PO ×2 (09:12→17:01)
[2023-04-16] MEDS: nicotine 2 mg Gum BUCCAL ×2 (11:46→15:05)
[2023-04-16] MEDS: ibuprofen 800 mg tablet PO ×2 (11:46→19:06)
[2023-04-16 14:00] VITALS: BP 104/69; PULSE 78; RESP 16; TEMP 36.6; O2SAT 97
--- NOTE | 2023-04-16 16:13 | W.PM.NPUPNS ---
Subjective NPU Subjective: Patient presented today reporting that she is feeling a bit better. Staff reporting her looking more stable and direct observation supports disposition. She was optimistic about [facility] evaluating her and we discussed getting a [facility] evaluation for any need for assisted living. She continues to work with the hospitalist on pain issues. Mental Status Exam MSE Comments: This is an underweight white female in hospital scrubs with poor grooming and eye contact.? Poor dentition with facial atrophy looking older than her stated age.? No abnormal movements except for improving mild psychomotor retardation.? More cooperative with exam in mild distress. Speech was more spontaneous but still decreased rate and volume with a speech impediment/ difficulty with R's, partially related to the absent dentition and part of it has been lifelong. Mood described as a little better, affect congruent. Thought process organized. Thought contact: patient denied suicidal or homicidal ideation,? there were no delusions reported or noted, patient denied auditory or visual hallucinations. Attention and concentration appeared intact and memory appeared reliable but none were formally tested. Patient is alert and oriented times person and place. Insight and judgment appear limited but improving and impulse control appears impaired. 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 Last hospitalization we wondered whether she can function independently we will explore what has happened in the last approximately 6 months but she has significant and multiple functional generally neurologic disorders Plan: 1.? Restart Wellbutrin XL 150 mg p.o. every morning which she had been discharged on before and is not taking and consider starting Seroquel 100 mg p.o. nightly. Discontinued Wellbutrin XL which she refused and started Remeron 15 mg p.o. nightly. 2.? Continue every 15 minute checks for safety. 3.? Encourage individual, group and milieu therapies. 4.? Encourage sober living treatment after discharge at the highest level of care to which she is willing to commit. 5.? attempt to gather collateral information. 6. Appreciate hospitalist consult will await recommendations and follow as indicated. 7. Referral to [facility] looks promising. Looking at discharge possibly at the beginning of the week. Obtaining a [facility] evaluation for ability for independent functioning. Involuntary Hold Information 96 Hour Hold: 96 Hour Involuntary Admission: Yes 96 Hour Hold Ending Date: 07/28/21 96 Hour Hold Ending Time: 17:15 Attestations NPU Medical Necessity Statement*: Inpatient hospitalization is medically necessary and the clinically appropriate intervention at this time. We will monitor medications and make changes/additions as indicated. Her likely length of stay is 2-4 days. Coding Level of Care Code Acute Code for [facility] Fwd Diagnoses Depression, unspecified depression type F32.A Depression Type: unspecified Psychotic disorder due to psychoactive substance F19.959 Psychogenic nonepileptic seizure F44.5 Substance abuse F19.10 Fall W19.XXXA
[2023-04-16] MEDS: hyDROXYzine 25 mg Capsule 50 MG PO (19:06)
[2023-04-16] MEDS: mirtazapine 15 mg Tablet PO (19:27)
[2023-04-16] MEDS: trazodone 50 mg Tablet PO (19:27)
[2023-04-16 19:53] VITALS: BP 149/85; PULSE 81; RESP 18; O2SAT 96
[2023-04-16] MEDS: OLANZapine 5 mg ODT PO (21:27)
[2023-04-17] MEDS: nicotine 2 mg Gum BUCCAL ×2 (01:46→07:36)
[2023-04-17] MEDS: acetaminophen 325 mg Tablet 650 MG PO (01:47)
[2023-04-17] MEDS: hyDROXYzine 25 mg Capsule 50 MG PO ×3 (01:48→17:05)
[2023-04-17 06:00] VITALS: RESP 16
[2023-04-17] MEDS: cefdinir 300 MG CAPSULE PO ×2 (07:36→16:55)
[2023-04-17] MEDS: OLANZapine 5 mg ODT PO ×3 (07:36→20:01)
[2023-04-17] MEDS: ibuprofen 800 mg tablet PO ×2 (07:38→19:56)
--- NOTE | 2023-04-17 09:29 | P.NPUPN_ITS ---
Subjective NPU 2 Subjective: Patient presented today reporting that she was feeling very frustrated about still being here. We discussed her significant improvement from walking the hallways with her eyes closed stumbling around to her ability to have a conversation about where we go from here. We discussed our agreement that we would wait till the beginning of the week for [facility] to meet with her and likely provide an option for discharge. She continued to express frustration about being here and the 21-day hold being filed. Mental Status Exam 2 MSE Comments: This is an underweight white female in hospital scrubs with poor grooming and eye contact.? Poor dentition with facial atrophy looking older than her stated age.? No abnormal movements except for improving mild psychomotor retardation.? More cooperative with exam in mild to moderate distress. Speech was more spontaneous but still decreased rate and volume with a speech impediment/ difficulty with R's, partially related to the absent dentition and part of it has been lifelong. Mood described as I have to get out of here, affect congruent. Thought process organized. Thought contact: patient denied suicidal or homicidal ideation,? there were no delusions reported or noted, patient denied auditory or visual hallucinations. Attention and concentration appeared intact and memory appeared reliable but none were formally tested. Patient is alert and oriented times person and place. Insight and judgment appear limited but improving and impulse control appears impaired. 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 Last hospitalization we wondered whether she can function independently we will explore what has happened in the last approximately 6 months but she has significant and multiple functional generally neurologic disorders Plan: 1.? Restart Wellbutrin XL 150 mg p.o. every morning which she had been discharged on before and is not taking and consider starting Seroquel 100 mg p.o. nightly. Discontinued Wellbutrin XL which she refused and started Remeron 15 mg p.o. nightly. 2.? Continue every 15 minute checks for safety. 3.? Encourage individual, group and milieu therapies. 4.? Encourage sober living treatment after discharge at the highest level of care to which she is willing to commit. 5.? attempt to gather collateral information. 6. Appreciate hospitalist consult will await recommendations and follow as indicated. 7. Referral to [facility] looks promising. Looking at discharge possibly at the beginning of the week. Obtaining a [facility] evaluation for ability for independent functioning. 8. Filed for 21-day hold yesterday awaiting hearing date. Involuntary Hold Information 2 96 Hour Hold: 96 Hour Involuntary Admission: Yes 96 Hour Hold Ending Date: 07/28/21 96 Hour Hold Ending Time: 17:15 Attestations NPU 2 Medical Necessity Statement*: Inpatient hospitalization is medically necessary and the clinically appropriate intervention at this time. We will monitor medications and make changes/additions as indicated. Her likely length of stay is 2-4 days. Coding Level of Care Code Acute Code for [facility] Fwd Diagnoses Depression, unspecified depression type F32.A Depression Type: unspecified Psychotic disorder due to psychoactive substance F19.959 Psychogenic nonepileptic seizure F44.5 Substance abuse F19.10 Fall W19.XXXA
[2023-04-17 14:00] VITALS: BP 136/80; PULSE 77; RESP 15; TEMP 36.4; O2SAT 100
[2023-04-17] MEDS: haloperidol 5 mg Tablet PO (16:55)
--- NOTE | 2023-04-17 17:22 | PC.NURSE ---
Administered haldol 5mg PO to patient for anxiety and agitation. Patient states that she is wanting her discharge papers or she is going to lose it . Patient tearful. Shortly after administering haldol, this nurse administered Vistaril 50mg. Patient wringing hands, crying and shaking. Attempts by this nurse and another nurse to calm patient were unsuccessful.
[2023-04-17] MEDS: mirtazapine 15 mg Tablet PO (19:56)
[2023-04-17] MEDS: trazodone 50 mg Tablet PO (19:57)
[2023-04-17 21:09] VITALS: BP 131/88; PULSE 106; RESP 18; O2SAT 96
[2023-04-18 06:00] VITALS: RESP 16
[2023-04-18] MEDS: ibuprofen 800 mg tablet PO (07:32)
[2023-04-18] MEDS: hyDROXYzine 25 mg Capsule 50 MG PO ×3 (07:32→20:17)
[2023-04-18] MEDS: cefdinir 300 MG CAPSULE PO ×2 (07:33→17:17)
--- NOTE | 2023-04-18 07:35 | W.PM.NPUPNS ---
Subjective NPU Subjective: Patient presented today reporting that things are going much better than yesterday. He could not explain why she was so fixated on discharge yesterday. We discussed being hopeful that [facility] would come tomorrow to interview her. We discussed that Dr. Beverly would be here to work with her on discharge along with the social work team tomorrow. Mental Status Exam MSE Comments: This is an underweight white female in hospital scrubs with poor grooming and eye contact.? Poor dentition with facial atrophy looking older than her stated age.? No abnormal movements except for improving mild psychomotor retardation.? More cooperative with exam in mild distress. Speech was more spontaneous but still decreased rate and volume with a speech impediment/ difficulty with R's, partially related to the absent dentition and part of it has been lifelong. Mood described as doing better than yesterday , affect congruent. Thought process organized. Thought contact: patient denied suicidal or homicidal ideation,? there were no delusions reported or noted, patient denied auditory or visual hallucinations. Attention and concentration appeared intact and memory appeared reliable but none were formally tested. Patient is alert and oriented times person and place. Insight and judgment appear limited but improving and impulse control appears impaired. 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 Last hospitalization we wondered whether she can function independently we will explore what has happened in the last approximately 6 months but she has significant and multiple functional generally neurologic disorders Plan: 1.? Restart Wellbutrin XL 150 mg p.o. every morning which she had been discharged on before and is not taking and consider starting Seroquel 100 mg p.o. nightly. Discontinued Wellbutrin XL which she refused and started Remeron 15 mg p.o. nightly. 2.? Continue every 15 minute checks for safety. 3.? Encourage individual, group and milieu therapies. 4.? Encourage sober living treatment after discharge at the highest level of care to which she is willing to commit. 5.? attempt to gather collateral information. 6. Appreciate hospitalist consult will await recommendations and follow as indicated. 7. Referral to [facility] [place] looks promising. Looking at discharge possibly at the beginning of the week. Obtaining a [facility] evaluation for ability for independent functioning. 8. Filed for 21-day hold yesterday awaiting hearing date. Involuntary Hold Information 96 Hour Hold: 96 Hour Involuntary Admission: Yes 96 Hour Hold Ending Date: 07/28/21 96 Hour Hold Ending Time: 17:15 Attestations NPU Medical Necessity Statement*: Inpatient hospitalization is medically necessary and the clinically appropriate intervention at this time. We will monitor medications and make changes/additions as indicated. Her likely length of stay is 1-3 days. Coding Level of Care Code Acute Code for g Fwd Diagnoses Depression, unspecified depression type F32.A Depression Type: unspecified Psychotic disorder due to psychoactive substance F19.959 Psychogenic nonepileptic seizure F44.5 Substance abuse F19.10 Fall W19.XXXA
[2023-04-18] MEDS: OLANZapine 5 mg ODT PO ×2 (09:46→17:17)
[2023-04-18] MEDS: pantoprazole DR 40 mg Tablet PO (09:46)
[2023-04-18] MEDS: acetaminophen 325 mg Tablet 650 MG PO ×2 (12:13→17:17)
[2023-04-18] MEDS: nicotine 2 mg Gum BUCCAL (12:14)
[2023-04-18 14:00] VITALS: BP 126/77; PULSE 79; RESP 16; TEMP 36.9; O2SAT 97
[2023-04-18 20:10] VITALS: RESP 18
[2023-04-18] MEDS: mirtazapine 15 mg Tablet PO (20:17)
[2023-04-18] MEDS: trazodone 50 mg Tablet PO (20:17)
[2023-04-19 06:00] VITALS: BP 128/83; PULSE 106; RESP 18; O2SAT 95
[2023-04-19] MEDS: pantoprazole DR 40 mg Tablet PO (08:15)
[2023-04-19] MEDS: acetaminophen 325 mg Tablet 650 MG PO (08:16)
[2023-04-19] MEDS: loperamide 2 mg Capsule PO ×2 (08:17→20:23)
[2023-04-19] MEDS: hyDROXYzine 25 mg Capsule 50 MG PO ×2 (09:05→20:23)
[2023-04-19] MEDS: ondansetron 4 MG Tablet PO (09:05)
[2023-04-19] MEDS: phenyleph-mineral oil-petrolat Oint 28 gm 1 APPLIC TOPICAL (11:01)
[2023-04-19 14:00] VITALS: BP 133/88; PULSE 109; RESP 15; TEMP 36.8; O2SAT 91
--- NOTE | 2023-04-19 15:04 | PC.NURSE ---
Patient screaming and crying in her room. This RN asked what was wrong and she said she wanted out of this place because she feels like a caged animal. Dr. Beverly came in shortly after to assess her and she began yelling at him because she wanted to leave. She then came to the nurses' station and yelled, that fucking idiot! Don't let him come near me or I'll snap his fucking neck! Staff tried to explain to patient that we were waiting for [facility] to come interview her so she would have a place to stay and not be homeless. She continued to yell that her son was working on getting her a place, but could not provide a place she could stay if she left.
[2023-04-19] MEDS: OLANZapine 5 mg ODT PO (15:24)
[2023-04-19] MEDS: nicotine 2 mg Gum BUCCAL (15:26)
--- NOTE | 2023-04-19 19:58 | P.NPUPN_ITS ---
Subjective NPU 2 Subjective: 62-year-old female with a history of met hamphetamine abuse admitted with suicidal ideation and depression. Patient had reported feeling frustrated here on the unit. She had reported that she did not know why she needed to go to [facility] although she had understood that they were coming to interview her soon. The patient reported no side effects to her medication. She had become agitated regarding her care here stating that her physical needs were not being met but did not specify what the problem clearly was. She had then proceeded to threaten to snap the typewriter mechanic's neck if I did not shut the fuck up . Later, she appeared pleasant on the milieu and appeared to have forgotten any previous conversation we had had earlier in the day. Mental Status Exam 2 MSE Comments: This is an underweight white female in hospital scrubs with poor grooming and eye contact.? Poor dentition with facial atrophy looking older than her stated age.? No abnormal movements except for improving mild psychomotor retardation.? She was superficially cooperative with exam in mild distress. Speech was more spontaneous but still decreased rate and volume with a speech impediment noted. Mood described as not good. , affect was labile and irritable. Thought process appeared linear but superficial. Thought contact: patient denied suicidal or homicidal ideation,? there were no delusions reported or noted, patient denied auditory or visual hallucinations. Attention and concentration appeared intact and memory appeared reliable but none were formally tested. Patient is alert and oriented times person and place. Insight and judgment appear limited but improving and impulse control appears impaired. 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 Last hospitalization we wondered whether she can function independently we will explore what has happened in the last approximately 6 months but she has significant and multiple functional generally neurologic disorders Plan: 1.? Continue Remeron 15mg at night. 2.? Continue every 15 minute checks for safety. 3.? Encourage individual, group and milieu therapies. 4.? Encourage sober living treatment after discharge at the highest level of care to which she is willing to commit. 5.? attempt to gather collateral information. 6. Appreciate hospitalist consult will await recommendations and follow as indicated. 7. Referral to [facility] [place] looks promising. Looking at discharge possibly at the beginning of the week. Obtaining a [facility] evaluation for ability for independent functioning. 8. Filed for 21-day hold yesterday awaiting hearing date. Involuntary Hold Information 2 96 Hour Hold: 96 Hour Involuntary Admission: Yes 96 Hour Hold Ending Date: 07/28/21 96 Hour Hold Ending Time: 17:15 Attestations NPU 2 Medical Necessity Statement*: Inpatient hospitalization is medically necessary and the clinically appropriate intervention at this time. We will monitor medications and make changes/additions as indicated. Her likely length of stay is 2-4 days. Coding Level of Care Code Acute Code for g Fwd Diagnoses Depression, unspecified depression type F32.A Depression Type: unspecified Psychotic disorder due to psychoactive substance F19.959 Psychogenic nonepileptic seizure F44.5 Substance abuse F19.10 Fall W19.XXXA
[2023-04-19 20:14] VITALS: BP 114/79; PULSE 84; RESP 16; TEMP 36.8; O2SAT 94
[2023-04-19] MEDS: ibuprofen 800 mg tablet PO (20:23)
[2023-04-19] MEDS: trazodone 50 mg Tablet PO (20:23)
[2023-04-19] MEDS: mirtazapine 15 mg Tablet PO (20:24)
[2023-04-20 06:00] VITALS: RESP 16
--- NOTE | 2023-04-20 06:31 | PC.NURSE ---
PT WAS GIVEN TRAZODONE AND VISTARIL LAST NIGHT FOR INSOMNIA AND ANXIETY. PT SLEPT APPROXIMATELY 8 HOURS WITHOUT ISSUE. MEDICATIONS DEEMED EFFECTIVE.
[2023-04-20] MEDS: hyDROXYzine 25 mg Capsule 50 MG PO (08:28)
[2023-04-20] MEDS: pantoprazole DR 40 mg Tablet PO (08:28)
[2023-04-20] MEDS: loperamide 2 mg Capsule PO (08:28)
[2023-04-20] MEDS: acetaminophen 325 mg Tablet 650 MG PO ×2 (08:33→13:11)
[2023-04-20] MEDS: ibuprofen 800 mg tablet PO (09:51)
[2023-04-20 14:00] VITALS: BP 113/77; PULSE 89; RESP 20; TEMP 36.8; O2SAT 98
--- NOTE | 2023-04-20 18:20 | PC.NURSE ---
Patient yelling at this nurse, stated that she wants out and wants out now. Patient yelling that she wants to talk to the doctor right now. This nurse already stated to patient that doctor cannot speak to her right now as he is dictating. Patient yelling and pounding her finger against the shelf surrounding the glass. Patient stated to this nurse prior to going to the dayroom to eat dinner that if her discharge papers are not waiting for her when she gets done, that we will all have to pay .
--- NOTE | 2023-04-20 18:30 | P.NPUPN_ITS ---
Subjective NPU 2 Subjective: 62-year-old female with a history of met hamphetamine abuse admitted with suicidal ideation and depression. Patient was placed on a 21-day hold. She reported that she wished to leave here and live independently. Patient had stated that she did not wish to consider and is house as an option. The [facility] evaluation had confirmed that the patient required support in 9 out of 13 areas of functioning and they had supported he may need an assisted living facility. The patient appeared agitated and continued to state that she wished to return home. She had continued to make threats towards the blog writer of this note. Mental Status Exam 2 MSE Comments: This is an underweight white female in hospital scrubs with poor grooming and eye contact.? Poor dentition with facial atrophy looking older than her stated age.? No abnormal movements except for improving mild psychomotor retardation.? She was superficially cooperative with exam in mild distress. Speech was more spontaneous, and productive and loud Mood described as not good. , affect was labile and irritable. Thought process appeared linear but superficial. Thought contact: patient denied suicidal or homicidal ideation,? there were no delusions reported or noted, patient denied auditory or visual hallucinations. Attention and concentration appeared intact and memory appeared reliable but none were formally tested. Patient is alert and oriented times person and place. Insight and judgment appear limited but improving and impulse control appears impaired. 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 Last hospitalization we wondered whether she can function independently we will explore what has happened in the last approximately 6 months but she has significant and multiple functional generally neurologic disorders Plan: 1.? Continue Remeron 15mg at night. 2.? Continue every 15 minute checks for safety. 3.? Encourage individual, group and milieu therapies. 4.? Encourage sober living treatment after discharge at the highest level of care to which she is willing to commit. 5.? attempt to gather collateral information. 6. Appreciate hospitalist consult will await recommendations and follow as indicated. 7. [facility] evaluation strongly supports that patient not able to successfully live independently. 8. Patient now on 21 day hold. Involuntary Hold Information 2 96 Hour Hold: 96 Hour Involuntary Admission: Yes 96 Hour Hold Ending Date: 07/28/21 96 Hour Hold Ending Time: 17:15 Attestations NPU 2 Medical Necessity Statement*: Inpatient hospitalization is medically necessary and the clinically appropriate intervention at this time. We will monitor medications and make changes/additions as indicated. Her likely length of stay is 5-7 days. Coding Level of Care Code Acute Code for [facility] Fwd Diagnoses Depression, unspecified depression type F32.A Depression Type: unspecified Psychotic disorder due to psychoactive substance F19.959 Psychogenic nonepileptic seizure F44.5 Substance abuse F19.10 Fall W19.XXXA
--- NOTE | 2023-04-20 18:50 | PC.NURSE ---
Patient banging on the glass with open hand, demanding to see the doctor. Patient yelling, stated that she is going to start breaking windows and snapping necks if she doesn't get released. Attempts to de-esculate were wholly unsuccessful. Dr. Beverly notified in person. [facility] called. With some persuasion, patient was escorted to room with nurses, staff, and security. Patient was given IM [id number] injections into right deltoid and left deltoid muscles.
[2023-04-20] MEDS: LORazepam 2 mg/mL INJ 1 mL IM (18:55)
[2023-04-20] MEDS: diphenhydrAMINE 50 mg/mL SDV 1mL IM (18:55)
[2023-04-20] MEDS: haloperidol inj 5 mg/mL INJ 1 mL IM (18:55)
[2023-04-20 20:48] VITALS: BP 94/51; PULSE 96; RESP 16; O2SAT 96
[2023-04-21] MEDS: OLANZapine 5 mg ODT PO (04:11)
[2023-04-21 06:00] VITALS: RESP 16
--- NOTE | 2023-04-21 06:21 | PC.NURSE ---
Due to patient deeply sleeping and going to bed late, unable to obtain vitals. RR documented
[2023-04-21] MEDS: pantoprazole DR 40 mg Tablet PO (08:14)
[2023-04-21] MEDS: acetaminophen 325 mg Tablet 650 MG PO (09:23)
[2023-04-21] MEDS: ibuprofen 800 mg tablet PO (11:24)
--- NOTE | 2023-04-21 13:03 | DCPLANNER ---
MIRTA completed on 04/21/23 @ 2590. Pt was given a copy of rights and she stated she understood her rights.
[2023-04-21] MEDS: ondansetron 4 MG Tablet PO (13:39)
[2023-04-21] MEDS: hyDROXYzine 25 mg Capsule 50 MG PO (14:37)
[2023-04-21 14:38] VITALS: RESP 16
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
== END 2023-04-21 16:20 | disposition home or self-care (01) | DRG 881 ==
LOC: ER 21:02 → NP 22:15
PROVIDERS: Admitting Provider Psychiatry & Neurology Psychiatry; Emergency Provider Emergency Medicine; PCP Family Medicine; Visit Provider Psychiatry & Neurology Psychiatry
DX: F32.A Depression, unspecified (principal); R45.851 Suicidal ideations; N39.0 Urinary tract infection, site not specified; F19.959 Other psychoactive substance use, unspecified with psychoactive substance-induced psychotic disorder, unspecified; F44.5 Conversion disorder with seizures or convulsions; R45.1 Restlessness and agitation; E87.6 Hypokalemia; M54.9 Dorsalgia, unspecified
CPT/HCPCS: 36415; 70450; 71045; 80053; 80306; 80307; 81001; 85025; 87086; 93005; 96372; 97150; 97165; 97167; 99285; J1200; J1630; J2060; J3486; Q0162

== ENCOUNTER 2023-12-06 15:21 | Emergency (ER) | payer MEDICARE, MEDICAID, SELFPAY ==
[2023-12-06 15:25] VITALS: BP 176/127; PULSE 125; RESP 20; TEMP 36.6; O2SAT 98; BMI 17.1
[2023-12-06 15:30] VITALS: PULSE 103; O2SAT 97
--- NOTE | 2023-12-06 16:33 | CTR_ITS ---
PROCEDURE INFORMATION: Exam: CT Thoracic Spine Without Contrast Exam date and time: 12/06/2023 5:34 PM Age: 62 years old Clinical indication: Pain in thoracic spine; Additional info: Back pain TECHNIQUE: Imaging protocol: Computed tomography of the thoracic spine without contrast. Radiation optimization: All CT scans at this facility use at least one of these dose optimization techniques: automated exposure control; mA and/or kV adjustment per patient size (includes targeted exams where dose is matched to clinical indication); or iterative reconstruction. COMPARISON: CT thoracic spin wo con* [id number] 08/12/2017 3:31 PM RADIATION DOSE METRICS: Total DLP (mGy-cm): 505 FINDINGS: Bones/joints: No acute fractures or subluxations. Bones are osteopenic. Small endplate osteophytes. No severe central canal or neural foraminal stenosis. Normal sagittal alignment. Mild intervertebral disc space narrowing. Soft tissues: Unremarkable. Lungs: Biapical pleural-parenchymal a nodular scarring. CT/CT thoracic spin wo con* [id number] IMPRESSION: No acute fractures or subluxations. No severe central canal and neural foraminal stenosis.
--- NOTE | 2023-12-06 16:33 | CTR_ITS ---
PROCEDURE INFORMATION: Exam: CT Lumbar Spine Without Contrast Exam date and time: 12/06/2023 5:34 PM Age: 62 years old Clinical indication: Low back pain and lumbago TECHNIQUE: Imaging protocol: Computed tomography of the lumbar spine without contrast. Radiation optimization: All CT scans at this facility use at least one of these dose optimization techniques: automated exposure control; mA and/or kV adjustment per patient size (includes targeted exams where dose is matched to clinical indication); or iterative reconstruction. COMPARISON: CT thoracic spin wo con* [id number] 12/06/2023 5:34 PM RADIATION DOSE METRICS: Total DLP (mGy-cm): 505 FINDINGS: Bones/joints: No acute fractures or subluxations. The bones are osteopenic. Vertebral body heights are preserved. Normal sagittal alignment. Mild levoscoliotic curvature of the lumbar spine with associated degenerative changes. Intervertebral disc space narrowing of L4-L5 with small endplate osteophytes. Posterior disc bulge L2-L3, L3-L4, and L4 on L5 cause a [id number] degree of central canal stenosis. Severe bilateral facet arthropathy of L4-L5 and L5-S1. Kidneys and ureters: 0.5 cm nonobstructing calculus within the right kidney. Vasculature: Severe diffuse atherosclerotic calcifications. Soft tissues: Unremarkable. CT/CT lumbar spine wo con* [id number] IMPRESSION: No acute fractures or subluxations. Moderate to severe spondylosis as described above.
--- NOTE | 2023-12-06 16:36 | W.ED.BACK ---
HPI - Back Pain/Injury General: Chief Complaint: Back Pain/Injury Stated Complaint: back pain Time Seen by Provider: 12/06/23 16:22 Source: patient Mode of arrival: ambulatory Limitations: no limitations History of Present Illness: 62-year-old female who states she has been having severe back pain for the last 2 days. States that pain seems to be along her whole spine is much worse with movements. She denies any bowel or bladder incontinence she denies any specific injury. Denies any fevers. Associated symptoms: Deny abdominal pain, chills, fever(s), nausea or vomiting Related Data Home Medications Medication Instructions Recorded Confirmed pantoprazole 40 mg tablet,delayed 40 mg PO DAILY 06/13/19 04/11/23 release clopidogrel 75 mg tablet 75 mg PO BEDTIME 07/26/20 04/11/23 fluticasone fur. 100 mcg-umeclid 1 inh inhalation DAILY 07/26/20 04/11/23 62.5 mcg-vilant 25 mcg inhalat.powder (Trelegy Ellipta) nitroglycerin 0.4 mg sublingual 0.4 mg sublingual Q5M PRN Chest 07/22/21 04/11/23 tablet (Nitrostat) Pain trazodone 100 mg tablet 200 mg PO BEDTIME 09/30/21 04/11/23 ropinirole 1 mg tablet 1 mg PO BEDTIME 10/09/22 04/11/23 Previous Rx's Medication Instructions Recorded polyethylene glycol 3350 17 gram 17 g PO DAILY PRN constipation #14 02/14/23 oral powder packet (Miralax) ea mirtazapine 15 mg tablet 15 mg PO BEDTIME #30 tabs 04/21/23 methocarbamol 750 mg tablet 750 mg PO Q6H PRN spasms #20 tabs 12/06/23 naproxen 500 mg tablet (Naprosyn) 500 mg PO BID PRN pain #20 tabs 12/06/23 Allergies Allergy/AdvReac Type Severity Reaction Status Date / Time aspirin Allergy Unknown Verified 12/06/23 15:31 codeine Allergy ALGY-Rash Verified 12/06/23 15:31 Fish Containing Products Allergy Unknown Verified 12/06/23 15:31 tramadol Allergy Unknown Verified 12/06/23 15:31 Review of Systems Const: Denies: fever(s), chills, body aches or change in appetite ENMT: Denies: throat pain or dental pain Card: Denies: chest pain Resp: Denies: dyspnea GI: Denies: abdominal pain, nausea, vomiting or diarrhea Musc: Reports: back pain; Denies: neck pain Skin/Breast: Denies: rash Neuro: Denies: headache(s) [facility] ED PFSH: Medical History (Updated 12/06/23 @ 19:26 by Antwan Mueller MD) Nicotine dependence, cigarettes, uncomplicated Cannabis dependence, uncomplicated Brainstem stroke Anxiety Crohn's colitis Surgical History Status post tonsillectomy and adenoidectomy H/O: hysterectomy H/O tubal ligation S/P splenectomy S/P cholecystectomy S/P small bowel resection Family History Denies family history of CAD (coronary artery disease) Social History Smoking and tobacco/nicotine status: current every day tobacco/nicotine user Physical Exam Const: COMMON NORMALS: no acute distress, patient oriented x3 and healthy appearing HENMT: COMMON NORMALS: normocephalic and atraumatic HEAD & SCALP: normocephalic and atraumatic Eye: COMMON NORMALS: conjunctivae normal CONJUNCTIVA: Yes conjunctivae normal Neck/C-Spine: COMMON NORMALS: full ROM and supple Chest: COMMONS NORMALS: normal inspection of the chest Resp: COMMON NORMALS: normal respiratory effort, No retractions, No use of accessory muscles and clear to auscultation bilaterally AUSCULTATION: clear to auscultation bilaterally Cardio: COMMON NORMALS: regular rate, regular rhythm and No murmurs present (Cardio) RATE: regular rate RHYTHM: regular rhythm GI: COMMON NORMALS: Normal to inspection, nondistended, normoactive bowel sounds present, Soft to palpation, non-tender and no masses PALPATION: Yes Soft to palpation Back/Pelvis: OTHER: Pain with palpation along thoracic and lumbar spine paraspinal and midline tenderness she has some pain with movement no saddle anesthesia. Extremity: COMMON NORMALS: normal to inspection and full ROM Neuro: COMMON NORMALS: patient oriented x3, moves all extremities and no focal motor deficits Psych: COMMON NORMALS: mental status grossly normal, Normal thought process present and cooperative THOUGHT PROCESS: Normal thought process present Skin: COMMON NORMALS: no rashes or lesions noted and no wounds GENERAL SKIN EXAM: no rashes or lesions noted Course Vital Signs: Vital signs: Vital Signs Temperature 97.8 F 12/06/23 15:25 Pulse Rate 88 12/06/23 19:46 Respiratory Rate 24 H 12/06/23 19:30 Blood Pressure 125/92 12/06/23 19:46 Pulse Oximetry 98 12/06/23 19:46 Oxygen Delivery Me thod Room Air 12/06/23 15:30 MDM - Back Pain/Injury Medical Decision Making Patient presents with back pains likely muscular in nature she has no saddle anesthesia she is able to ambulate her pain has improved here. White counts normal CRP is normal no signs of epidural abscess she has no signs of fracture or cord compression she is to follow-up with PCP and return if worsening she understands agrees to plan Medical Records I reviewed the patient's medical records. Labs I reviewed the patient's lab results. 12/06/23 17:19 12/06/23 18:40 Radiology Impressions Lumbar Spine CT 12/06/23 16:33 IMPRESSION: No acute fractures or subluxations. Moderate to severe spondylosis as described above. Thoracic Spine CT 12/06/23 16:33 IMPRESSION: No acute fractures or subluxations. No severe central canal and neural foraminal stenosis. Laboratory Results WBC 6.82 10^3/uL (3.29-11.43) 12/06/23 17:19 RBC 5.70 10^6/uL (3.85-5.65) H 12/06/23 17:19 Hgb 16.50 g/dL (11.27-16.99) 12/06/23 17:19 Hct 50.6 % (36-47) H 12/06/23 17:19 MCV 88.8 fl (85-98) 12/06/23 17:19 MCH 28.9 pg (27-33) 12/06/23 17:19 MCHC 32.6 g/dL (30-55) 12/06/23 17:19 RDW 13.3 % (12.1-15.1) 12/06/23 17:19 Plt Count 220 10^3/cmm (157-399) 12/06/23 17:19 MPV 11.3 fL (7.4-10.4) H 12/06/23 17:19 Neut % (Auto) 64.4 % 12/06/23 17:19 Lymph % (Auto) 26.2 % 12/06/23 17:19 [place] % (Auto) 7.2 % 12/06/23 17:19 Eos % (Auto) 1.5 % 12/06/23 17:19 Baso % (Auto) 0.4 % 12/06/23 17:19 Neut # (Auto) 4.39 10^3/uL (1.8-7.7) 12/06/23 17:19 Lymph # (Auto) 1.8 10^3/uL (0.8-4.8) 12/06/23 17:19 [place] # (Auto) 0.5 10^3/uL (0.2-0.9) 12/06/23 17:19 Eos # (Auto) 0.1 10^3/uL (0.0-0.8) 12/06/23 17:19 Baso # (Auto) 0.0 10^3/uL (0.0-0.1) 12/06/23 17:19 Nucleated RBC % (auto) 0 % 12/06/23 17:19 Nucleated RBCs # 0.0 /100WBC 12/06/23 17:19 ESR 28 mm/hr (0-15) H 12/06/23 17:19 Sodium 138 mmol/L (136-145) 12/06/23 18:40 Potassium 3.9 mmol/L (3.5-5.1) 12/06/23 18:40 Chloride 102 mmol/L (98-107) 12/06/23 18:40 Carbon Dioxide 25 mmol/L (22-29) 12/06/23 18:40 Anion Gap 14.9 (5-19) 12/06/23 18:40 BUN 10 mg/dL (8-23) 12/06/23 18:40 Creatinine 0.6 mg/dL (0.5-0.9) 12/06/23 18:40 GFR Calculation 100.6 mL/min (90-130) 12/06/23 18:40 Glucose 103 mg/dL (65-115) 12/06/23 18:40 Calculated Osmolality 285 mOsm/kg (285-295) 12/06/23 18:40 Calcium 9.3 mg/dL (8.5-10.5) 12/06/23 18:40 Total Bilirubin 0.2 mg/dL (0.15-1.2) 12/06/23 18:40 AST 14 U/L (0-32) 12/06/23 18:40 ALT 9 U/L (0-33) 12/06/23 18:40 Alkaline Phosphatase 118 U/L (35-105) H 12/06/23 18:40 C-Reactive Protein 3.0 mg/L (0.0-4.9) 12/06/23 18:40 Total Protein 7.3 g/dL (6.6-8.7) 12/06/23 18:40 Albumin 4.2 g/dL (3.5-5.2) 12/06/23 18:40 Globulin 3.1 g/dL (1.3-4.6) 12/06/23 18:40 Urine Color Yellow (Yellow) 12/06/23 17:53 Urine Appearance Clear (CLEAR) 12/06/23 17:53 Urine pH 5.5 (5-7) 12/06/23 17:53 Ur Specific [place] 1.005 (1.005-1.030) 12/06/23 17:53 Urine Protein Negative (Negative) 12/06/23 17:53 Urine Glucose (UA) Negative (Normal) 12/06/23 17:53 Urine Ketones Negative (Negative) 12/06/23 17:53 Urine Blood Non-haemolysed trace (Negative) 12/06/23 17:53 Urine Nitrate Negative (Negative) 12/06/23 17:53 Urine Bilirubin Negative (Negative) 12/06/23 17:53 Urine Urobilinogen 1.0 mg/dL (Negative) 12/06/23 17:53 Ur Leukocyte Esterase Negative (Negative) 12/06/23 17:53 Urine RBC 0-4 /hpf (0-2) H 12/06/23 17:53 Urine WBC None /hpf (0-5) 12/06/23 17:53 Ur Squamous Epith Cells 5-10 /hpf (0-5) H 12/06/23 17:53 Amorphous Sediment Not Reportable 12/06/23 17:53 Urine Bacteria Trace /hpf (NONE) 12/06/23 17:53 Urine Mucus Trace /hpf 12/06/23 17:53 Urine Opiates Screen Positive ng/mL (Negative) H 12/06/23 17:53 Ur Barbiturates Screen Negative ng/mL (Negative) 12/06/23 17:53 Ur Phencyclidine Scrn Negative ng/mL (Negative) 12/06/23 17:53 Ur Amphetamines Screen Positive ng/mL (Negative) H 12/06/23 17:53 U Benzodiazepines Scrn Negative ng/mL (Negative) 12/06/23 17:53 Urine Cocaine Screen Negative ng/mL (Negative) 12/06/23 17:53 U Marijuana (THC) Screen Positive ng/mL (Negative) H 12/06/23 17:53 All radiology interpretation(s) finalized by discharge Discharge Plan Discharge Patient Disposition: Home Clinical Impression: Back pain Condition: Stable Prescriptions: New methocarbamol 750 mg tablet 750 mg PO Q6H PRN (Reason: spasms) Qty: 20 0RF Naprosyn 500 mg tablet 500 mg PO BID PRN (Reason: pain) Qty: 20 0RF No Action trazodone 100 mg tablet 200 mg PO BEDTIME pantoprazole 40 mg tablet,delayed release (DR/EC) 40 mg PO DAILY clopidogrel 75 mg tablet 75 mg PO BEDTIME Trelegy Ellipta 100-62.5-25 mcg blister with device 1 inh INHALATION DAILY polyethylene glycol 3350 [Miralax] 17 gram powder in packet 17 g PO DAILY PRN (Reason: constipation) Qty: 14 0RF nitroglycerin [Nitrostat] 0.4 mg Tablet, Sublingual 0.4 mg SUBLINGUAL Q5M PRN (Reason: Chest Pain) Rx Instructions: do not exceed 3 doses per episode ropinirole 1 mg tablet 1 mg PO BEDTIME mirtazapine 15 mg Tablet 15 mg PO BEDTIME Qty: 30 1RF Discharge Orders: Discharge ED (Routine); Ordered 12/06/23 Ordered By: Antwan Mueller Referrals: Adiel Yepez DO [Physician] - 1-3 days Lorelei Weinberg DO [Primary Care Provider] - Discharge Diet: Advance as tolerated Discharge Activity: Resume usual activity Patient Instructions: Back Pain (ED) Coding Level of Care Code ED Credentialing Analyst for Chg Fang
[2023-12-06 17:20] VITALS: RESP 18; O2SAT 98
[2023-12-06] MEDS: ondansetron 2 mg/ML SDV 2 mL 4 MG IVP (17:20)
[2023-12-06] MEDS: dexamethasone 10 mg/mL INJ IVP (17:20)
[2023-12-06] MEDS: morphine 4 mg/mL SDV 1 mL IVP (17:20)
[2023-12-06 17:30] LABS: Basophils % 0.4 %; Eosinophils # 0.1 10^3/uL (0.0-0.8); Eosinophils % 1.5 %; Hematocrit 50.6 % (36-47); Lymphocytes # 1.8 10^3/uL (0.8-4.8); Lymphocytes % 26.2 %; Mean Corpuscular HGB Conc 32.6 g/dL (30-55); Mean Corpuscular Hemoglobin 28.9 pg (27-33); Mean Corpuscular Volume 88.8 fl (85-98); Mean Platelet Volume 11.3 fL (7.4-10.4); Monocytes # 0.5 10^3/uL (0.2-0.9); Monocytes % 7.2 %; Neutrophils # 4.39 10^3/uL (1.8-7.7); Neutrophils % 64.4 %; Nucleated Red Blood Cells % 0 %; Platelet Count 220 10^3/cmm (157-399); Red Cell Distribution Width 13.3 % (12.1-15.1); White Blood Count 6.82 10^3/uL (3.29-11.43)
[2023-12-06 17:32] LABS: Erythrocyte Sedimentation Rate 28 mm/hr (0-15)
[2023-12-06 17:59] LABS: Charge for UA Resulting for Rev
[2023-12-06 18:03] LABS: Bilirubin Urine Negative (Negative); Blood Urine Non-haemolysed trace (Negative); Glucose Urine UA Negative (Normal); Ketones Urine Negative (Negative); Leukocyte Esterase Urine Negative (Negative); Nitrate Urine Negative (Negative); Protein Urine Negative (Negative); Specific Gravity, Urine 1.005 (1.005-1.030); Urine Appearance Clear (CLEAR); Urine Color Yellow (Yellow); pH Urine 5.5 (5-7)
[2023-12-06 18:08] LABS: Amphetamines Screen Urine Positive (Negative); Barbiturates Screen Urine Negative (Negative); Benzodiazepines Screen Urine Negative (Negative); Cocaine Screen Urine Negative (Negative); Opiate Screen Urine Positive (Negative); PCP Screen Urine Negative (Negative); THC Screen Urine Positive (Negative)
[2023-12-06 18:16] LABS: Add Urine Culture? No; Bacteria Urine TRACE /hpf; Mucus Urine TRACE /hpf; RBC Urine 0-4 /hpf (0-2); UA Manual Slide Review YES; UA Slide Review UA Slide Review Perf
[2023-12-06 18:37] VITALS: BP 145/92; PULSE 96; RESP 20; O2SAT 98
[2023-12-06 19:10] LABS: Alanine Aminotransferase 9 U/L (0-33); Albumin Level 4.2 g/dL (3.5-5.2); Alkaline Phosphatase 118 U/L (35-105); Anion Gap 14.9 (5-19); Aspartate Amino Transferase 14 U/L (0-32); Blood Urea Nitrogen 10 mg/dL (8-23); Calcium 9.3 mg/dL (8.5-10.5); Carbon Dioxide 25 mmol/L (22-29); Chloride 102 mmol/L (98-107); Creatinine Clr Calc Pharmacy 69.8637; Globulin 3.1 g/dL (1.3-4.6); Glomerular Filtration Rate 100.6 mL/min (90-130); Glucose 103 mg/dL (65-115); Osmolality Calculated 285 mOsm/kg (285-295); Potassium 3.9 mmol/L (3.5-5.1); Sodium 138 mmol/L (136-145); Total Bilirubin 0.2 mg/dL (0.15-1.2); Total Protein 7.3 g/dL (6.6-8.7)
[2023-12-06] MEDS: methocarbamol 750 mg Tablet 1500 MG PO (19:29)
[2023-12-06 19:30] VITALS: RESP 24; O2SAT 94
[2023-12-06] MEDS: HYDROmorphone 1 mg/mL INJ 1 mL 0.5 MG IVP (19:30)
[2023-12-06 19:46] VITALS: BP 125/92; PULSE 88; O2SAT 98
--- NOTE | 2023-12-07 07:32 | DCPLANNER ---
Message sent to [facility] for follow up on back pain.
== END 2023-12-06 19:47 | disposition home or self-care (01) ==
PROVIDERS: Emergency Provider Emergency Medicine; PCP Family Medicine
DX: M54.9 Dorsalgia, unspecified (principal); Z79.02 Long term (current) use of antithrombotics/antiplatelets; Z72.0 Tobacco use; Z86.73 Personal history of transient ischemic attack (TIA), and cerebral infarction without residual deficits
CPT/HCPCS: 36415; 72128; 72131; 80053; 80306; 81003; 81015; 85025; 85651; 86140; 96374; 96375; 99285; J1100; J1170; J2270; J2405

== ENCOUNTER 2024-01-12 13:06 | Outpatient (CLI) | payer MEDICARE, MEDICAID, SELFPAY ==
[2024-01-12 14:18] LABS: Basophils # 0.1 10^3/uL (0.0-0.1); Basophils % 0.5 %; Eosinophils # 0.1 10^3/uL (0.0-0.8); Eosinophils % 0.9 %; Hematocrit 47.1 % (36-47); Lymphocytes # 2.2 10^3/uL (0.8-4.8); Mean Corpuscular HGB Conc 31.8 g/dL (30-55); Mean Corpuscular Hemoglobin 29.6 pg (27-33); Mean Corpuscular Volume 92.9 fl (85-98); Mean Platelet Volume 11.5 fL (7.4-10.4); Monocytes # 0.6 10^3/uL (0.2-0.9); Monocytes % 6.2 %; Neutrophils % 70.1 %; Nucleated Red Blood Cells % 0 %; Platelet Count 210 10^3/cmm (157-399); Red Blood Count 5.07 10^6/uL (3.85-5.65); White Blood Count 9.99 10^3/uL (3.29-11.43)
[2024-01-12 14:32] LABS: Estmated Average Glucose 108; Hemoglobin A1C 5.4 % (4.0-6.0)
[2024-01-12 15:01] LABS: 25 Hydroxy Vitamin D 31 ng/mL (30-100); Alanine Aminotransferase 13 U/L (0-33); Alkaline Phosphatase 109 U/L (35-105); Anion Gap 12.4 (5-19); Aspartate Amino Transferase 15 U/L (0-32); Blood Urea Nitrogen 11 mg/dL (8-23); Calcium 8.9 mg/dL (8.5-10.5); Carbon Dioxide 25 mmol/L (22-29); Chloride 105 mmol/L (98-107); Chol HDL Ratio 2.22 mg/dL (0.0-4.40); Cholesterol 153 mg/dL (0-200); Globulin 3.1 g/dL (1.3-4.6); Glomerular Filtration Rate 100.3 mL/min (90-130); Glucose 80 mg/dL (65-115); HDL Cholesterol 69 mg/dL (60-100); Iron 76 ug/dL (37-145); LDL Cholesterol Calculated 62 mg/dL (50-129); Osmolality Calculated 286 mOsm/kg (285-295); Percent Saturation 23.3 % (20-50); Potassium 3.4 mmol/L (3.5-5.1); Sodium 139 mmol/L (136-145); Thyroid Stimulating Hormone 1.46 uIU/mL (0.27-4.20); Total Bilirubin 0.2 mg/dL (0.15-1.2); Total Iron Binding Capacity 325 mcg/dl; Total Protein 7.1 g/dL (6.6-8.7); Triglycerides 111 mg/dL (0-150); Unsaturated Iron Binding 249 ug/dL (112-347); Vitamin B12 263 pg/mL (232-1245)
[2024-01-12 15:02] LABS: Folate Level 10.2 ng/mL (4.8-37.3)
== END 2024-01-12 13:07 | disposition home or self-care (01) ==
LOC: LAB 13:07
PROVIDERS: PCP Family Medicine; Visit Provider Nurse Practitioner Family
DX: I10 Essential (primary) hypertension (principal); R79.89 Other specified abnormal findings of blood chemistry; M79.18 Myalgia, other site; Z86.2 Personal history of diseases of the blood and blood-forming organs and certain disorders involving the immune mechanism; R53.83 Other fatigue
CPT/HCPCS: 36415; 80053; 80061; 82306; 82607; 82746; 83036; 83540; 83550; 84443; 85025

== ENCOUNTER 2024-03-01 16:53 | Emergency (ER) | payer MEDICARE, MEDICAID, SELFPAY ==
[2024-03-01] VITALS (9 sets, daily range): BP systolic 121–171; BP diastolic 79–133; PULSE 63–75; RESP 18; TEMP 36.8; O2SAT 94–98; BMI 18.3
--- NOTE | 2024-03-01 16:57 | CTR_ITS ---
PROCEDURE INFORMATION: Exam: CT Abdomen And Pelvis With Contrast Exam date and time: 03/01/2024 7:26 PM Age: 63 years old Clinical indication: Other: Epigastric pain TECHNIQUE: Imaging protocol: Computed tomography of the abdomen and pelvis with contrast. Radiation optimization: All CT scans at this facility use at least one of these dose optimization techniques: automated exposure control; mA and/or kV adjustment per patient size (includes targeted exams where dose is matched to clinical indication); or iterative reconstruction. Contrast material: OMNI 350; Contrast volume: 100 ml; Contrast route: INTRAVENOUS (IV); COMPARISON: CT chest abdpel w/*[id number] 10/08/2022 8:58 PM RADIATION DOSE METRICS: Total DLP (mGy-cm): 280.82 FINDINGS: Lungs: Possible right middle lobe infiltrates. Stable bilateral lung base pulmonary nodules. Liver: Normal. No mass. Gallbladder and biliary ducts: The gallbladder is surgically absent. Mild intrahepatic biliary dilatation. Pancreas: Normal. No ductal dilation. Spleen: Normal. No splenomegaly. Adrenal glands: Normal. No mass. Kidneys and ureters: Bilateral renal cysts. Stomach and bowel: There is diffuse gastric wall thickening which may underdistention versus gastritis. No bowel obstruction. Appendix: No secondary signs of acute appendicitis. Intraperitoneal space: Unremarkable. No free air. No significant fluid collection. Vasculature: Abdominal atherosclerosis. Lymph nodes: Unremarkable. No enlarged lymph nodes. Urinary bladder: The urinary bladder underdistended intraluminal may be iatrogenic. Reproductive: Unremarkable as visualized. Bones/joints: Unremarkable. No acute fracture. Soft tissues: Unremarkable. CT/CT abdomen pelvis w con* [id number] IMPRESSION: 1. Diffuse gastric thickening which may be related to underdistention versus gastritis. Otherwise no acute intra-abdominal or intrapelvic process. Incidental/chronic findings in the abdomen and pelvis. 2. Possible right middle lobe infiltrates. Correlate clinically. COMMENTS: Consistent with the [employer]'s Incidental Findings Committee white paper (J Am Ashley Radiol 2018): Any incidental renal lesion less than 1 cm or classified as too small to characterize, or any incidental cystic renal lesion characterized as simple-appearing, is likely benign. No follow-up imaging is recommended for these lesions per consensus recommendations based on imaging criteria.
--- NOTE | 2024-03-01 17:05 | ED_ITS ---
HPI - Weakness 2 General: Chief complaint: Weakness Stated complaint: weakness Time Seen by Provider: 03/01/24 16:53 History of Present Illness: Patient presents to the ER with no other complaint other than not feeling well for several days and weakness. Patient was given an antibiotic about a week ago for sinusitis at the urgent care. Patient has a productive cough. Patient's been able to ambulate. Patient was given 2 mg Narcan by EMS for pinpoint pupils with no reaction. Patient appears no acute distress nontoxic. Patient does appear to have tenderness when you push on her upper abdomen. Review of Systems 2 General: Reports: 10 or more systems reviewed and unremarkable except in HPI and below PFSH ED 2 PFSH: Medical History Nicotine dependence, cigarettes, uncomplicated Cannabis dependence, uncomplicated Brainstem stroke Anxiety Crohn's colitis Surgical History Status post tonsillectomy and adenoidectomy H/O: hysterectomy H/O tubal ligation S/P splenectomy S/P cholecystectomy S/P small bowel resection Family History Denies family history of CAD (coronary artery disease) Social History Smoking and tobacco/nicotine status: unknown if used tobacco/nicotine Physical Exam 2 Const: COMMON NORMALS: no acute distress, average body habitus, patient oriented x3, no limitations, healthy appearing, alert and well nourished HENMT: COMMON NORMALS: normocephalic, atraumatic, hearing grossly normal bilaterally, external ears normal, Normal external nose present and moist oral mucous membranes HEAD & SCALP: normocephalic and atraumatic NOSE: Normal external nose present EXTERNAL EAR: Yes external ears normal Neck/C-Spine: COMMON NORMALS: full ROM, no lymphadenopathy, supple, no meningeal signs, no JVD and Thyroid normal THYROID: Thyroid normal Chest: COMMONS NORMALS: normal inspection of the chest and normal palpation of entire chest wall Resp: COMMON NORMALS: normal respiratory effort, No retractions, No use of accessory muscles and clear to auscultation bilaterally AUSCULTATION: clear to auscultation bilaterally Cardio: COMMON NORMALS: no JVD, regular rate, regular rhythm, S1 normal heart sound present, S2 normal heart sound present, No gallops present (Cardio), No clicks present (Cardio), No murmurs present (Cardio) and No rub (Cardio) R ATE: regular rate RHYTHM: regular rhythm HEART SOUNDS: S1 normal heart sound present and S2 normal heart sound present GI: COMMON NORMALS: Normal to inspection, nondistended, normoactive bowel sounds present, Soft to palpation, No hepatosplenomegaly present and no masses; negative for non-tender (Tenderness with palpation epigastric region) P ALPATION: Yes Soft to palpation and Yes No hepatosplenomegaly present Extremity: NARRATIVE EXTREMITY EXAM: Negative pretibial bilateral lower extremity edema Neuro: COMMON NORMALS: patient oriented x3 SENSORIUM/ORIENTATION: Yes alert MENINGEAL SIGNS: Yes no meningeal signs Course 2 Vital Signs: Vital signs: Vital Signs Temperature 98.3 F 03/01/24 16:54 Pulse Rate 75 03/01/24 20:00 Respiratory Rate 18 03/01/24 16:54 Blood Pressure 171/100 03/01/24 20:00 Pulse Oximetry 94 03/01/24 20:00 Oxygen Delivery Me thod Room Air 03/01/24 20:00 MDM - Weakness Medical Decision Making Lab work was obtained included CBC CMP magnesium lactic acid procalcitonin urine urine drug screen all of which is essentially negative other than positive for THC, abdomen pelvis contrasted CT showed gastritis and possible right middle lobe infiltrate. We will treat the infiltrate. When went back into discussed results with the patient patient was lying soundly asleep in no acute distress. Patient be given antibiotic here and discharged Medical Records I reviewed the patient's medical records. Lab Data I reviewed the patient's lab results. 03/01/24 17:01 03/01/24 18:40 Radiology Impressions Abdomen/Pelvis CT 03/01/24 16:57 IMPRESSION: 1. Diffuse gastric thickening which may be related to underdistention versus gastritis. Otherwise no acute intra-abdominal or intrapelvic process. Incidental/chronic findings in the abdomen and pelvis. 2. Possible right middle lobe infiltrates. Correlate clinically. COMMENTS: Consistent with the [employer] [place] [employer]'s Incidental Findings Committee white paper (J Am Ashley Radiol 2018): Any incidental renal lesion less than 1 cm or classified as too small to characterize, or any incidental cystic renal lesion characterized as simple-appearing, is likely benign. No follow-up imaging is recommended for these lesions per consensus recommendations based on imaging criteria. Laboratory Results WBC 6.27 10^3/uL (3.29-11.43) 03/01/24 17: RBC 4.93 10^6/uL (3.85-5.65) 03/01/24 17:01 Hgb 14.50 g/dL (11.27-16.99) 03/01/24 17: Hct 43.2 % (36-47) 03/01/24 17: MCV 87.6 fl (85-98) 03/01/24 17: MCH 29.4 pg (27-33) 03/01/24 17: MCHC 33.6 g/dL (30-55) 03/01/24 17: RDW 13.4 % (12.1-15.1) 03/01/24 17: Plt Count 293 10^3/cmm (157-399) 03/01/24 17: MPV 10.2 fL (7.4-10.4) 03/01/24 17:01 Neut % (Auto) 56.6 % 03/01/24 17: Lymph % (Auto) 32.5 % 03/01/24 17:01 [place] % (Auto) 9.7 % 03/01/24 17:01 Eos % (Auto) 0.6 % 03/01/24 17:01 Baso % (Auto) 0.3 % 03/01/24 17: Neut # (Auto) 3.54 10^3/uL (1.8-7.7) 03/01/24 17: Lymph # (Auto) 2.0 10^3/uL (0.8-4.8) 03/01/24 17:01 [place] # (Auto) 0.6 10^3/uL (0.2-0.9) 03/01/24 17:01 Eos # (Auto) 0.0 10^3/uL (0.0-0.8) 03/01/24 17:01 Baso # (Auto) 0.0 10^3/uL (0.0-0.1) 03/01/24 17:01 Nucleated RBC % (auto) 0 % 03/01/24 17:01 Nucleated RBCs # 0.0 /100WBC 03/01/24 17:01 PT 12.50 SECONDS (12.1-14.9) 03/01/24 17:01 INR 0.91 (0.8-1.2) 03/01/24 17:01 Sodium 137 mmol/L (136-145) 03/01/24 18:40 Potassium 3.3 mmol/L (3.5-5.1) L 03/01/24 18:40 Chloride 101 mmol/L (98-107) 03/01/24 18:40 Carbon Dioxide 22 mmol/L (22-29) 03/01/24 18:40 Anion Gap 17.3 (5-19) 03/01/24 18:40 BUN 9 mg/dL (8-23) 03/01/24 18:40 Creatinine 0.4 mg/dL (0.5-0.9) L 03/01/24 18:40 GFR Calculation 160.2 mL/min (90-130) H 03/01/24 18:40 Glucose 88 mg/dL (65-115) 03/01/24 18:40 Calculated Osmolality 282 mOsm/kg (285-295) L 03/01/24 18:40 Lactic Acid 0.7 mmol/L (0.5-2.2) 03/01/24 18:40 Calcium 9.2 mg/dL (8.5-10.5) 03/01/24 18:40 Magnesium 1.8 mg/dL (1.7-2.3) 03/01/24 18:40 Total Bilirubin 0.2 mg/dL (0.15-1.2) 03/01/24 18:40 AST 15 U/L (0-32) 03/01/24 18:40 ALT 8 U/L (0-33) 03/01/24 18:40 Alkaline Phosphatase 73 U/L (35-105) 03/01/24 18:40 Total Protein 6.3 g/dL (6.6-8.7) L 03/01/24 18:40 Albumin 3.6 g/dL (3.5-5.2) 03/01/24 18:40 Globulin 2.7 g/dL (1.3-4.6) 03/01/24 18:40 Lipase 58 U/L (13-60) 03/01/24 18:40 Procalcitonin 0.04 ng/mL (0-0.5) 03/01/24 18:40 Urine Color Yellow (Yellow) 03/01/24 17:10 Urine Appearance Clear (CLEAR) 03/01/24 17:10 Urine pH Not Reportable 03/01/24 17:10 Ur Specific [place] Not Reportable 03/01/24 17:10 Urine Protein Not Reportable 03/01/24 17:10 Urine Glucose (UA) Not Reportable 03/01/24 17:10 Urine Ketones Not Reportable 03/01/24 17:10 Urine Blood Not Reportable 03/01/24 17:10 Urine Nitrate Not Reportable 03/01/24 17:10 Urine Bilirubin Not Reportable 03/01/24 17:10 Urine Urobilinogen Not Reportable 03/01/24 17:10 Ur Leukocyte Esterase Not Reportable 03/01/24 17:10 Urine RBC 0-4 /hpf (0-2) H 03/01/24 17:10 Urine WBC Rare /hpf (0-5) 03/01/24 17:10 Ur Squamous Epith Cells 0-4 /hpf (0-5) H 03/01/24 17:10 Amorphous Sediment Not Reportable 03/01/24 17:10 Urine Bacteria None /hpf (NONE) 03/01/24 17:10 Urine Mucus None /hpf 03/01/24 17:10 Urine Opiates Screen Negative ng/mL (Negative) 03/01/24 17:10 Ur Barbiturates Screen Negative ng/mL (Negative) 03/01/24 17:10 Ur Phencyclidine Scrn Negative ng/mL (Negative) 03/01/24 17:10 Ur Amphetamines Screen Negative ng/mL (Negative) 03/01/24 17:10 U Benzodiazepines Scrn Negative ng/mL (Negative) 03/01/24 17:10 Urine Cocaine Screen Negative ng/mL (Negative) 03/01/24 17:10 U Marijuana (THC) Screen Positive ng/mL (Negative) H 03/01/24 17:10 All radiology interpretation(s) finalized by discharge Discharge Plan Discharge Patient Disposition: Home Clinical Impression: Pneumonia Qualifiers: Pneumonia type: due to unspecified organism Laterality: right Lung location: m iddle lobe of lung Qualified Code(s): J18.9 - Pneumonia, unspecified organism Abdominal pain Qualifiers: Abdominal location: epigastric Qualified Code(s): R10.13 - Epigastric pain Condition: Stable Prescriptions: New cefdinir 300 mg capsule 300 mg PO BID 10 Days Qty: 20 0RF famotidine [Pepcid] 20 mg tablet 20 mg PO DAILY Qty: 30 0RF No Action trazodone 100 mg tablet 200 mg PO BEDTIME amoxicillin-pot clavulanate 875-125 mg tablet 1 tab PO BID 10 Days Qty: 20 0RF fluticasone propionate [Flonase Allergy Relief] 50 mcg/actuation spray,suspension 2 spray intranasal BID Qty: 16 0RF Rx Instructions: administer into each nostril cetirizine [Zyrtec] 10 mg tablet 10 mg PO DAILY Qty: 30 0RF pantoprazole 40 mg tablet,delayed release (DR/EC) 40 mg PO DAILY clopidogrel 75 mg tablet 75 mg PO BEDTIME Trelegy Ellipta 100-62.5-25 mcg blister with device 1 inh INHALATION DAILY polyethylene glycol 3350 [Miralax] 17 gram powder in packet 17 g PO DAILY PRN (Reason: constipation) Qty: 14 0RF nitroglycerin [Nitrostat] 0.4 mg Tablet, Sublingual 0.4 mg SUBLINGUAL Q5M PRN (Reason: Chest Pain) Rx Instructions: do not exceed 3 doses per episode ropinirole 1 mg tablet 1 mg PO BEDTIME mirtazapine 15 mg Tablet 15 mg PO BEDTIME Qty: 30 1RF methocarbamol 750 mg tablet 750 mg PO Q6H PRN (Reason: spasms) Qty: 20 0RF Naprosyn 500 mg tablet 500 mg PO BID PRN (Reason: pain) Qty: 20 0RF Discharge Orders: Discharge ED (Routine); Ordered 03/01/24 Ordered By: Gordon Esparza Referrals: Lorelei Weinberg DO [Primary Care Provider] - 1 week Patient Instructions: Abdominal Pain (ED), Pneumonia (ED) Activity Restrictions/Additional Instructions: Please take all medicine as directed. Please follow-up with your family practice physician in the next 7 days for further evaluation and treatment. If your symptoms worsen please return to the ER. Coding Level of Care Code ED Tooling Mechanic for Chg Fwd Related Data Home Medications Medication Instructions Recorded Confirmed pantoprazole 40 mg tablet,delayed 40 mg PO DAILY 03/10/20 11/17/24 release clopidogrel 75 mg tablet 75 mg PO BEDTIME 07/26/20 02/20/24 fluticasone fur. 100 mcg-umeclid 1 inh inhalation DAILY 07/26/20 02/20/24 62.5 mcg-vilant 25 mcg inhalat.powder (Trelegy Ellipta) nitroglycerin 0.4 mg sublingual 0.4 mg sublingual Q5M PRN Chest 07/22/21 02/20/24 tablet (Nitrostat) Pain trazodone 100 mg tablet 200 mg PO BEDTIME 09/30/21 02/20/24 ropinirole 1 mg tablet 1 mg PO BEDTIME 10/09/22 02/20/24 Previous Rx's Medication Instructions Recorded polyethylene glycol 3350 17 gram 17 g PO DAILY PRN constipation #14 02/14/23 oral powder packet (Miralax) ea mirtazapine 15 mg tablet 15 mg PO BEDTIME #30 tabs 04/21/23 methocarbamol 750 mg tablet 750 mg PO Q6H PRN spasms #20 tabs 12/06/23 naproxen 500 mg tablet (Naprosyn) 500 mg PO BID PRN pain #20 tabs 12/06/23 amoxicillin 875 mg-potassium 1 tab PO BID 10 days #20 tabs 02/20/24 clavulanate 125 mg tablet cetirizine 10 mg tablet (Zyrtec) 10 mg PO DAILY #30 tabs 02/20/24 fluticasone propionate 50 2 spray intranasal BID #16 grams 02/20/24 mcg/actuation nasal spray,suspension (Flonase Allergy Relief) cefdinir 300 mg capsule 300 mg PO BID 10 days #20 caps 03/01/24 famotidine 20 mg tablet (Pepcid) 20 mg PO DAILY #30 tabs 03/01/24 Allergies Allergy/AdvReac Type Severity Reaction Status Date / Time aspirin Allergy Unknown Verified 02/20/24 10:25 codeine Allergy ALGY-Rash Verified 02/20/24 10:25 Fish Containing Products Allergy Unknown Verified 02/20/24 10:25 tramadol Allergy Unknown Verified 02/20/24 10:25
[2024-03-01 17:15] LABS: Basophils % 0.3 %; Eosinophils % 0.6 %; Hematocrit 43.2 % (36-47); Lymphocytes % 32.5 %; Mean Corpuscular HGB Conc 33.6 g/dL (30-55); Mean Corpuscular Hemoglobin 29.4 pg (27-33); Mean Corpuscular Volume 87.6 fl (85-98); Mean Platelet Volume 10.2 fL (7.4-10.4); Monocytes # 0.6 10^3/uL (0.2-0.9); Monocytes % 9.7 %; Neutrophils # 3.54 10^3/uL (1.8-7.7); Neutrophils % 56.6 %; Nucleated Red Blood Cells % 0 %; Platelet Count 293 10^3/cmm (157-399); Red Blood Count 4.93 10^6/uL (3.85-5.65); Red Cell Distribution Width 13.4 % (12.1-15.1); White Blood Count 6.27 10^3/uL (3.29-11.43)
[2024-03-01 17:17] LABS: Urine Appearance Clear (CLEAR); Urine Color Yellow (Yellow)
[2024-03-01 17:18] LABS: Add Urine Microscopic? YES; UA Manual Slide Review YES; UA Slide Review UA Slide Review Perf
[2024-03-01 17:37] LABS: Amphetamines Screen Urine Negative (Negative); Barbiturates Screen Urine Negative (Negative); Benzodiazepines Screen Urine Negative (Negative); Cocaine Screen Urine Negative (Negative); Opiate Screen Urine Negative (Negative); PCP Screen Urine Negative (Negative); THC Screen Urine Positive (Negative)
[2024-03-01 17:45] LABS: INR 0.91 (0.8-1.2)
[2024-03-01 18:03] LABS: Add Urine Culture? No; RBC Urine 0-4 /hpf (0-2); Squamous Epithelial Cell Urine 0-4 /hpf (0-5); WBC Urine RARE /hpf (0-5)
[2024-03-01 19:18] LABS: Lactic Sepsis W/Reflex 0.7 mmol/L (0.5-2.2)
[2024-03-01 19:29] LABS: Procalcitonin 0.04 ng/mL (0-0.5)
[2024-03-01 19:40] LABS: Alanine Aminotransferase 8 U/L (0-33); Albumin Level 3.6 g/dL (3.5-5.2); Alkaline Phosphatase 73 U/L (35-105); Anion Gap 17.3 (5-19); Aspartate Amino Transferase 15 U/L (0-32); Blood Urea Nitrogen 9 mg/dL (8-23); Calcium 9.2 mg/dL (8.5-10.5); Carbon Dioxide 22 mmol/L (22-29); Chloride 101 mmol/L (98-107); Creatinine Clr Calc Pharmacy 59.9405; Globulin 2.7 g/dL (1.3-4.6); Glomerular Filtration Rate 160.2 mL/min (90-130); Glucose 88 mg/dL (65-115); Lipase 58 U/L (13-60); Magnesium 1.8 mg/dL (1.7-2.3); Osmolality Calculated 282 mOsm/kg (285-295); Potassium 3.3 mmol/L (3.5-5.1); Sodium 137 mmol/L (136-145); Total Bilirubin 0.2 mg/dL (0.15-1.2); Total Protein 6.3 g/dL (6.6-8.7)
[2024-03-01] MEDS: famotidine 20 mg Tablet 40 MG PO (20:45)
[2024-03-01] MEDS: cefdinir 300 MG CAPSULE PO ×2 (20:45→20:55)
[2024-03-01] MEDS: ketorolac 30 mg/mL INJ IVP (20:54)
[2024-03-01] MEDS: famotidine 20 mg Tablet PO (20:55)
== END 2024-03-01 21:13 | disposition home or self-care (01) ==
PROVIDERS: Emergency Provider Emergency Medicine; PCP Family Medicine
DX: J18.9 Pneumonia, unspecified organism (principal); R10.13 Epigastric pain
CPT/HCPCS: 74177; 80053; 80306; 81001; 83605; 83690; 83735; 84145; 85025; 85610; 96374; 99285; J1885; Q9967

== ENCOUNTER 2024-11-03 10:42 | Emergency (ER) | payer OTHER, MEDICAID, SELFPAY ==
[2024-11-03] VITALS (9 sets, daily range): BP systolic 99–141; BP diastolic 54–99; PULSE 74–98; RESP 20–29; TEMP 36.9; O2SAT 90–94
[2024-11-03 11:38] LABS: Hematocrit 34.3 % (36-47); Hemoglobin 11.70 g/dL (11.27-16.99); Mean Corpuscular HGB Conc 34.1 g/dL (30-55); Mean Corpuscular Hemoglobin 30.2 pg (27-33); Mean Corpuscular Volume 88.4 fl (85-98); Nucleated Red Blood Cells % 0 %; Platelet Count 322 10^3/cmm (157-399); Red Blood Count 3.88 10^6/uL (3.85-5.65); White Blood Count 15.88 10^3/uL (3.29-11.43)
--- NOTE | 2024-11-03 11:40 | CT_ITS ---
WS: [id number] CT ABDOMEN PELVIS TECHNIQUE: Contrast-enhanced CT of the abdomen and pelvis with coronal and sagittal reformatted images. CLINICAL INFORMATION: abdominal pain, hx of Crohns COMPARISON: 03/01/2024 DLP: 305.[address] scans at [facility] use at least one of these dose optimization techniques: automated exposure control; mA and/or kV adjustment per patient size (includes targeted exams where dose is matched to clinical indication); or iterative reconstruction. FINDINGS: Cholecystectomy clips. Small esophageal hiatal hernia. Micronodular patchy infiltrates in the RIGHT middle lobe RIGHT lower lobe lingula and LEFT lower lobe. This is fairly extensive in the RIGHT lower lobe laterally compatible with pneumonia. No pleural fluid.Infiltrates are new since 2023. Findings suspicious for pneumonia. Diffuse gastric wall thickening compatible with gastritis. Normal pancreatic parenchymal enhancement. Normal spleen. Adrenal glands are normal. Normal renal parenchymal enhancement. No hydronephrosis. Small renal cyst. Celiac and SMA are patent. Normal caliber abdominal aorta. Portal vein and splenic vein are patent. No evidence of small or large bowel obstruction. Mild enhancement involving a few small bowel loops in the pelvis, terminal ileum, and submucosal enhancement in the cecum. Although not extensive this can be seen with mild Crohn's flare. No other acute findings. CT/CT abdomen pelvis w con* [id number] IMPRESSION: 1. Prior cholecystectomy. Prior hysterectomy. 2. Diffuse patchy micronodular infiltrates worse in the RIGHT lower lobe suspi cious for pneumonia. Recommend correlation for atypical pneumonias including MY COBACTERIAL, FUNGAL, OPPORTUNISTIC, AND VIRAL. This also can be seen with granu lomatous disease such as sarcoidosis and hypersensitivity pneumonitis 3. Similar-appearing micronodular infiltrates in the RIGHT middle lobe, lingul a and LEFT lower lobe. No pleural fluid or consolidation. 4. Although not extensive, there is mild small bowel enhancement in the pelvis with mild submucosal enhancement involving the terminal ileum and cecum can be seen with active Crohn's flare 5. Small esophageal hiatal hernia with gastritis. 6. No evidence of small or large bowel obstruction. Notified Antonio Cuello MD at 11/03/2024 2:05 PM.
[2024-11-03 11:51] LABS: Lactic Sepsis W/Reflex 1.5 mmol/L (0.5-2.2)
[2024-11-03 11:52] LABS: Alanine Aminotransferase 7 U/L (0-33); Albumin Level 3.5 g/dL (3.5-5.2); Alkaline Phosphatase 115 U/L (35-105); Anion Gap 20.9 (5-19); Aspartate Amino Transferase 11 U/L (0-32); Blood Urea Nitrogen 11 mg/dL (8-23); Calcium 9.0 mg/dL (8.5-10.5); Carbon Dioxide 20 mmol/L (22-29); Chloride 96 mmol/L (98-107); Globulin 3.9 g/dL (1.3-4.6); Glucose 122 mg/dL (65-115); Lipase 17 U/L (13-60); Osmolality Calculated 279 mOsm/kg (285-295); Sodium 134 mmol/L (136-145); Total Protein 7.4 g/dL (6.6-8.7)
[2024-11-03 11:58] LABS: Potassium 2.9 mmol/L (3.5-5.1)
--- NOTE | 2024-11-03 12:15 | ECG_ITS ---
[employer] Test Date: 2024-11-03 Pat Name: Gwen Briones Department: Room: Gender: Female [employer]: : 1960 Requested By: Antonio Cuello Order Number: [id number] Alcantar MD: BETHANY PERDUE Measurements Intervals [place] Rate: 96 P: 82 GA: 145 QRS: 70 QRSD: 102 T: 60 QT: 352 QTc: 446 Interpretive Statements SINUS RHYTHM POSSIBLE LEFT ATRIAL ENLARGEMENT [-0.1mV P-WAVE IN V1/V2] ANTEROSEPTAL MYOCARDIAL INFARCTION , OF INDETERMINATE AGE [40+ ms Q WAVE IN V1-V4] Compared to ECG 04/11/2023 18:22:56 No significant changes Electronically Signed On 11-06-2024 14:12:32 CDT by BETHANY PERDUE [id number]
[2024-11-03] MEDS: ondansetron 2 mg/ML SDV 2 mL 4 MG IVP (12:17)
[2024-11-03] MEDS: morphine 4 mg/mL SDV 1 mL IVP (12:19)
[2024-11-03] MEDS: haloperidol inj 5 mg/mL INJ 1 mL IVP (12:21)
[2024-11-03 13:29] LABS: Glucose Urine UA Negative (Normal); Nitrate Urine Negative (Negative); Specific Gravity, Urine 1.023 (1.005-1.030)
[2024-11-03] MEDS: iohexol 350 mg/mL 500 mL Btl (per mL) IV (13:29)
[2024-11-03 13:34] LABS: Add Urine Microscopic? YES; PCP Screen Urine Negative (Negative)
--- NOTE | 2024-11-03 15:03 | ED_ITS ---
HPI - Abdominal Pain 2 General: Chief Complaint: Abdominal Pain Stated Complaint: abdominal Pain Time Seen by Provider: 11/03/24 10:56 History of Present Illness: Patient is a 63-year-old female who presents to the ED with severe abdominal pain that began two weeks ago but has significantly worsened over the past three days. The patient reports the pain is so bad and appears in acute distress during the examination. She has a history of Crohn's disease with prior intestinal surgery. Patient denies taking any current medications for her Crohn's disease. She reports multiple prior surgeries including cholecystectomy and hysterectomy. The patient initially denied any substance use, though urine drug screen was later positive for opiates, amphetamines, and THC. Related Data Home Medications ?Medication ?Instructions ?Recorded ?Confirmed pantoprazole 40 mg tablet,delayed 40 mg PO DAILY 06/1211/03/24 release clopidogrel 75 mg tablet 75 mg PO BEDTIME 07/26/20 fluticasone fur. 100 mcg-umeclid 1 inh inhalation MARIBELL Y 07/26/20 11/03/24 62.5 mcg-vilant 25 mcg inhalat.powder (Trelegy Ellipta) nitroglycerin 0.4 mg sublingual 0.4 mg sublingual Q5M PRN Chest 07/22/21 11/03/24 tablet (Nitrostat) Pain trazodone 100 mg tablet 200 mg PO BEDTIME 09/30/21 0 11/03/24 ropinirole 1 mg tablet 1 mg PO BEDTIME 10/09/2204/29 buspirone 15 mg tablet 15 mg PO TID PRN Anxiety 04/2911/03/24 doxepin 50 mg capsule 50 mg PO BEDTIME 11/03/24 sertraline 50 mg tablet 50 mg PO QAM 11/03/24 sulfasalazine 500 mg tablet 500 mg PO BID 11/03/2404/29 Previous Rx's ?Medication ?Instructions ?Recorded cetirizine 10 mg tablet (Zyrtec) 10 mg PO DAILY #30 ta bs 02/20/24 doxycycline hyclate 100 mg capsule 100 mg PO BID 10 da ys #20 caps 11/03/24 potassium chloride 20 mEq 20 meq PO BID #10 tabs 11/03 tablet,extended release (K-Tab) Allergies Allergy/AdvReac Type Severity Reaction Status Date / Time aspirin Allergy Unknown Verified 02/20/24 10:25 codeine Allergy ALGY-Rash Verified 02/20/24 10:25 Fish Containing Products Allergy Unknown Verified 02/20/24 10:25 tramadol Allergy Unknown Verified 02/20/24 10:25 [facility] ED 2 PFSH: Medical History (Updated 11/03/24 @ 15:08 by Antonio Cuello MD) Nicotine dependence, cigarettes, uncomplicated Cannabis dependence, uncomplicated Brainstem stroke Anxiety Crohn's colitis Surgical History Status post tonsillectomy and adenoidectomy H/O: hysterectomy H/O tubal ligation S/P splenectomy S/P cholecystectomy S/P small bowel resection Family History Denies family history of CAD (coronary artery disease) Social History Smoking and tobacco/nicotine status: unknown if used tobacco/nicotine Physical Exam 2 Narrative: EXAM NARRATIVE: General: Patient in acute distress, writhing in pain HEENT: Head normocephalic and atraumatic. Mucous membranes moist. Neck: Supple Respiratory: No increased work of breathing, no wheezing Cardiac: Regular rate and rhythm, 2+ pulses in all extremities Abdomen: Diffuse tenderness noted Neuro: Cranial nerves grossly intact, no focal motor or sensory deficits noted Course 2 Vital Signs: Vital signs: Vital Signs Temperature 98.5 F 11/03/24 10:48 Pulse Rate 95 11/03/24 10:48 Respiratory Rate 24 H 11/03/24 12:19 Blood Pressure 141/78 11/03/24 10:48 Pulse Oximetry 94 11/03/24 10:48 Oxygen Delivery Me thod Room Air 11/03/24 10:48 MDM - Abdominal Pain Medical Decision Making ROS: Constitutional: Positive for abdominal pain. Negative for documented fever in the ED. Gastrointestinal: Positive for severe abdominal pain. Negative for vomiting, diarrhea, or constipation mentioned. Respiratory: Not specifically addressed in patient interview. All other systems: Limited review due to patient's distress. MEDICATIONS AND ALLERGIES: - Meds: Patient reports not taking any medications, including none for Crohn's disease - Allergies: Patient reports allergies but specific allergens were not identified PAST HISTORICAL DATA: - PMH: Crohn's disease - PSH: Intestinal surgery for Crohn's disease, cholecystectomy, hysterectomy, multiple other unspecified surgeries - Social: Initially denied drug use, but urine drug screen positive for opiates, amphetamines, and THC INITIAL IMPRESSION AND PLAN: Given the history and presentation, the primary working diagnosis is acute abdominal pain with possible Crohn's disease flare. Additional considerations include small bowel obstruction, intra-abdominal infection, pneumonia, and substance withdrawal. Based on this initial impression I will order complete blood count, comprehensive metabolic panel, urinalysis, urine drug screen, CT abdomen/pelvis with contrast, IV fluids, pain management with IV morphine, and antiemetics as needed. TEST INTERPRETATIONS: - CBC: WBC 15.8 (elevated), Hgb 11.7, Hct 34 - CMP: Sodium 134, Potassium 2.9 (low), Chloride 96, BUN 11, Creatinine 0.5, LFTs unremarkable - Urinalysis: Trace leukocyte esterase, 2+ blood, negative nitrites, 6-10 WBCs, 11-20 squamous epithelial cells, trace bacteria (consistent with contamination) - Urine drug screen: Positive for opiates, amphetamines, and THC - CT abdomen/pelvis: Evidence of prior cholecystectomy and hysterectomy. Diffuse micronodular infiltrates worse in right lower lobe suspicious for pneumonia (recommended correlation for atypical pneumonias including mycobacterial, fungal, opportunistic, and viral infections). Similar appearing micronodular infiltrates in right middle lobe, lingula, and left lower lobe. Mild small bowel enhancement in pelvis with mild submucosal enhancement involving terminal ileum and cecum consistent with active Crohn's flare. Small esophageal hiatal hernia with gastritis. No evidence of small or large bowel obstruction. CONSIDERED BUT NOT PERFORMED: Admission to hospital CONSIDERED but NOT DONE due to stable clinical condition, ability to tolerate oral medications, and appropriate outpatient follow-up plan with pulmonology and primary care physician. CT chest with contrast CONSIDERED but NOT DONE as the abdominal CT provided adequate visualization of the lung bases with findings of pneumonia. FINAL IMPRESSION: Based on all the above, my clinical impression is most compatible with atypical pneumonia with micronodular infiltrates requiring further workup, mild Crohn's disease flare, hypokalemia, and polysubstance use. The clinical picture is not currently suggestive of small bowel obstruction, appendicitis, or other acute surgical abdomen. Although other conditions were also considered, they were deemed unlikely based on the clinical information available. CLINICAL DISPOSITION: The patient's current condition is stable in my estimation and the most appropriate and indicated disposition at this time is discharge home with medications and close follow-up. The patient is safe for discharge as her pain has improved with medications, she is able to tolerate oral intake, her vital signs have stabilized, and she has appropriate follow-up arranged. The hypokalemia has been partially corrected with oral supplementation, and she will continue replacement as an outpatient. While the CT findings are concerning for atypical pneumonia, she is clinically stable without respiratory distress and will be treated with appropriate antibiotics. A QuantiFERON test has been ordered to rule out tuberculosis, and pulmonology follow-up has been arranged through case management to ensure proper evaluation of the micronodular infiltrates. RISK STRATIFICATION AND CLINICAL DECISION RULES APPLIED: No formal clinical decision rules were applied in this case. Clinical judgment was used to determine that the patient was stable for discharge with appropriate antibiotics, potassium supplementation, and close follow-up with pulmonology and primary care. CASE SUMMARY: 63-year-old female with history of Crohn's disease presented with severe abdominal pain for two weeks, worsening over the past three days. Initial evaluation revealed leukocytosis (WBC 15.8) and hypokalemia (K 2.9). CT abdomen/pelvis showed mild Crohn's flare affecting terminal ileum and cecum, but more significantly revealed diffuse micronodular infiltrates in multiple lung lobes concerning for atypical pneumonia. Urine drug screen was positive for opiates, amphetamines, and THC despite patient denial of substance use. Patient was treated with IV Rocephin, oral potassium replacement (40 mEq), IV morphine (4 mg), IV Zofran (4 mg), and haloperidol (5 mg) with significant improvement in symptoms. QuantiFERON test was ordered to rule out tuberculosis. Patient was discharged with prescriptions for doxycycline for pneumonia treatment and potassium supplementation. Case management arranged pulmonology follow-up to evaluate the concerning lung findings. Patient was counseled on the importance of follow-up with both pulmonology and primary care, as well as the risks associated with substance use. On reassessment, patient was resting comfortably in in no acute distress. Lab Data I reviewed the patient's lab results. 11/03/24 11:28 11/03/24 11:28 Labs/Radiology: Radiology Impressions Abdomen/Pelvis CT 11/03/24 11:40 IMPRESSION: 1. Prior cholecystectomy. Prior hysterectomy. 2. Diffuse patchy micronodular infiltrates worse in the RIGHT lower lobe suspicious for pneumonia. Recommend correlation for atypical pneumonias including MYCOBACTERIAL, FUNGAL, OPPORTUNISTIC, AND VIRAL. This also can be seen with granulomatous disease such as sarcoidosis and hypersensitivity pneumonitis 3. Similar-appearing micronodular infiltrates in the RIGHT middle lobe, lingula and LEFT lower lobe. No pleural fluid or consolidation. 4. Although not extensive, there is mild small bowel enhancement in the pelvis with mild submucosal enhancement involving the terminal ileum and cecum can be seen with active Crohn's flare 5. Small esophageal hiatal hernia with gastritis. 6. No evidence of small or large bowel obstruction. Notified Antonio Cuello MD at 11/03/2024 2:05 PM. Laboratory Results WBC 15.88 10^3/uL (3.29-11.43) H 11/03/24 11:28 RBC 3.88 10^6/uL (3.85-5.65) 11/03/24 11:28 Hgb 11.70 g/dL (11.27-16.99) 11/03/24 11:28 Hct 34.3 % (36-47) L 11/03/24 11:28 MCV 88.4 fl (85-98) 11/03/24 11:28 MCH 30.2 pg (27-33) 11/03/24 11:28 MCHC 34.1 g/dL (30-55) 11/03/24 11:28 RDW 13.2 % (12.1-15.1) 11/03/24 11:28 Plt Count 322 10^3/cmm (157-399) 11/03/24 11:28 MPV 10.3 fL (7.4-10.4) 11/03/24 11:28 Neut % (Auto) 85.9 % 11/03/24 11:28 Lymph % (Auto) 5.1 % 11/03/24 11:28 [place] % (Auto) 8.4 % 11/03/24 11:28 Eos % (Auto) 0.1 % 11/03/24 11:28 Baso % (Auto) 0.1 % 11/03/24 11:28 Neut # (Auto) 13.63 10^3/uL (1.8-7.7) H 11/03/24 11:28 Lymph # (Auto) 0.8 10^3/uL (0.8-4.8) 11/03/24 11:28 [place] # (Auto) 1.3 10^3/uL (0.2-0.9) H 11/03/24 11:28 Eos # (Auto) 0.0 10^3/uL (0.0-0.8) 11/03/24 11:28 Baso # (Auto) 0.0 10^3/uL (0.0-0.1) 11/03/24 11:28 Nucleated RBC % (auto) 0 % 11/03/24 11:28 Nucleated RBCs # 0.0 /100WBC 11/03/24 11:28 Sodium 134 mmol/L (136-145) L 11/03/24 11:28 Potassium 2.9 mmol/L (3.5-5.1) L 11/03/24 11:28 Chloride 96 mmol/L (98-107) L 11/03/24 11:28 Carbon Dioxide 20 mmol/L (22-29) L 11/03/24 11:28 Anion Gap 20.9 (5-19) H 11/03/24 11:28 BUN 11 mg/dL (8-23) 11/03/24 11:28 Creatinine 0.5 mg/dL (0.5-0.9) 11/03/24 11:28 GFR Calculation 123.8 mL/min (90-130) 11/03/24 11:28 Glucose 122 mg/dL (65-115) H 11/03/24 11:28 Calculated Osmolality 279 mOsm/kg (285-295) L 11/03/24 11:28 Lactic Acid 1.5 mmol/L (0.5-2.2) 11/03/24 11:28 Calcium 9.0 mg/dL (8.5-10.5) 11/03/24 11:28 Total Bilirubin 0.5 mg/dL (0.15-1.2) 11/03/24 11:28 AST 11 U/L (0-32) 11/03/24 11:28 ALT 7 U/L (0-33) 11/03/24 11:28 Alkaline Phosphatase 115 U/L (35-105) H 11/03/24 11:28 Total Protein 7.4 g/dL (6.6-8.7) 11/03/24 11:28 Albumin 3.5 g/dL (3.5-5.2) 11/03/24 11:28 Globulin 3.9 g/dL (1.3-4.6) 11/03/24 11:28 Lipase 17 U/L (13-60) 11/03/24 11:28 Urine Color Yellow (Yellow) 11/03/24 12:55 Urine Appearance Cloudy (CLEAR) A 11/03/24 12:55 Urine pH 5.5 (5-7) 11/03/24 12:55 Ur Specific [place] 1.023 (1.005-1.030) 11/03/24 12:55 Urine Protein 2+ (Negative) A 11/03/24 12:55 Urine Glucose (UA) Negative (Normal) 11/03/24 12:55 Urine Ketones Trace (Negative) 11/03/24 12:55 Urine Blood 2+ (Negative) A 11/03/24 12:55 Urine Nitrate Negative (Negative) 11/03/24 12:55 Urine Bilirubin Negative (Negative) 11/03/24 12:55 Urine Urobilinogen 1.0 mg/dL (Negative) 11/03/24 12:55 Ur Leukocyte Esterase Trace (Negative) A 11/03/24 12:55 Urine RBC 6-10 /hpf (0-2) 11/03/24 12:55 Urine WBC 6-10 /hpf (0-5) 11/03/24 12:55 Ur Squamous Epith Cells 11-20 /hpf (0-5) H 11/03/24 12:55 Amorphous Sediment Not Reportable 11/03/24 12:55 Urine Bacteria Trace /hpf (NONE) 11/03/24 12:55 Hyaline Casts 4.11 /lpf 11/03/24 12:55 Urine Opiates Screen Positive ng/mL (Negative) H 11/03/24 12:55 Ur Barbiturates Screen Negative ng/mL (Negative) 11/03/24 12:55 Ur Phencyclidine Scrn Negative ng/mL (Negative) 11/03/24 12:55 Ur Amphetamines Screen Positive ng/mL (Negative) H 11/03/24 12:55 U Benzodiazepines Scrn Negative ng/mL (Negative) 11/03/24 12:55 Urine Cocaine Screen Negative ng/mL (Negative) 11/03/24 12:55 U Marijuana (THC) Screen Positive ng/mL (Negative) H 11/03/24 12:55 All radiology interpretation(s) finalized by discharge Discharge Plan Discharge Patient Disposition: Home Clinical Impression: Atypical pneumonia, Acute hypokalemia, Crohn's disease, Abdominal pain Condition: Stable Prescriptions: New potassium chloride [K-Tab] 20 mEq tablet extended release 20 meq PO BID Qty: 10 0RF doxycycline hyclate 100 mg capsule 100 mg PO BID 10 Days Qty: 20 0RF No Action trazodone 100 mg tablet 200 mg PO BEDTIME cetirizine [Zyrtec] 10 mg tablet 10 mg PO DAILY Qty: 30 0RF pantoprazole 40 mg tablet,delayed release (DR/EC) 40 mg PO DAILY clopidogrel 75 mg tablet 75 mg PO BEDTIME Trelegy Ellipta 100-62.5-25 mcg blister with device 1 inh INHALATION DAILY nitroglycerin [Nitrostat] 0.4 mg Tablet, Sublingual 0.4 mg SUBLINGUAL Q5M PRN (Reason: Chest Pain) Rx Instructions: do not exceed 3 doses per episode ropinirole 1 mg tablet 1 mg PO BEDTIME doxepin 50 mg capsule 50 mg PO BEDTIME sulfasalazine 500 mg tablet 500 mg PO BID sertraline 50 mg tablet 50 mg PO QAM buspirone 15 mg tablet 15 mg PO TID PRN (Reason: Anxiety) Discharge Orders: Discharge ED (Routine); Ordered 11/03/24 Ordered By: Antonio Cuello Referrals: Lorelei Weinberg DO [Primary Care Provider, Family Practice] Discharge Activity: Increase activity as tolerated Patient Instructions: Abdominal Pain (ED), Opioid Safety, Pain Management, Patient Portal & [employer] Instructions Activity Restrictions/Additional Instructions: Medications: 1. Doxycycline - Take as prescribed for pneumonia 2. Potassium supplement - Take as prescribed to correct low potassium level Follow-up Instructions: 1. See your primary care doctor within 1 week 2. Attend the pulmonology appointment that has been arranged for you to evaluate the lung findings Return to the Emergency Department immediately if you experience: - Worsening shortness of breath or difficulty breathing - Fever greater than 101?F - Severe abdominal pain that is not controlled with prescribed medications - Inability to eat or drink - Vomiting or diarrhea that prevents you from taking your medications Additional Instructions: - Complete the full course of antibiotics even if you start feeling better - Avoid use of recreational drugs as they can worsen your condition and interact with medications - Drink plenty of fluids to stay hydrated - Rest as needed but try to increase activity gradually as you improve Print Language: Burkinan Coding Level of Care Code ED Wire Photo Operator for Jeaneth Headley
[2024-11-03] MEDS: cefTRIAXone 1,000 mg SDV 1000 MG IVP (15:57)
--- NOTE | 2024-11-06 07:34 | DCPLANNER ---
message pulm for er f/u
== END 2024-11-03 16:08 | disposition home or self-care (01) ==
PROVIDERS: Emergency Provider Student in an Organized Health Care Education/Training Program; PCP Family Medicine
DX: J18.9 Pneumonia, unspecified organism (principal); E87.6 Hypokalemia; K50.90 Crohn's disease, unspecified, without complications; R10.9 Unspecified abdominal pain
CPT/HCPCS: 74177; 80053; 80306; 81001; 83605; 83690; 85025; 86480; 93005; 96374; 96375; 99285; J0696; J1630; J2270; J2405; J7030; J9999

== ENCOUNTER → 2024-12-21 09:45 | Outpatient (BNVA) | payer MEDICARE, MEDICAID, SELFPAY | PROVIDERS: PCP Family Medicine; Visit Provider Internal Medicine | DX: J44.89 Other specified chronic obstructive pulmonary disease (principal); Z87.891 Personal history of nicotine dependence; J44.9 Chronic obstructive pulmonary disease, unspecified; T78.40XA Allergy, unspecified, initial encounter; Y99.9 Unspecified external cause status | CPT/HCPCS: 99214 ==

== ENCOUNTER 2025-01-04 10:00 | Outpatient (CLI) | payer MEDICARE, MEDICAID, SELFPAY ==
--- NOTE | 2025-01-04 10:05 | CTR_ITS ---
PROCEDURE INFORMATION: Exam: CT Chest With Contrast; Diagnostic Exam date and time: 01/04/2025 10:30 AM Age: 64 years old Clinical indication: Abnormal findings; Abnormal radiologic exam of lung or chest; Prior surgery; Surgery date: 6+ months; Surgery type: RT clavicle, gb; Additional info: Lung nodule TECHNIQUE: Imaging protocol: Diagnostic computed tomography of the chest with contrast. Radiation optimization: All CT scans at this facility use at least one of these dose optimization techniques: automated exposure control; mA and/or kV adjustment per patient size (includes targeted exams where dose is matched to clinical indication); or iterative reconstruction. Contrast material: OMNI 350; Contrast volume: 100 ml; Contrast route: INTRAVENOUS (IV); COMPARISON: CT chest abdpel w/*[id number] 10/08/2022 08:58 PM RADIATION DOSE METRICS: Total DLP (mGy-cm): 215.3 FINDINGS: Lungs: Bilateral posterior upper lobe parenchymal nodular scarring with calcifications is again noted, similar to the CT from 10/08/2022. Subpleural left lateral upper lobe calcified granuloma. Calcified subpleural nodule in the anterior right upper lobe. Calcified superior segment right lower lobe nodule is stable. Punctate calcification in the lateral aspect of the inferior right upper lobe. New reticular opacity in the inferior right upper lobe (series 5, image 27). Calcified left lower lobe granuloma. Patchy airspace disease in the medial aspect of the lingula. Nodular opacity in the right middle lobe measuring 1.9 cm (series 5, image 43), a new finding from the prior CT. New subpleural 7 mm nodule in the posterolateral right lung base (series 5, image 51). Pleural spaces: No pleural effusion. Heart: Cardiac size is normal. No pericardial effusion. Esophagus: Possible distal esophageal wall thickening. Lymph nodes: Calcified prevascular and left hilar lymph nodes. Vasculature: Atherosclerotic vascular disease. Prominent ascending aorta measuring 3.7 x 3.5 cm. No pulmonary embolism. Bones/joints: Degenerative changes of the spine with anterior osteophytic lipping. Plate fixation involving the right clavicle. Soft tissues: Unremarkable. CT/CT chest w con* [id number] IMPRESSION: 1. Bilateral posterior upper lobe parenchymal nodular scarring with calcifications is again noted, similar to the CT from 10/08/2022. 2. New reticular opacity in the inferior right upper lobe (series 5, image 27). 3. Patchy airspace disease in the medial aspect of the lingula. Atelectasis versus pneumonia. 4. Nodular opacity in the right middle lobe measuring 1.9 cm (series 5, image 43), a new finding from the prior CT. For both low risk and high risk patients, consider CT Chest at 3 months, PET/CT, or biopsy. (Reference: Sandeep) 5. New subpleural 7 mm nodule in the posterolateral right lung base (series 5, image 51). 6. Prominent ascending aorta measuring 3.7 x 3.5 cm. 7. Possible distal esophageal wall thickening. 8. Old healed granulomatous disease. REFERENCES: Sandeep H, et al. Guidelines for Management of Incidental Pulmonary Nodules Detected on CT Images: From the Fleischner Society 2017. Radiology. 2017;284(1):228-243.
[2025-01-04] MEDS: iohexol 350 mg/mL 500 mL Btl (per mL) IV (10:36)
== END 2025-01-04 10:01 | disposition home or self-care (01) ==
LOC: RAD 10:00
PROVIDERS: PCP Family Medicine; Visit Provider Family Medicine
DX: R91.1 Solitary pulmonary nodule (principal); J98.4 Other disorders of lung; R91.8 Other nonspecific abnormal finding of lung field; I89.8 Other specified noninfective disorders of lymphatic vessels and lymph nodes; I25.10 Atherosclerotic heart disease of native coronary artery without angina pectoris; M47.9 Spondylosis, unspecified; M25.78 Osteophyte, vertebrae
CPT/HCPCS: 71260

== ENCOUNTER 2025-02-05 11:50 | Outpatient (CLI) | payer MEDICARE, MEDICAID, SELFPAY ==
[2025-02-05 12:27] VITALS: PULSE 75; RESP 18; O2SAT 98
== END 2025-02-05 11:51 | disposition home or self-care (01) ==
LOC: RT 11:53
PROVIDERS: PCP Family Medicine; Visit Provider Internal Medicine
DX: J44.9 Chronic obstructive pulmonary disease, unspecified (principal)
CPT/HCPCS: 94060; 94726; 94729; J7613

== ENCOUNTER → 2025-02-08 10:45 | Outpatient (BNVA) | payer MEDICARE, MEDICAID, SELFPAY | PROVIDERS: PCP Family Medicine; Visit Provider Internal Medicine | DX: J44.89 Other specified chronic obstructive pulmonary disease (principal); R91.1 Solitary pulmonary nodule; Z87.891 Personal history of nicotine dependence; R56.9 Unspecified convulsions | CPT/HCPCS: 99214; Q3014 ==

== ENCOUNTER 2025-03-05 13:49 | Outpatient (CLI) | payer MEDICARE, MEDICAID, SELFPAY ==
[2025-03-05 14:24] LABS: Hematocrit 37.4 % (36-47); Hemoglobin 12.10 g/dL (11.27-16.99); Mean Corpuscular HGB Conc 32.4 g/dL (30-55); Mean Corpuscular Hemoglobin 28.2 pg (27-33); Mean Corpuscular Volume 87.2 fl (85-98); Nucleated Red Blood Cells % 0 %; Platelet Count 256 10^3/cmm (157-399); Red Blood Count 4.29 10^6/uL (3.85-5.65); White Blood Count 6.99 10^3/uL (3.29-11.43)
[2025-03-05 14:43] LABS: PCP Screen Urine Negative (Negative)
[2025-03-06 15:45] LABS: Bermuda Class 0; Cladosporium herbarum Class 0; Common Ragweed (Short) (W1) Ig <0.10 kU/L; Cottonwood Class 0; Dermatophagoides Class 0; Dermatophagoides Farinae (D2) <0.10 kU/L; Maple (Box Elder) (T1) Ige <0.10 kU/L; Maple leaf sycamore Tree <0.10 kU/L; Maple leaf sycamore Tree Class 0; Mouse Urine Proteins Class 0; Oak Class 0; Pecan/Hickory Tree <0.10 kU/L; Pecan/Hickory Tree Class 0; Penicillium Class 0; Ragweeed Class 0; Rough Marsh Elder (W16) Ige <0.10 kU/L; Rough Marsh Elder Class 0; Russian Thistle (W11) IgE <0.10 kU/L; White Ash Tree <0.10 kU/L; White Ash Tree Class 0
== END 2025-03-05 13:50 | disposition home or self-care (01) ==
LOC: LAB 13:51
PROVIDERS: PCP Family Medicine; Visit Provider Internal Medicine
DX: J44.9 Chronic obstructive pulmonary disease, unspecified (principal); T78.40XA Allergy, unspecified, initial encounter; X58.XXXA Exposure to other specified factors, initial encounter; R56.9 Unspecified convulsions
CPT/HCPCS: 36415; 80306; 82103; 85025; 86003

== ENCOUNTER → 2025-03-16 10:45 | Outpatient (BNVA) | payer MEDICARE, MEDICAID, SELFPAY | PROVIDERS: PCP Family Medicine; Visit Provider Internal Medicine | DX: J44.89 Other specified chronic obstructive pulmonary disease (principal); R91.1 Solitary pulmonary nodule; F15.91 Other stimulant use, unspecified, in remission; F12.91 Cannabis use, unspecified, in remission; Z87.891 Personal history of nicotine dependence | CPT/HCPCS: 99214; Q3014 ==